=== PATIENT | female | born 1960 | race Two or more races ===

== ENCOUNTER 2020-03-25 10:10 | Outpatient (REF) | payer OTHER, SELFPAY | END 2020-03-25 10:11 | disposition home or self-care (01) | LOC: HO.LAB 10:10 | PROVIDERS: PCP Nurse Practitioner Family; Visit Provider Internal Medicine | DX: Z20.828 Contact with and (suspected) exposure to other viral communicable diseases (principal) | CPT/HCPCS: 87635 ==

== ENCOUNTER 2020-04-01 08:50 | Emergency (ER) | payer OTHER, SELFPAY ==
[2020-04-01 08:55] VITALS: BP 138/83; BP 150/00; PULSE 102; PULSE 117; RESP 18; TEMP 37.2; O2SAT 96; O2SAT 97; BMI 29.5
--- NOTE | 2020-04-01 08:57 | ED_ITS ---
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 patient with no cardiac history Onset (ago): hour(s) Timing of current episode: episodic Onset: awoke with symptoms Pain location: left chest Related Data Allergies Allergy/AdvReac Type Severity Reaction Status Date / Time No Known Allergies Allergy Mild N/A Verified 04/01/20 09:04 Review of Systems Constitutional: Constitutional: Reports no additional constitutional complaints Eyes: Eyes: Reports no additional eye complaints ENT: Denies dizziness Cardiovascular: Cardiovascular: Reports no additional cardiovascular complaints Respiratory: Respiratory: Reports as per HPI Gastrointestinal: Gastrointestinal: Reports no additional gastrointestinal complaints Genitourinary: Genitourinary: Reports no additional female genitourinary complaints Musculoskeletal: Musculoskeletal: Reports no additional musculoskeletal complaints Integumentary/Breasts: Skin/Breast: Denies rash Neurologic: Reports system reviewed and no additional complaints, except as documented, Denies dizziness and Denies Sensory deficit (Neuro) Psychiatric: Psychiatric: Denies anxiety [facility] Past Medical History Medical History (Updated 04/01/20 @ 11:08 by Mario Marie MD) Arthritis Diabetes 1.5, managed as type 2 HTN (hypertension) Social History Social History Advance Directives: No Advance Directives Information Provided: No Physical Exam Vital Signs: Vital Signs: Vital Signs Temp Pulse Resp BP Pulse Ox 04/01/20 10:14 86 13 138/82 97 04/01/20 08:55 98.9 F 102 H 18 138/83 96 Body Mass Index 29.5 Const: General: healthy appearing Nutritional Appearance: average body habitus Orientation/consciousness: oriented to person and patient oriented x3 Limitations: no limitations HENMT: Head: Yes normal to inspection Ears: external ears normal General nose exam: Normal external nose present Mouth: Normal oral and palatal mucosa present and oropharynx normal Throat: Yes posterior oropharynx normal Eyes: General: appearance normal, both eyes and all related structures Neck: Other: supple Neck: Yes normal visual inspection Chest: Chest palpation & inspection: normal inspection of the chest Resp: Auscultation: clear to auscultation bilaterally Cardio: Jugular venous distension: no JVD Rate: regular rate Rhythm: regular rhythm Heart sounds: S1 normal heart sound present and S2 normal heart sound present GI: Inspection: Yes normal to inspection Palpation (GI): Soft to palpation, nontender and No hepatosplenomegaly present Auscultation: normal bowel sounds : General: Yes no CVA tenderness Back/Spine/Pelvis: Back: no CVA tenderness Skin: General skin exam: no rashes or lesions noted Neuro: General: oriented to person and patient oriented x3 Cranial nerves: Yes CN's II-XII intact bilaterally Motor exam (neuro): 5/5 motor strength present throughout Sensory Exam: No Sensory deficit (Neuro) Extrem: General: Yes normal to inspection Psych: Appearance: grossly normal Course Course Course Narrative: no active pain resting comfortably MDM - Chest Pain MDM Narrative Medical decision making narrative: patient is not hypoxic, no infiltrate on xray, EKG and troponin is non ischemic Medical Records Data Attestation: I reviewed the patient's medical records. Lab Data Result diagrams: 04/01/20 09:13 04/01/20 09:13 Labs: Lab Results 04/01/20 04/01/20 04/01/20 Range/Units 09:13 09:13 09:13 WBC 8.0 (4.8-10.8) X10*3/uL RBC 4.74 (4.20-5.50) X10*6/uL Hgb 12.8 (12.0-16.0) g/dl Hct 39.8 (37-47) % MCV 84.0 (80-98) fL MCH 27.0 (27.0-33.0) pg MCHC 32.2 (31.0-35.0) g/dl RDW 13.8 (11.0-16.0) % Plt Count 172 (160-400) X10*3/uL MPV 11.1 (9.4-12.3) fL Immature Gran % (Auto) 1.0 H (0.0-0.4) % Neut % (Auto) 65.5 (45-73) % Lymph % (Auto) 28.5 (20-40) % [place] % (Auto) 4.6 (2-11) % Eos % (Auto) 0.1 (0-4) % Baso % (Auto) 0.3 (0-2) % Lymph # (Auto) 2.3 (1.2-4.9) X10*3/uL [place] # (Auto) 0.4 (0.1-1.2) X10*3/uL Eos # (Auto) 0.0 (0.0-0.4) X10*3/uL Baso # (Auto) 0.0 (0.0-0.2) X10*3/uL Abs Immat Gran (auto) 0.08 H (0.00-0.03) X10*3/uL Absolute Neuts (auto) 5.2 (2.0-8.3) X10*3/uL Absolute Nucleated RBC 0.000 (0.0-0.012) X10*3/uL Nucleated RBC % (auto) 0.0 (0.0-0.2) /100WBC Sodium 139 (135-145) mmol/L Potassium 3.5 (3.3-5.1) mmol/l Chloride 103 (96-108) mmol/L Carbon Dioxide 24 (22-29) mmol/L Anion Gap 16 (12-20) BUN 12 (9-16) mg/dL Creatinine 0.66 (0.5-1.4) mg/dL Estim Creat Clear Calc 87.2 Estimated GFR > 60 Random Glucose 198 H (60-115) mg/dL Calcium 8.5 (8.4-10.2) mg/dL Troponin I High Sens 5.3 (<3.5-17.0) ng/L ECG Data ECG #1: Attestation: I personally reviewed and interpreted this ECG as follows: Pacemaker model: sinus rate of 90, no st or twave changes no ischemia Discharge Plan Discharge Clinical Impression: Upper respiratory infection, 2019 novel coronavirus detected Patient Disposition: Home, Self-Care Instructions: COVID-19 (Coronavirus Disease 2019) (ED) Referrals: Dena Bellamy NP [Primary Care Provider] - 2 days
--- NOTE | 2020-04-01 09:01 | XR_ITS ---
EXAMINATION: XR CHEST CLINICAL INFORMATION: ] Positive it shows COMPARISON: None TECHNIQUE: Frontal view of the chest was obtained. FINDINGS: No significant abnormality is noted involving the heart, lungs, mediastinum, bony thorax or soft tissues. XR/XR chest 1V IMPRESSION: Unremarkable chest examination.
[2020-04-01 09:22] LABS: MANUAL DIFF FLAG NO
[2020-04-01 09:24] LABS: Basophils Percent Auto 0.3 % (0-2); Eosinophils Percent Auto 0.1 % (0-4); Hematocrit 39.8 % (37-47); Hemoglobin 12.8 g/dl (12.0-16.0); Imm Gran Abs Auto 0.08 X10*3/uL (0.00-0.03); Lymphocytes Absolute Auto 2.3 X10*3/uL (1.2-4.9); Lymphocytes Percent Auto 28.5 % (20-40); Mean Corpuscular HGB Conc 32.2 g/dl (31.0-35.0); Mean Platelet Volume 11.1 fL (9.4-12.3); Monocytes Absolute Auto 0.4 X10*3/uL (0.1-1.2); Monocytes Percent Auto 4.6 % (2-11); Neutrophils Absolute Auto 5.2 X10*3/uL (2.0-8.3); Neutrophils Percent Auto 65.5 % (45-73); Platelet Count 172 X10*3/uL (160-400); Red Blood Count 4.74 X10*6/uL (4.20-5.50); Red Cell Distribution Width 13.8 % (11.0-16.0)
[2020-04-01 09:51] LABS: Anion Gap 16 (12-20); Blood Urea Nitrogen 12 mg/dL (9-16); Calcium 8.5 mg/dL (8.4-10.2); Carbon Dioxide 24 mmol/L (22-29); Chloride 103 mmol/L (96-108); Creatinine Clr Calc Pharmacy 87.2; Estimated Glomerular Filt Rate > 60; Glucose Random 198 mg/dL (60-115); Potassium 3.5 mmol/l (3.3-5.1); Sodium 139 mmol/L (135-145)
[2020-04-01 09:57] LABS: Troponin-I High Sensitivity 5.3 ng/L (<3.5-17.0)
--- NOTE | 2020-04-01 09:57 | ECG_ITS ---
Test Reason : CHEST PAIN Blood Pressure : / mmHG Vent. Rate : 094 BPM Atrial Rate : 094 BPM P-R Int : 142 ms QRS Dur : 088 ms QT Int : 366 ms P-R-T Axes : 039 013 056 degrees QTc Int : 457 ms Normal sinus rhythm Nonspecific ST abnormality Abnormal ECG Heart rate has increased Referred By: Mario Marie Electronically Signed By:ELIE BERG MD
[2020-04-01 10:14] VITALS: BP 138/82; PULSE 86; RESP 13; O2SAT 97
[2020-04-01 11:18] VITALS: BP 134/82; PULSE 84; RESP 16; O2SAT 97
== END 2020-04-01 11:15 | disposition home or self-care (01) ==
PROVIDERS: Emergency Provider Emergency Medicine; PCP Nurse Practitioner Family
DX: U07.1 COVID-19 (principal); R07.9 Chest pain, unspecified; J06.9 Acute upper respiratory infection, unspecified; I10 Essential (primary) hypertension; Z79.899 Other long term (current) drug therapy
CPT/HCPCS: 36415; 71045; 80048; 84484; 85025; 93005; 99283; 99284

== ENCOUNTER 2020-05-20 13:24 | Outpatient (REF) | payer OTHER, SELFPAY | END 2020-05-20 13:25 | disposition home or self-care (01) | LOC: HO.LAB 13:24 | PROVIDERS: PCP Nurse Practitioner Family; Visit Provider Internal Medicine | DX: Z20.828 Contact with and (suspected) exposure to other viral communicable diseases (principal) | CPT/HCPCS: C9803; U0003 ==

== ENCOUNTER 2020-06-05 12:36 | Outpatient (REF) | payer OTHER, SELFPAY ==
--- NOTE | 2020-06-05 12:43 | MM_ITS ---
EXAMINATION: MM SCREENING DIGITAL BREAST TOMOSYNTHESIS, BILATERAL CLINICAL INFORMATION: Screening. Asymptomatic. The lifetime risk of breast cancer based on the Tyrer-Cuzick Model is 5.2%. COMPARISON: Mammography: May 11, 2019 and studies dating back to September 12, 2011 TECHNIQUE: Digital breast tomosynthesis is performed in both the craniocaudal and mediolateral oblique views along with computer-aided detection (CAD). Synthesized 2D images are generated from the tomosynthesis. FINDINGS: There are scattered areas of fibroglandular density (ACR BI-RADS breast composition Category b). There are no new significant masses, abnormal calcifications, or other abnormalities. There are again noted to be 2 circumscribed lesions within the lateral aspect of the right breast. MM/MM tomosynthesis screening BI IMPRESSION: There are no significant changes from prior study. ASSESSMENT: BI-RADS 2: Benign RECOMMENDATION: Routine annual mammography screening. This patient's information was entered into a reminder system with a target due date for their next mammogram.
== END 2020-06-05 12:37 | disposition home or self-care (01) ==
LOC: HO.MAMMO 12:36
PROVIDERS: Visit Provider Nurse Practitioner Family
DX: Z12.31 Encounter for screening mammogram for malignant neoplasm of breast (principal)
CPT/HCPCS: 77063; 77067

== ENCOUNTER 2021-02-18 09:08 | Outpatient (REF) | payer OTHER, SELFPAY | END 2021-02-18 09:09 | disposition home or self-care (01) | LOC: HO.HOSX 09:08 | PROVIDERS: Visit Provider Physician Assistant | DX: Z13.89 Encounter for screening for other disorder (principal) ==

== ENCOUNTER 2021-02-24 10:39 | Emergency (ER) | payer OTHER, SELFPAY ==
--- NOTE | ~2021-02-24 | XR_ITS ---
EXAMINATION: XR CHEST CLINICAL INFORMATION: Chest pain and cough COMPARISON: None TECHNIQUE: Frontal view of the chest was obtained. FINDINGS: No significant abnormality is noted involving the heart, lungs, mediastinum, bony thorax or soft tissues. XR/XR chest 1V IMPRESSION: Unremarkable chest examination.
--- NOTE | ~2021-02-24 | CT_ITS ---
EXAMINATION: CT ANGIOGRAM OF THE CHEST WITH AND WITHOUT CONTRAST (CT PULMONARY ANGIOGRAM FOR PE) CLINICAL INFORMATION: Reason for Exam chest pain elevated ddimer r/o PE COMPARISON: None TECHNIQUE: Prior to contrast administration, noncontrast localization images were obtained. Subsequently, multidetector volumetric imaging was performed from the thoracic inlet to below the diaphragms following the administration of 80 mL Omnipaque 350 intravenous contrast. No contrast reaction reported Sagittal, coronal, and MIP oblique sagittal reformatted images were obtained on the CT workstation, uploaded to PACS, and reviewed. This CT examination was performed using dose optimization techniques as appropriate, variously including the following: *Automated exposure control *Adjustment of mA and/or kV according to patient size (this includes techniques or standardized protocols for targeted exams where dose is matched to indication/reason for exam; i.e. extremities or head) *Use of iterative reconstruction technique Total exam dose-length product 205 mGy-cm FINDINGS: QUALITY OF STUDY/CONTRAST BOLUS: Satisfactory. PULMONARY ARTERIES: No central or segmental pulmonary emboli. THORACIC AORTA: No aneurysm or dissection. LUNG: The lungs are well-expanded and clear of acute process. There is a calcified 3 mL nodule left upper lobe axial image 15/6. No additional lung nodules seen. PLEURA: No pleural effusion or pneumothorax. MEDIASTINUM: Normal heart size. No pericardial effusion. No hilar or mediastinal lymphadenopathy. No evidence of septal bowing or right heart strain. CHEST WALL/AXILLA: No axillary or internal mammary lymphadenopathy. OSSEOUS STRUCTURES: No lytic or sclerotic process seen. There is mild ventral spondylosis dorsal spine. UPPER ABDOMEN: The liver is diffusely attenuated without focal lesion. Spleen, pancreas and adrenal glands are unremarkable. No reflux of contrast into the hepatic veins to suggest elevated right heart pressures. CT/CT angio chest PE protocol IMPRESSION: No evidence of PE. No evidence aortic dissection or aneurysm. Diffuse hepatic steatosis without focal lesion. VTE: Negative.
[2021-02-24 11:27] VITALS: BP 150/86; PULSE 72; RESP 18; TEMP 36; O2SAT 96; BMI 29.5
--- NOTE | 2021-02-24 13:23 | ED_ITS ---
HPI - General Adult General Chief complaint: General Medical Stated complaint: cough headache Time Seen by Provider: 02/24/21 13:18 Source: patient Mode of arrival: ambulatory Limitations: language barrier (English-speaking) History of Present Illness HPI narrative: 61-year-old female with no known past medical history presents to the emergency department with concerns of a dry cough X1 week, headache & left sided chest pain since this AM. She states the headache is bilateral, localized to the front of her head. She denies any changes in vision, dizziness. She states that her chest pain is localized to the left side, for radiation 5/10 , stabbing and constant in nature . She is not a smoker, she has gotten her COVID vaccines. She denies fevers, chills, shortness of breath, abdominal pain, changes in bowel habits, recent sick contacts, travel. Onset (ago): day(s) (2) Location: chest and left Radiation: non-radiation Severity: moderate Severity scale (1-10): 5 Quality: stabbing Pain Consistency: constant Relieving factors: none Exacerbating factors: none Associated symptoms: chest pain, cough and headaches (Frontal, band like) Treatments prior to arrival: none Related Data Previous Rx's Medication Instructions Recorded isosorbide mononitrate 30 mg 30 mg PO DAILY 90 Days #90 tab 06/11/20 tablet,extended release 24 hr acetaminophen 325 mg tablet 325 mg PO Q6H PRN #14 tab 02/24/21 (Tylenol) benzonatate 100 mg capsule 100 mg PO BID PRN #30 cap 02/24/21 (Tessalon Perles) Allergies Allergy/AdvReac Type Severity Reaction Status Date / Time No Known Allergies Allergy Mild N/A Verified 04/01/20 09:04 Review of Systems Review of Systems: Constitutional : No Fever, No Chills ENT/Mouth : positive oral swelling, No Hoarseness, No Swallowing Difficulty Eyes: No Eye Pain, No Swelling, No Redness Cardiovascular : + Chest Pain, No SOB Respiratory : + Cough, No Sputum, No Wheezing, No Smoke Exposure, No Dyspnea Gastrointestinal : No Nausea, No Vomiting, No Diarrhea, No abdominal Pain Genitourinary : No Dysuria, No Urinary Frequency Musculoskeletal : No joint pain, No Myalgias, No Joint Swelling Skin : No Skin Lesions, positive rash Neuro : No Weakness, No Numbness, + Headache All other systems reviewed and are negative [facility] Past Medical History Medical History (Updated 02/24/21 @ 15:47 by Dinora Harris DO) Arthritis Diabetes 1.5, managed as type 2 HTN (hypertension) Social History Social History Advance Directives: No Advance Directives Information Provided: No Physical Exam Vital Signs: Vital Signs: Last Vital Signs Temp 96.8 F 02/24/21 11: Pulse 72 02/24/21 11: Resp 18 02/24/21 11:27 BP 150/86 H 02/24/21 11:27 Pulse Ox 96 02/24/21 11:27 Body Mass Index 29.5 Appearance: Alert. Oriented X3. No acute distress. Eyes: Pupils equal, round and reactive to light. ENT: Pharynx normal. Neck: Normal inspection. Neck supple. CVS: Normal heart rate and rhythm. Pulses normal. Respiratory: No respiratory distress. Breath sounds normal. Abdomen: Soft and nontender. Skin: Skin warm and dry. Normal skin color. Normal skin turgor. Extremities: No lower extremity edema. No calf ttp Neuro: Oriented X 3. No motor deficit. No sensory deficit. Course Course Course Narrative: D-dimer is positive CTA will be ordered to r/o PE. Reevaluation(s) Reevaluation #1: CTA shows no sign of PE, normal EKG, labs show no signs of acute infection. She is saturating 96% on RA in no acute distress. Likely viral bronchitis patient safe for discharge home, she can take Tylenol for headaches, Tessalon Perles for the cough. Medical Decision Making [facility] Narrative Medical decision making narrative: This is a 61-year-old female with no known past medical history she reports a dry cough x1 week, and left sided chest pain and a bilateral bandlike headache. On physical examination she was noted to have a rapid rate normal rhythm. Likely sinus tachycardia however, patient appeared nervous. EKG showed sinus chun Based off the patient's symptoms, and physical exam findings will rule out cardiac etiology Plan- EKG, CXR, COVID, BMP,liver, CBC, Mag, Trop , d dimer Lab Data Result diagrams: 02/24/21 13:47 02/24/21 13:47 Labs: Lab Results 02/24/21 02/24/21 02/24/21 Range/Units 13:47 13:47 13:47 WBC 10.9 H (4.8-10.8) X10*3/uL RBC 4.86 (4.20-5.50) X10*6/uL Hgb 13.2 (12.0-16.0) g/dl Hct 40.6 (37-47) % MCV 83.5 (80-98) fL MCH 27.2 (27.0-33.0) pg MCHC 32.5 (31.0-35.0) g/dl RDW 14.0 (11.0-16.0) % Plt Count 210 (160-400) X10*3/uL MPV 11.1 (9.4-12.3) fL Immature Gran % (Auto) 1.0 H (0.0-0.4) % Neut % (Auto) 72.9 (45-73) % Lymph % (Auto) 20.7 (20-40) % [place] % (Auto) 4.6 (2-11) % Eos % (Auto) 0.5 (0-4) % Baso % (Auto) 0.3 (0-2) % Lymph # (Auto) 2.3 (1.2-4.9) X10*3/uL [place] # (Auto) 0.5 (0.1-1.2) X10*3/uL Eos # (Auto) 0.1 (0.0-0.4) X10*3/uL Baso # (Auto) 0.0 (0.0-0.2) X10*3/uL Abs Immat Gran (auto) 0.11 H (0.00-0.03) X10*3/uL Absolute Neuts (auto) 8.0 (2.0-8.3) X10*3/uL Absolute Nucleated RBC 0.000 (0.0-0.012) X10*3/uL Nucleated RBC % (auto) 0.0 (0.0-0.2) /100WBC D-Dimer NG/ML Sodium 138 (135-145) mmol/L Potassium 4.0 (3.3-5.1) mmol/L Chloride 104 (96-108) mmol/L Carbon Dioxide 23 (22-29) mmol/L Anion Gap 15 (12-20) BUN 13 (9-16) mg/dL Creatinine 0.68 (0.5-1.4) mg/dL Estim Creat Clear Calc 83.6 Estimated GFR > 60 Random Glucose 141 H (60-115) mg/dL Calcium 9.2 D (8.4-10.2) mg/dL Magnesium 2.1 (1.6-2.6) mg/dL Total Bilirubin 0.6 (0.0-1.0) mg/dL Direct Bilirubin 0.2 (0.0-0.5) mg/dL AST 18 (5-31) U/L ALT 20 (0-31) U/L Alkaline Phosphatase 129 H (39-117) U/L Troponin I High Sens (<3.5-17.0) ng/L Total Protein 7.3 (6.5-8.0) g/dL Albumin 4.4 (3.5-5.0) g/dL COVID-19 (GRACIE) Negative (Negative) COVID-19 Clin Com See Note 02/24/21 02/24/21 Range/Units 13:47 13:47 WBC (4.8-10.8) X10*3/uL RBC (4.20-5.50) X10*6/uL Hgb (12.0-16.0) g/dl Hct (37-47) % MCV (80-98) fL MCH (27.0-33.0) pg MCHC (31.0-35.0) g/dl RDW (11.0-16.0) % Plt Count (160-400) X10*3/uL MPV (9.4-12.3) fL Immature Gran % (Auto) (0.0-0.4) % Neut % (Auto) (45-73) % Lymph % (Auto) (20-40) % [place] % (Auto) (2-11) % Eos % (Auto) (0-4) % Baso % (Auto) (0-2) % Lymph # (Auto) (1.2-4.9) X10*3/uL [place] # (Auto) (0.1-1.2) X10*3/uL Eos # (Auto) (0.0-0.4) X10*3/uL Baso # (Auto) (0.0-0.2) X10*3/uL Abs Immat Gran (auto) (0.00-0.03) X10*3/uL Absolute Neuts (auto) (2.0-8.3) X10*3/uL Absolute Nucleated RBC (0.0-0.012) X10*3/uL Nucleated RBC % (auto) (0.0-0.2) /100WBC D-Dimer 367 NG/ML Sodium (135-145) mmol/L Potassium (3.3-5.1) mmol/L Chloride (96-108) mmol/L Carbon Dioxide (22-29) mmol/L Anion Gap (12-20) BUN (9-16) mg/dL Creatinine (0.5-1.4) mg/dL Estim Creat Clear Calc Estimated GFR Random Glucose (60-115) mg/dL Calcium (8.4-10.2) mg/dL Magnesium (1.6-2.6) mg/dL Total Bilirubin (0.0-1.0) mg/dL Direct Bilirubin (0.0-0.5) mg/dL AST (5-31) U/L ALT (0-31) U/L Alkaline Phosphatase (39-117) U/L Troponin I High Sens 5.5 (<3.5-17.0) ng/L Total Protein (6.5-8.0) g/dL Albumin (3.5-5.0) g/dL COVID-19 (GRACIE) (Negative) COVID-19 Clin Com ECG Data Attestation: I personally reviewed and interpreted this ECG as follows: Prior ECG tracings: not available for review Interpretation: Rate: 57 Rhythm: Sinus bradycardia [place]: Normal access Normal P waves. Normal MELISSA. Normal QRS complex. ST T wave : No ST elevations, or T-wave inversions qTC: Normal prior studies: No previous studies to compare The study has been interpreted contemporaneously by me. . Discharge Plan Discharge Clinical Impression: Cough, Headache Patient Disposition: Home, Self-Care Instructions: Acute Headache (ED), Acute Cough (ED) Additional Instructions: Follow-up with your primary care provider Drink plenty of fluids Tylenol was prescribed for your headache, take it as needed Return to the emergency department with new or worsening symptoms Prescriptions: New benzonatate [Tessalon Perles] 100 mg capsule 100 mg PO BID PRN (Reason: cough) Qty: 30 RF: 0 acetaminophen [Tylenol] 325 mg tablet 325 mg PO Q6H PRN (Reason: hedache ) Qty: 14 RF: 0 No Action isosorbide mononitrate 30 mg tablet extended release 24 hr 30 mg PO DAILY 90 Days Qty: 90 RF: 1 Referrals: Crystal Atkinson [Primary Care Provider] - 2 days
--- NOTE | 2021-02-24 13:25 | ECG_ITS ---
Test Reason : CHEST PAIN Blood Pressure : / mmHG Vent. Rate : 057 BPM Atrial Rate : 057 BPM P-R Int : 150 ms QRS Dur : 078 ms QT Int : 446 ms P-R-T Axes : 040 016 052 degrees QTc Int : 434 ms Sinus bradycardia Otherwise normal ECG When compared with ECG of 01-APR-2020 09:57, Vent. rate has decreased BY 37 BPM Referred By: Dinora Harris Electronically Signed By:GRANT ALBERT
[2021-02-24 13:52] LABS: MANUAL DIFF FLAG NO
[2021-02-24 13:55] LABS: Basophils Percent Auto 0.3 % (0-2); Eosinophils Absolute Auto 0.1 X10*3/uL (0.0-0.4); Eosinophils Percent Auto 0.5 % (0-4); Hematocrit 40.6 % (37-47); Hemoglobin 13.2 g/dl (12.0-16.0); Imm Gran Abs Auto 0.11 X10*3/uL (0.00-0.03); Lymphocytes Absolute Auto 2.3 X10*3/uL (1.2-4.9); Lymphocytes Percent Auto 20.7 % (20-40); Mean Corpuscular HGB Conc 32.5 g/dl (31.0-35.0); Mean Corpuscular Hemoglobin 27.2 pg (27.0-33.0); Mean Corpuscular Volume 83.5 fL (80-98); Mean Platelet Volume 11.1 fL (9.4-12.3); Monocytes Absolute Auto 0.5 X10*3/uL (0.1-1.2); Monocytes Percent Auto 4.6 % (2-11); Neutrophils Percent Auto 72.9 % (45-73); Platelet Count 210 X10*3/uL (160-400); Red Blood Count 4.86 X10*6/uL (4.20-5.50); White Blood Count 10.9 X10*3/uL (4.8-10.8)
[2021-02-24 14:11] LABS: COVID-19 Test Negative (Negative)
[2021-02-24 14:14] LABS: D Dimer 367 NG/ML
[2021-02-24 14:15] LABS: Alanine Aminotransferase 20 U/L (0-31); Albumin Level 4.4 g/dL (3.5-5.0); Alkaline Phosphatase 129 U/L (39-117); Anion Gap 15 (12-20); Aspartate Amino Transferase 18 U/L (5-31); Bilirubin Direct 0.2 mg/dL (0.0-0.5); Bilirubin Total 0.6 mg/dL (0.0-1.0); Blood Urea Nitrogen 13 mg/dL (9-16); Calcium 9.2 mg/dL (8.4-10.2); Carbon Dioxide 23 mmol/L (22-29); Chloride 104 mmol/L (96-108); Creatinine Clr Calc Pharmacy 83.6; Estimated Glomerular Filt Rate > 60; Glucose Random 141 mg/dL (60-115); Magnesium 2.1 mg/dL (1.6-2.6); Sodium 138 mmol/L (135-145); Total Protein 7.3 g/dL (6.5-8.0)
[2021-02-24 14:20] LABS: Troponin-I High Sensitivity 5.5 ng/L (<3.5-17.0)
[2021-02-24] MEDS: iohexoL 350 MG/ML 100 ML INFUS..BTL IV (15:32)
== END 2021-02-24 17:38 | disposition home or self-care (01) ==
PROVIDERS: Emergency Provider Emergency Medicine; PCP Nurse Practitioner
DX: R05 Cough (principal); R51.9 Headache, unspecified; R07.9 Chest pain, unspecified; Z20.822 Contact with and (suspected) exposure to COVID-19; Z79.899 Other long term (current) drug therapy
CPT/HCPCS: 36415; 71045; 71275; 80048; 80076; 83735; 84484; 85025; 85379; 87635; 93005; 99284; Q9967

== ENCOUNTER 2021-02-28 07:09 | Outpatient (REF) | payer OTHER, SELFPAY ==
--- NOTE | ~2021-02-28 | XR_ITS ---
EXAMINATION: XR BOTH KNEES AP STANDING XR LEFT KNEE, 2 VIEWS CLINICAL INFORMATION: Pain. COMPARISON: Knee radiographs dated 07/11/2018. TECHNIQUE: Standing AP view of both knees and lateral and sunrise views of the left knee. FINDINGS: Right Knee: Mild medial compartment joint space narrowing. Tiny medial and lateral compartment marginal osteophytes. No osseous erosion. No fracture or dislocation. Left Knee: Deot-ad-uhjlbkfy medial compartment joint space narrowing. Tricompartmental marginal osteophytes. No acute fracture or dislocation. Small joint effusion. Redemonstration of posterior calcified loose bodies, increased in size and number when compared to the prior examination. The largest now measures up to 1.4 cm. XR/XR knee LT 2V IMPRESSION: Jedx-kc-cxnwlrsp medial and patellofemoral as well as mild lateral compartment osteoarthritis. Small joint effusion. Multiple posterior calcified loose bodies. Findings have progressed when compared to the prior examination.
--- NOTE | ~2021-02-28 | XR_ITS ---
EXAMINATION: XR BOTH KNEES AP STANDING XR LEFT KNEE, 2 VIEWS CLINICAL INFORMATION: Pain. COMPARISON: Knee radiographs dated 07/11/2018. TECHNIQUE: Standing AP view of both knees and lateral and sunrise views of the left knee. FINDINGS: Right Knee: Mild medial compartment joint space narrowing. Tiny medial and lateral compartment marginal osteophytes. No osseous erosion. No fracture or dislocation. Left Knee: Fywx-hf-rsjfleqg medial compartment joint space narrowing. Tricompartmental marginal osteophytes. No acute fracture or dislocation. Small joint effusion. Redemonstration of posterior calcified loose bodies, increased in size and number when compared to the prior examination. The largest now measures up to 1.4 cm. XR/XR knee standing BI IMPRESSION: Kdiz-zs-nhxnigyl medial and patellofemoral as well as mild lateral compartment osteoarthritis. Small joint effusion. Multiple posterior calcified loose bodies. Findings have progressed when compared to the prior examination.
== END 2021-02-28 07:10 | disposition home or self-care (01) ==
LOC: HO.HOSX 07:09
PROVIDERS: Visit Provider Physician Assistant
DX: M17.12 Unilateral primary osteoarthritis, left knee (principal)
CPT/HCPCS: 20610; 73560; 73565; 99212; J1040

== ENCOUNTER 2021-04-05 10:39 | Emergency (ER) | payer OTHER, SELFPAY ==
--- NOTE | ~2021-04-05 | XR_ITS ---
EXAMINATION: XR CHEST CLINICAL INFORMATION: Cough. COMPARISON: 02/24/2021 and 12/07/2018 chest radiographs. TECHNIQUE: 2 views of the chest were obtained. FINDINGS: The lungs are clear. A small granuloma laterally in the left upper lobe is unchanged. No pleural effusions. The heart and mediastinal structures are unremarkable. XR/XR chest 2V IMPRESSION: Stable chest. No acute cardiopulmonary process.
[2021-04-05 11:24] VITALS: BP 129/79; PULSE 84; RESP 19; TEMP 36.1; O2SAT 99; BMI 28.7
[2021-04-05] MEDS: Ondansetron ODT 4 MG TAB.RAPDIS TRANSLINGU (12:07)
--- NOTE | 2021-04-05 12:26 | ED_ITS ---
Review of Systems Review of Systems: Constitutional : No Weight loss, No Fever, No Chills, No Night Sweats, No Fatigue, No Malaise ENT/Mouth : Positive resolved sore throat, No Hearing loss, No Ear Pain, No Nasal Congestion, No Sinus Pain, No Hoarseness, No Rhinorrhea, No Swallowing Difficulty Eyes: No Eye Pain, No Swelling, No Redness, No Foreign Body, No Discharge, No Vision Changes Cardiovascular : No Chest Pain, No SOB, No Dyspnea on Exertion, No Orthopnea, No Edema, No Palpitations Respiratory : Positive cough that has resolved due to chemical exposure with RAID spray, No Sputum, No Wheezing, No Smoke Exposure, No Dyspnea Gastrointestinal : No Nausea, No Vomiting, No Diarrhea, No Constipation, No abdominal Pain, No Hematochezia, No Melena Genitourinary : no irregular bleeding, No Dysuria, No Urinary Frequency, No Hematuria, No Urinary Incontinence, No Urgency, No Flank Pain, No Urinary Flow Changes, No Hesitancy Musculoskeletal : No joint pain, No Myalgias, No Joint Swelling Skin : No Skin Lesions, No rash Neuro : No Weakness, No Numbness, No Paresthesias, No Loss of Consciousness, No Dizziness, No Headache Psych : No Anxiety/Panic, No Depression, No SI/HI/AH/VH, No Social Issues, Heme/Lymph: No Bruising, No Bleeding,No Lymphadenopathy Endocrine : No Polyuria, No Polydipsia, No Temperature Intolerance Yes all other systems are reviewed and are negative [facility] Past Medical History Attestation statement: The following information was validated with the patient. Medical History Arthritis Diabetes 1.5, managed as type 2 HTN (hypertension) Social History Social History Advance Directives: No Patient : No Current occupational status: disabled Current occupation: rt handed Physical Exam Vital Signs: Vital Signs: Last Vital Signs Temp 97 F 04/05/21 11:24 Pulse 84 04/05/21 11:24 Resp 19 04/05/21 11:24 BP 129/79 04/05/21 11:24 Pulse Ox 99 04/05/21 11:24 Body Mass Index 28.7 vital signs have been reviewed as normal and appeared to be correct. Blood pressure normal. Heart rate normal. Respiration rate normal. Temperature normal. Oxygen saturation normal. Appearance: Alert. Oriented X3. No acute distress. Head: Normal external exam. Normocephalic. Atraumatic. Eyes: PERRLA. EOMI. Conjunctiva and sclera normal. Eyelids normal. ENT: Pharynx normal. Uvula midline. Moist mucous membranes. No trismus noted. No drooling noted. No muffled voice noted. Tolerating secretions well. No stridor is noted. Neck: Normal inspection. Neck supple. FROM. No adenopathy. Thyroid Normal. No meningeal signs. No neck mass noted. CVS: Normal heart rate and rhythm. Heart sound normal. Pulses normal throughout. No murmurs/rales/gallops. Respiratory: No respiratory distress. Painless inspiration. Breath sounds normal. No wheezes/rales/rhonchi noted. Chest nontender. No accessory muscle usage noted or decreased air movement noted. Back: Full range of motion noted. No rashes/lesion/induration/fluctuance or signs of infection noted. Skin: Skin warm and dry. Normal skin color. Normal skin turgor. No rashes/lesions/lacerations noted. Extremities: Extremities exhibit normal range of motion. Extremities nontender. Neuro: Oriented X 3. No motor deficit. No sensory deficit. Reflexes normal. Normal steady gait. No focal neuro deficits noted. Vascular: + radial pulses/+ 2 distal pedal pulses/+2 dorsalis pedis b/l. Normal cap refill. No cyanosis noted to upper extremity nails and lower extremity toes nails. Course Course Course Narrative: 61-year-old female presenting to the ED after she had a brief exposure with RAID that she accidentally inhaled while she was trying to clean at home. She reports that she developed a sore throat and a cough that has already resolved. She reports that the only symptom she has now is the taste of the RAID in her throat. Otherwise she denies any other symptoms complaints or concerns or injuries at this time. Patient is alert and oriented x3. No acute distress. Tolerating secretions well. No erythema to posterior pharynx or foreign bodies. No trismus/drooling. No stridor noted. No muffled voice. Lungs showed auscultation. Vital signs are stable within normal limits her oxygen saturation 99% on room air. Plan: Therefore will give her some suleiman jim in pudding and obtain a chest x- ray if chest x-ray negative will DC home with instructions return if any new or worsening symptoms to follow up with primary care provider. Patient understands agrees with this plan. MDM - Burn/Smoke Inhalation Medical Records Attestation: I reviewed the patient's medical records. Lab Data Attestation: I reviewed the patient's lab results. Imaging Data Chest x-ray: Attestation: I personally reviewed and interpreted this imaging study as follows: Radiologist's impression: FINDINGS: The lungs are clear. A small granuloma laterally in the left upper lobe is unchanged. No pleural effusions. The heart and mediastinal structures are unremarkable. XR/XR chest 2V IMPRESSION: Stable chest. No acute cardiopulmonary process. Discharge Plan Discharge Clinical Impression: Exposure to chemical inhalation Patient Disposition: Home, Self-Care Prescriptions: No Action isosorbide mononitrate 30 mg tablet extended release 24 hr 30 mg PO DAILY 90 Days Qty: 90 RF: 1 benzonatate [Tessalon Perles] 100 mg capsule 100 mg PO BID PRN (Reason: cough) Qty: 30 RF: 0 acetaminophen [Tylenol] 325 mg tablet 325 mg PO Q6H PRN (Reason: hedache ) Qty: 14 RF: 0 Referrals: Crystal Atkinson [Primary Care Provider] - 2 days Print Language: Malaysian HPI - Burn/Smoke Inhalation General Chief complaint: Upper Respiratory Symptoms Stated complaint: reaction to RAID insect spray Time Seen by Provider: 04/05/21 11:27 Source: patient Mode of arrival: ambulatory Limitations: no limitations History of Present Illness HPI Narrative: 61-year-old female presenting to the ED after she had a brief exposure with RAID that she accidentally inhaled while she was trying to clean at home. She reports that she developed a sore throat and a cough that has already resolved. She reports that the only symptom she has now is the taste of the RAID in her throat. Otherwise she denies any other symptoms complaints or concerns or injuries at this time. MD Complaint: chemical exposure Onset (ago): minute(s) (Prior to arrival) Type of Exposure: chemical (RAID to kill roaches) Smoke Inhalation: brief Place: home Location: mouth and chest Severity: mild Associated symptoms: cough and other (Sore throat) Related Data Previous Rx's Medication Instructions Recorded isosorbide mononitrate 30 mg 30 mg PO DAILY 90 Days #90 tab 06/11/20 tablet,extended release 24 hr acetaminophen 325 mg tablet 325 mg PO Q6H PRN #14 tab 02/24/21 (Tylenol) benzonatate 100 mg capsule 100 mg PO BID PRN #30 cap 02/24/21 (Tessalon Perles) Allergies Allergy/AdvReac Type Severity Reaction Status Date / Time No Known Allergies Allergy Mild N/A Verified 02/28/21 11:05
== END 2021-04-05 13:22 | disposition home or self-care (01) ==
PROVIDERS: Emergency Provider Emergency Medicine Emergency Medical Services; PCP Nurse Practitioner
DX: J02.9 Acute pharyngitis, unspecified (principal); R05.9 Cough, unspecified; Z57.5 Occupational exposure to toxic agents in other industries
CPT/HCPCS: 71046; 99283

== ENCOUNTER 2021-07-17 09:52 | Outpatient (REF) | payer OTHER, SELFPAY ==
--- NOTE | ~2021-07-17 | MM_ITS ---
EXAMINATION: MM SCREENING DIGITAL BREAST TOMOSYNTHESIS, BILATERAL CLINICAL INFORMATION: Screening. Asymptomatic. The lifetime risk of breast cancer based on the Tyrer-Cuzick Model is 3%. COMPARISON: Mammography: 06/05/2020, 05/11/2019, 05/04/2018 TECHNIQUE: Digital breast tomosynthesis is performed in both the craniocaudal and mediolateral oblique views along with computer-aided detection (CAD). Synthesized 2D images are generated from the tomosynthesis. FINDINGS: There are scattered areas of fibroglandular density (ACR BI-RADS breast composition Category b). There are no significant masses, abnormal calcifications, or other abnormalities. Parenchymal pattern is similar to prior studies. There is no developing density or architectural abnormality. The axilla and skin contours are unremarkable. No significant changes. MM/MM tomosynthesis screening BI IMPRESSION: No mammographic evidence of malignancy. ASSESSMENT: BI-RADS 1: Negative RECOMMENDATION: Routine annual mammography screening. This patient's information was entered into a reminder system with a target due date for their next mammogram.
== END 2021-07-17 09:53 | disposition home or self-care (01) ==
LOC: HO.MAMMO 09:52
PROVIDERS: PCP Nurse Practitioner; Visit Provider Nurse Practitioner
DX: Z12.31 Encounter for screening mammogram for malignant neoplasm of breast (principal)
CPT/HCPCS: 77063; 77067

== ENCOUNTER 2021-10-08 14:09 | Outpatient (REF) | payer OTHER, SELFPAY ==
--- NOTE | ~2021-10-08 | XR_ITS ---
EXAMINATION: XR KNEE, LEFT CLINICAL INFORMATION: Pain. COMPARISON: None TECHNIQUE: Four views of the left knee. FINDINGS: There is mild loss of medial and patellofemoral compartment joint space with periarticular spurring. There is mild anterior superior patellar enthesophytes. No loose body seen. The soft tissues are normal. XR/XR knee LT 4V IMPRESSION: Mild degenerative changes medial and patellofemoral compartment left knee with mild suprapatellar joint effusion.
== END 2021-10-08 14:10 | disposition home or self-care (01) ==
LOC: HO.XRAY 14:09
PROVIDERS: PCP Nurse Practitioner; Visit Provider Nurse Practitioner
DX: M25.562 Pain in left knee (principal)
CPT/HCPCS: 73564

== ENCOUNTER 2022-01-30 08:58 | Day surgery (SDC) | payer OTHER, SELFPAY ==
--- NOTE | 2022-01-29 13:43 | HO.ANESPROP2 ---
HPI - Anesthesia Eval Consult details Narrative: 62yo F for Colonoscopy PMFSH Active Problems Active Problems: All Active Problems (Updated 01/27/22 @ 14:10 by Eden Knox RN) Osteoarthritis of left knee (Acute) Past Medical History Medical History Arthritis Diabetes 1.5, managed as type 2 GERD (gastroesophageal reflux disease) HTN (hypertension) Hypercholesterolemia Surgical History Surgical History History of esophagogastroduodenoscopy (EGD) Hx of colonoscopy Hx of tubal ligation Social History Social History Patient Tobacco Use Status: Never used Tobacco Use of substances other than those prescribed or required for medical reasons: No Are you DNR?: No Advance Directives: No Advance Directives Information Provided: Yes Current occupational status: disabled Current occupation: rt handed Meds Allergies Allergy/AdvReac Type Severity Reaction Status Date / Time No Known Allergies Allergy Mild N/A Verified 01/27/22 14:10 Home Medications Medication Instructions Recorded Confirmed Last Taken Type ergocalciferol (vitamin D2) 1,250 1 cap PO QWEEK 01/27/22 01/27/22 Unknown History mcg (50,000 unit) capsule lidocaine 5 % topical ointment 1 appl topical TID 01/27/22 01/27/22 Unknown History metoprolol tartrate 50 mg tablet 50 tab PO BID 01/27/22 01/30/22 01/30/22 History pantoprazole 40 mg tablet,delayed 1 tab PO DAILY 01/27/22 01/27/22 Unknown History release Exam Exam Date and Time: January 29, 2022 1343 Assessment and Plan Assessment Anesthesia Assessment: Chart Reviewed
[2022-01-30 10:26] VITALS: BP 149/77; PULSE 60; RESP 16; TEMP 36.4; O2SAT 96
[2022-01-30] MEDS: Lactated Ringers 1,000 ML 100 ML IVCONT (10:34)
--- NOTE | 2022-01-30 10:37 | HO.ANESPROP2 ---
[facility] Active Problems Active Problems: All Active Problems (Updated 01/27/22 @ 14:10 by Eden Knox RN) Osteoarthritis of left knee (Acute) Past Medical History Medical History Arthritis Diabetes 1.5, managed as type 2 GERD (gastroesophageal reflux disease) HTN (hypertension) Hypercholesterolemia Family History Family history of problems with anesthesia: No Surgical History Surgical History History of esophagogastroduodenoscopy (EGD) Hx of colonoscopy Hx of tubal ligation History of Problems with Anesthesia: No Social History Social History Patient Tobacco Use Status: Never used Tobacco Use of substances other than those prescribed or required for medical reasons: No Are you DNR?: No Advance Directives: No Advance Directives Information Provided: Yes Current occupational status: disabled Current occupation: rt handed Meds Allergies Allergy/AdvReac Type Severity Reaction Status Date / Time No Known Allergies Allergy Mild N/A Verified 01/27/22 14:10 Active Medications: Current Medications Lactated Ringer's (Lr) 1,000 mls @ 100 mls/hr IVCONT .Q10H DANNI Last Admin: 01/30/22 10:34 Dose: 100 mls/hr Sodium Biphosphate/Sodium Phosphate (Sodium Phosphate,[place]-Dibasic 133 Ml Enema) 133 ml VT ONCE PRN PRN Reason: Poor Colonoscopy Prep Results Home Medications Medication Instructions Recorded Confirmed Last Taken Type ergocalciferol (vitamin D2) 1,250 1 cap PO QWEEK 01/27/22 01/27/22 Unknown History mcg (50,000 unit) capsule lidocaine 5 % topical ointment 1 appl topical TID 01/27/22 01/27/22 Unknown History metoprolol tartrate 50 mg tablet 50 tab PO BID 01/27/22 01/30/22 01/30/22 History pantoprazole 40 mg tablet,delayed 1 tab PO DAILY 01/27/22 01/27/22 Unknown History release Exam Exam Date and Time: January 30, 2022 1037 Height,Weight and Vital Signs: Height 5 ft 3 in Last Vital Signs Temp 97.5 F 01/30/22 10:26 Pulse 60 01/30/22 10:26 Resp 16 01/30/22 10:26 BP 149/77 H 01/30/22 10:26 Pulse Ox 96 01/30/22 10:26 O2 Del Method 01/30/22 10:26 Airway Mallampati Class: III TM Dist: >3cm Neck ROM: Full Assessment and Plan Assessment Anesthesia Assessment: Anesthesia Plan Discussed and Chart Reviewed Final Anesthetic Review Family History of Problems with Anesthesia: No History of Problems with Anesthesia: No NPO: Yes ASA Class: II Final Preanesthetic Review: No Changes in Pt Med Stat, Meds/Allgs Chart Reviewed, Consent Obtained/Reviewed and Anes Risks/Benef Reviewed Patient Risk: Low Procedure Risk: Low Anesthetic Plan Anesthetic Plan: MAC: Disposition: Standard PACU
[2022-01-30 11:27] VITALS: BMI 29.5
[2022-01-30 12:10] VITALS: BP 91/60; PULSE 61; RESP 16; TEMP 36.4; O2SAT 96
--- NOTE | 2022-01-30 12:11 | P.BOP_ITS ---
Brief Operative Note Date of Service: 01/30/22 Pre-op diagnosis: Screening Post-op diagnosis: other (Colon polyp) Procedure: Colonoscopy to the cecum and TI with hot snare polypectomy Surgeon: Richardson Mccoy Anesthesia: MAC Was an Clinical Pharmacy Specialist used for this Procedure?: No Estimated blood loss (mL): 2.0 Pathology: other (A. Transverse colon polyp) Condition: stable Disposition: PACU
[2022-01-30 12:25] VITALS: BP 95/56; PULSE 59; RESP 16; O2SAT 95
[2022-01-30 12:40] VITALS: BP 111/62; PULSE 56; RESP 16; TEMP 36.1; O2SAT 95
--- NOTE | 2022-01-31 | OP_ITS ---
SURGEON: Richardson Mccoy MD INDICATIONS: The patient presents for followup of colorectal cancer screening and personal history of tubular adenoma of the colon. Full consent has been obtained from her for this, including risks of bleeding and perforation. PREOPERATIVE DIAGNOSIS: POSTOPERATIVE DIAGNOSIS: PROCEDURE PERFORMED: ESTIMATED BLOOD LOSS: COMPLICATIONS: ANESTHESIA: ASSISTANTS: SPECIMENS: PROCEDURE: Colonoscopy to the cecum and terminal ileum with hot snare polypectomy. PREOPERATIVE DIAGNOSES: Colorectal cancer screening and personal history of tubular adenoma of the colon. POSTOPERATIVE DIAGNOSES: Colorectal cancer screening and personal history of tubular adenoma of the colon, colon polyp, diverticulosis, and internal hemorrhoids. MEDICATION USE: Monitored anesthesia care. DESCRIPTION OF PROCEDURE: The patient was placed in the left lateral decubitus position. The digital rectal exam revealed no abnormalities. The Olympus video pediatric colonoscope was entered into the rectum and advanced easily to the cecum. Once in the cecum, I did identify normal-appearing cecal pouch with appendiceal orifice and a normal-appearing ileocecal valve. The terminal ileum was cannulated and appeared normal. The scope was withdrawn back in the colon. The entire cecum and ileocecal valve appeared normal. The scope was slowly withdrawn assessing all mucosal surfaces carefully. Preparation was excellent. In the transverse colon, there was an approximately 8-10 mm polyp, which was removed by hot snare polypectomy and recovered by suction. The polypectomy site appeared clean, without any sign of residual polyp nor bleeding. I did not visualize any other polyps, colitis, or angiodysplasia. There is a mild amount of sigmoid diverticulosis. In the rectum, scope was retroflexed visualizing internal hemorrhoids, but no other pathology. The rectal mucosa appeared normal. The scope was straightened and withdrawn from the patient. She tolerated the procedure well and was returned to recovery area in stable condition. IMPRESSION: 1. Colon polyp. 2. Diverticulosis. 3. Internal hemorrhoids. PLAN: The results of the pathology will be checked. I would recommend a repeat colonoscopy in 5 years. She was advised not to use any aspirin or NSAIDs for 1 week. MD LEXIE Solis/VIDYA / [id number]
== END 2022-01-30 13:30 | disposition home or self-care (01) ==
PROVIDERS: Visit Provider Internal Medicine
PROC: 0DJD8ZZ Inspection of Lower Intestinal Tract, Via Natural or Artificial Opening Endoscopic (ICD-10-PCS; CPT 45378; principal; 2022-01-30 10:30)
DX: Z12.11 Encounter for screening for malignant neoplasm of colon (principal); Z86.010 Personal history of colon polyps; D12.3 Benign neoplasm of transverse colon; K57.30 Diverticulosis of large intestine without perforation or abscess without bleeding; K64.8 Other hemorrhoids; K21.9 Gastro-esophageal reflux disease without esophagitis; I10 Essential (primary) hypertension; E13.9 Other specified diabetes mellitus without complications; E78.00 Pure hypercholesterolemia, unspecified; Z79.899 Other long term (current) drug therapy; Z79.82 Long term (current) use of aspirin
CPT/HCPCS: 45385; 88305

== ENCOUNTER 2022-07-22 09:56 | Outpatient (REF) | payer OTHER, SELFPAY ==
--- NOTE | ~2022-07-22 | XR_ITS ---
EXAMINATION: X-RAY RIGHT KNEE X-RAY LEFT KNEE X-RAY STANDING BILATERAL KNEES CLINICAL INFORMATION: Pain. COMPARISON: Radiograph of the left knee 10/08/2021. Radiograph of the bilateral standing knees 02/28/2021. TECHNIQUE: 2 views of each knee. 1 standing AP view of both knees. FINDINGS: No acute fracture or subluxation. Moderate joint space narrowing with subcortical sclerosis and vacuum phenomena in the medial compartment of the left knee, slightly progressed since 2020. Moderate joint space narrowing of the patellofemoral compartment of the left knee. Mild joint space narrowing in the remainder of the compartments of both knees. Moderate tricompartmental small marginal osteophytes. Trace bilateral joint fluid. XR/XR knee standing BI IMPRESSION: 1. No acute fracture or malalignment. 2. Moderate degenerative osteoarthritis of the medial and patellofemoral compartments of the left knee, slightly progressed since 2020. 3. Mild degenerative changes in the remainder of the compartments of both knees.
--- NOTE | ~2022-07-22 | XR_ITS ---
EXAMINATION: X-RAY RIGHT KNEE X-RAY LEFT KNEE X-RAY STANDING BILATERAL KNEES CLINICAL INFORMATION: Pain. COMPARISON: Radiograph of the left knee 10/08/2021. Radiograph of the bilateral standing knees 02/28/2021. TECHNIQUE: 2 views of each knee. 1 standing AP view of both knees. FINDINGS: No acute fracture or subluxation. Moderate joint space narrowing with subcortical sclerosis and vacuum phenomena in the medial compartment of the left knee, slightly progressed since 2020. Moderate joint space narrowing of the patellofemoral compartment of the left knee. Mild joint space narrowing in the remainder of the compartments of both knees. Moderate tricompartmental small marginal osteophytes. Trace bilateral joint fluid. XR/XR knee RT 2V IMPRESSION: 1. No acute fracture or malalignment. 2. Moderate degenerative osteoarthritis of the medial and patellofemoral compartments of the left knee, slightly progressed since 2020. 3. Mild degenerative changes in the remainder of the compartments of both knees.
--- NOTE | ~2022-07-22 | XR_ITS ---
EXAMINATION: X-RAY RIGHT KNEE X-RAY LEFT KNEE X-RAY STANDING BILATERAL KNEES CLINICAL INFORMATION: Pain. COMPARISON: Radiograph of the left knee 10/08/2021. Radiograph of the bilateral standing knees 02/28/2021. TECHNIQUE: 2 views of each knee. 1 standing AP view of both knees. FINDINGS: No acute fracture or subluxation. Moderate joint space narrowing with subcortical sclerosis and vacuum phenomena in the medial compartment of the left knee, slightly progressed since 2020. Moderate joint space narrowing of the patellofemoral compartment of the left knee. Mild joint space narrowing in the remainder of the compartments of both knees. Moderate tricompartmental small marginal osteophytes. Trace bilateral joint fluid. XR/XR knee LT 2V IMPRESSION: 1. No acute fracture or malalignment. 2. Moderate degenerative osteoarthritis of the medial and patellofemoral compartments of the left knee, slightly progressed since 2020. 3. Mild degenerative changes in the remainder of the compartments of both knees.
== END 2022-07-22 09:57 | disposition home or self-care (01) ==
LOC: HO.HOSX 09:56
PROVIDERS: Visit Provider Physician Assistant
DX: M17.0 Bilateral primary osteoarthritis of knee (principal)
CPT/HCPCS: 20610; 73560; 73565; 99212; J1020

== ENCOUNTER 2022-08-26 12:17 | Outpatient (REF) | payer OTHER, SELFPAY ==
--- NOTE | ~2022-08-26 | MM_ITS ---
EXAMINATION: MM SCREENING DIGITAL BREAST TOMOSYNTHESIS, BILATERAL CLINICAL INFORMATION: Screening. Asymptomatic. The lifetime risk of breast cancer based on the Tyrer-Cuzick Model is 4%. COMPARISON: Mammography: 07/17/2021, 06/05/2020, 05/11/2019 TECHNIQUE: Digital breast tomosynthesis is performed in both the craniocaudal and mediolateral oblique views along with computer-aided detection (CAD). Synthesized 2D images are generated from the tomosynthesis. FINDINGS: There are scattered areas of fibroglandular density (ACR BI-RADS breast composition Category b). There are no significant masses, abnormal calcifications, or other abnormalities. No architectural abnormality or developing density or significant change from prior studies. The axilla and skin contours are unremarkable. MM/MM tomosynthesis screening BI IMPRESSION: No mammographic evidence of malignancy. ASSESSMENT: BI-RADS 1: Negative RECOMMENDATION: Routine annual mammography screening. This patient's information was entered into a reminder system with a target due date for their next mammogram.
== END 2022-08-26 12:18 | disposition home or self-care (01) ==
LOC: HO.MAMMO 12:17
PROVIDERS: Visit Provider Nurse Practitioner
DX: Z12.31 Encounter for screening mammogram for malignant neoplasm of breast (principal)
CPT/HCPCS: 77063; 77067

== ENCOUNTER 2022-09-16 14:09 | Outpatient (REF) | payer OTHER, SELFPAY ==
--- NOTE | ~2022-09-16 | MR_ITS ---
EXAMINATION: MR KNEE WITHOUT CONTRAST, RIGHT CLINICAL INFORMATION: Right knee pain and swelling. Osteoarthritis. COMPARISON: Multiple priors, most recent right knee radiographs dated 07/22/2022. TECHNIQUE: MRI of the knee without contrast was performed using routine sequences on a high-field scanner. FINDINGS: MENISCI: Medial Meniscus: Complete radial tear of the posterior horn/root junction measuring up to 0.4 cm in ML dimension and located approximately 0.9 cm from the posterior root insertion. Medial extrusion of the meniscal body. Lateral Meniscus: Intact LIGAMENTS: Cruciate: Intact Collateral: Mild edema adjacent to the medial collateral ligament which may be related to the adjacent meniscal tear or indicate a grade 1 sprain. Intact fibular collateral ligament. EXTENSOR MECHANISM: Superior and inferior patellar enthesophytes. Intact quadriceps and patellar tendons. ARTICULAR CARTILAGE/BONE: Patellofemoral Compartment: Articular cartilage signal heterogeneity and thinning at the superior aspect of the lateral patellar facet. Full-thickness articular cartilage fissuring with adjacent signal heterogeneity and surface irregularity at the central trochlea. Marginal osteophytes. Medial Compartment: Mild weight-bearing articular cartilage thinning with signal heterogeneity and small marginal osteophytes. Lateral Compartment: Mild articular cartilage signal heterogeneity with small marginal osteophytes. JOINT FLUID AND BURSAE: Trace joint effusion. Cluster of multiple posterior loose bodies adjacent to the medial meniscus posterior root with the largest measuring up to 0.5 cm. MR/MR knee RT wo con IMPRESSION: 1. Complete radial tear of the medial meniscus posterior horn/root junction measuring 0.4 cm in ML dimension and located approximately 0.9 cm from the posterior root insertion. Medial extrusion of the meniscal body. 2. Edema adjacent to the medial collateral ligament which may be related to the adjacent meniscal tear or indicate a grade 1 sprain. 3. Mild tricompartmental osteoarthritis. Trace joint effusion. Cluster of posterior loose bodies adjacent to the medial meniscus posterior root measuring up to 0.5 cm.
== END 2022-09-16 14:10 | disposition home or self-care (01) ==
LOC: HO.MRI 14:09
PROVIDERS: Visit Provider Registered Nurse
DX: M25.561 Pain in right knee (principal)
CPT/HCPCS: 73721

== ENCOUNTER → 2022-10-12 12:39 | Outpatient (BNVA) | payer OTHER, SELFPAY | PROVIDERS: Visit Provider Physician Assistant | DX: M17.0 Bilateral primary osteoarthritis of knee (principal); S83.241A Other tear of medial meniscus, current injury, right knee, initial encounter; X58.XXXA Exposure to other specified factors, initial encounter; Y93.9 Activity, unspecified; Y92.9 Unspecified place or not applicable; Y99.8 Other external cause status | CPT/HCPCS: 99212 ==

== ENCOUNTER → 2022-11-19 14:41 | Outpatient (BNVA) | payer OTHER, SELFPAY | PROVIDERS: PCP Internal Medicine Geriatric Medicine; Visit Provider Physician Assistant | DX: Z01.818 Encounter for other preprocedural examination (principal); M17.11 Unilateral primary osteoarthritis, right knee; S83.241A Other tear of medial meniscus, current injury, right knee, initial encounter | CPT/HCPCS: 99212 ==

== ENCOUNTER 2022-11-25 07:22 | Day surgery (SDC) | payer OTHER, SELFPAY ==
[2022-11-25 07:31] VITALS: BP 144/71; PULSE 68; RESP 20; TEMP 36.6; O2SAT 98; BMI 29.6
[2022-11-25 07:40] LABS: Glucose, Whole Blood 174 mg/dL (60-115)
[2022-11-25] MEDS: Lactated Ringers 1,000 ML 50 ML IVCONT (07:57)
--- NOTE | 2022-11-25 09:18 | HO.ANESPROP2 ---
HPI - Anesthesia Eval Consult details Narrative: Knee arthroscopy PMFSH Active Problems Active Problems: All Active Problems (Updated 10/12/22 @ 13:50 by Sindi Smith) Tear of medial meniscus of right knee (Acute) Osteoarthritis of right knee (Acute) Osteoarthritis of left knee (Acute) Past Medical History Medical History Arthritis Diabetes 1.5, managed as type 2 GERD (gastroesophageal reflux disease) HTN (hypertension) Hypercholesterolemia Family History Family history of problems with anesthesia: No Surgical History Surgical History History of esophagogastroduodenoscopy (EGD) Hx of colonoscopy Hx of tubal ligation History of Problems with Anesthesia: No Social History Social History Patient Tobacco Use Status: Never used Tobacco Are you DNR?: No Advance Directives: No Advance Directives Information Provided: Yes Current occupational status: disabled Current occupation: rt handed Meds Allergies Allergy/AdvReac Type Severity Reaction Status Date / Time No Known Allergies Allergy Mild N/A Verified 11/19/22 15:19 Active Medications: Current Medications Lactated Ringer's (Lr) 1,000 mls @ 50 mls/hr IVCONT .Q20H DANNI Last Admin: 11/25/22 07:57 Dose: 50 mls/hr Home Medications Medication Instructions Recorded Confirmed Last Taken Type ergocalciferol (vitamin D2) 1,250 1 cap PO QWEEK 01/27/22 11/24/22 Unknown History mcg (50,000 unit) capsule lidocaine 5 % topical ointment 1 appl topical TID 01/27/22 11/24/22 Unknown History metoprolol tartrate 50 mg tablet 50 tab PO BID 01/27/22 11/24/22 11/25/22 History pantoprazole 40 mg tablet,delayed 1 tab PO DAILY 01/27/22 11/24/22 Unknown History release amlodipine 10 mg tablet 10 mg PO DAILY 11/25/22 11/25/22 11/25/22 History lisinopril 40 mg tablet 40 mg PO DAILY 11/25/22 11/25/22 11/25/22 History metformin 500 mg tablet,extended 1,000 mg PO BID 11/25/22 11/25/22 Unknown History release 24 hr Exam Exam Date and Time: November 25, 2022 0918 Height,Weight and Vital Signs: Height 5 ft 3 in Weight 75.75 kg Last Vital Signs Temp 98 F 11/25/22 07:31 Pulse 68 11/25/22 07:31 Resp 20 11/25/22 07:31 BP 144/71 H 11/25/22 07:31 Pulse Ox 98 11/25/22 07:31 O2 Del Method Room Air 11/25/22 07:31 Pertinent Lab Results Pertinent Lab Results: Laboratory Tests 11/25/22 07:37 POC Glucose 174 H Airway Mallampati Class: II TM Dist: >3cm Neck ROM: Limited Heart: rrr Lungs: cta Assessment and Plan Assessment Anesthesia Assessment: Anesthesia Plan Discussed Final Anesthetic Review Family History of Problems with Anesthesia: No History of Problems with Anesthesia: No ASA Class: III Final Preanesthetic Review: No Changes in Pt Med Stat, Meds/Allgs Chart Reviewed, Consent Obtained/Reviewed and Anes Risks/Benef Reviewed Patient Risk: Intermediate Procedure Risk: Intermediate Anesthetic Plan Anesthetic Plan: GA and Agree w/ Assess. and Plan Disposition: Standard PACU
--- NOTE | 2022-11-25 11:17 | PC.NURSE ---
called family members to update on delay per pt request
--- NOTE | 2022-11-25 13:02 | P.BOP_ITS ---
Brief Operative Note Date of Service: 11/25/22 Pre-op diagnosis: Right knee MMT Post-op diagnosis: other (1) right knee MMT 2) right knee OA) Procedure: Partial medial meniscectomy and chondrolplasty Surgeon: Henrry Gusman MD Anesthesia: GETA and local Was an Wire Stripper used for this Procedure?: No Estimated blood loss (mL): 0 Tourniquet time (min): 18 Pathology: none sent Condition: stable Disposition: PACU
--- NOTE | 2022-11-25 13:02 | MHC.SHP ---
Pre-Procedural Eval Section A Date of Service: 11/25/22 The patient is an INPATIENT: No Changes since office visit: No Cold of Flu in the past 2 weeks, No New Medical Problems, No Changes in Medication and No Patient answered all questions The History & Physical has been completed within 30 days and I have reviewed it.: Yes Section B Chief Complaint: Other tear of medial meniscus, current injury, Allergies: Allergies Allergy/AdvReac Type Severity Reaction Status Date / Time No Known Allergies Allergy Mild N/A Verified 11/19/22 15:19 Plan I have reviewed the history and physical and performed a pertinent physical examination on my patient. No changes have occurred unless specified. Time Spent With Patient Time: Total time managing care of this patient today ____ minutes.
[2022-11-25 13:03] VITALS: BP 116/62; PULSE 51; RESP 20; TEMP 36.1; O2SAT 98
[2022-11-25 13:08] VITALS: BP 107/60; PULSE 49; RESP 16; O2SAT 99
[2022-11-25 13:13] VITALS: BP 101/58; PULSE 48; RESP 16; O2SAT 99
[2022-11-25 13:16] VITALS: BP 100/58; PULSE 55; RESP 18; O2SAT 94
[2022-11-25 13:20] VITALS: BP 100/60; PULSE 55; RESP 18; TEMP 36.1; O2SAT 94
--- NOTE | 2022-11-26 19:10 | P.OP_ITS ---
Operative Note Operative Note Date of Service: 11/25/22 Narrative: Date of Service: 11/25/22 Pre-op diagnosis: Right knee MMT Post-op diagnosis: other (1) right knee MMT 2) right knee OA) Procedure: Partial medial meniscectomy and chondrolplasty Surgeon: Henrry Gusman MD Anesthesia: GETA and local Was an Ordnance Truck Installation Supervisor used for this Procedure?: No Estimated blood loss (mL): 0 Tourniquet time (min): 18 Pathology: none sent Condition: stable Disposition: PACU Procedure in detail: Patient was brought to the operating room placed supine on the arthroscopic table and prepped and draped in standard sterile fashion. A time-out was called to identify proper site proper procedure proper surgeon and IV antibiotics per weight were administered. I began by exsanguinating the limb and insufflating tourniquet to 300 mm Hg. Then made a standard anterolateral stab incision. The knee was insufflated with water and 30 degree arthroscope was placed. There was grade 1 fibrillations of the patella but overall suprapatellar pouch and the gutters were clean. There was grad3/4 changes of the medial and central aspect of the trochlea and the weight bearing portion of the MFC. I descended into the medial compartment where I made my medial portal under direct visualization. There was a tear of the posterior horn of the medial meniscus. The root was intact and there was grade 3/4 changes with of the MFC. I used a combination of biter shaver and cautery to remove unstable portions of the meniscus. Approximately 30% meniscal volume was removed. Once I was satisfied with this the ACL was examined and found to be intact and the lateral compartment was without the need for intervention. I then removed all instrumentation and closed the portals with skin glue. 25 mL of 2% Marcaine with epinephrine was injected into the joint and the surrounding soft tissues. Patient was then plac ed in sterile dressing extubated brought recovery room stable condition. There were no known complications.
== END 2022-11-25 14:08 | disposition home or self-care (01) ==
PROVIDERS: PCP Internal Medicine Geriatric Medicine; Visit Provider Orthopaedic Surgery
PROC: (CPT 29870; principal; 2022-11-25 09:40)
DX: S83.241A Other tear of medial meniscus, current injury, right knee, initial encounter (principal); M17.11 Unilateral primary osteoarthritis, right knee; X58.XXXA Exposure to other specified factors, initial encounter; Y93.9 Activity, unspecified; Y92.9 Unspecified place or not applicable; Y99.8 Other external cause status; I10 Essential (primary) hypertension; E78.00 Pure hypercholesterolemia, unspecified; K21.9 Gastro-esophageal reflux disease without esophagitis; E13.9 Other specified diabetes mellitus without complications; Z79.84 Long term (current) use of oral hypoglycemic drugs; Z79.899 Other long term (current) drug therapy
CPT/HCPCS: 29881; 82947; J0131; J0171; J0690; J1100; J1170; J2405; J2795; J3010

== ENCOUNTER → 2022-11-30 13:42 | Outpatient (BNVA) | payer OTHER, SELFPAY | PROVIDERS: Visit Provider Physician Assistant ==

== ENCOUNTER 2023-01-20 08:27 | Outpatient (REF) | payer OTHER, SELFPAY ==
[2023-01-20 12:27] LABS: Alanine Aminotransferase 13 U/L (0-31); Albumin Level 4.4 g/dL (3.5-5.0); Alkaline Phosphatase 130 U/L (39-117); Anion Gap 14 (12-20); Aspartate Amino Transferase 16 U/L (5-31); Bilirubin Total 0.4 mg/dL (0.0-1.0); Blood Urea Nitrogen 13 mg/dL (9-16); Calcium 9.7 mg/dL (8.4-10.2); Carbon Dioxide 24 mmol/L (22-29); Chloride 105 mmol/L (96-108); Cholesterol 257 mg/dL (<200); Estimated Glomerular Filt Rate > 60; Glucose Random 138 mg/dL (60-115); HDL Cholesterol 55 mg/dL (>40); LDL Cholesterol Calculated 178 mg/dL (<100); Potassium 3.4 mmol/L (3.3-5.1); Sodium 140 mmol/L (135-145); Total Protein 7.5 g/dL (6.5-8.0); Triglycerides 121 mg/dL (<150)
[2023-01-20 12:33] LABS: Creatinine Urine 52.87 mg/dL; Microalbum/Creatinine Ratio Ur 15.1 ug/mg cr (<30)
== END 2023-01-20 08:28 | disposition home or self-care (01) ==
LOC: HO.HHCL 08:27
PROVIDERS: Visit Provider Internal Medicine Geriatric Medicine
DX: Z00.00 Encounter for general adult medical examination without abnormal findings (principal); E11.21 Type 2 diabetes mellitus with diabetic nephropathy; Z79.899 Other long term (current) drug therapy
CPT/HCPCS: 36415; 80053; 80061; 82043

== ENCOUNTER 2023-08-30 11:59 | Outpatient (REF) | payer OTHER, SELFPAY | END 2023-08-30 12:00 | disposition home or self-care (01) | LOC: HO.MAMMO 11:59 | PROVIDERS: PCP Internal Medicine Geriatric Medicine; Visit Provider Internal Medicine Geriatric Medicine | DX: Z12.31 Encounter for screening mammogram for malignant neoplasm of breast (principal) | CPT/HCPCS: 77063; 77067 ==

== ENCOUNTER → 2023-08-30 12:45 | Outpatient (BNV) | payer OTHER, SELFPAY | PROVIDERS: PCP Internal Medicine Geriatric Medicine; Visit Provider Radiology Diagnostic Radiology | DX: Z12.31 Encounter for screening mammogram for malignant neoplasm of breast (principal) | CPT/HCPCS: 77063; 77067 ==

== ENCOUNTER 2023-09-22 08:21 | Outpatient (REF) | payer OTHER, SELFPAY ==
[2023-09-22 11:36] LABS: MANUAL DIFF FLAG NO
[2023-09-22 11:46] LABS: Basophils Absolute Auto 0.1 X10*3/uL (0.0-0.2); Basophils Percent Auto 0.6 % (0-2); Eosinophils Absolute Auto 0.1 X10*3/uL (0.0-0.4); Eosinophils Percent Auto 0.8 % (0-4); Hematocrit 41.8 % (37.0-47.0); Hemoglobin 13.6 g/dl (12.0-16.0); Imm Gran Abs Auto 0.06 X10*3/uL (0.00-0.03); Imm Gran Pct Auto 0.6 % (0.0-0.4); Lymphocytes Absolute Auto 4.3 X10*3/uL (1.2-4.9); Lymphocytes Percent Auto 39.7 % (20-40); Mean Corpuscular HGB Conc 32.5 g/dl (31.0-35.0); Mean Corpuscular Hemoglobin 27.5 pg (27.0-33.0); Mean Corpuscular Volume 84.6 fL (80.0-98.0); Mean Platelet Volume 11.3 fL (9.4-12.3); Monocytes Absolute Auto 0.6 X10*3/uL (0.1-1.2); Monocytes Percent Auto 5.4 % (2-11); Neutrophils Absolute Auto 5.7 x10*3/uL (2.0-8.3); Neutrophils Percent Auto 52.9 % (45-73); Platelet Count 199 X10*3/uL (160-400); Red Blood Count 4.94 X10*6/uL (4.20-5.50); Red Cell Distribution Width 13.8 % (11.0-16.0); White Blood Count 10.7 X10*3/uL (4.8-10.8)
[2023-09-22 12:10] LABS: Estimated Average Glucose 146 mg/dL; Hemoglobin A1c % 6.7 % (<6.0)
[2023-09-22 12:13] LABS: Alanine Aminotransferase 16 U/L (0-31); Albumin Level 4.4 g/dL (3.5-5.0); Alkaline Phosphatase 111 U/L (39-117); Anion Gap 10 (12-20); Aspartate Amino Transferase 20 U/L (5-31); Bilirubin Total 0.5 mg/dL (0.0-1.0); Blood Urea Nitrogen 16 mg/dL (9-16); Calcium 9.3 mg/dL (8.4-10.2); Carbon Dioxide 28 mmol/L (22-29); Chloride 104 mmol/L (96-108); Cholesterol 157 mg/dL (<200); Estimated Glomerular Filt Rate > 60; Glucose Random 147 mg/dL (60-115); HDL Cholesterol 52 mg/dL (>40); LDL Cholesterol Calculated 87 mg/dL (<100); Potassium 3.4 mmol/L (3.3-5.1); Sodium 139 mmol/L (135-145); Total Protein 7.6 g/dL (6.5-8.0); Triglycerides 92 mg/dL (<150)
[2023-09-22 12:16] LABS: Creatinine Urine 90.88 mg/dL; Microalbum/Creatinine Ratio Ur 8.8 ug/mg cr (<30)
== END 2023-09-22 08:22 | disposition home or self-care (01) ==
LOC: HO.HHCL 08:21
PROVIDERS: Visit Provider Internal Medicine Geriatric Medicine
DX: E11.69 Type 2 diabetes mellitus with other specified complication (principal); M17.0 Bilateral primary osteoarthritis of knee
CPT/HCPCS: 36415; 80053; 80061; 82043; 82570; 83036; 85025

== ENCOUNTER 2024-01-25 23:00 | Emergency (ER) | payer OTHER, SELFPAY ==
--- NOTE | 2024-01-25 | ECG_ITS ---
Test Reason : CHEST PAIN Blood Pressure : / mmHG Vent. Rate : 078 BPM Atrial Rate : 078 BPM P-R Int : 134 ms QRS Dur : 084 ms QT Int : 380 ms P-R-T Axes : 032 012 065 degrees QTc Int : 433 ms Normal sinus rhythm Normal ECG When compared with ECG of 24-FEB-2021 13:29, Heart rate has increased Referred By: Generic ED Physician Electronically Signed By:GRANT ALBERT
--- NOTE | ~2024-01-25 | XR_ITS ---
EXAMINATION: XR CHEST CLINICAL INFORMATION: Resting COMPARISON: None available. TECHNIQUE: Frontal view of the chest was obtained. FINDINGS: No significant abnormality is noted involving the heart, lungs, mediastinum, bony thorax or soft tissues. XR/XR chest 1V IMPRESSION: Unremarkable examination. Electronically signed by: Fxo Anthony DO 01/26/2024 12:13 AM EDT
[2024-01-25 23:07] VITALS: BP 160/92; PULSE 82; O2SAT 98
--- NOTE | 2024-01-25 23:19 | ED.CHESTPAIN ---
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 She denies trauma to the area. She reports compliance with all of her BP medications. She has no associated dyspnea, nausea, dizziness. She reports no overuse to the arm but she has had similar pain in arm in the past. MD complaint: chest pain (L shoulder pain) Onset (ago): hour(s) (9pm) Timing of current episode: constant Prior episodes: Yes Onset: during rest Pain location: left chest and other (L shoulder) Pain radiation: none Severity: moderate Quality: aching Relieving factors: rest Exacerbating factors: other (touching L chest, moving L shoulder) Treatment prior to arrival: none Related Data Home Medications ?Medication ?Instructions ?Recorded ?Confirmed ergocalciferol (vitamin D2) 1,250 1 cap PO QWEEK 01/27/22 11/24/22 mcg (50,000 unit) capsule lidocaine 5 % topical ointment 1 appl topical TID 01/27/22 11/24/22 metoprolol tartrate 50 mg tablet 50 tab PO BID 01/27/22 11/24/22 pantoprazole 40 mg tablet,delayed 1 tab PO DAILY 01/27/22 11/24/22 release amlodipine 10 mg tablet 10 mg PO DAILY 11/25/22 11/25/22 lisinopril 40 mg tablet 40 mg PO DAILY 11/25/22 11/25/22 metformin 500 mg tablet,extended 1,000 mg PO BID 11/25/22 11/25/22 release 24 hr Previous Rx's ?Medication ?Instructions ?Recorded isosorbide mononitrate 30 mg 30 mg PO DAILY 90 days #90 tabs 06/11/20 tablet,extended release 24 hr acetaminophen 325 mg tablet 325 mg PO Q6H PRN hedache #14 tabs 02/24/21 (Tylenol) oxycodone-acetaminophen 5 mg-325 1 tab PO Q8H PRN pain (scale score 11/25/ mg tablet (Percocet) 4-6) 7 days #21 tabs Allergies Allergy/AdvReac Type Severity Reaction Status Date / Time No Known Allergies Allergy Mild N/A Verified 01/25/24 23:28 Review of Systems Review of Systems: Constitutional : No Fever, No Chills ENT/Mouth : No Ear Pain, No Hoarseness, No sore throat Eyes: No Eye Pain, No Swelling, No Redness, No Foreign Body Cardiovascular : pos Chest Pain, No SOB Respiratory : No Cough, No Dyspnea Gastrointestinal : No Nausea, No Vomiting, No Diarrhea, No abdominal Pain Genitourinary : No Dysuria, No Hematuria Musculoskeletal : positive joint pain, No Myalgias, No Joint Swelling Skin : No Skin lacerations, No rash Neuro : No Weakness, No Numbness, No Loss of Consciousness, No Dizziness, No Headache All other systems reviewed and are negative [facility] Past Medical History Attestation statement: The following information was validated with the patient. Source: old records reviewed Medical History Hypercholesterolemia GERD (gastroesophageal reflux disease) Arthritis Diabetes 1.5, managed as type 2 HTN (hypertension) Surgical History History of esophagogastroduodenoscopy (EGD) Hx of tubal ligation Hx of colonoscopy Social History Social History Patient Tobacco Use Status: Never used Tobacco Smoked in Last 30 Days: No Use of substances other than those prescribed or required for medical reasons: No Advance Directives: Yes Advance Directives Information Provided: No Advance Directives on File: No Do you have a plan to hurt others: No Plan Current occupational status: disabled Current occupation: rt handed Physical Exam Vital Signs: Vital Signs: Last Vital Signs Temp 97.8 F 01/26/24 04:00 Pulse 57 01/26/24 04:00 Resp 12 01/26/24 04:00 BP 108/66 01/26/24 04:00 Pulse Ox 96 01/25/24 23:20 O2 Del Method Room Air 01/25/24 23:20 BMI result Body Mass Index 29.0 Appearance: Alert. Oriented X3. No acute distress. Eyes: Pupils equal, round and reactive to light. ENT: Pharynx normal. Neck: Normal inspection. Neck supple. CVS: Normal heart rate and rhythm. Pulses normal. Chest: ttp L upper chest Respiratory: No respiratory distress. Breath sounds normal. Abdomen: Soft and nontender. Skin: Skin warm and dry. Normal skin color. Normal skin turgor. Extremities: No lower extremity edema. ttp in L shoulder with ROM testing - L wrist NV intact Neuro: Oriented X 3. No motor deficit. No sensory deficit. Course Course Course Narrative: no sig rise in 3rd troponin Medications Administered Discontinued Medications Generic Name Dose Route Start Last Admin Trade Name Freq PRN Reason Stop Dose Admin Ondansetron HCl 4 mg 01/25/24 23:14 01/25/24 23:33 Ondansetron Odt 4 Mg Tab.Rapdis TRANSLINGU 01/25/24 23:15 4 mg ONCE ONE Administration Oxycodone HCl 10 mg 01/25/24 23:13 01/25/24 23:33 Oxycodone Hcl Immed Release 5 Mg Tablet PO 01/25/24 23:14 10 mg ONCE ONE Administration Medical Decision Making Medical Decision Making [facility] Narrative: 64 yo female with PMH of arthritis, HTN on multiple medications, DM, GERD, HLD, no known prior CAD here with atypical chest pain starting after she saw her BP but it is very reproduceable - distal pulses intact, no risk factors for VTE and no signs of DVT at this time will need trop x 2, EKG, pain control, CXR. Symptoms atypical for ACS as well - trop x 2 ordered. Differential Diagnosis Differential Diagnoses: The differential diagnosis associated with the presentation includes atypical chest pain, shoulder pain, arthralgia Admission/Observation Consideration of admission/observation: Escalation of care including admission/observation considered repeat trop flat feels much better stable for DC no sig rise in 3rd trop stable for DC Lab Data [facility] Lab Attestation statement: I reviewed the patient's lab results. 01/25/24 23:48 01/25/24 23:48 Labs: Lab Results 01/25/24 01/26/24 01/26/24 Range/Units 23:48 02:04 04:10 WBC 10.0 (4.8-10.8) X10*3/uL RBC 4.72 (4.20-5.50) X10*6/uL Hgb 13.1 (12.0-16.0) g/dl Hct 39.8 (37.0-47.0) % MCV 84.3 (80.0-98.0) fL MCH 27.8 (27.0-33.0) pg MCHC 32.9 (31.0-35.0) g/dl RDW 13.9 (11.0-16.0) % Plt Count 181 (160-400) X10*3/uL MPV 11.1 (9.4-12.3) fL Immature Gran % (Auto) 0.8 H (0.0-0.4) % Neut % (Auto) 60.1 (45-73) % Lymph % (Auto) 33.1 (20-40) % [place] % (Auto) 5.3 (2-11) % Eos % (Auto) 0.4 (0-4) % Baso % (Auto) 0.3 (0-2) % Lymph # (Auto) 3.3 (1.2-4.9) X10*3/uL [place] # (Auto) 0.5 (0.1-1.2) X10*3/uL Eos # (Auto) 0.0 (0.0-0.4) X10*3/uL Baso # (Auto) 0.0 (0.0-0.2) X10*3/uL Abs Immat Gran (auto) 0.08 H (0.00-0.03) X10*3/uL Absolute Neuts (auto) 6.0 (2.0-8.3) x10*3/uL Absolute Nucleated RBC 0.000 (0.0-0.012) X10*3/uL Nucleated RBC % (auto) 0.0 (0.0-0.2) /100WBC PT 11.9 (11.1-13.3) SEC INR 1.0 (0.9-1.1) Sodium 140 (135-145) mmol/L Potassium 3.6 (3.3-5.1) mmol/L Chloride 106 (96-108) mmol/L Carbon Dioxide 26 (22-29) mmol/L Anion Gap 12 (12-20) BUN 18 H (9-16) mg/dL Creatinine 0.85 (0.5-1.4) mg/dL Estim Creat Clear Calc 63.7 Estimated GFR > 60 Random Glucose 217 H (60-115) mg/dL Calcium 9.5 (8.4-10.2) mg/dL Magnesium 2.1 (1.6-2.6) mg/dL Total Bilirubin 0.4 (0.0-1.0) mg/dL Direct Bilirubin 0.1 (0.0-0.5) mg/dL AST 18 (5-31) U/L ALT 16 (0-31) U/L Alkaline Phosphatase 125 H (39-117) U/L Troponin I High Sens 3.5 7.0 D 8.6 (<3.5-17.0) ng/L B-Natriuretic Peptide 26 (<100) pg/mL Total Protein 7.6 (6.5-8.0) g/dL Albumin 4.6 (3.5-5.0) g/dL Lipase 21 (8-78) U/L Independent Interpretation I performed an independent interpretation of an: EKG and Plain X-Ray Interpretation: Rate: 78 Rhythm: NSR [place]: normal Normal P waves. Normal MELISSA. Normal QRS complex. ST T wave : inverted t wave V1, no ANNETTE qTC: 433 prior studies: no acute ischemia The study has been interpreted contemporaneously by me. . Radiology Impression Discussion of test interpretation with radiology: I have reviewed the radiologist's reading. Independent Historian Clinical information obtained from an independent historian. History obtained from or confirmed by: EMS and Other (family) External Record Review External record reviewed: Outpatient record Discharge Plan Discharge Clinical Impression: Atypical chest pain Patient Disposition: Home, Self-Care Instructions: Chest Pain (ED) Additional Instructions: take all medications as prescribed return for any worsening symptoms or concerns continue to monitor your blood pressure chest xray, ekg, repeat heart tests within normal limits follow up with primary care for outpatient stress test call to schedule appointment Prescriptions: No Action isosorbide mononitrate 30 mg tablet extended release 24 hr 30 mg PO DAILY 90 Days Qty: 90 1RF pantoprazole 40 mg tablet,delayed release (DR/EC) 1 tab PO DAILY metoprolol tartrate 50 mg tablet 50 tab PO BID ergocalciferol (vitamin D2) 1,250 mcg (50,000 unit) capsule 1 cap PO QWEEK lidocaine 5 % ointment 1 appl topical TID acetaminophen [Tylenol] 325 mg tablet 325 mg PO Q6H PRN (Reason: hedache ) Qty: 14 0RF metformin 500 mg tablet extended release 24 hr 1,000 mg PO BID amlodipine 10 mg tablet 10 mg PO DAILY lisinopril 40 mg tablet 40 mg PO DAILY oxycodone-acetaminophen [Percocet] 5-325 mg tablet 1 tab PO Q8H PRN (Reason: pain (scale score 4-6)) 7 Days Qty: 21 0RF Rx Instructions: Partial Fill upon patient request. Print Language: [place]
[2024-01-25 23:20] VITALS: BP 155/63; PULSE 76; RESP 20; TEMP 36.9; O2SAT 96
[2024-01-25 23:27] VITALS: BMI 29.0
[2024-01-25] MEDS: Ondansetron ODT 4 MG TAB.RAPDIS TRANSLINGU (23:33)
[2024-01-25] MEDS: oxyCODONE HCl Immed Release 5 MG TABLET 10 MG PO (23:33)
[2024-01-25 23:52] LABS: MANUAL DIFF FLAG NO
[2024-01-25 23:53] LABS: Basophils Percent Auto 0.3 % (0-2); Eosinophils Percent Auto 0.4 % (0-4); Hematocrit 39.8 % (37.0-47.0); Hemoglobin 13.1 g/dl (12.0-16.0); Imm Gran Abs Auto 0.08 X10*3/uL (0.00-0.03); Imm Gran Pct Auto 0.8 % (0.0-0.4); Lymphocytes Absolute Auto 3.3 X10*3/uL (1.2-4.9); Lymphocytes Percent Auto 33.1 % (20-40); Mean Corpuscular HGB Conc 32.9 g/dl (31.0-35.0); Mean Corpuscular Hemoglobin 27.8 pg (27.0-33.0); Mean Corpuscular Volume 84.3 fL (80.0-98.0); Mean Platelet Volume 11.1 fL (9.4-12.3); Monocytes Absolute Auto 0.5 X10*3/uL (0.1-1.2); Monocytes Percent Auto 5.3 % (2-11); Neutrophils Percent Auto 60.1 % (45-73); Platelet Count 181 X10*3/uL (160-400); Red Blood Count 4.72 X10*6/uL (4.20-5.50); Red Cell Distribution Width 13.9 % (11.0-16.0)
[2024-01-25 23:59] LABS: Prothrombin Time 11.9 SEC (11.1-13.3)
--- OUTSIDE RECORDS SUMMARY | 2024-01-26 00:02 | XMS_ITS | Patient Health Record ---
Author Organization [facility] Address [address] [place] [id number] Care Team Providers Care Community Recreation Coordinator Name Role Phone Carmelita Merlos Jessica Primary Care Provider Richardson Franz Unavailable [phone] ALLERGIES No Known Allergies REASON FOR REFERRAL No Information MEDICATIONS Medication SIG (Take, Route, Frequency, Duration) Notes Start Date End Date Status Isosorbide Mononitrate ER 30 MG 1 tablet Orally Once a day Active Nitroglycerin 0.4 MG under the tongue Sublingual prn Active Lisinopril 40 MG 1 tablet Orally Once a day Active Calcium 600 + D 600-200 MG-UNIT 1 Orally bid Active Aspir-81 81 MG 1 tablet Orally Once a day Not-Taking Dulcolax (colon prep) 5 MG take at 3:00 p.m and 7:00p.m. Orally two tablets twice a day for one day for 1 day 12/17/2021 Active Crestor 20 MG 1 tablet Orally Once a day Active MiraLax (colon prep) 17 GM/SCOOP 1 238Gm bottle mixed with Gatorade or Crystal Light Orally begin at 5:00 p.m. the day before the procedure for 1 day 12/17/2021 Active Metoprolol Tartrate 50 MG 1 tablet with food Orally Twice a day Active Vitamin D (Ergocalciferol) 84173 UNIT 1 capsule Orally Once a week Active Lidocaine 5 % 1 application to affected area as needed Externally Three times a day Active Tylenol 325 MG 2 tablets as needed Orally every 6 hrs Active Pantoprazole Sodium 40 MG 1 tablet Orall y Once a day Active IMMUNIZATIONS Vaccine Route Administration Date Status Comme nts Influenza Unknown 04/15/2021 Administered SOCIAL HISTORY Sex Assigned At : Social History Observation Description Sex Assigned At Unknown PROBLEMS Problem Type ICD Code Onset Dates Problem Status W/U Status Risk SNOMED Code Notes Problem Encounter for screening for malignant neoplasm of colon (Z12.11) Active confirmed 335295253 Problem Encounter for screening for malignant neoplasm of rectum (Z12.12) Active confirmed Screening for malignant neoplasm of rectum (217823562) Problem Long-term use of aspirin therapy (Z79.82) Active confirmed 082250849 Problem Preprocedural examination (Z01.818) Active confirmed 15377829 Problem Gastro-esophageal reflux disease without esophagitis (K21.9) Active confirmed 994500664 Problem History of adenomatous polyp of colon (Z86.010) Active confirmed 711059948 Problem Colon, diverticulosis (K57.30) Active confirmed Diverticular disease of colon (177856954) PLAN OF TREATMENT Pending Test Test Name Order Date Pathology 01/30/2022 Future Test Test Name Order Date COLONOSCOPY 03/04/2016 COLONOSCOPY 12/17/2021 Insurance Providers Payer Name Payer Address Payer Phone Subscriber Number Group Number Insured Name Patient Relationship to Insured Coverage Start Date Coverage End Date [facility] [address] [place] [phone] [id number] LINDA ALBARADO Self - patient is the insured MEDICAL (GENERAL) HISTORY Medical History History ICD Code Tubular adenomas removed in 1996 and 2005; she had a negative colonoscopy on 11-24-2010 Denies [place],CVA,DM,Lung disease,renal dise ase GERD--EGD in 2000 was negati ve for any significant esophagitis and Meraz's esophagus Hypertension Hypercholesterolemia Negative colonoscopy in 07/2016 Surgical History Surgery Date(Month/Year) BTL
[2024-01-26 00:09] LABS: Alanine Aminotransferase 16 U/L (0-31); Albumin Level 4.6 g/dL (3.5-5.0); Alkaline Phosphatase 125 U/L (39-117); Anion Gap 12 (12-20); Aspartate Amino Transferase 18 U/L (5-31); Bilirubin Direct 0.1 mg/dL (0.0-0.5); Bilirubin Total 0.4 mg/dL (0.0-1.0); Blood Urea Nitrogen 18 mg/dL (9-16); Calcium 9.5 mg/dL (8.4-10.2); Carbon Dioxide 26 mmol/L (22-29); Chloride 106 mmol/L (96-108); Creatinine Clr Calc Pharmacy 63.7; Estimated Glomerular Filt Rate > 60; Glucose Random 217 mg/dL (60-115); Lipase 21 U/L (8-78); Magnesium 2.1 mg/dL (1.6-2.6); Potassium 3.6 mmol/L (3.3-5.1); Sodium 140 mmol/L (135-145); Total Protein 7.6 g/dL (6.5-8.0)
[2024-01-26 00:13] LABS: B Type Natriuretic Peptide 26 pg/mL (<100); Troponin-I High Sensitivity 3.5 ng/L (<3.5-17.0)
[2024-01-26 04:00] VITALS: BP 108/66; PULSE 57; RESP 12; TEMP 36.6
[2024-01-26 04:34] LABS: Troponin-I High Sensitivity 8.6 ng/L (<3.5-17.0)
[2024-01-26 04:43] VITALS: BP 108/66; PULSE 57; RESP 12; TEMP 36.6
== END 2024-01-26 04:44 | disposition home or self-care (01) ==
PROVIDERS: Emergency Provider Emergency Medicine; PCP Internal Medicine Geriatric Medicine
DX: R07.89 Other chest pain (principal); I10 Essential (primary) hypertension; E11.9 Type 2 diabetes mellitus without complications; M25.512 Pain in left shoulder; Z79.899 Other long term (current) drug therapy
CPT/HCPCS: 36415; 71045; 80048; 80076; 83690; 83735; 83880; 84484; 85025; 85610; 93005; 99283; 99285

== ENCOUNTER 2024-02-14 11:43 | Outpatient (REF) | payer OTHER, SELFPAY ==
--- NOTE | ~2024-02-14 | XR_ITS ---
EXAMINATION: XR LEFT KNEE XR RIGHT KNEE CLINICAL INFORMATION: Bilateral knee pain. COMPARISON: July 22, 2022 TECHNIQUE: 5 views of each knee were obtained. FINDINGS: Right knee: Mild patellofemoral cartilage space loss. Tricompartmental osteophytes. Small suprapatellar joint effusion. Quadriceps tendon and patellar tendon enthesophytes. Left knee: Mild medial tibiofemoral cartilage space loss. Mild patellofemoral cartilage space loss. Tricompartmental osteophytes. There is soft tissue prominence within the posterior joint space with possible intra-articular loose bodies. Small suprapatellar joint effusion. Quadriceps tendon and patellar tendon enthesophytes. XR/XR knee LT 4V IMPRESSION: Mild osteoarthritis of bilateral knees, left greater than right. Soft tissue prominence within the posterior joint space of the left knee with possible intra-articular loose bodies. Electronically signed by: Oscar White MD 02/14/2024 12:46 PM EDT
--- NOTE | ~2024-02-14 | XR_ITS ---
EXAMINATION: XR LEFT KNEE XR RIGHT KNEE CLINICAL INFORMATION: Bilateral knee pain. COMPARISON: July 22, 2022 TECHNIQUE: 5 views of each knee were obtained. FINDINGS: Right knee: Mild patellofemoral cartilage space loss. Tricompartmental osteophytes. Small suprapatellar joint effusion. Quadriceps tendon and patellar tendon enthesophytes. Left knee: Mild medial tibiofemoral cartilage space loss. Mild patellofemoral cartilage space loss. Tricompartmental osteophytes. There is soft tissue prominence within the posterior joint space with possible intra-articular loose bodies. Small suprapatellar joint effusion. Quadriceps tendon and patellar tendon enthesophytes. XR/XR knee RT 4V IMPRESSION: Mild osteoarthritis of bilateral knees, left greater than right. Soft tissue prominence within the posterior joint space of the left knee with possible intra-articular loose bodies. Electronically signed by: Oscar White MD 02/14/2024 12:46 PM EDT
== END 2024-02-14 11:44 | disposition home or self-care (01) ==
LOC: HO.HHCX 11:43
PROVIDERS: Visit Provider Internal Medicine Geriatric Medicine
DX: M25.561 Pain in right knee (principal); M25.562 Pain in left knee; M17.0 Bilateral primary osteoarthritis of knee; G89.29 Other chronic pain
CPT/HCPCS: 73564

== ENCOUNTER 2024-03-23 18:03 | Outpatient (REF) | payer OTHER, SELFPAY ==
[2024-03-28 15:13] LABS: HPV mRNA E6/E7 Detected (Not Detected)
== END 2024-03-23 18:04 | disposition home or self-care (01) ==
LOC: HO.HHCLNP 18:03
PROVIDERS: Visit Provider Advanced Practice Midwife
DX: Z12.4 Encounter for screening for malignant neoplasm of cervix (principal); R87.810 Cervical high risk human papillomavirus (HPV) DNA test positive
CPT/HCPCS: 87624; 88175

== ENCOUNTER 2024-04-20 08:02 | Outpatient (REF) | payer OTHER, SELFPAY ==
--- NOTE | ~2024-04-20 | MM_ITS ---
EXAMINATION: BONE DENSITOMETRY CLINICAL INDICATION: Postmenopausal. Screening for osteoporosis. COMPARISON: Baseline BD dated 06/28/2009. TECHNIQUE: Using a [employer] DXA System (software version: 13.1) manufactured by [employer], dual-energy x-ray absorptiometry was performed of the lumbar spine and left hip. The images are of good technical quality. Summary results are attached. FINDINGS: LEFT FEMUR, NECK: Current: BMD 0.752 g/cm2, Z-score -0.8, T-score -2.1, osteopenia. Baseline: BMD 0.941 g/cm2. LEFT FEMUR, TOTAL: Current: BMD 0.852 g/cm2, Z-score -0.3, T-score -1.2, osteopenia, 11.0% decrease from baseline (<5% change is not significant). Baseline: BMD 0.957 g/cm2. AP SPINE L1-L4: Current: BMD 1.168 g/cm2, Z-score 1.1, T-score -0.1, normal, 6.9% decrease from baseline (<5% change is not significant). Baseline: BMD 1.255 g/cm2. IDENTIFIED RISK FACTORS: Menopause. HISTORY OF FRACTURE: None listed. MEDICATIONS: Vitamin D. MM/XR DEXA axial skeleton IMPRESSION: 1. DIAGNOSIS: Osteopenia based on the lowest T-score value of -2.1 in the femoral neck applying World Health Organization criteria. 2. 10-YEAR FRACTURE RISK PREDICTION, FRAX: Major osteoporotic fracture (clinical spine, forearm, hip or shoulder) 6.0%. Hip fracture 0.9%. 3. Treatment Recommendations: NOF guidelines recommend consideration for treatment in postmenopausal women and men age 50 and older presenting with the following: -A hip or vertebral (clinical or morphometric) fracture. -T-score less than or equal to -2.5 at the femoral neck or spine after appropriate evaluation to exclude secondary causes. -Low bone mass at the hip or spine and a 10-year fracture probability by FRAX of greater than or equal to 3% for hip fracture or greater than or equal to 20% for major osteoporotic fracture based on the [place] adapted WHO algorithm. 4. Other Recommendations: All treatment decisions require clinical judgment and consideration of individual patient factors, including patient preferences, comorbidities, previous drug use, risk factors not captured in the FRAX model (e.g. frailty, falls, vitamin D deficiency, increased bone turnover, interval significant decline in bone density) and possible under or overestimation of fracture risk by FRAX. Additional medical evaluation for secondary cause of low bone mineral density may be appropriate. FUTURE SCAN RECOMMENDATION: People with diagnosed cases of osteoporosis or at high risk for fracture should have regular bone mineral density tests. For patients eligible for Medicare, routine testing is allowed once every 2 years. The testing frequency can be increased to one year for patients who have rapidly progressing disease, those who are receiving or discontinuing medical therapy to restore bone mass, or have additional risk factors. Electronically signed by: Bhavin Wagner MD 04/20/2024 09:29 AM ASHER RUIZ
== END 2024-04-20 08:03 | disposition home or self-care (01) ==
LOC: HO.MAMMO 08:02
PROVIDERS: Visit Provider Internal Medicine Geriatric Medicine
DX: N95.1 Menopausal and female climacteric states (principal)
CPT/HCPCS: 77080

== ENCOUNTER 2024-05-09 12:32 | Outpatient (AMB) | payer OTHER, SELFPAY ==
--- NOTE | 2024-05-09 12:47 | MHC.OFFVIS ---
Intake Visit Reasons: OV-chronic pain both knees Intake Note: Susanna is a 64 year old female who presents today for a evaluation of her bilateral knee OA. Hx of right knee 11/25/22 NE. She mentions her right knee is doing okay but her left knee is getting worse. She mentions that she would like to try getting an injection in her left knee since she is going to [place]. Stick Puller Services: Stick Puller Present (Karen ([id number])) Allergies No Known Allergies Allergy (Mild, Verified 05/09/24 12:55) N/A HPI HPI OV-chronic pain both knees: Details: 64-year-old right-hand dominant female, who is Hebrew speaking, presents in the office today for a follow-up of bilateral knee pain/osteoarthritis. The patient is status post right knee arthroplasty, which was performed on 11/05/[address] Gusman. She was last seen by Salinas LOPEZ on 11/30/22, when she was recommended to start with her first physical therapy session that was on 12/02/22. She was informed that locking and catching of the right knee should be resolved; however, she may develop a mild intermittent disc from arthritis that may be managed with anti-inflammatories, physical therapy, and occasional steroid injections. While in the office today, the patient reports she is doing well with her right knee post-operatively; however, her left knee has been getting worse. She states she is going to [place] and expresses interest in getting a cortisone injection in her left knee today. [facility] Medical History Hypercholesterolemia GERD (gastroesophageal reflux disease) Arthritis Diabetes 1.5, managed as type 2 HTN (hypertension) Surgical History History of esophagogastroduodenoscopy (EGD) Hx of tubal ligation Hx of colonoscopy Social History Patient Tobacco Use Status: Never used Tobacco Current occupational status: disabled Current occupation: rt handed Review of Systems Const All systems reviewed & are unremarkable except as noted in HPI and below Physical Exam Const General: cooperative, healthy appearing and no acute distress Resp Effort & Inspection: normal respiratory effort and able to speak in complete sentences Cardio Rate: regular rate Peripheral pulses: Peripheral pulses 2+ throughout GI Palpation (GI): Soft to palpation Skin Lesions: no lesions Rashes: no rashes Extrem Other: left knee normal to inspection no ecchymosis, erythema, or joint effusion. Full ROM with crepitus. NVI. Office Procedures AMB Joint Injection/Aspiration Joint Injection/Aspiration Primary Site: left knee Prep: site was prepped using aseptic technique, ethochloride spray was applied and injection warnings given Injected: 80 mg of, DepoMedrol, with 8 mL of (2% plain lido ) and in the joint Approach Used: anterolateral Procedure: The patient tolerated the procedure well, but had some pain with the injection and there was some relief with the local anesthesia Coding 95620 - Large joint Procedure code (CPT) selection complete Assessment & Plan Assessment & Plan (1) S/P arthroscopy of right knee: Code(s): Z98.890 - Other specified postprocedural states Category: Surgical (2) Osteoarthritis of left knee: Code(s): M17.12 - Unilateral primary osteoarthritis, left knee Category: Medical (3) Osteoarthritis of right knee: Code(s): M17.11 - Unilateral primary osteoarthritis, right knee Category: Medical Plan 64-year-old right-hand dominant female, who is Hebrew speaking, presents in the office today for a follow-up of bilateral knee pain/osteoarthritis. The patient is status post right knee arthroplasty, which was performed on 11/05/[address] Gusman. She was last seen by Salinas LOPEZ on 11/30/22, when she was recommended to start with her first physical therapy session that was on 12/02/22. She was informed that locking and catching of the right knee should be resolved; however, she may develop a mild intermittent disc from arthritis that may be managed with anti-inflammatories, physical therapy, and occasional steroid injections. While in the office today, the patient reports she is doing well with her right knee post-operatively; however, her left knee has been getting worse. She states she is going to [place] and expresses interest in getting a cortisone injection in her left knee today. She patient was offered a cortisone injection in the right shoulder with 80 mg of Depo-Medrol. The patient was explained the risks, benefits, and alternatives to receiving this injection. After receiving consent for the injection, the patient had the procedure done while in the office today. The patient tolerated the procedure well with no complications. Patient Instructions: Scribed by Gricel Smith medical assistant float, for Radha Taveras PA-C on 05/09/24 at 1:22 pm EST. Coding Level of Care Code Est Pt Level 3 (79155) Diagnoses S/P arthroscopy of right knee Z98.890 Osteoarthritis of left knee M17.12 Osteoarthritis of right knee M17.11 CPT Codes Coding - 31169 Large joint: 29965 - Large joint ([id number])
== END 2024-05-09 13:12 | disposition home or self-care (01) ==
PROVIDERS: PCP Internal Medicine Geriatric Medicine; Visit Provider Physician Assistant
DX: M17.0 Bilateral primary osteoarthritis of knee (principal)
CPT/HCPCS: 20610; 99213

== ENCOUNTER → 2024-05-09 12:32 | Outpatient (BNVA) | payer OTHER, SELFPAY | PROVIDERS: PCP Internal Medicine Geriatric Medicine; Visit Provider Physician Assistant | DX: M17.0 Bilateral primary osteoarthritis of knee (principal); Z98.890 Other specified postprocedural states | CPT/HCPCS: 20610; 99212; J1010; J2003 ==

== ENCOUNTER 2024-07-20 09:38 | Outpatient (REF) | payer OTHER, SELFPAY ==
--- OUTSIDE RECORDS SUMMARY | 2024-07-20 10:27 | XMS_ITS | Encounter Summary ---
Author Organization [facility] Address [address] [place] [address] [address] [place] [address] Care Team Providers Care Precision Honing Machine Operator Name Role Phone Name, Daniel PINA Primary Care Provider [phone] Encounter Details Date Type Department Care Team (Late Contact Info) Description 11/11/2022 Abstract [facility] [address] [place], [place] [id number] Name, MD Daniel [address] [place] [address] Social History Tobacco Use Types Packs/Day Years Used Date Smoking Tobacco: Never Smokeless Tobacco: Never Alcohol Use Standard Drinks/Week Comments Never 0 (1 standard drink = 0.6 oz pur e alcohol) Depression Answer Date Recorded Patient Health Questionnaire-9 Score 0 11/04/2022 Depression Answer Date Recorded Patient Health Questionnaire-2 Score 0 11/04/2022 Comments Unknown Sex and Gender Information Value Date Recorded Sex Assigned at Female 03/30/2022 10:14 AM EDT Legal Sex Female 10:14 AM EDT Gender Identity Female 03/30/2022 10:14 AM EDT Sexual Orientation Straight 03/30/2022 10 :14 AM EDT COVID-19 Exposure Response Date Recorded In the last 10 days, have yo u been in contact with someone who was confirmed or suspected to have Coronavirus/COVID-19? No / Unsure 11/04/2022 8:36 AM EDT documented as of this encounter Plan of Treatment Upcoming Encounters Date Type Department Care Team (Late Contact Info) Description 07/26/2024 10:00 AM EST Office Visit [facility] [address] [place] [address] Jorge Luis, Deena documented as of this encounter Procedures Procedure Name Priority Date/Time Associated Diagnosis Comments COLONOSCOPY Routine 01/30/2022 12:52 PM EDT documented in this encounter Results * Colonoscopy (01/30/2022 12:52 PM EDT) Colonoscopy Normal Normal Narrative Karolina Buchanan - 01/30/2022 12:52 PM EDT Recommended 5 year follow up (Darius) us Historical Provider HEALTH MAINTENANCE Final Result documented in this encounter Visit Diagnoses Not on filedocumented in this encounter Additional Health Concerns Assessment Noted Time PHQ-9 Depression Total Score: 0 11/05/19 8:49 AM EDT documented as of this encounter Care Teams Precision Honing Machine Operator Relationship Specialty Start Date End Date Name, MD Daniel [address] [place] [address] PCP - General Internal Medicine 08/18/22 documented as of this encounter
--- OUTSIDE RECORDS SUMMARY | 2024-07-20 10:27 | XMS_ITS | Encounter Summary ---
Author Organization [facility] Address [address] [place] [address] [address] [place] [address] Care Team Providers Care Sergeant Of Officers Name Role Phone Samaria Butler Primary Care Provider [phone] Mookie Powers Primary Care Provider Unavail able NameDaniel MD Primary Care Provider Encounter Details Date Type Department Care Team (Late st Contact Info) Description 05/04/2022 Abstract [facility] [address] [place] [address] Provider, MD Parth Social History Tobacco Use Types Packs/Day Years Used Date Smoking Tobacco: Never Assessed Comments Unknown Sex and Gender Information Value Date Recorded Sex Assigned at Female 03/30/2022 10:14 AM EDT Legal Sex Female 10:14 AM EDT Gender Identity Female 03/30/2022 10:14 AM EDT Sexual Orientation Straight 03/30/2022 10 :14 AM EDT documented as of this encounter Plan of Treatment Upcoming Encounters Date Type Department Care Team (Late st Contact Info) Description 07/26/2024 10:00 AM EST Office Visit [facility] [address] [place] [address] Deena Kang documented as of this encounter Visit Diagnoses Not on filedocumented in this encounter Care Teams Sergeant Of Officers Relationship Specialty Start Date End Date Samaria Butler FNP [address] [place] [address] PCP - General Family Medicine 01/22/22 08/05/22 Mookie Powers AGNP [address] [place] [address] PCP - General Family Medicine 08/06/22 08/17/22 Name, MD Daniel [address] [place] [address] PCP - General Internal Medicine 08/18/22 documented as of this encounter
--- OUTSIDE RECORDS SUMMARY | 2024-07-20 10:27 | XMS_ITS | Clinical Summary ---
Author Organization [facility], Address [address] [place] [address] [place] [address] Phone Care Team Providers Care Shotgun Shell Reprinting Unit Operator Name Role Phone Dena Bellamy NP Primary Care Provider [phone] Allergies No known active allergies Medications acetaminophen (PHARBETOL) 325 MG tablet Comments: Filled Date: Mar 15 2017 12:00AM Duration: 15 7 Active amLODIPine (NORVASC) 10 MG tablet 0 Active ergocalciferol (VITAMIN D2) 1.25 MG (33295 UT) capsule 9 Active isosorbide mononitrate (IMDUR) 30 MG 24 hr tablet 0 Active lisinopril (PRINIVIL,ZESTR IL) 40 MG tablet Take 1 tablet by mouth 1 (one) time each day 7 Active metFORMIN (GLUCOPHAGE) 500 MG tablet TAKE 1 TABLET BY MOUTH WITH BREAKFAST AND 2 TABLETS WITH DINNER EVERY DAY 0 Active nitroglycerin (NITROSTAT) 0.4 MG SL tablet Comments: Filled Date: Mar 16 2017 12:00AM Duration: 8 7 Active pantoprazole (PROTONIX) 40 MG EC tablet 0 Active rosuvastatin (CRESTOR) 40 MG tablet 0 Active ferrous sulfate 325 (65 Fe) MG EC tablet take 1 tablet by mouth every other day WITH ORANGE JUICE 0 Active metoprolol tartrate (LOPRESSOR) 50 MG tablet Take 50 mg by mouth 2 (two) times a day Active Calcium Carbonate-Vitam in D3 (Calcium 600+D High Potency) 600-400 MG-UNIT tablet Take by mouth Active cyclobenzaprine (FLEXERIL) 5 MG tablet Take 5 mg by mouth 3 (three) times a day if needed for muscle spasms Active chlorthalidone (HYGROTON) 25 MG tablet Comments: Filled Date: May 23 2018 2:18PM Patient Notes: Take 1 tablet by mouth once a day 1 TABLET BY MOUTH DAILY Duration: 90 8 07/12/19 Discontinu ed(Med List [facility] e) Active Problems Problem Noted Date Diagnosed Date Stage 3a chronic kidney disease 06/20/2019 Essential hypertension 06/20/2019 Renal disorder due to type 2 diabetes mellitus 0 06/20/2019 Resolved Problems Problem Noted Date Diagnosed Date Resolved Date Anemia 06/20/2019 01/08/2021 Hyperlipidemia 06/20/2019 01/08/2021 Renal stone 06/20/2019 01/08/2021 Type 2 diabetes mellitus 06/20/201903/2021 Vitamin D deficiency 06/20/2019 021 Carcinoma in situ of skin of lip 06/06/2018 01/08/2021 Basal cell carcinoma of skin of nose 06/09/2017 01/08/2021 Immunizations Name Administration Dates Next Due Zoster 12/05/2018,08/22/2018 Family History Medical History Relation Comments Hypertension Father Hypertension Mother Relation Status Comments Father Mother Social History Tobacco Use Types Packs/Day Years Used Date Smoking Tobacco: Never Alcohol Use Standard Drinks/Week Comments No 0 (1 standard drink = 0.6 oz pur e alcohol) Comments Unknown Sex and Gender Information Value Date Recorded Sex Assigned at Not on file Legal Sex Female 4:37 PM EST Gender Identity Not on file Sexual Orientation Not on file Last Filed Vital Signs Vital Sign Reading Time Taken Comments Blood Pressure 120/68 06/22/2019 4:08 PM EST Pulse 74 06/22/2019 4:08 PM EST Temperature - - Respiratory Rate 16 06/22/2019 4:08 PM EST Oxygen Saturation - - Inhaled Oxygen Concentration - - Weight 72.6 kg (160 lb) 06/22/2019 4:08 PM EST Height 160 cm (5' 3 ) 06/22/2019 4:08 PM EST Body Mass Index 28.34 06/22/2019 4:08 PM EST Plan of Treatment Health Maintenance Due Date Last Done Comments Breast Cancer Screening 1960 Pneumococcal Vaccine: 65+ Years (1 of 2 - PCV) 1965 Pneumococcal Vaccine: Pediatrics (0 to 5 Years) and At-Risk Patients (6 to 64 Years) (1 of 2 - PCV) 1965 Colorectal Cancer Screening: Annual FOBT 01/22/2008 Colorectal Cancer Screening: Colonoscopy 01/22/2008 Colorectal Cancer Screening: Sigmoidoscopy 01/22/2008 Diabetes: Hemoglobin A1C 06/20/2019 019, 06/12/2017 Diabetes: Ophthalmology Exam 06/20/2019 Diabetes: Pedal Pulse Checked 06/20/2019 Diabetes: Sensory Foot Exam 06/20/2019 Diabetes: Visual Foot Exam 06/20/2019 Influenza Vaccine (#1) 2024 01/29/2015 Hepatitis B Vaccine Aged Out No longe r eligible based on patient's age to complete this topic Procedures Procedure Name Priority Date/Time Associated Diagnosis Comments HEMOGLOBIN A1C Routine 06/03/2018 2:30 PM EST from Last 3 Months or Most Recently Relevant to Health Maintenance Results * (ABNORMAL) Hemoglobin A1c (06/03/2018 2:30 PM EST) Hemoglobin A1C 7.3(H) (4-6) % [place] [id number] Comment: HEMOGLOBIN A1C(%) ?? GLUCOSE CONTROL INDEX ?<6% ? EXCELLENT ?6-7% ?VERY GOOD ?7-8% ?GOOD ?8-10% ? FAIR ?>10% ?POOR Hemoglobin (Hb) A1c testing is performed by [place] Massiel-quant immunoassay. Any cause of shortened erythrocyte survival will reduce exposure of erythrocytes to glucose with a consequent decrease in Hb A1c (%). Testing performed or reported by ~[facility], ~a Service of [facility], ~[address], [place] [address]~ Jerzy Julien MD, Pulper Tender 06/03/2018 2:30 PM EST us Maximiliano Christopher MD LAB BLOOD ORDERABLES Final Resul t [id number] from Last 3 Months or Most Recently Relevant to Health Maintenance Insurance [facility] Care Teams Shotgun Shell Reprinting Unit Operator Relationship Specialty Start Date End Date Dena Bellamy NP PCP - General 04/04/19
--- OUTSIDE RECORDS SUMMARY | 2024-07-20 10:27 | XMS_ITS | Encounter Summary ---
Author Organization [employer] [facility] Address [address] [place] [address] Care Team Providers Care Wool Fleece Sorter Name Role Phone Daniel Avalos MD Primary Care Provider [phone] Reason for Referral * Consultation (Routine) - Authorized Specialty Diagnoses / Procedures Referred By Hiram arroyo Referred To Contact Podiatry Diagnoses Type 2 diabetes mellitus with other specified complication, without long-term current use of insulin ([facility]) Daniel Avalos MD [address] [place] [address] Phone: tel: fax: Dylan Woo DPM [address] [place] [address] Phone: tel: fax: Referral ID Status Reason Start Date Expiration Date Visits Requested Visits Authorized [id number] Authorized Specialty Services Required 07/04/2024 07/04/2025 1 1 * Consultation (Routine) - Closed Specialty Diagnoses / Procedures Referred By Hiram arroyo Referred To Contact Orthopaedic Surgery Diagnoses Primary osteoarthritis of both knees Daniel Avalos MD [address] [place] [address] Phone: tel: fax: [facility] [address] [place] [address] Phone: tel: Referral ID Status Reason Start Date Expiration Date V isits Requested Visits Authorized [id number] Closed Specialty Services Required 07/04/2024 07/04/2025 1 1 Reason for Visit * Reason Comments OV Encounter Details Date Type Department Care Team (Latest Contact Info) Description 07/04/2024 1:45 PM EST Office Visit [facility] [address] [facility] [place] [address] Name, MD Daniel [address] [place] [address] Type 2 diabetes mellitus with other specified complication, without long-term current use of insulin ([facility]) (Primary Dx); Chronic pain of both knees; Primary osteoarthritis of both knees; Stress incontinence of urine; Hypertrophic toenail Social History Tobacco Use Types Packs/Day Years Used Date Smoking Tobacco: Never Passive Smoke Exposure: Never Smokeless Tobacco: Never Tobacco Cessation:Counseling Given: Not Answered Alcohol Use Standard Drinks/Week Comments Never 0 (1 standard drink = 0.6 oz pur e alcohol) Depression Answer Date Recorded Patient Health Questionnaire-9 Score 0 07/04/2024 Patient Health Questionnaire-9 Score 0 07/04/2024 Last PHQ-9: Questionnaire Data Not on file 0 07/04/2024 Housing Stability Answer Date Recorded What is your housing situation today? I have joyjustin landaverde 07/04/[address] you li ve. Do you have problems with any of the following? None of the above 07/04/2024 Food Insecurity Answer Date Recorded Within the past 12 months, y ou worried that your food would run out before you got money to buy more: Never True 07/04/2024 Within the past 12 months,th e food you bought just didn't last and you didn't have enough money to get more: Never True 08/2024 Transportation Answer Date Recorded In the past 12 months, has l ack of transportation kept you from medical appts, meetings, work or from getting things needed for daily living? No 07/04/2024 Utilities Answer Date Recorded In the past 12 months, has t he electric, gas, oil or water company threatened to shut off services in your home? No 07/04/2024 Depression Answer Date Recorded Patient Health Questionnaire-2 Score 0 07/04/2024 Internet Access Answer Date Recorded Internet Access Q1 Yes 07/04/2024 Internet Access Q2 Not on file 07/04/2024 Comments No Sex and Gender Information Value Date Recorded Sex Assigned at Female 03/30/2022 10:14 AM EDT Legal Sex Female 10:14 AM EDT Gender Identity Female 03/30/2022 10:14 AM EDT Sexual Orientation Straight 03/30/2022 10 :14 AM EDT documented as of this encounter Last Filed Vital Signs Vital Sign Reading Time Taken Comments Blood Pressure 110/68 07/04/2024 1:48 PM EST Pulse 72 07/04/2024 1:48 PM EST Temperature 36.9 ??C (98.5 ??F) 07/04/2024 1:48 PM ES T Respiratory Rate 16 07/04/2024 1:48 PM EST Oxygen Saturation - - Inhaled Oxygen Concentration - - Weight 72.2 kg (159 lb 4 oz) 07/04/2024 1:48 PM EST Height 160 cm (5' 3 ) 07/04/2024 1:48 PM EST Body Mass Index 28.21 07/04/2024 1:48 PM EST documented in this encounter Progress Notes * Daniel Avalos MD - 07/04/2024 1:45 PM EST Subjective Patient ID: Susanna Broussard is a 64 y.o. female who presents for OV. Patient comes for a follow-up visit. She returned from [place] last month. She is using her medications regularly. Blood pressure is good today and blood sugars well-controlled based on her hemoglobin A1c. Unfortunately she is complaining again of severe knee pain. She has a personal history ofknee DJD. She follows with orthopedics at [facility]. She asked me for referral back to orthopedics. The patient explains to me that she has difficulties walking and getting to the bathroom. She has asked me for a prescription for a commode, hand-held shower, and incontinence urinary pads since she also has stress incontinence and difficulties getting to the bathroom on time. Review of Systems Constitutional: Negative for chills and fever. HENT: Negative for sore throat. Respiratory: Negative for cough, shortness of breath and wheezing. Cardiovascular: Negative for chest pain, palpitations and leg swelling. Gastrointestinal: Negative for abdominal pain. Musculoskeletal: See HPI Visit Vitals BP 110/68 (BP Location: Left arm, Patient Position: Sitting, BP Cuff Size: Adult) Pulse 72 Temp 98.5 ??F (36.9 ??C) (Oral) Resp 16 Ht 5' 3 (1.6 m) Wt 159 lb 4 oz (72.2 kg) BMI 28.21 kg/m?? OB Status Postmenopausal Smoking Status Never BSA 1.79 m?? Objective Physical Exam Constitutional: Appearance: Normal appearance. Cardiovascular: Rate and Rhythm: Normal rate and regular rhythm. Pulses: Dorsalis pedis pulses are 2+ on the right side and 2+ on the left side. Posterior tibial pulses are 2+ on the right side and 2+ on the left side. Heart sounds: No murmur heard. No gallop. Pulmonary: Effort: Pulmonary effort is normal. No respiratory distress. Breath sounds: Normal breath sounds. No wheezing. Musculoskeletal: Right lower leg: No edema. Left lower leg: No edema. Right foot: Normal range of motion. Left foot: Normal range of motion. Feet: Right foot: Protective Sensation: 5 sites tested. 5 sites sensed. Skin integrity: Skin integrity normal. Left foot: Protective Sensation: 5 sites tested. 5 sites sensed. Skin integrity: Skin integrity normal. Comments: The patient has a large hypertrophic and tender toenail on the right great toe. She has been for referral to podiatry. The rest of the toenails are normal. Neurological: Mental Status: She is alert. Lab Results Component Value Date HGBA1C 6.8 (A) 07/04/2024 HGBA1C 6.8 (A) 02/14/2024 HGBA1C 6.7 (H) 09/22/2023 HGBA1C 6.7 (A) 04/28/2023 HGBA1C 6.8 (A) 11/04/2022 HGBA1C 6.7 (H) 04/29/2022 HGBA1C 6.4 (H) 06/18/2021 HGBA1C 6.6 (H) 01/15/2021 HGBA1C 6.7 (H) 01/26/2020 HGBA1C 6.7 (H) 01/26/2020 Current Outpatient Medications on File Prior to Visit Medication Sig Dispense Refill acetaminophen (Tylenol Extra Strength) 500 MG tablet Take 1 tablet (500 mg) by mouth every 8 (eight) hours if needed for moderate pain or mild pain. 100 tablet 1 amLODIPine (Norvasc) 10 MG tablet TAKE 1 TABLET BY MOUTH EVERY DAY 90 tablet 0 betamethasone valerate (Valisone) 0.1 % ointment Use twice a week as needed 45 g 2 Blood Glucose Monitoring Suppl (FreeStyle Lite) w/Device kit 1 each See administration instructions. Use once a day 1 kit 0 Blood Glucose Monitoring Suppl (ONE TOUCH ULTRA 2) w/Device kit TEST BLOOD SUGAR ONCE A DAY 1 kit 0 cyclobenzaprine (Flexeril) 5 MG tablet TAKE 1 TABLET BY MOUTH EVERY NIGHT AT BEDTIME 30 tablet 0 Diclofenac Sodium 1 % gel APPLY TOPICALLY DAILY TO AFFECTED JOINT 100 g 3 ergocalciferol (Vitamin D2) 1.25 MG (13472 UT) capsule TAKE 1 CAPSULE BY MOUTH 1 TIME A WEEK DIRECTED 4 capsule 0 gabapentin (Neurontin) 300 MG capsule TAKE 1 TO 2 CAPSULES BY MOUTH THREE TIMES DAILY 180 capsule 2 isosorbide mononitrate ER (Imdur) 30 MG 24 hr tablet TAKE 1 TABLET BY MOUTH EVERY MORNING 90 tablet2 Lancets (OneTouch Delica Plus [id number]) [facility] TEST BLOOD SUGAR ONCE A DAY 100 each 11 lisinopril 40 MG tablet TAKE 1 TABLET BY MOUTH EVERY DAY 90 tablet 1 metFORMIN XR (Glucophage-XR) 500 MG 24 hr tablet TAKE 2 TABLETS BY MOUTH TWICE DAILY WITH BREAKFASTAND EVENING MEAL 360 tablet 1 metoprolol tartrate (Lopressor) 50 MG tablet TAKE 1 AND 1/2 TABLETS BY MOUTH TWICE DAILY 270 tablet3 nitroglycerin (Nitrostat) 0.4 MG SL tablet under the tongue pantoprazole (ProtoNix) 40 MG EC tablet TAKE 1 TABLET BY MOUTH EVERY MORNING 1 HOUR BEFORE MEALS 90tablet 3 rosuvastatin (Crestor) 20 MG tablet TAKE 1 TABLET(20 MG) BY MOUTH IN THE MORNING 30 tablet 11 No current facility-administered medications on file prior to visit. Assessment/Plan Diagnoses and all orders for this visit: Type 2 diabetes mellitus with other specified complication, without long-term current use of insulin ([facility]) Comments: Continue current meds and check fasting blood work listed below. She is recommended to avoid sweets. Try to walk a little daily. Orders: - POCT Glucose - POCT HGB A1C - Comprehensive Metabolic Panel; Future - Lipid Panel, Standard; Future - Albumin, Random Urine W/Creatinine; Future - Referral to Podiatry; Future Chronic pain of both knees Comments: I will refer her back to [facility] Orth[place] as she requested. Primary osteoarthritis of both knees Comments: I will refer her back to [facility] Orth[facility] as she requested. Orders: - Referral to Orthopaedic Surgery; Future Stress incontinence of urine Comments: I will order the urinary incontinence past she requested. Hypertrophic toenail Comments: Referral to podiatry documented in this encounter Plan of Treatment Upcoming Encounters Date Type Department Care Team (Late st Contact Info) Description 07/26/2024 10:00 AM EST Office Visit [facility] [address] [place] [address] Deena Kang Scheduled Orders Name Type Priority Associated Diagnoses Orde r Schedule Comprehensive Metabolic Panel Lab Routine Type 2 diabetes mellitus with other specified complication, without long-term current use of insulin (CMS/HCC) Expected: 07/04/2024 (Approximate), Expires: 07/04/2025 Lipid Panel, Standard Lab Routine Type 2 diabetes mellitus with other specified complication, without long-term current use of insulin (CMS/HCC) Expected: 07/04/2024 (Approximate), Expires: 07/04/2025 Albumin, Random Urine W/Creatinine Lab Routine Type 2 diabetes mellitus with other specified complication, without long-term current use of insulin (CMS/HCC) Expected: 07/04/2024 (Approximate), Expires: 07/04/2025 Scheduled Referrals Name Type Priority Associated Diagnoses Orde r Schedule Referral to Orthopaedic Surgery Outpatient Referral Routine Primary osteoarthritis of both knees Expected: 07/04/2024 (Approximate), Expires: 07/04/2025 Referral to Podiatry Outpatient Referral Routine Type 2 diabetes mellitus with other specified complication, without long-term current use of insulin (CMS/HCC) Expected: 07/04/2024 (Approximate), Expires: 07/04/2025 documented as of this encounter Procedures Procedure Name Priority Date/Time Associated Diagnosis Comments POCT GLYCATED HEMOGLOBIN, TOTAL Routine 07/04/2024 1:54 PM EST Type 2 diabetes mellitus with other specified complication, without long-term current use of insulin (CMS/HCC) POCT GLUCOSE Routine 07/04/2024 1:54 PM EST Type 2 diabetes mellitus with other specified complication, without long-term current use of insulin ([facility]) documented in this encounter Results * (ABNORMAL) POCT HGB A1C (07/04/2024 1:54 PM EST) Hemoglobin A1C 6.8(A) 4.0 - 6.0 % QC Media Lot # [id number] Lot# Expiration Date Blood 07/04/2024 1:54 PM EST Daniel Avalos MD POINT OF CARE TEST ENTER/EDIT OR DERABLES Final Result * (ABNORMAL) POCT Glucose (07/04/2024 1:54 PM EST) Glucose Blood, POC 218(A) 60 - 200 mg/dL QC Media Lot # [id number] Lot# Expiration Date ,541 Blood Capillary blood specimen / Unknown 07/04/2024 1:54 PM EST Daniel Avalos MD POINT OF CARE TEST ENTER/EDIT OR DERABLES Final Result documented in this encounter Visit Diagnoses Diagnosis Type 2 diabetes mellitus with other specified complication, without long-term current use of insulin ([facility])- Primary Chronic pain of both knees Primary osteoarthritis of both knees Stress incontinence of urine Hypertrophic toenail documented in this encounter Additional Health Concerns Assessment Noted Time PHQ-9 Depression Total Score: 0 07/04/19 25 1:51 PM EST documented as of this encounter Care Teams Wool Fleece Sorter Relationship Specialty Start Date End Date Name, MD Daniel [address] [place] [address] PCP - General Internal Medicine 08/18/22 documented as of this encounter
--- OUTSIDE RECORDS SUMMARY | 2024-07-20 10:27 | XMS_ITS | Clinical Summary ---
Author Organization [facility] Address [address] [place] [address] Phone Care Team Providers Care Pharm Tech Name Role Phone Name, Daniel PINA Primary Care Provider [phone] Medical History Medical History Date Comments High blood pressure DX:High bloo d pressure Diabetes mellitus type 2, no ninsulin dependent (CMS/HCC) DX:Diabetes mellitus type 2, noninsulin dependent (HCC) High cholesterol DX:High cholest astrid Social History Tobacco Use Types Packs/Day Years Used Date Smoking Tobacco: Never Smokeless Tobacco: Never Alcohol Use Standard Drinks/Week Comments No 0 (1 standard drink = 0.6 oz pur e alcohol) Comments Unknown Sex and Gender Information Value Date Recorded Sex Assigned at Not on file Legal Sex Female 11:13 AM EST Gender Identity Not on file Sexual Orientation Not on file Obstetrics History Plan of Treatment Upcoming Encounters Date Type Department Care Team ([facility] Contact Info) Description 09/06/2024 3:15 PM EDT Consult Orthopedic Surgery [place] [id number] [phone] Dylan Woo, DPM [address] [address] Health Maintenance Due Date Last Done Comments Breast Cancer Screening 1960 Diabetes: Annual GFR (Glomer ular Filtration Rate) 1959 COVID-19 Vaccine (#1) 01/22/1964 Diabetes: Annual Foot Exam 1969 Diabetes: Annual Retina Eye Exam 1969 DTaP,Tdap,and Td Vaccines (1 - Tdap) 1978 Pneumococcal Vaccine: 50+ Ye ars (1 of 2 - PCV) 1978 Pneumococcal Vaccine: Pediat rics (0 to 5 Years) and At-Risk Patients (6 to 64 Years) (1 of 2 - PCV) 1978 Zoster Vaccines (1 of 2) 1978 Cervical Cancer Screening: P ap Smear 01/22/1980 Cholesterol Screening (Lipid Panel) 04/28/2022 Colorectal Cancer Screening: Colonoscopy 04/28/2022 Depression Screening 04/28/2022 Hepatitis C Screening 04/28/2022 Medicare Annual Wellness Visit 04/28/2022 Osteoporosis Screening (Bone Density Screening) 04/28/2022 Social Influencers of Health Screening 04/28/2022 Falls Risk Assessment 01/22/2024 Influenza Vaccine (#1) 2024 Diabetes: Annual Urine Albumin-Creatinine Ratio (uACR) 07/19/2024 Diabetes: Blood Sugar Contro l Test (HGBA1C) 07/19/2024 RSV Immunization Patients 60 + Years Old (1 - 1-dose 75+ series) 2034 HIB Vaccines Aged Out No longer eligi ble based on patient's age to complete this topic HPV Vaccines Aged Out No longer eligi ble based on patient's age to complete this topic Hepatitis A Vaccines Aged Out No long er eligible based on patient's age to complete this topic Hepatitis B Vaccines Aged Out No long er eligible based on patient's age to complete this topic IPV Vaccines Aged Out No longer eligi ble based on patient's age to complete this topic MMR Vaccines Aged Out No longer eligi ble based on patient's age to complete this topic Meningococcal ACWY Vaccine Aged Out N o longer eligible based on patient's age to complete this topic Meningococcal B Vacine Aged Out No lo nger eligible based on patient's age to complete this topic RSV Immunization Patients Un casimiro 20 months Aged Out No longer eligible b ased on patient's age to complete this topic Varicella Vaccines Aged Out No longer eligible based on patient's age to complete this topic Insurance [employer] MEDICARE Member Subscriber Plan / Payer (Ef fective 2024-Present) Name:Susanna Broussard Relation to Subscriber:Self Name:Susanna Broussard Payer ID:[id number] Group ID:[id number] Type:Not on file Address: [address] [place] [address] MEDICAID - [place] Care Teams Pharm Tech Relationship Specialty Start Date End Date Name, MD Daniel [address] [place] [address] PCP - General Internal Medicine 07/19/24
--- OUTSIDE RECORDS SUMMARY | 2024-07-20 10:27 | XMS_ITS | Encounter Summary ---
Author Organization [employer] Address [address] 7[address] [place] [address] Care Team Providers Care Electric Motor And Generator Assembler Name Role Phone Name, Daniel PINA Primary Care Provider [phone] Reason for Visit * Reason Onset Date Comments triage 08/18/2022 Encounter Details Date Type Department Care Team (Late st Contact Info) Description 08/18/2022 Telephone [facility] [address] [place], [place] [phone] Mooike Powers AGNP triage Social History Tobacco Use Types Packs/Day Years [...] suspected to have Coronavirus/COVID-19? No / Unsure 08/18/2022 2:25 PM EDT documented as of this encounter Miscellaneous Notes * Telephone Encounter - Aleah Gaytan RN - 08/18/2022 1:29 PM EDT Triage call with [employer]fund Dumper Bailer Operator [place] [id number] Pt reports at 1030pm was laying down and turned right foot, heard a snapping noise in right knee and has had pain ever since. Pt has had chronic knee pain with injections received but, Pt reports injections never helped the pain. Pt reports pain when walking and climbing stairs and walks with a limp. Pt doesn't take anything for pain. Advised to take motrin or tylenol as needed. Offered apt with PCP in 2 weeks, Pt requests to be seen today due to pain. Advised Pt to come to the [facility] today and Ptagreed with disposition and home care reviewed. Protocol Used: Knee Pain (Adult) Protocol-Based Disposition: See in Office or Video Visit Today Positive Triage Question: * Severe pain (e.g., excruciating, unable to walk) * All higher-acuity triage questions were negative Care Advice Discussed: * Reassurance and Education - Knee Pain * Pain Medicines * Pain Medicines - Extra Notes and Warnings * Reasons To Call Back - Moderate pain (e.g., limping) lasts more than 3 days - Mild pain lasts more than 7 days - Signs of infection occur (e.g., spreading redness, warmth, fever) - You become worse * Use a Cold Pack for Pain * Use Heat on Area After 48 Hours * Telephone Encounter - Prabha Montgomery - 08/18/2022 12:47 PM EDT Symptom: Knee Pain - Not From Injury Outcome: Schedule an appointment to be seen within 24 hours Reason: No high acuity concerns reported by caller The caller accepted this outcome documented in this encounter Plan of Treatment Upcoming Encounters Date Type Department Care Team (Late st Contact Info) Description 07/26/2024 10:00 AM EST Office Visit [facility] AD[facility] [address] [place] [address] Deena Kang documented as of this encounter Visit Diagnoses Not on filedocumented in this encounter Care Teams Electric Motor And Generator Assembler Relationship Specialty Start Date End Date Name, MD Daniel [address] [place] [address] PCP - General Internal Medicine 08/18/22 documented as of this encounter
--- OUTSIDE RECORDS SUMMARY | 2024-07-20 10:27 | XMS_ITS | Encounter Summary ---
Author Organization [employer] [facility] Address [address] [place] [address] 7t [place] [address] Care Team Providers Care Ground Surveillance Systems Operator Name Role Phone Samaria Butler Primary Care Provider [phone] Mookie Powers Primary Care Provider Unavail able NameDaniel MD Primary Care Provider [phone] Reason for Visit * Reason Comments Med Refill Encounter Details Date Type Department Care Team (Late st Contact Info) Description 05/22/2022 Refill [facility] [address] [place], [place] [phone] Daniel Avalos MD [address] [place] [address] Social History Tobacco Use Types Packs/Day Years [...] Description 07/26/2024 10:00 AM EST Office Visit [facility] [address] [place], [place] [phone] Deena Kang documented as of this encounter Visit Diagnoses Not on filedocumented in this encounter Care Teams Ground Surveillance Systems Operator Relationship Specialty Start Date End Date Samaria Butler FNP [address] [place] [address] PCP - General Family Medicine 01/22/22 08/05/22 Mookie Poewrs AGNP [address] [place] [address] PCP - General Family Medicine 08/06/22 08/17/22 Robbie, MD Daniel [address] [place] [address] PCP - General Internal Medicine 08/18/22 documented as of this encounter
--- OUTSIDE RECORDS SUMMARY | 2024-07-20 10:27 | XMS_ITS | Patient Health Record ---
Author Organization [facility] Address [address] [place] [address] Care Team Providers Care Poured Concrete Wall Technician Name Role Phone Carmelita Merlos Jessica Primary Care Provider Richardson Franz Unavailable [phone] ALLERGIES No Known Allergies REASON FOR REFERRAL [...] Twice a day Active Vitamin D (Ergocalciferol) 57637 UNIT 1 capsule Orally Once a week [...] malignant neoplasm of colon (Z12.11) Active confirmed 887028026 Problem Encounter for screening for malignant neoplasm of rectum (Z12.12) Active confirmed Screening for malignant neoplasm of rectum (316791549) Problem Long-term use of aspirin therapy (Z79.82) Active confirmed 328824693 Problem Preprocedural examination (Z01.818) Active confirmed 16471671 Problem Gastro-esophageal reflux disease without esophagitis (K21.9) Active confirmed 090488686 Problem History of adenomatous polyp of colon (Z86.010) Active confirmed 734986914 Problem Colon, diverticulosis (K57.30) Active confirmed Diverticular disease of colon (545554348) PLAN OF TREATMENT Pending Test Test Name Order Date Pathology 01/30/2022 Future Test Test Name Order Date COLONOSCOPY 03/04/2016 COLONOSCOPY 12/17/2021 Insurance Providers Payer Name Payer Address Payer Phone Subscriber Number Group Number Insured Name Patient Relationship to Insured Coverage Start Date Coverage End Date [facility] [address] [place] [address] [id number] LINDA ALBARADO Self - patient is the insured MEDICAL (GENERAL) HISTORY Medical History History ICD Code Tubular adenomas removed in 1996 and 2005; she had a negative colonoscopy on 11-24-2010 Denies DE,CVA,DM,Lung disease,renal dise ase GERD--EGD in 2000 was negati ve for any significant esophagitis and Meraz's esophagus Hypertension Hypercholesterolemia Negative colonoscopy in 07/2016 Surgical History Surgery Date(Month/Year) BTL
--- OUTSIDE RECORDS SUMMARY | 2024-07-20 10:27 | XMS_ITS | Encounter Summary ---
Author Organization [employer] [facility] Address [address] [place] [address] 7t [place] [address] Care Team Providers Care Air Cargo Agent Name Role Phone Name, Daniel PINA Primary Care Provider [phone] Reason for Visit * Reason Onset Date Comments Pre-op Exam 10/14/2022 Encounter Details Date Type Department Care Team (Late st Contact Info) Description 10/14/2022 Telephone [facility] MEDICINE [address] [place] [address] Name, MD Daniel [address] [place], [place] [phone] Pre-op Exam Social History Tobacco Use Types Packs/Day Years Used Date Smoking Tobacco: Never Assessed Comments Unknown Sex and Gender Information Value Date Recorded Sex Assigned at Female 03/30/2022 10:14 AM EDT Legal Sex Female 10:14 AM EDT Gender Identity Female 03/30/2022 10:14 AM EDT Sexual Orientation Straight 03/30/2022 10 :14 AM EDT documented as of this encounter Miscellaneous Notes * Telephone Encounter - Cristin Whalen RN - 10/15/2022 2:10 PM EDT Returned call to Trina at [facility] Ortho. Pt is getting a R knee arthroscopy date tbd with Dr Gusman. Pt will needs labs and EKG and will be under general anesthesia. Notes determining what is needed prior to surgery will be faxed to [facility]. Pt scheduled with PCP on 11/04/22. Ortho will notify pt. * Telephone Encounter - Zehra Be - 10/14/2022 9:38 AM EDT Jonathan Mena at [facility] Orthopedics Pre Op Location: [address] [address] Procedure: right knee arthroscopy Date of Procedure: not yet but usually in a month after they get the pre-op date Lab: required yes (faxing them over) EKG: required yes (faxing it over) Type of Anesthesia : General documented in this encounter Plan of Treatment Upcoming Encounters Date Type Department Care Team (Late st Contact Info) Description 07/26/2024 10:00 AM EST Office Visit [facility] ADULT DENTAL [address] [place] [address] Deena Kang documented as of this encounter Visit Diagnoses Not on filedocumented in this encounter Care Teams Air Cargo Agent Relationship Specialty Start Date End Date Name, MD Daniel [address] [place] [address] PCP - General Internal Medicine 08/18/22 documented as of this encounter
--- OUTSIDE RECORDS SUMMARY | 2024-07-20 10:27 | XMS_ITS | Encounter Summary ---
Author Organization [employer] Address [address] [facility] 7t [place] [address] Care Team Providers Care Aircraft Maintenance Engineer Name Role Phone Name, Daniel PINA Primary Care Provider [phone] Reason for Visit * Reason Comments Med Refill Encounter Details Date Type Department Care Team ([facility] st Contact Info) Description 05/11/2024 Refill [facility] MEDICINE [address] [place] [address] Name, MD Daniel [address] [place], [place] [phone] Social History Tobacco Use Types Packs/Day Years Used Date Smoking Tobacco: Never Smokeless Tobacco: Never Alcohol Use Standard Drinks/Week Comments Never 0 (1 standard drink = 0.6 oz pur e alcohol) Depression Answer Date Recorded Patient Health Questionnaire-9 Score 0 11/04/2022 Housing Stability Answer Date Recorded What is your housing situation today? I have joy landaverde 03/18/[address] you li ve. Do you have problems with any of the following? None of the above 03/18/2023 Food Insecurity Answer Date Recorded Within the past 12 months, y ou worried that your food would run out before you got money to buy more: Never True 03/18/2023 Within the past 12 months,th e food you bought just didn't last and you didn't have enough money to get more: Never True Transportation Answer Date Recorded In the past 12 months, has l ack of transportation kept you from medical appts, meetings, work or from getting things needed for daily living? No 03/18/2023 Utilities Answer Date Recorded In the past 12 months, has t he electric, gas, oil or water company threatened to shut off services in your home? No 03/18/2023 Depression Answer Date Recorded Patient Health Questionnaire-2 Score 0 11/04/2022 Comments No Sex and Gender Information Value [...] 10:00 AM EST Office Visit [facility] ADULT DENTAL [address] [place] [address] Deena Kang documented as of this encounter Visit Diagnoses Not on filedocumented in this encounter Additional Health Concerns Assessment Noted Time PHQ-9 Depression Total Score: 0 11/05/19 23 8:49 AM EDT documented as of this encounter Care Teams Aircraft Maintenance Engineer Relationship Specialty Start Date End Date Name, MD Daniel [address] [place] [address] PCP - General Internal Medicine 08/18/22 documented as of this encounter
--- OUTSIDE RECORDS SUMMARY | 2024-07-20 10:27 | XMS_ITS | Encounter Summary ---
Author Organization [employer] Address [address] 7t [place] [address] Care Team Providers Care Heel Trimmer Name Role Phone Name, Daniel PINA Primary Care Provider [phone] Encounter Details Date Type Department Care Team (Latest Contact Info) Description 07/04/2024 Travel Social History Tobacco Use Types Packs/Day Years Used Date Smoking Tobacco: Never Passive Smoke Exposure: Never Smokeless Tobacco: Never Alcohol Use Standard Drinks/Week Comments Never 0 (1 standard drink = 0.6 oz pur e alcohol) Depression Answer Date Recorded Patient Health Questionnaire-9 Score 0 07/04/2024 Patient Health Questionnaire-9 Score 0 07/04/2024 Last PHQ-9: Questionnaire Data Not on file 0 07/04/2024 Housing Stability Answer Date Recorded What is your housing situation today? I have joy landaverde 07/04/[address] you [...] [facility] [address] [place] [address] Deena Kang documented as of this encounter Visit Diagnoses Not on filedocumented in this encounter Additional Health Concerns Assessment Noted Time PHQ-9 Depression Total Score: 0 07/04/19 25 1:51 PM EST documented as of this encounter Care Teams Heel Trimmer Relationship Specialty Start Date End Date Name, MD Daniel [address] [place] [address] PCP - General Internal Medicine 08/18/22 documented as of this encounter
--- OUTSIDE RECORDS SUMMARY | 2024-07-20 10:27 | XMS_ITS | Encounter Summary ---
Author Organization [employer] Address [address] [facility] 7t [place] [address] Care Team Providers Care Commercial Real Estate Attorney Name Role Phone Name, Daniel PINA Primary Care Provider [phone] Reason for Visit * Reason Comments Med Refill Encounter Details Date Type Department Care Team ([facility] st Contact Info) Description 05/22/2024 Refill [facility] MEDICINE [address] [place] [address] Name, MD Daniel [address] [place], [place] [phone] Gastroesophageal reflux disease without esophagitis Social History Tobacco Use Types Packs/Day Years [...] the past 12 months, has t he Funding [employer], gas, oil or water company threatened to [...] Description 07/26/2024 10:00 AM EST Office Visit [facility] ADULT DENTAL [address] [place] [address] Deena Kang documented as of this encounter Visit Diagnoses Diagnosis Gastroesophageal reflux disease without esophagitis Esophageal reflux documented in this encounter Additional Health Concerns Assessment Noted Time PHQ-9 Depression Total Score: 0 11/05/19 8:49 AM EDT documented as of this encounter Care Teams Commercial Real Estate Attorney Relationship Specialty Start Date End Date Name, MD Daniel [address] [place] [address] PCP - General Internal Medicine 08/18/22 documented as of this encounter
--- OUTSIDE RECORDS SUMMARY | 2024-07-20 10:27 | XMS_ITS | Encounter Summary ---
Author Organization [employer] Address [address] [facility] 7t [place] [address] Care Team Providers Care Defense Analyst Name Role Phone Name, Daniel PINA Primary Care Provider Reason for Visit * Reason Comments Med Refill Encounter Details Date Type Department Care Team ([facility] st Contact Info) Description 06/22/2024 Refill [facility] MEDICINE [address] [place] [address] Name, MD Daniel [address] [place], [place] [phone] Social History Tobacco Use Types Packs/Day Years [...] 07/26/2024 10:00 AM EST Office Visit [facility] ADULT D[facility]AL [address] [place] [address] Deena Kang documented as of this encounter Visit Diagnoses Not on filedocumented in this encounter Additional Health Concerns Assessment Noted Time PHQ-9 Depression Total Score: 0 11/05/19 23 8:49 AM EDT documented as of this encounter Care Teams Defense Analyst Relationship Specialty Start Date End Date Name, MD Daniel [address] [place] [address] PCP - General Internal Medicine 08/18/22 documented as of this encounter
--- OUTSIDE RECORDS SUMMARY | 2024-07-20 10:27 | XMS_ITS | Encounter Summary ---
Author Organization [employer] Address [address] [facility] 7t [place] [address] Care Team Providers Care Construction Crew Member Name Role Phone Name, Daniel PINA Primary Care Provider [phone] Encounter Details Date Type Department Care Team ([facility] st Contact Info) Description 07/06/2024 Telephone [facility] MEDICINE [address] [place], [place] [phone] Name, MD Daniel [address] [place], [place] [phone] Social History Tobacco Use Types Packs/Day Years [...] encounter Miscellaneous Notes * Telephone Encounter - Mini Fernandez - 07/06/2024 1:00 PM EST DME RX for inserts/liners and commode and hand held shower generated and placed on providers desk for signature. * Telephone Encounter - Mini Fernandez - 07/06/2024 12:51 PM EST ----- Message from Daniel Avalos MD sent at 07/04/2024 5:20 PM EST ----- This patient has [employer] insurance. She has DJD of the knees and urinary incontinence. She requested: [employer] Hand held shower Urine incotinence pads to put in her underwear documented in this encounter Plan of Treatment Upcoming Encounters Date Type Department Care Team (Late st Contact Info) Description 07/26/2024 10:00 AM EST Office Visit [facility] ADULT DENTAL [address] [place], [place] [phone] Deena Kang documented as of this encounter Visit Diagnoses Not on filedocumented in this encounter Additional Health Concerns Assessment Noted Time PHQ-9 Depression Total Score: 0 07/04/19 25 1:51 PM EST documented as of this encounter Care Teams Construction Crew Member Relationship Specialty Start Date End Date Robbie, MD Daniel [address] [place] [address] PCP - General Internal Medicine 08/18/22 documented as of this encounter
--- OUTSIDE RECORDS SUMMARY | 2024-07-20 10:27 | XMS_ITS | Encounter Summary ---
Author Organization [employer] Address [address] [facility] 7t [place] [address] Care Team Providers Care Artificial Leather Calender Operator Name Role Phone Name, Daniel PINA Primary Care Provider [phone] Reason for Visit * Reason Comments Med Refill Encounter Details Date Type Department Care Team ([facility] st Contact Info) Description 07/12/2024 Refill [facility] MEDICINE [address] [place] [address] Name, MD Daniel [address] [place], [place] [phone] Social History Tobacco Use Types Packs/Day Years [...] [facility] [address] [place] [address] Deena Kang documented as of this encounter Visit Diagnoses Not on filedocumented in this encounter Additional Health Concerns Assessment Noted Time PHQ-9 Depression Total Score: 0 07/04/19 25 1:51 PM EST documented as of this encounter Care Teams Artificial Leather Calender Operator Relationship Specialty Start Date End Date Name, MD Daniel [address] [place] [address] PCP - General Internal Medicine 08/18/22 documented as of this encounter
--- OUTSIDE RECORDS SUMMARY | 2024-07-20 10:28 | XMS_ITS | Encounter Summary ---
Author Organization [employer] Address [address] [facility] 7t [place] [address] Care Team Providers Care Chief Deputy Name Role Phone Name, Daniel PINA Primary Care Provider [phone] Reason for Visit * Reason Comments Med Refill Encounter Details Date Type Department Care Team ([facility] st Contact Info) Description 03/18/2023 Refill [facility] MEDICINE [address] [place] [address] Samaria Bulter FNP [address] [place], [place] [phone] Social History Tobacco Use Types Packs/Day Years [...] Description 07/26/2024 10:00 AM EST Office Visit [facility] ADULT DENTAL [address] [place] [address] Deena Kang documented as of this encounter Visit Diagnoses Not on filedocumented in this encounter Additional Health Concerns Assessment Noted Time PHQ-9 Depression Total Score: 0 11/05/19 23 8:49 AM EDT documented as of this encounter Care Teams Chief Deputy Relationship Specialty Start Date End Date Name, MD Daniel [address] [place] [address] PCP - General Internal Medicine 08/18/22 documented as of this encounter
--- OUTSIDE RECORDS SUMMARY | 2024-07-20 10:28 | XMS_ITS | Encounter Summary ---
Author Organization [facility], Address [address] [place] [address] Phone Care Team Providers Care Pouncing Lathe Operator Name Role Phone Dena Bellamy NP Primary Care Provider [phone] Encounter Details Date Type Department Care Team (Late st Contact Info) Description 12/09/2021 Documentation Only [facility], [address] [place] [address] Maximiliano Christopher MD [address] [place] [id number] Social History Tobacco Use Types Packs/Day Years Used Date Smoking Tobacco: Never Alcohol Use Standard Drinks/Week Comments No 0 (1 standard drink = 0.6 oz pur e alcohol) Comments Unknown Sex and Gender Information Value Date Recorded Sex Assigned at Not on file Legal Sex Female 4:37 PM EST Gender Identity Not on file Sexual Orientation Not on file documented as of this encounter Plan of Treatment Not on file documented as of this encounter Visit Diagnoses Not on filedocumented in this encounter Care Teams Pouncing Lathe Operator Relationship Specialty Start Date End Date Dena Bellamy NP PCP - General 04/04/19 documented as of this encounter
--- OUTSIDE RECORDS SUMMARY | 2024-07-20 10:28 | XMS_ITS | Encounter Summary ---
Author Organization [employer] [facility] Address [address] [place] [address] 7t [place] [address] Care Team Providers Care Supervisor Covering And Lining Name Role Phone Name, Daniel PINA Primary Care Provider [phone] Reason for Visit * Reason Comments Med Refill Encounter Details Date Type Department Care Team (Late st Contact Info) Description 11/27/2022 Refill [facility] MEDICINE [address] [place], [place] [phone] Name, MD Daniel [address] [place], [place] [phone] Social History Tobacco Use Types Packs/Day Years [...] Description 07/26/2024 10:00 AM EST Office Visit [facility] ADULT DENTAL [address] [place], [place] [phone] Deena Kang documented as of this encounter Visit Diagnoses Not on filedocumented in this encounter Additional Health Concerns Assessment Noted Time PHQ-9 Depression Total Score: 0 11/05/19 8:49 AM EDT documented as of this encounter Care Teams Supervisor Covering And Lining Relationship Specialty Start Date End Date Name, MD Daniel [address] [place] [address] PCP - General Internal Medicine 08/18/22 documented as of this encounter
--- OUTSIDE RECORDS SUMMARY | 2024-07-20 10:28 | XMS_ITS | Clinical Summary ---
Author Organization [employer] Address [address] [place] [address] [address] [place] [address] Care Team Providers Care Wind Operations Manager Name Role Phone Name, Daniel PINA Primary Care Provider Allergies No known active allergies Medications nitroglycerin (Nitrostat) 0.4 MG SL tablet under the tongue 017 Active betamethasone valerate (Valisone) 0.1 % ointment Use twice a week as needed 45 g 2 023 Active Diclofenac Sodium 1 % gel APPLY TOPICALLY DAILY TO AFFECTED JOINT 100 g 3 023 Active Blood Glucose Monitoring Suppl (FreeStyle Lite) w/Device kitIndications:Ty pe 2 diabetes mellitus with other specified complication, without long-term current use of insulin ([facility]) 1 each See administration instructions. Use once a day 1 kit 023 Active Lancets (OneTouch Delica Plus [id number]) [facility] [place] TEST BLOOD SUGAR ONCE A DAY 100 each 11 023 Active Blood Glucose Monitoring Suppl (ONE TOUCH ULTRA 2) w/Device kit TEST BLOOD SUGAR ONCE A DAY 1 kit 023 Active cyclobenzaprine (Flexeril) 5 MG tabletIndications :Left knee pain, unspecified chronicity TAKE 1 TABLET BY MOUTH EVERY NIGHT AT BEDTIME 30 tablet 024 Active gabapentin (Neurontin) 300 MG capsuleIndication s:Type 2 diabetes mellitus with other specified complication, unspecified whether watermelon inspector insulin use ([facility]) TAKE 1 TO 2 CAPSULES BY MOUTH THREE TIMES DAILY 180 capsule 2 024 Active metFORMIN XR (Glucophage-XR) 500 MG 24 hr tablet TAKE 2 TABLETS BY MOUTH TWICE DAILY WITH BREAKFAST AND EVENING MEAL 360 tablet 1 024 Active pantoprazole (ProtoNix) 40 MG EC tabletIndications :Gastroesophageal reflux disease without esophagitis TAKE 1 TABLET BY MOUTH EVERY MORNING 1 HOUR BEFORE MEALS 90 tablet 3 024 Active metoprolol tartrate (Lopressor) 50 MG tablet TAKE 1 AND 1/2 TABLETS BY MOUTH TWICE DAILY 270 tablet 3 024 Active acetaminophen (Tylenol Extra Strength) 500 MG tabletIndications :Primary osteoarthritis of both knees Take 1 tablet (500 mg) by mouth every 8 (eight) hours if needed for moderate pain or mild pain. 100 tablet 1 024 2024 Active ergocalciferol (Vitamin D2) 1.25 MG (32525 UT) capsule TAKE 1 CAPSULE BY MOUTH 1 TIME A WEEK DIRECTED 4 capsule Active rosuvastatin (Crestor) 20 MG tablet TAKE 1 TABLET(20 MG) BY MOUTH IN THE MORNING 30 tablet 11 Active isosorbide mononitrate ER (Imdur) 30 MG 24 hr tablet TAKE 1 TABLET BY MOUTH EVERY MORNING 90 tablet 2 024 Active lisinopril 40 MG tablet TAKE 1 TABLET BY MOUTH EVERY DAY 90 tablet 1 025 Active amLODIPine (Norvasc) 10 MG tablet TAKE 1 TABLET BY MOUTH EVERY DAY 90 tablet 1 025 Active lisinopril 40 MG tablet TAKE 1 TABLET BY MOUTH EVERY DAY 90 tablet 1 024 2024 Discontinued amLODIPine (Norvasc) 10 MG tablet TAKE 1 TABLET BY MOUTH EVERY DAY 90 tablet 024 2024 Discontinued Active Problems Problem Noted Date Diagnosed Date Encounter for screening for malignant neoplasm o f colon 08/25/2023 Encounter for screening for malignant neoplasm o f rectum 08/25/2023 History of adenomatous polyp of colon 08/25/2023 Long-term use of aspirin therapy 08/25/2023 Preprocedural examination 08/25/2023 Diverticular disease of colon 01/07/2023 History of neoplasm of uncertain behavior 2021 Pain in left knee 09/18/2021 Lichen sclerosus et atrophicus of the vulva 01/31 Type 2 diabetes mellitus 01/26/2021 Diabetic nephropathy associa daron with type 2 diabetes mellitus 06/20/2019 Squamous cell carcinoma of skin of upper lip Changing skin lesion 05/09/2018 Basal cell carcinoma of skin of nose 06/09/2017 Essential hypertension 04/11/2015 Gastro-esophageal reflux disease without esophag itis 04/11/2015 Hypercholesterolemia 04/11/2015 Obesity 04/11/2015 Vitamin D deficiency 04/11/2015 Resolved Problems Problem Noted Date Diagnosed Date Resolved Date Stage 3a chronic kidney disease 06/20/2019 01/08/2023 Encounters Date Type Department Care Team Description 07/12/2024 Refill [facility] MEDICINE [address] [place] [address] NameDaniel MD 07/06/2024 Telephone [facility] MEDICINE [address] [place] [phone] NameDaniel MD 07/04/2024 1:45 PM EST Office Visit [facility] MEDICINE [address] [place] [phone] NameDaniel MD Type 2 diabetes mellitus with other specified complication, without long-term current use of insulin ([facility]) (Primary Dx); Chronic pain of both knees; Primary osteoarthritis of both knees; Stress incontinence of urine; Hypertrophic toenail 07/04/2024 Travel 06/22/2024 Refill [facility] MEDICINE [address] [place] [address] Daniel Avalos MD 05/22/2024 Refill [facility] MEDICINE [address] [place] [address] NameDaniel MD Gastroesophageal reflux disease without esophagitis 05/11/2024 10:00 AM EST Office Visit [facility] OPTOMETRY [address] [place] [address] David, Jannet, OD Diabetes type 2, no ocular involvement ([facility]) (Primary Dx); Early cataracts, bilateral; Presbyopia 05/11/2024 Patient Outreach [facility] MEDICINE [address] [place] [address] Daniel Avalos MD Pre-visit Planning (Pre-visit planning - LVM ) 05/11/2024 Travel 05/11/2024 Refill [facility] MEDICINE [address] [place] [phone] Daniel Avalos MD 05/10/2024 Refill [facility] MEDICINE [address], [place] [phone] Name, MD Daniel 05/02/2024 Telephone [facility] MEDICINE [address], [place] [phone] Name, MD Daniel Medication Question 04/19/2024 Refill [facility] MEDICINE [address], [place] [phone] Celina Camp MD from Last 3 Months Immunizations Name Administration Dates Next Due Hep B, adult 11/02/2017,06/18/2017,05/07/2017 Influenza injectable quadriv alent IIV4 with preservative 03/21/2018,04/11/2015 Influenza injectable quadriv alent preservative free 04/17/2022,02/27/2021,03/02/2019,03/17,03/19/2016 Influenza, High Dose Seasona l, Preservative Free 02/14/2024 Influenza, IIV3, injectable 04/15/2021,1 ,04/30/2008,05/11,05/11/2003,03/08/2002 Influenza, Split (incl. leela fied surface antigen) 03/30/2013,02/22/2012 Moderna Covid-19 Vaccine 12+ 10/17/2020,09/20/19 21 Pfizer Covid-19 Vaccine 12+ 05/07/2021 Pneumococcal Conjugate PCV 20 08/25/2023 Pneumococcal Polysaccharide PPSV23 05/11/2008 TD (adult), 2 Lf tetanus tox oid, preservative free, adsorbed 06/25/2020 Tdap 10/30/2009 Zoster, Recombinant 12/05/2018,08/22/2018 Zoster, live 12/05/2018,08/22/2018 Social History Tobacco Use Types Packs/Day Years [...] Orientation Straight 03/30/2022 10 :14 AM EDT Last Filed Vital Signs Vital Sign Reading Time Taken Comments Blood Pressure 110/68 07/04/2024 1:48 PM EST Pulse 72 07/04/2024 1:48 PM EST Temperature 36.9 ??C (98.5 ??F) 07/04/2024 1:48 PM ES T Respiratory Rate 16 07/04/2024 1:48 PM EST Oxygen Saturation 98% 02/14/2024 10:30 AM EDT Inhaled Oxygen Concentration - - Weight 72.2 kg (159 lb 4 oz) 07/04/2024 1:48 PM EST Height 160 cm (5' 3 ) 07/04/2024 1:48 PM EST Body Mass Index 28.21 07/04/2024 1:48 PM EST Plan of Treatment Upcoming Encounters Date Type Department Care Team (Late st Contact Info) Description 07/26/2024 10:00 AM EST Office Visit [facility] CHC ADULT DENTAL [address] [place] [address] Deena Kang Health Maintenance Due Date Last Done Comments CT Colonography 1959 FIT DNA/Cologuard 1960 FIT 1960 FOBT 1960 Sigmoidoscopy 1960 Derm Melanoma Skin Check 1959 RSV Patients and Patients Aged 60 years or older (1 - Risk 60-74 years 1-dose series) 2019 COVID-19 Vaccine ( season) 2024 05/07/2021, 10/17/2020, 09/19/2020 Mammogram 08/29/2024 08/30/2023, 07/30, 08/26/2022, Additional history exists Lipid Panel 09/21/2024 09/22/2023, 12/30, 04/29/2022, Additional history exists Diabetes: Hemoglobin A1C 01/01/2025 025, 02/14/2024, 09/22/2023, Additional history exists Cervical Cancer Screening 03/23/2025 HPV/Cotest 03/23/2025 03/23/2024, 07/03/2020 Pap Smear 03/23/2025 03/23/2024, 07/03/2020 Alcohol/Substance Use Screening 07/04/2025 07/04/2024 Depression Screening 07/04/2025 07/04/2024, 07/04/19 25 Diabetes: Foot Exam 07/04/2025 07/04/2024, 07/04/2024, 07/04/2024, Additional history exists SDOH Screening 07/04/2025 07/04/2024 Tobacco Screening 07/04/2025 07/04/2024 Eye Exam 05/11/2026 05/11/2024, 04/30, 05/11/2024, Additional history exists Colonoscopy 01/30/2027 01/30/2022, 01/30/2022 Colorectal Cancer Screening 01/30/2027 DTaP/Tdap/Td Vaccines (3 - Td or Tdap) 06/25/2030 06/25/2020, 10/30/2009 Hepatitis B Vaccines Completed 11/02/2017, 06/18/2017, 05/07/2017 Zoster Vaccines Completed 12/05/2018, 12/2018, 08/22/2018, Additional history exists Hepatitis C Screening Completed 06/18/2021 Pneumococcal Vaccine: 50+ Years Completed 08/25/2023, 05/11/2008 Influenza Vaccine Completed 02/14/2024, , 04/15/2021, Additional history exists HIB Vaccines Aged Out No longer eligi [...] patient's age to complete this topic Meningococcal Vaccine Aged Out No isamar carlos eligible based on patient's age to complete this topic RSV under 20 months Aged Out No longe r eligible based on patient's age to complete this topic Rotavirus Vaccines Aged Out No longer eligible based [...] without long-term current use of insulin (CMS/HCC) BD DEXA AXIAL Routine 04/20/2024 8:15 AM EST Post menopausal syndrome THINPREP IMAGING PAP AND HPV MRNA E6/E7 Routine 03/23/2024 10:27 AM EDT LIPID PANEL, STANDARD Routine 09/22/2023 8:23 AM EDT Type 2 diabetes mellitus with other specified complication, without long-term current use of insulin (CMS/HCC) Primary osteoarthritis of both knees BI MAMMOGRAM SCREENING TOMOSYNTHESIS BILATERAL Routine 08/30/2023 12:12 PM EDT HM COLONOSCOPY Routine 01/30/2022 12:52 PM EDT ZZZ HISTORICAL HEPATITIS C AB W/REFL TO HCV RNA, QN, PCR Routine 06/18/2021 9:03 AM EST from Last 3 Months or Most Recently Relevant to Health Maintenance Results * (ABNORMAL) POCT HGB A1C (07/04/2024 [...] Media Lot # [id number] Lot# Expiration Date ,025 Blood Capillary blood specimen / Unknown 07/04/2024 1:54 PM EST Daniel Avalos MD POINT OF CARE TEST ENTER/EDIT OR DERABLES Final Result * BD DEXA Axial (04/20/2024 8:15 AM EST) Anatomical Region Laterality Modality Body Radiographic Anuja ging 04/20/2024 8:15 AM EST Narrative 04/20/2024 9:32 AM EST ? [facility] ? [address] ?[place] [address] ? Mammography Report ? Signed ? Patient: Broussard,Susanna ?MR#: [id number] ?? 65 ? : 1960 ?Acct:[id number] ? Age/Sex: 64 / F ?ADM Date: 11/21/24 ? Loc: HO.MAMMO ? Attending Dr: Daniel Avalos MD ? Ordering Physician: Robbie,Daniel PINA ?Results: ? Date of Service: 04/20/24 ?Follow Up: ? Procedure(s): XR DEXA axial skeleton ?? Accession Number(s): [id number] ? cc: Name,Daniel PINA ? EXAMINATION: ?? BONE DENSITOMETRY ? CLINICAL INDICATION: ?? Postmenopausal. Screening for osteoporosis. ? COMPARISON: ?? Baseline BD dated 06/28/2009. ? TECHNIQUE: Using a [employer] DXA System (software version: ?? 13.1) manufactured by [employer], dual-energy x-ray absorptiometry ?? was performed of the lumbar spine and left hip. The images are of good ?? technical quality. Summary results are attached. ? FINDINGS: ?? LEFT FEMUR, NECK: ?? Current: BMD 0.752 g/cm2, Z-score -0.8, T-score -2.1, osteopenia. ?? Baseline: BMD 0.941 g/cm2. ? LEFT FEMUR, TOTAL: ?? Current: BMD 0.852 g/cm2, Z-score -0.3, T-score -1.2, osteopenia, 11.0% ?? decrease from baseline (<5% change is not significant). ?? Baseline: BMD 0.957 g/cm2. ? AP SPINE L1-L4: ?? Current: BMD 1.168 g/cm2, Z-score 1.1, T-score -0.1, normal, 6.9% ?? decrease from baseline (<5% change is not significant). ?? Baseline: BMD 1.255 g/cm2. ? IDENTIFIED RISK FACTORS: ?? Menopause. ? HISTORY OF FRACTURE: ?? None listed. ? MEDICATIONS: ?? Vitamin D. ? MM/XR DEXA axial skeleton ?? IMPRESSION: ?? 1. DIAGNOSIS: Osteopenia based on the lowest T-score value of -2.1 in ?? the femoral neck applying World Health Organization criteria. ? 2. 10-YEAR FRACTURE RISK PREDICTION, FRAX: Major osteoporotic fracture ?? (clinical spine, forearm, hip or shoulder) 6.0%. Hip fracture 0.9%. ?? 3. Treatment Recommendations: NOF guidelines recommend consideration ?? for treatment in postmenopausal women and men age 50 and older ?? presenting with the following: ?? -A hip or vertebral (clinical or morphometric) fracture. ?? -T-score less than or equal to -2.5 at the femoral neck or spine after ?? appropriate evaluation to exclude secondary causes. ?? -Low bone mass at the hip or spine and a 10-year fracture probability ?? by FRAX of greater than or equal to 3% for hip fracture or greater than ?? or equal to 20% for major osteoporotic fracture based on the [place] adapted ?? WHO algorithm. ?? 4. Other Recommendations: All treatment decisions require clinical ?? judgment and consideration of individual patient factors, including ?? patient preferences, comorbidities, previous drug use, risk factors not ?? captured in the FRAX model (e.g. frailty, falls, vitamin D deficiency, ?? increased bone turnover, interval significant decline in bone density) ?? and possible under or overestimation of fracture risk by FRAX. ?? Additional medical evaluation for secondary cause of low bone mineral ?? density may be appropriate. ? FUTURE SCAN RECOMMENDATION: ?? People with diagnosed cases of osteoporosis or at high risk for ?? fracture should have regular bone mineral density tests. For patients ?? eligible for Medicare, routine testing is allowed once every 2 years. ?? The testing frequency can be increased to one year for patients who ?? have rapidly progressing disease, those who are receiving or ?? discontinuing medical therapy to restore bone mass, or have additional ?? risk factors. ? Electronically signed by: ??Bhavin Wagner MD ??04/20/2024 09:29 AM EST ? Dictated By: ?Bhavin Wagner MD ? Signed By: ?<Electronically signed by Bhavin Wagner MD in OV> ?04/20/24 0929 ? DD/ 0815 ? TD/TT: 04/20/24 0844 ? Adjunct English Instructor: HS ? Procedure Note Donotuseinterpreter, Image - 04/20/2024 [facility] [address] [place] [address] Mammography Report Signed Patient: Virginie Broussard#: [id number] 65 : 9Acct:[id number] Age/Sex: 64 / FADM Date: 04/20/24 Loc: HO.MAMMO Attending Dr: Daniel Avalos MD Ordering Physician: Daniel Avalosesults: Date of Service: 04/20/24Follow Up: Procedure(s): XR DEXA axial skeleton Accession Number(s): [id number] cc: Daniel Avalos MD EXAMINATION: BONE DENSITOMETRY CLINICAL INDICATION: Postmenopausal. Screening for osteoporosis. COMPARISON: Baseline BD dated 06/28/2009. TECHNIQUE: Using a [employer] DXA System (software version: 13.1) manufactured by [employer], dual-energy x-ray absorptiometry was performed of the lumbar spine and left hip. The images are of good technical quality. Summary results are attached. FINDINGS: LEFT FEMUR, NECK: Current: BMD 0.752 g/cm2, Z-score -0.8, T-score -2.1, osteopenia. Baseline: BMD 0.941 g/cm2. LEFT FEMUR, TOTAL: Current: BMD 0.852 g/cm2, Z-score -0.3, T-score -1.2, osteopenia, 11.0% decrease from baseline (<5% change is not significant). Baseline: BMD 0.957 g/cm2. AP SPINE L1-L4: Current: BMD 1.168 g/cm2, Z-score 1.1, T-score -0.1, normal, 6.9% decrease from baseline (<5% change is not significant). Baseline: BMD 1.255 g/cm2. IDENTIFIED RISK FACTORS: Menopause. HISTORY OF FRACTURE: None listed. MEDICATIONS: Vitamin D. MM/XR DEXA axial skeleton IMPRESSION: 1. DIAGNOSIS: Osteopenia based on the lowest T-score value of -2.1 in the femoral neck applying World Health Organization criteria. 2. 10-YEAR FRACTURE RISK PREDICTION, FRAX: Major osteoporotic fracture (clinical spine, forearm, hip or shoulder) 6.0%. Hip fracture 0.9%. 3. Treatment Recommendations: NOF guidelines recommend consideration for treatment in postmenopausal women and men age 50 and older presenting with the following: -A hip or vertebral (clinical or morphometric) fracture. -T-score less than or equal to -2.5 at the femoral neck or spine after appropriate evaluation to exclude secondary causes. -Low bone mass at the hip or spine and a 10-year fracture probability by FRAX of greater than or equal to 3% for hip fracture or greater than or equal to 20% for major osteoporotic fracture based on the [place] adapted WHO algorithm. 4. Other Recommendations: All treatment decisions require clinical judgment and consideration of individual patient factors, including patient preferences, comorbidities, previous drug use, risk factors not captured in the FRAX model (e.g. frailty, falls, vitamin D deficiency, increased bone turnover, interval significant decline in bone density) and possible under or overestimation of fracture risk by FRAX. Additional medical evaluation for secondary cause of low bone mineral density may be appropriate. FUTURE SCAN RECOMMENDATION: People with diagnosed cases of osteoporosis or at high risk for fracture should have regular bone mineral density tests. For patients eligible for Medicare, routine testing is allowed once every 2 years. The testing frequency can be increased to one year for patients who have rapidly progressing disease, those who are receiving or discontinuing medical therapy to restore bone mass, or have additional risk factors. Electronically signed by: Bhavin Wagner MD 04/20/2024 09:29 AM EST Dictated By: Bhavin Wagner MD Signed By: <Electronically signed by Bhavin Wagner MD in OV> 04/20/24 0929 DD/ 0815 TD/TT: 04/20/24 0844 Adjunct English Instructor: TAN us Daniel Name IMG DXA PROCEDURES Final Result * (ABNORMAL) ThinPrep Imaging Pap and HPV mRNA E6/E7 (03/23/2024 10:27 AM EDT) HPV nRNA E6/E7 Detected (A) Not Detected [facility] Comment:Methodology: Transcr iption-Mediated AmplificationThis assay detects E6/E7 viral messenger RNA (mRNA) from 14high-risk HPV types (16,18,31,33,35,39,45,51,52,56,58,59,66,68).Cervical sources are required for HPV testing.If a vaginal source from a patient who has had atotal hysterectomy with removal of cervix wassubmitted, please contact the testing laboratoryfor alternative testing options.For additional information, please refer tohttp://education.embraase/faq/BFC465u4(This link if provided for information/educational purposes only.)THIS TEST WAS PERFORMED AT:[employer] [address] [id number] DIAZ MD SOURCE: SEE NOTE [facility] Comment:Cervix Report Status: [facility] Clinical Information: SEE NOTE [facility] Comment:None given LMP: SEE NOTE [facility] Comment:NONE GIVEN Prev. PAP: SEE NOTE [facility] Comment:NONE GIVEN Prev. BX: SEE NOTE [facility] Comment:NONE GIVEN Statement Of Adequacy: SEE NOTE [facility] Comment:Satisfactory for kulwinder luation.Endocervical/transformation zone componentpresent. General Categorization: [facility] Interpretation/Result: SEE NOTE [facility] Comment:Cytology Results: Ne gative for intraepitheliallesion or malignancy. Cytology Comment SEE NOTE [facility] Comment:This Pap test has be en evaluated with computerassisted technology. Parking Enforcement Technician: SEE NOTE [facility] Comment:ALS, CT(ASCP)CT scre ening location: [address] [address] Review Parking Enforcement Technician: SEE NOTE [facility] Comment:NEGRO, CT(ASCP)CT scre ening location: [place] [address] Pathologist TNP [facility] PAP Infection SEE NOTE [facility] Comment:Shift in vaginal jeff ra suggestive of bacterialvaginosis. See Note SEE NOTE [facility] Comment:EXPLANATORY NOTE:The Pap is a screening test for cervical cancer. It isnot a diagnostic test and is subject to false negativeand false positive results. It is most reliable when asatisfactory sample, regularly obtained, is submittedwith relevant clinical findings and history, and whenthe Pap result is evaluated along with historic andcurrent clinical information. 03/23/2024 10:2 7 AM EDT 03/23/2024 6:04 PM EDT Narrative [facility] - 03/29/2024 10:28 AM EDT SEE SCANNED RESULTS IN EMRCERVIX us Esther Lentz CNM LAB PATHOLOGY ORDERABLES Final Result [facility] [address] [place] [address] [phone] * Lipid Panel, Standard (09/22/2023 8:23 AM EDT) Triglycerides 92 <150 mg/dL [facility] Comment:Desirable Triglyceri de: less than 150 mg/dLBorderline High Triglyceride 150-199 mg/dLHigh Triglyceride: 200-499 mg/dLVery High Triglyceride: greater than or equal to 5OO mg/dL Cholesterol 157 <200 mg/dL [facility] Comment:Desirable Cholestero l: less than 200 mg/dLBorderline High Cholesterol: 200-239 mg/dLHigh Cholesterol: greater than 239 mg/dL LDL Cholesterol Calculated 87 <100 mg/dL [facility] Comment:Desirable LDL: less than 100 mg/dLNear Optimal/Above Optimal LDL: 110- 129 mg/dLBorderline High LDL: 130-159 mg/dLHigh LDL: 160-189 mg/dLVery High LDL: greater than or equal to 190 mg/dL HDL Cholesterol 52 >40 mg/dL [facility] Comment:Desirable HDL: great er than 40 mg/dL Note: This HDL assay may give artificially low results in patients with liver disease. Blood Venous blood specimen / Unknown 09/22/2023 8:23 AM EDT 09/22/2023 11:32 AM EDT us Daniel Name MD LAB BLOOD ORDERABLES Final Resul t [facility] [address] [place] [address] [phone] * BI Mammogram Screening Tomosynthesis Bilateral (08/30/2023 12:12 PM EDT) Anatomical Region Laterality Modality Breast Bilateral Mammography 08/30/2023 12:1 2 PM EDT Narrative 09/12/2023 3:34 PM EDT ? [facility] ? [address] ?[place] [address] ? Mammography Report ? Signed ? Patient: Broussard,Susanna ?MR#: [id number] ?? 65 ? : 1960 ?Acct:[id number] ? Age/Sex: 63 / F ?ADM Date: 04//24 ? Loc: HO.MAMMO ? Attending Dr: Daniel Name MD ? Ordering Physician: Name,Daniel MD ?Results: 1Negative ? Date of Service: //24 ?Follow Up: 1 Year From Orig ?? inal Mammogram ? Procedure(s): MM tomosynthesis screening BI ?? Accession Number(s): [id number] ? cc: Name,Daniel PINA ? EXAMINATION: ?? MM SCREENING DIGITAL BREAST TOMOSYNTHESIS, BILATERAL ? CLINICAL INFORMATION: ? Screening. Asymptomatic. ? COMPARISON: ?? Mammography: This study is compared with prior exams dating back to ?? 2020. ? TECHNIQUE: ?? Digital breast tomosynthesis is performed in both the craniocaudal and ?? mediolateral oblique views along with computer-aided detection (CAD). ?? Synthesized 2D images are generated from the tomosynthesis. ? FINDINGS: ?? There are scattered areas of fibroglandular density (ACR BI-RADS breast ?? composition Category b). ? There are no significant masses, abnormal calcifications, or other ?? abnormalities. ? MM/MM tomosynthesis screening BI ?? IMPRESSION: ?? No mammographic evidence of malignancy. ? ASSESSMENT: ? BI-RADS BI-RADS 1 - Negative ? RECOMMENDATION: ?? Routine annual mammography screening. ? 1 year F/U ? This examination should not preclude the clinical evaluation of a ?? suspicious palpable abnormality. ? This patient's information was entered into a reminder system with a ?? target due date for their next mammogram. ? Dictated By: ?Maureen Gates MD ? Signed By: ?<Electronically signed by Maureen Gates MD in OV> ? 09/12/23 1531 ? DD/ 1212 ? TD/TT: ? Adjunct English Instructor: ? Procedure Note Haley, Image - 09/12/2023 [facility] [address] [place] [address] [place] [address] Mammography Report Signed Patient: Virginie Broussard#: [id number] 65 : 9Acct:[id number] Age/Sex: 63 / FADM Date: 08/30/23 Loc: HO.MAMMO Attending Dr: Daniel Avalos MD Ordering Physician: Daniel Avalosesults: 1Negative Date of Service: 08/30/23Follow Up: 1 Year From Orig ina Mammogram Procedure(s): MM tomosynthesis screening BI Accession Number(s): [id number] cc: Daniel Avalos MD EXAMINATION: MM SCREENING DIGITAL BREAST TOMOSYNTHESIS, BILATERAL CLINICAL INFORMATION: Screening. Asymptomatic. COMPARISON: Mammography: This study is compared with prior exams dating back to 2020. TECHNIQUE: Digital breast tomosynthesis is performed in both the craniocaudal and mediolateral oblique views along with computer-aided detection (CAD). Synthesized 2D images are generated from the tomosynthesis. FINDINGS: There are scattered areas of fibroglandular density (ACR BI-RADS breast composition Category b). There are no significant masses, abnormal calcifications, or other abnormalities. MM/MM tomosynthesis screening BI IMPRESSION: No mammographic evidence of malignancy. ASSESSMENT: BI-RADS BI-RADS 1 - Negative RECOMMENDATION: Routine annual mammography screening. 1 year F/U This examination should not preclude the clinical evaluation of a suspicious palpable abnormality. This patient's information was entered into a reminder system with a target due date for their next mammogram. Dictated By: Maureen Gates MD Signed By: <Electronically signed by Maureen Gates MD in OV> 09/12/23 1531 DD/ 1212 TD/TT: Adjunct English Instructor: Daniel Avalos MD IMG BI PROCEDURES Edited Result - Final * Hm Colonoscopy (01/30/2022 12:52 PM EDT) Colonoscopy Normal Normal Narrative Chanel Karolina - 01/30/2022 12:52 PM EDT Recommended 5 year follow up (Darius) Historical Provider HEALTH MAINTENANCE Final Result * HEPATITIS C AB W/REFL TO HCV RNA, QN, PCR (06/18/2021 9:03 AM EST) HEPATITIS C ANTIBODY NON-REACT NAZANIN NON-REACT [facility] INDEX 0.01 <1.00 [facility] Comment: ?? HCV antibody was non-reactive. There is no laboratory ?? evidence of HCV infection. ?? In most cases, no further action is required. However, if recent HCV exposure is suspected, a test for HCV RNA (test code 73287) is suggested. ?? For additional information please refer to http://[employer] System.embraase/faq/DTM43z5 (This link is being provided for informational/ educational purposes only.) ?? 06/18/2021 9:03 AM EST us Crystal Atkinson NP HISTORICAL/NON ORDERABLE LABS F inal Result [facility] [address] from Last 3 Months or Most Recently Relevant to Health Maintenance Insurance [facility] SCO DENTAL - [facility] Care Teams Wind Operations Manager Relationship Specialty Start Date End Date Name, MD Daniel [address] [place] [id number] PCP - General Internal Medicine 08/18/22
--- OUTSIDE RECORDS SUMMARY | 2024-07-20 10:28 | XMS_ITS | Encounter Summary ---
Author Organization [employer] [facility] Address [address] [place] [address] 7t [place] [address] Care Team Providers Care Car Rider Name Role Phone Name, Daniel PINA Primary Care Provider [phone] Reason for Visit * Reason Comments Med Refill Encounter Details Date Type Department Care Team (Late Contact Info) Description 01/22/2023 Refill [facility] MEDICINE [address] [place], [place] [phone] Mookie Powers AGNP Gastroesophageal reflux disease without esophagitis Social History [...] Description 07/26/2024 10:00 AM EST Office Visit [facility] ADULT DENTAL [address] [place] [address] Deena Kang documented as of this encounter Visit Diagnoses Diagnosis Gastroesophageal reflux disease without esophagitis Esophageal reflux documented in this encounter Additional Health Concerns Assessment Noted Time PHQ-9 Depression Total Score: 0 11/05/19 23 8:49 AM EDT documented as of this encounter Care Teams Car Rider Relationship Specialty Start Date End Date Name, MD Daniel [address] [place] [address] PCP - General Internal Medicine 08/18/22 documented as of this encounter
--- OUTSIDE RECORDS SUMMARY | 2024-07-20 10:28 | XMS_ITS | Encounter Summary ---
Author Organization [employer] [facility] Address [address] [place] [address] 7t [place] [address] Care Team Providers Care Cutting Machine Fixer Name Role Phone Name, Daniel PINA Primary Care Provider [phone] Reason for Visit * Reason Comments Med Refill Encounter Details Date Type Department Care Team (Late st Contact Info) Description 01/22/2023 Refill [facility] MEDICINE [address] [place], [place] [phone] Name, MD Daniel [address] [place], [place] [phone] Type 2 diabetes mellitus with other specified complication, unspecified whether fdc insulin use (CMS/[facility]) Social History Tobacco Use Types Packs/Day Years [...] Description 07/26/2024 10:00 AM EST Office Visit [facility] ADULT DENTAL [address] [place] [address] Deena Kang documented as of this encounter Visit Diagnoses Diagnosis Type 2 diabetes mellitus with other specified complication, unspecified whether termite treater insulin use (CMS/[facility]) documented in this encounter Additional Health Concerns Assessment Noted Time PHQ-9 Depression Total Score: 0 11/05/19 8:49 AM EDT documented as of this encounter Care Teams Cutting Machine Fixer Relationship Specialty Start Date End Date Name, MD Daniel [address] [place] [address] PCP - General Internal Medicine 08/18/22 documented as of this encounter
--- OUTSIDE RECORDS SUMMARY | 2024-07-20 10:28 | XMS_ITS | Encounter Summary ---
Author Organization [facility], Address [address] [place] [address] Phone Care Team Providers Care Plasma Specialist Name Role Phone Dena Bellamy NP Primary Care Provider [phone] Encounter Details Date Type Department Care Team (Late st Contact Info) Description 10/02/2021 Documentation Only [facility], [address] [place] [address] Crystal Atkinson [address] [place] [address] Social History Tobacco Use Types Packs/Day Years [...] on filedocumented in this encounter Care Teams Plasma Specialist Relationship Specialty Start Date End Date Dena Bellamy NP PCP - General 04/04/19 documented as of this encounter
--- OUTSIDE RECORDS SUMMARY | 2024-07-20 10:28 | XMS_ITS | Encounter Summary ---
Author Organization [employer] Address [address] [facility] 7t [place] [address] Care Team Providers Care Capacitor Repairer Name Role Phone Name, Daniel PINA Primary Care Provider [phone] Reason for Visit * Reason Onset Date Comments Med Refill 04/15/2023 Encounter Details Date Type Department Care Team (Late st Contact Info) Description 04/15/2023 Telephone [facility] MED[facility]INE [address] [place] [address] Name, MD Daniel [address] [place], [place] [phone] Med Refill Social History Tobacco Use Types Packs/Day Years [...] encounter Miscellaneous Notes * Telephone Encounter - Debra Causey LPN - 04/15/2023 4:11 PM EST Medication pended to PCP. * Telephone Encounter - Rachel Shane - 04/15/2023 4:05 PM EST Tc from Pharmacy requesting med refill on; cyclobenzaprine (Flexeril) 5 MG tablet gabapentin (Neurontin) 300 MG capsule Diclofenac Sodium 1 % gel [id number] - [place], [place] - [address] [place] [address] documented in this encounter Plan of Treatment Upcoming Encounters Date Type Department Care Team (Late st Contact Info) Description 07/26/2024 10:00 AM EST Office Visit [facility] ADULT DENTAL [address] [place] [address] Deena Kang documented as of this encounter Visit Diagnoses Not on filedocumented in this encounter Additional Health Concerns Assessment Noted Time PHQ-9 Depression Total Score: 0 11/05/19 23 8:49 AM EDT documented as of this encounter Care Teams Capacitor Repairer Relationship Specialty Start Date End Date Name, MD Daniel [address] [place] [address] PCP - General Internal Medicine 08/18/22 documented as of this encounter
[2024-07-20 12:07] LABS: Alanine Aminotransferase 25 U/L (0-31); Albumin Level 4.4 g/dL (3.5-5.0); Alkaline Phosphatase 109 U/L (39-117); Anion Gap 14 (12-20); Aspartate Amino Transferase 27 U/L (5-31); Bilirubin Total 0.5 mg/dL (0.0-1.0); Blood Urea Nitrogen 17 mg/dL (9-16); Calcium 9.4 mg/dL (8.4-10.2); Carbon Dioxide 25 mmol/L (22-29); Chloride 106 mmol/L (96-108); Cholesterol 196 mg/dL (<200); Estimated Glomerular Filt Rate > 60; Glucose Random 152 mg/dL (60-115); HDL Cholesterol 58 mg/dL (>40); LDL Cholesterol Calculated 114 mg/dL (<100); Potassium 3.5 mmol/L (3.3-5.1); Sodium 141 mmol/L (135-145); Total Protein 7.9 g/dL (6.5-8.0); Triglycerides 123 mg/dL (<150)
[2024-07-20 12:16] LABS: Creatinine Urine 85.84 mg/dL; Microalbum/Creatinine Ratio Ur 45.4 ug/mg cr (<30)
== END 2024-07-20 09:39 | disposition home or self-care (01) ==
LOC: HO.HHCL 09:38
PROVIDERS: Visit Provider Internal Medicine Geriatric Medicine
DX: E11.69 Type 2 diabetes mellitus with other specified complication (principal)
CPT/HCPCS: 36415; 80053; 80061; 82043; 82570

== ENCOUNTER 2024-08-31 13:31 | Outpatient (AMB) | payer OTHER, SELFPAY ==
--- NOTE | 2024-08-31 13:35 | MHC.OFFVIS ---
Vital Signs 08/31/24 13:39 Height 5 ft 3 in Weight 163 lb BMI 28.9 Intake Visit Reasons: OV- Left knee pain, last inj 05/09/24 Intake Note: Susanna is a 64 year old female who presents today for a follow up of her left knee OA, last injection 05/09/24. Patient reports her last injection gave her relief and would like to repeat. Allergies No Known Allergies Allergy (Mild, Verified 08/31/24 13:38) N/A HPI HPI OV- Left knee pain, last inj 05/09/24: Details: Patient 64-year-old female who presents the office today for repeat cortisone injection left knee. Last cortisone injection was 05/09/2024. She had good relief with this and would like to repeat injection today. PFSH Medical History Hypercholesterolemia GERD (gastroesophageal reflux disease) Arthritis Diabetes 1.5, managed as type 2 HTN (hypertension) Surgical History History of esophagogastroduodenoscopy (EGD) Hx of tubal ligation Hx of colonoscopy Social History Patient Tobacco Use Status: Never used Tobacco Current occupational status: disabled Current occupation: rt handed Review of Systems Const All systems reviewed & are unremarkable except as noted in HPI and below Physical Exam Vital Signs: BMI result Body Mass Index 28.9 Const General: cooperative, healthy appearing and no acute distress Resp Effort & Inspection: normal respiratory effort and able to speak in complete sentences Cardio Rate: regular rate Peripheral pulses: Peripheral pulses 2+ throughout GI Palpation (GI): Soft to palpation Skin Lesions: no lesions Rashes: no rashes Extrem Other: left knee normal to inspection no ecchymosis, erythema, or joint effusion. Full ROM with crepitus. NVI. Office Procedures AMB Joint Injection/Aspiration Joint Injection/Aspiration Primary Site: left knee Injected: 80 mg of, DepoMedrol and with 8 mL of (2% plain lidocaine) Approach Used: anterolateral Procedure: The patient tolerated the procedure well, but had some pain with the injection and there was some relief with the local anesthesia Coding Procedure code (CPT) selection complete Assessment & Plan Assessment & Plan (1) Osteoarthritis of left knee: Code(s): M17.12 - Unilateral primary osteoarthritis, left knee Category: Medical Plan The patient was offered a cortisone injection in the left knee with 80 mg of DepoMedrol. The patient was explained the risks, benefits, and alternatives to receiving this injection. After receiving consent for the injection, the patient had the procedure done while in the office today. The patient tolerated the procedure well with no complications. Follow-up will be p.r.n., or sooner if needed Coding Level of Care Code Est Pt Level 3 (09311) Diagnoses Osteoarthritis of left knee M17.12
[2024-08-31 13:39] VITALS: BMI 28.9
--- OUTSIDE RECORDS SUMMARY | 2024-08-31 14:49 | XMS_ITS | Encounter Summary ---
Author Organization [facility] Address [address] [place] [address] Care Team Providers Care Players Club Representative Name Role Phone Community, Pcp Primary Care Provider Dena Vinson NP Primary Care Provider [place] Hernandez, Pcp Primary Care Provider Luis polo Encounter Details Date Type Department Care Team Description 09/22/2017 Hospital Medical Records [address] [place] [address] [place] [address] Da Robles DO Social History Tobacco Use Types Packs/Day Years Used Date Smoking Tobacco: Never Smokeless Tobacco: Never Alcohol Use Standard Drinks/Week Comments No 0 (1 standard drink = 0.6 oz pur e alcohol) Sex Assigned at Date Recorded Not on file documented as of this encounter Plan of Treatment Not on file documented as of this encounter Visit Diagnoses Not on filedocumented in this encounter Care Teams Players Club Representative Relationship Specialty Start Date End Date Community, Pcp PCP - General Internal Medicine 04/14/17 04/28/18 Dena Bellamy NP PCP - General Family Practice 04/29/18 10/02/21 Community, Pcp PCP - General Internal Medicine 10/03/21 documented as of this encounter
--- OUTSIDE RECORDS SUMMARY | 2024-08-31 14:49 | XMS_ITS | Clinical Summary ---
Author Organization [facility], Address [address] [place] [address] [place] [address] Phone Care Team Providers Care Senior Laboratory Technician Name Role Phone Dena Bellamy NP Primary Care Provider [phone] Allergies No known active allergies Medications acetaminophen (PHARBETOL) 325 MG tablet Comments: Filled Date: Mar 15 2017 12:00AM Duration: 15 7 Active amLODIPine (NORVASC) 10 MG tablet 0 Active ergocalciferol (VITAMIN D2) 1.25 MG (74370 UT) capsule 9 Active isosorbide mononitrate (IMDUR) [...] Duration: 90 8 07/12/19 Discontinu ed(Med List [facility] e) Active Problems Problem Noted Date Diagnosed [...] PM EST) Hemoglobin A1C 7.3(H) (4-6) % [place] [address] Comment: HEMOGLOBIN A1C(%) ?? GLUCOSE CONTROL INDEX ?<6% ? EXCELLENT ?6-7% ?VERY GOOD ?7-8% ?GOOD ?8-10% ? FAIR ?>10% ?POOR Hemoglobin (Hb) A1c testing is performed by [place] Massiel-quant immunoassay. Any cause of shortened erythrocyte survival will reduce exposure of erythrocytes to glucose with a consequent decrease in Hb A1c (%). Testing performed or reported by ~[facility], ~a Service of [facility], ~[address] [facility], [place] [address]~ Jerzy Julien MD, [place]front Director 06/03/2018 2:30 PM EST us Maximiliano Christopher MD LAB BLOOD ORDERABLES Final Resul t [facility] from Last 3 Months or Most Recently Relevant to Health Maintenance Insurance [facility] Care Teams Senior Laboratory Technician Relationship Specialty Start Date End Date Dena Bellamy NP PCP - General 04/04/19
--- OUTSIDE RECORDS SUMMARY | 2024-08-31 14:49 | XMS_ITS | Clinical Summary ---
Author Organization [facility] Address [address] [place] [address] Phone Care Team Providers Care Keg Filler Name Role Phone Name, Daniel PINA Primary Care Provider [phone] Allergies No known active allergies Medications isosorbide mononitrate (IMDUR) 30 mg 24 hr tablet Take 30 mg by mouth daily. Active rosuvastatin (CRESTOR) 40 mg tablet Take 40 mg by mouth daily. Active traMADoL (ULTRAM) 50 mg tablet Take 50 mg by mouth every 6 hours as needed. Active metoprolol tartrate (LOPRESSOR) 50 mg tablet Take 50 mg by mouth 2 times daily. Active calcium carbonate/vitami n D3 (CALCIUM 600 + D,3, ORAL) Take by mouth. Active ERGOCALCIFEROL, VITAMIN D2, ORAL Take by mouth. Active lisinopril (PRINIVIL,ZESTRI L) 40 mg tablet Take 40 mg by mouth daily. Active pantoprazole (PROTONIX) 40 mg packet Take by mouth. Active amLODIPine (NORVASC) 10 mg tablet Take 10 mg by mouth daily. Active benazepril-hydro chlorthiazide (LOTENSIN HCT) 10-12.5 mg per tablet Take 1 tablet by mouth 1 (one) time each day. Active metFORMIN (GLUMETZA) 500 mg 24 hr tablet Take 500 mg by mouth. Active ferrous sulfate 325 mg (65 mg elemental iron) tablet Take 325 mg by mouth daily. 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 Squamous cell carcinoma of skin of upper lip Changing skin lesion 05/09/2018 Basal cell carcinoma of skin of nose 06/09/2017 Medical History Medical History Date Comments High [...] Upcoming Encounters Date Type Department Care Team ([facility] st Contact Info) Description 09/06/2024 3:15 PM EDT Consult Orthopedic Surgery - [place] [address] [address] Dylan Woo, DPM [address] [address] Health Maintenance Due Date Last Done Comments [...] Contro l Test (HGBA1C) 07/19/2024 RSV Immunization Adult Patie nts (1 - 1-dose 75+ series) 2034 HIB [...] patient's age to complete this topic Insurance [facility] MEDICARE Member Subscriber Plan / Payer (Ef fective 2024-Present) Name:Susanna Broussard Relation to Subscriber:Self Name:Susanna Broussard Payer ID:[id number] Group ID:[id number] Type:Not on file Address: [address] [place] [address] MEDICAID - [place] Care Teams Keg Filler Relationship Specialty Start Date End Date Name, MD Daniel [address] [place], [place] [phone] PCP - General Internal Medicine 07/19/24
--- OUTSIDE RECORDS SUMMARY | 2024-08-31 14:49 | XMS_ITS | Encounter Summary ---
Author Organization [facility] Address [address] [facility] [place] [address] Care Team Providers Care Puppy Walker Name Role Phone Community, Pcp Primary Care Provider Dena Vinson NP Primary Care Provider [place] Hernandez, Pcp Primary Care Provider Luis polo Encounter Details Date Type Department Care Team Description 06/16/2017 Release of Information Medical Records [address] [place] [address] [place] [address] Abstract, Provider Social History Tobacco Use Types Packs/Day Years [...] on filedocumented in this encounter Care Teams Puppy Walker Relationship Specialty Start Date End Date Community, Pcp PCP - General Internal Medicine 04/14/17 04/28/18 Dena Bellamy NP PCP - General Family Practice 04/29/18 10/02/21 Community, Pcp PCP - General Internal Medicine 10/03/21 documented as of this encounter
--- OUTSIDE RECORDS SUMMARY | 2024-08-31 14:49 | XMS_ITS | Encounter Summary ---
Author Organization [facility], Address [address] [place] [address] Phone Care Team Providers Care Patient Access Registrar Name Role Phone Dena Bellamy NP Primary Care Provider [phone] Encounter Details Date Type Department Care Team (Late st Contact Info) Description 12/09/2021 Documentation Only [facility], [address] [place] [address] Maximiliano Christopher MD [address] [facility] [place] [id number] Social History Tobacco Use Types Packs/Day Years [...] on filedocumented in this encounter Care Teams Patient Access Registrar Relationship Specialty Start Date End Date Dena Bellamy NP PCP - General 04/04/19 documented as of this encounter
--- OUTSIDE RECORDS SUMMARY | 2024-08-31 14:49 | XMS_ITS | Encounter Summary ---
Author Organization [facility], Address [address] [place] [address] Phone Care Team Providers Care Movers Name Role Phone Dena Bellamy NP Primary Care Provider [phone] Encounter Details Date Type Department Care Team (Late st Contact Info) Description 10/02/2021 Documentation Only [facility], [address] [place] [address] Crystal Atkinson [address] [place] [address] Social History Tobacco Use Types Packs/Day Years [...] on filedocumented in this encounter Care Teams Movers Relationship Specialty Start Date End Date Dena Bellamy NP PCP - General 04/04/19 documented as of this encounter
--- OUTSIDE RECORDS SUMMARY | 2024-08-31 14:49 | XMS_ITS | Patient Health Record ---
Author Organization [facility] Address [address] [place] [address] Care Team Providers Care Recreational Therapy Technician Name Role Phone Carmelita Merlos Jessica Primary Care Provider Richardson Franz Unavailable [phone] Allergies No Known Allergies Reason For Referral No Information Medications Medication SIG (Take, Route, Frequency, Duration) Notes [...] Twice a day Active Vitamin D (Ergocalciferol) 12900 UNIT 1 capsule Orally Once a week Active Lidocaine 5 % 1 application to affected area as needed Externally Three times a day Active Tylenol 325 MG 2 tablets as needed Orally every 6 hrs Active Pantoprazole Sodium 40 MG 1 tablet Orall y Once a day Active Immunizations Vaccine Route Administration Date Status Comme nts Influenza Unknown 04/15/2021 Administered Problems Problem Type SNOMED Code ICD Code Onset Dates Problem Status W/U Status Risk Notes Problem 644120665 Gastro-esophagea l reflux disease without esophagitis (K21.9) Active confirmed Problem 013879898 Encounter for screening for malignant neoplasm of colon (Z12.11) Active confirmed Problem 729371224 History of adenomatous polyp of colon (Z86.010) Active confirmed Problem Screening for malignant neoplasm of rectum (921547384) Encounter for screening for malignant neoplasm of rectum (Z12.12) Active confirmed Problem 99075764 Preprocedural examination (Z01.818) Active confirmed Problem 716152289 Long-term use of aspirin therapy (Z79.82) Active confirmed Problem Diverticular disease of colon (210140459) Colon, diverticulosis (K57.30) Active confirmed Plan Of Treatment Pending Test Test Name Order Date Pathology 01/30/2022 Future Test Test Name Order Date COLONOSCOPY 03/04/2016 COLONOSCOPY 12/17/2021 Insurance Providers Payer Name Payer Address Payer Phone Subscriber Number Group Number Insured Name Patient Relationship to Insured Coverage Start Date Coverage End Date [facility] [address] [place] [address] [id number] LINDA ALBARADO Self - patient is the insured Medical (General) History Medical History History ICD Code Tubular adenomas removed in 1996 and 2005; she had a negative colonoscopy on 11-24-2010 Denies [place],CVA,DM,Lung disease,renal dise ase GERD--EGD in 2000 was negati ve for any significant esophagitis and Meraz's esophagus Hypertension Hypercholesterolemia Negative colonoscopy in 07/2016 Surgical History Surgery Date(Month/Year) BTL
== END 2024-08-31 13:51 | disposition home or self-care (01) ==
LOC: HO.HOS 13:31
PROVIDERS: PCP Internal Medicine Geriatric Medicine; Visit Provider Physician Assistant
DX: M17.12 Unilateral primary osteoarthritis, left knee (principal)
CPT/HCPCS: 20610; 99213

== ENCOUNTER → 2024-08-31 13:31 | Outpatient (BNVA) | payer OTHER, SELFPAY | PROVIDERS: PCP Internal Medicine Geriatric Medicine; Visit Provider Physician Assistant | DX: M17.12 Unilateral primary osteoarthritis, left knee (principal) | CPT/HCPCS: 20610; 99212; J1010; J2003 ==

== ENCOUNTER 2024-10-03 10:39 | Outpatient (REF) | payer OTHER, SELFPAY ==
--- OUTSIDE RECORDS SUMMARY | 2024-10-03 12:15 | XMS_ITS | Encounter Summary ---
Author Organization [employer] Address [address] [facility] 7[address] [place] [address] Care Team Providers Care Nurses' Association Counselor Name Role Phone Name, Daniel PINA Primary Care Provider [phone] Reason for Visit * Reason Comments Med Refill Encounter Details Date Type Department Care Team ([facility] st Contact Info) Description 05/11/2024 Refill [facility] MEDICINE [address] [place], [place] [phone] Name, MD Daniel [address] [place], [place] [phone] Social History Tobacco Use Types Packs/Day Years [...] Care Team (Late st Contact Info) Description 03/26/2025 3:00 PM EDT Office Visit [facility] ADULT D[facility] [address] [place] [address] Deena Kang documented as of this encounter Visit Diagnoses Not on filedocumented in this encounter Additional Health Concerns Assessment Noted Time PHQ-9 Depression Total Score: 0 11/05/19 23 8:49 AM EDT documented as of this encounter Care Teams Nurses' Association Counselor Relationship Specialty Start Date End Date Name, MD Daniel [address] [place] [address] PCP - General Internal Medicine 08/18/22 documented as of this encounter
--- OUTSIDE RECORDS SUMMARY | 2024-10-03 12:15 | XMS_ITS | Encounter Summary ---
Author Organization [employer] Address [address] [place] [address] 7[address] [place] [address] Care Team Providers Care Medical Staffing Coordinator Name Role Phone Name, Daniel PINA Primary Care Provider [phone] Reason for Visit * Reason Onset Date Comments Pre-op Exam 10/14/2022 Encounter Details Date Type Department Care Team (Late st Contact Info) Description 10/14/2022 Telephone [facility] MEDICINE [address] [place] [phone] Name, MD Daniel [address] [place], [place] [phone] Pre-op Exam Social History Tobacco Use Types [...] PM EDT Returned call to Trina at [facility] Ortho. Pt is getting a R knee arthroscopy date tbd with Dr Gusman. Pt will needs labs and EKG and will be under general anesthesia. Notes determining what is needed prior to surgery will be faxed to [facility]. Pt scheduled with PCP on 11/04/22. Ortho will notify pt. * Telephone Encounter - Zehra Be - 10/14/2022 9:38 AM EDT Jonathan Mena at [facility] Orthopedics Pre Op Location: [address] [address] Procedure: right knee arthroscopy Date of Procedure: not yet but usually in a month after they get the pre-op date Lab: required yes (faxing them over) EKG: required yes (faxing it over) Type of Anesthesia : General documented in this encounter Plan of Treatment Upcoming Encounters Date Type Department Care Team (Late st Contact Info) Description 03/26/2025 3:00 PM EDT Office Visit [facility] ADULT DENTAL [address] [place] [address] Deena Kang documented as of this encounter Visit Diagnoses Not on filedocumented in this encounter Care Teams Medical Staffing Coordinator Relationship Specialty Start Date End Date Name, MD Daniel [address] [place] [id number] PCP - General Internal Medicine 08/18/22 documented as of this encounter
--- OUTSIDE RECORDS SUMMARY | 2024-10-03 12:15 | XMS_ITS | Encounter Summary ---
Author Organization [employer] Address [address] [place] [address] [address] [address] Care Team Providers Care Wire Insulator Name Role Phone Samaria Butler Primary Care Provider [phone] Mookie Powers Primary Care Provider Unavail able NameDaniel MD Primary Care Provider [phone] Encounter Details Date Type Department Care Team (Late st Contact Info) Description 05/04/2022 Abstract [facility] MEDICINE [address] [place], [place] [phone] Provider, MD Parth Social History Tobacco Use [...] Description 03/26/2025 3:00 PM EDT Office Visit [facility] CHC ADULT DENTAL [address] [place], [place] [phone] Deena Kang documented as of this encounter Visit Diagnoses Not on filedocumented in this encounter Care Teams Wire Insulator Relationship Specialty Start Date End Date Samaria Butler FNP [address] [place] [address] PCP - General Family Medicine 01/22/22 08/05/22 Mookie Powers AGNP [address] [place] [address] PCP - General Family Medicine 08/06/22 08/17/22 Name, MD Daniel [address] [place] [address] PCP - General Internal Medicine 08/18/22 documented as of this encounter
--- OUTSIDE RECORDS SUMMARY | 2024-10-03 12:15 | XMS_ITS | Encounter Summary ---
Author Organization [employer] Address [address] [place] [address] 7t [place] [address] Care Team Providers Care Needlemaker Name Role Phone Name, Daniel PINA Primary Care Provider [phone] Encounter Details Date Type Department Care Team ([facility] Contact Info) Description 11/11/2022 Abstract [facility] MEDICINE [address] [place], [place] [phone] Name, MD Daniel [address] [place] [address] Social History Tobacco Use Types Packs/Day Years [...] Department Care Team (Late Contact Info) Description 03/26/2025 3:00 PM EDT Office Visit [facility] CHC ADULT DENTAL [address] [place] [address] Jorge Luis, Deena documented as of this [...] documented as of this encounter Care Teams Needlemaker Relationship Specialty Start Date End Date Name, MD Daniel [address] [place] [address] PCP - General Internal Medicine 08/18/22 documented as of this encounter
--- OUTSIDE RECORDS SUMMARY | 2024-10-03 12:15 | XMS_ITS | Encounter Summary ---
Author Organization [employer] Address [address] [place] [address] [address] [address] Care Team Providers Care Service Advisor Name Role Phone Samaria Butler Primary Care Provider [phone] Mookie Powers Primary Care Provider Unavail able Daniel Avalos MD Primary Care Provider [phone] Reason for Visit * Reason Comments Med Refill Encounter Details Date Type Department Care Team (Late st Contact Info) Description 05/22/2022 Refill [facility] MEDICINE [address] [place], [place] [phone] Daniel Avalos MD [address] [place] [address] Social History Tobacco Use Types Packs/Day Years [...] Description 03/26/2025 3:00 PM EDT Office Visit [facility]C ADULT DENTAL [address] [place], [place] [phone] Deena Kang documented as of this encounter Visit Diagnoses Not on filedocumented in this encounter Care Teams Service Advisor Relationship Specialty Start Date End Date Samaria Butler FNP [address] [place] [phone] PCP - General Family Medicine 01/22/22 08/05/22 Mookie Powers AGNP [address] [place] [address] PCP - General Family Medicine 08/06/22 08/17/22 Name, MD Daniel [address] [place] [address] PCP - General Internal Medicine 08/18/22 documented as of this encounter
--- OUTSIDE RECORDS SUMMARY | 2024-10-03 12:15 | XMS_ITS | Encounter Summary ---
Author Organization [employer] Address [address] [facility] 7t [place] [address] Care Team Providers Care String Laster Name Role Phone Name, Daniel PINA Primary Care Provider [phone] Reason for Visit * Reason Comments Med Refill Encounter Details Date Type Department Care Team ([facility] st Contact Info) Description 05/22/2024 Refill [facility] MEDICINE [address] [place], [place] [phone] Name, MD Daniel [address] [place], [place] [phone] Gastroesophageal reflux disease without esophagitis Social History Tobacco Use Types Packs/Day Years Used Date Smoking Tobacco: Never Smokeless Tobacco: Never Alcohol Use Standard Drinks/Week Comments Never 0 (1 standard drink = 0.6 oz pur e alcohol) Depression Answer Date Recorded Patient Health Questionnaire-9 Score 0 11/04/2022 Housing Stability Answer Date Recorded What is your housing situation today? I have joyjustin landaverde 03/18/[address] you [...] the past 12 months, has t he [employer], gas, oil or water [employer] threatened to shut off services in your [...] Description 03/26/2025 3:00 PM EDT Office Visit [facility] ADULT DENTAL [address] [place] [address] Deena Kang documented as of this encounter Visit Diagnoses Diagnosis Gastroesophageal reflux disease without esophagitis Esophageal reflux documented in this encounter Additional Health Concerns Assessment Noted Time PHQ-9 Depression Total Score: 0 11/05/19 8:49 AM EDT documented as of this encounter Care Teams String Laster Relationship Specialty Start Date End Date Name, MD Daniel [address] [place] [id number] PCP - General Internal Medicine 08/18/22 documented as of this encounter
--- OUTSIDE RECORDS SUMMARY | 2024-10-03 12:16 | XMS_ITS | Encounter Summary ---
Author Organization [employer] Address [address] [facility] [address]t [place] [address] Care Team Providers Care High Wire Artist Name Role Phone Name, Daniel PINA Primary Care Provider [phone] Reason for Visit * Reason Onset Date Comments triage 08/18/2022 Encounter Details Date Type Department Care Team (Late st Contact Info) Description 08/18/2022 Telephone [facility] MEDICINE [address] [place], [place] [phone] Mookie Powers AGNP triage Social History Tobacco Use [...] 08/18/2022 1:29 PM EDT Triage call with P[employer] Operator ID [id number] Pt reports at 1030pm was laying down [...] pain. Advised Pt to come to the [facility] today and Ptagreed with disposition and home [...] Description 03/26/2025 3:00 PM EDT Office Visit [facility] ADULT DENTAL [address] [place] [address] Deena Kang documented as of this encounter Visit Diagnoses Not on filedocumented in this encounter Care Teams High Wire Artist Relationship Specialty Start Date End Date Name, MD Daniel [address] [place] [address] PCP - General Internal Medicine 08/18/22 documented as of this encounter
--- OUTSIDE RECORDS SUMMARY | 2024-10-03 12:16 | XMS_ITS | Clinical Summary ---
Author Organization [employer] Address [address] [place] [address] 7t [place] [address] Care Team Providers Care Fuels Engineer Name Role Phone Name, Daniel PINA Primary Care Provider Allergies No known active allergies Medications nitroglycerin (Nitrostat) 0.4 MG SL tablet under the tongue 03/16/20 17 Active betamethasone valerate (Valisone) 0.1 % ointment Use twice a week as needed 45 g 2 03/11/20 23 Active Diclofenac Sodium 1 % gel APPLY TOPICALLY DAILY TO AFFECTED JOINT 100 g 3 04/16/20 23 Active Blood Glucose Monitoring Suppl (FreeStyle Lite) w/Device kitIndications:Typ e 2 diabetes mellitus with other specified complication, without long-term current use of insulin ([facility]) 1 each See administration instructions. Use once a day 1 kit 04/28/20 23 Active Lancets (OneTouch Delica Plus [id number]) [facility] [place]LOOD SUGAR ONCE A DAY 100 each 11 04/30/20 23 Active Blood Glucose Monitoring Suppl (ONE TOUCH ULTRA 2) w/Device kit TEST BLOOD SUGAR ONCE A DAY 1 kit 04/30/20 23 Active cyclobenzaprine (Flexeril) 5 MG tabletIndications: Left knee pain, unspecified chronicity TAKE 1 TABLET BY MOUTH EVERY NIGHT AT BEDTIME 30 tablet 08/05/19 24 Active gabapentin (Neurontin) 300 MG capsuleIndications :Type 2 diabetes mellitus with other specified complication, unspecified whether siding installer insulin use ([facility]) TAKE 1 TO 2 CAPSULES BY MOUTH THREE TIMES DAILY 180 capsule 2 10/04/19 24 Active metFORMIN XR (Glucophage-XR) 500 MG 24 hr tablet TAKE 2 TABLETS BY MOUTH TWICE DAILY WITH BREAKFAST AND EVENING MEAL 360 tablet 1 01/12/20 24 Active metoprolol tartrate (Lopressor) 50 MG tablet TAKE 1 AND 1/2 TABLETS BY MOUTH TWICE DAILY 270 tablet 3 02/14/20 24 Active acetaminophen (Tylenol Extra Strength) 500 MG tabletIndications: Primary osteoarthritis of both knees Take 1 tablet (500 mg) by mouth every 8 (eight) hours if needed for moderate pain or mild pain. 100 tablet 1 02/14/20 24 025 Active ergocalciferol (Vitamin D2) 1.25 MG (47768 UT) capsule TAKE 1 CAPSULE BY MOUTH 1 TIME A WEEK DIRECTED 4 capsule 02/18/20 24 Active rosuvastatin (Crestor) 20 MG tablet TAKE 1 TABLET(20 MG) BY MOUTH IN THE MORNING 30 tablet 11 04/07/20 24 Active isosorbide mononitrate ER (Imdur) 30 MG 24 hr tablet TAKE 1 TABLET BY MOUTH EVERY MORNING 90 tablet 2 05/11/20 24 Active lisinopril 40 MG tablet TAKE 1 TABLET BY MOUTH EVERY DAY 90 tablet 1 06/22/19 25 Active amLODIPine (Norvasc) 10 MG tablet TAKE 1 TABLET BY MOUTH EVERY DAY 90 tablet 1 07/13/19 25 Active pantoprazole (ProtoNix) 40 MG EC tabletIndications: Gastroesophageal reflux disease without esophagitis TAKE 1 TABLET BY MOUTH EVERY MORNING 1 HOUR BEFORE MEALS 90 tablet 3 08/01/19 25 Active Active Problems Problem Noted Date Diagnosed [...] Gastro-esophageal reflux disease without esophag itis 04/11/2015 Obesity 04/11/2015 Resolved Problems Problem Noted Date Diagnosed Date Resolved Date Stage 3a chronic kidney disease 06/20/2019 01/08/2023 Hypercholesterolemia 04/11/2015 025 Vitamin D deficiency 04/11/2015 025 Encounters Date Type Department Care Team Description 10/02/2024 11:00 AM EDT Office Visit [facility] [address] [place] [address] Deena Kang 09/07/2024 11:00 AM EDT Office Visit [facility] [address] [place] [address] GiovanyLuz montanoricio 08/25/2024 2:00 PM EDT Office Visit [facility] [address] [place] [address] Deena Kang 07/30/2024 Refill [facility] [address] [place], [place] [phone] NameDaniel MD Gastroesophageal reflux disease without esophagitis 07/26/2024 10:00 AM EST Office Visit [facility] [address] [place] [address] Amando Adair Dental calculus (Primary Dx) 07/12/2024 Refill [facility] [address] [place], [place] [phone] NameDaniel MD 07/06/2024 Telephone [facility] [address] [place], [place] [phone] NameDaniel MD Durable Medical Equipment from Last 3 Months Immunizations Name Administration [...] Sign Reading Time Taken Comments Blood Pressure 124/82 10/02/2024 10:38 AM EDT Pulse 72 07/04/2024 1:48 PM EST Temperature [...] Description 03/26/2025 3:00 PM EDT Office Visit [facility] [address] [place] [address] Deena Kang Health Maintenance Due Date Last Done Comments CT Colonography 1959 FIT DNA/Cologuard 1960 FIT 1960 FOBT 1960 Sigmoidoscopy 1960 Derm Melanoma Skin Check 1959 RSV Patients and Patients Aged 60 years or older (1 - Risk 60-74 years 1-dose series) 2019 COVID-19 Vaccine ( season) 2024 05/07/2021, 10/17/2020, 09/19/2020 Mammogram 08/29/2024 08/30/2023, 07/30, 08/26/2022, Additional history exists Diabetes: Hemoglobin A1C 01/01/2025 025, 02/14/2024, 09/22/2023, Additional history exists Dental Oral Exam 01/24/2025 07/26/2024 Dental Prophylaxis 01/24/2025 07/26/2024 Cervical Cancer Screening 03/23/2025 HPV/Cotest 03/23/2025 03/23/2024, 07/03/2020 Pap Smear 03/23/2025 03/23/2024, 07/03/2020 Alcohol/Substance Use Screening 07/04/2025 07/04/2024 Depression Screening 07/04/2025 07/04/2024, 07/04/19 Diabetes: Foot Exam 07/04/2025 07/04/2024, 07/04/2024, 07/04/2024, Additional history exists SDOH Screening 07/04/2025 07/04/2024 Lipid Panel 07/20/2025 07/20/2024, 08/30, 01/20/2023, Additional history exists Dental X-Ray: Bitewings 07/27/2025 07/26/2024 Tobacco Screening 10/02/2025 10/02/2024 Eye Exam 05/11/2026 05/11/2024, 04/30, 05/11/2024, Additional history exists Colonoscopy 01/30/2027 01/30/2022, 01/30/2022 Colorectal Cancer Screening 01/30/2027 Dental X-Ray: Full Mouth 07/27/2027 07/26/2024 DTaP/Tdap/Td Vaccines (3 - Td or Tdap) 06/25/2030 06/25/2020, 10/30/2009 Hepatitis B Vaccines Completed 11/02/2017, 06/18/2017, 05/07/2017 Zoster Vaccines Completed 12/05/2018, 07/0 12/2018, 08/22/2018, Additional history exists Hepatitis C [...] Procedure Name Priority Date/Time Associated Diagnosis Comments ORAL HYGIENE INSTRUCTIONS Routine 10/02/2024 11:00 AM EDT CASE PRESENTATION, DETAILED AND EXTENSIVE TREATMENT PLANNING Routine 10/02/2024 11:00 AM EDT LR PERIODONTAL SCALING AND ROOT PLANING - 4 OR MORE TEETH PER QUADRANT Routine 10/02/2024 11:00 AM EDT UR PERIODONTAL SCALING AND ROOT PLANING - 4 OR MORE TEETH PER QUADRANT Routine 10/02/2024 11:00 AM EDT CASE PRESENTATION, DETAILED AND EXTENSIVE TREATMENT PLANNING Routine 09/07/2024 11:00 AM EDT H F(V) RESIN-BASED COMPOSITE - 1 SURF, ANTERIOR Routine 09/07/2024 11:00 AM EDT ORAL HYGIENE INSTRUCTIONS Routine 08/25/2024 2:00 PM EDT CASE PRESENTATION, DETAILED AND EXTENSIVE TREATMENT PLANNING Routine 08/25/2024 2:00 PM EDT LL PERIODONTAL SCALING AND ROOT PLANING - 4 OR MORE TEETH PER QUADRANT Routine 08/25/2024 2:00 PM EDT UL PERIODONTAL SCALING AND ROOT PLANING - 4 OR MORE TEETH PER QUADRANT Routine 08/25/2024 2:00 PM EDT COMPREHENSIVE ORAL EVALUATION - NEW OR ESTABLISHED PATIENT Routine 07/26/2024 10:00 AM EST INTRAORAL - COMPLETE SERIES OF RADIOGRAPHIC IMAGES Routine 07/26/2024 10:00 AM EST ORAL HYGIENE INSTRUCTIONS Routine 07/26/2024 10:00 AM EST CASE PRESENTATION, DETAILED AND EXTENSIVE TREATMENT PLANNING Routine 07/26/2024 10:00 AM EST PROPHYLAXIS - ADULT Routine 07/26/2024 1 0:00 AM EST 15 MO COMPOSITE FILLING Routine 07/26/2024 12:00 AM EST 18 O AMALGAM FILLING Routine 07/26/2024 12:00 AM EST 30 O AMALGAM FILLING Routine 07/26/2024 12:00 AM EST 31 O AMALGAM FILLING Routine 07/26/2024 12:00 AM EST ALBUMIN, RANDOM URINE W/CREATININE Routine 07/20/2024 9:40 AM EST Type 2 diabetes mellitus with other specified complication, without long-term current use of insulin ([facility]/HCC) LIPID PANEL, STANDARD Routine 07/20/2024 9:40 AM EST Type 2 diabetes mellitus with other specified complication, without long-term current use of insulin (CMS/HCC) COMPREHENSIVE METABOLIC PANEL Routine 07/20/2024 9:40 AM EST Type 2 diabetes mellitus with other specified complication, without long-term current use of insulin (CMS/HCC) POCT GLYCATED HEMOGLOBIN, TOTAL Routine 07/04/2024 1:54 PM EST Type 2 diabetes mellitus with other specified complication, without long-term current use of insulin (CMS/HCC) THINPREP IMAGING PAP AND HPV MRNA E6/E7 Routine 03/23/2024 10:27 AM EDT BI MAMMOGRAM SCREENING TOMOSYNTHESIS BILATERAL Routine 08/30/2023 12:12 PM EDT HM COLONOSCOPY Routine 01/30/2022 12:52 PM EDT ZZZ HISTORICAL HEPATITIS C AB W/REFL TO HCV RNA, QN, PCR Routine 06/18/2021 9:03 AM EST from Last 3 Months or Most Recently Relevant to Health Maintenance Results * (ABNORMAL) Albumin, Random Urine W/Creatinine (07/20/2024 9:40 AM EST) Creatinine, Urine 85.84 mg/dL [facility] Microalbumin Urine 39.0 mg/L [facility] Microalbum Creatinine Ratio Ur 45.4(H) <30 ug/mg cr LABS Comment:Albumin/Creatinine R atio Reference Ranges: Normal: < 30 ug/mg creatinine Microalbuminuria: 30 - 300 ug/mg creatinineClinical Albuminuria: > 300 ug/mg creatinine Urine (Urine, Random) 07/20/2024 9:40 AM EST 07/20/2024 11:32 AM EST us Daniel Avalos MD LAB URINE ORDERABLES Final Resul t Performing Organization Address [facility] de Phone Number LABS [address] [place] [address] [phone] * (ABNORMAL) Lipid Panel, Standard (07/20/2024 9:40 AM EST) Triglycerides 123 <150 mg/dL [facility] Comment:Desirable Triglyceri de: less than 150 mg/dLBorderline High Triglyceride 150-199 mg/dLHigh Triglyceride: 200-499 mg/dLVery High Triglyceride: greater than or equal to 5OO mg/dL Cholesterol 196 <200 mg/dL LABS Comment:Desirable Cholestero l: less than 200 mg/dLBorderline High Cholesterol: 200-239 mg/dLHigh Cholesterol: greater than 239 mg/dL LDL Cholesterol Calculated 114(H) <100 mg/dL LABS Comment:Desirable LDL: less than 100 mg/dLNear Optimal/Above Optimal LDL: 110- 129 mg/dLBorderline High LDL: 130-159 mg/dLHigh LDL: 160-189 mg/dLVery High LDL: greater than or equal to 190 mg/dL HDL Cholesterol 58 >40 mg/dL [facility] Comment:Desirable HDL: great er than 40 mg/dL Note: This HDL assay may give artificially low results in patients with liver disease. Blood Venous blood specimen / Unknown 07/20/2024 9:40 AM EST 07/20/2024 11:43 AM EST Daniel Avalos MD LAB BLOOD ORDERABLES Final Resul t Performing Organization Address [facility] Co de Phone Number LABS [address] [place] [address] [phone] * (ABNORMAL) Comprehensive Metabolic Panel (07/20/2024 9:40 AM EST) Sodium 141 135 - 145 mmol/L LABS Potassium 3.5 3.3 - 5.1 mmol/L LABS Chloride 106 96 - 108 mmol/L LABS Carbon Dioxide 25 22 - 29 mmol/L LABS Anion Gap 14 12 - 20 LABS Urea Nitrogen (BUN) 17(H) 9 - 16 mg/dL LABS Creatinine, Serum 0.61 0.5 - 1.4 mg/dL LABS Estimated Glomerular Filt Rate >60 LABS Comment:Chronic Kidney Disea se: Estimated GFR < 60 mL/min/1.41u6Eahlgh Kidney Disease: Estimated GFR < 15 mL/min/1.73m2 Glucose 152(H) 60 - 115 mg/dL LABS Calcium 9.4 8.4 - 10.2 mg/dL LABS Bilirubin, Total 0.5 0.0 - 1.0 mg/dL LABS Aspartate Amino Transferase 27 5 - 31 U/L LABS Alanine Aminotransferase 25 0 - 31 U/L LABS Total Protein 7.9 6.5 - 8.0 g/dL LABS Albumin Level 4.4 3.5 - 5.0 g/dL LABS Alkaline Phosphatase 109 39 - 117 U/L LABS Blood Venous blood specimen / Unknown 07/20/2024 9:40 AM EST 07/20/2024 11:43 AM EST us Daniel Avalos MD LAB BLOOD ORDERABLES Final Resul t LABS [address] [place] [phone] * (ABNORMAL) POCT HGB A1C (07/04/2024 1:54 PM EST) Hemoglobin A1C 6.8(A) 4.0 - 6.0 % QC Media Lot # [id number] Lot# Expiration Date Blood 07/04/2024 1:54 PM EST us Daniel Avalos MD POINT OF CARE TEST ENTER/EDIT OR DERABLES Final Result * (ABNORMAL) ThinPrep Imaging Pap and HPV mRNA E6/E7 (03/23/2024 10:27 AM EDT) HPV nRNA E6/E7 Detected (A) Not Detected LABS Comment:Methodology: Transcr iption-Mediated AmplificationThis assay detects E6/E7 viral messenger RNA (mRNA) from 14high-risk HPV types (16,18,31,33,35,39,45,51,52,56,58,59,66,68).Cervical sources are required for HPV testing.If a vaginal source from a patient who has had atotal hysterectomy with removal of cervix wassubmitted, please contact the testing laboratoryfor alternative testing options.For additional information, please refer tohttp://education.TrustYou/faq/UKZ838p4(This link if provided for information/educational purposes only.)THIS TEST WAS PERFORMED AT:[facility] [address] [phone] DIAZ MD SOURCE: SEE NOTE LABS Comment:Cervix Report Status: [facility] Clinical Information: SEE NOTE LABS Comment:None given LMP: SEE NOTE LABS Comment:NONE GIVEN Prev. PAP: SEE NOTE LABS Comment:NONE GIVEN Prev. BX: SEE NOTE LABS Comment:NONE GIVEN Statement Of Adequacy: SEE [facility] Comment:Satisfactory for kulwinder luation.Endocervical/transformation zone componentpresent. General Categorization: [facility] Interpretation/Result: SEE NOTE LABS Comment:Cytology Results: Ne gative for intraepitheliallesion or malignancy. Cytology Comment SEE NOTE [facility] Comment:This Pap test has be en evaluated with computerassisted technology. Ham Rolling Machine Operator: SEE NOTE [facility] Comment:ALS, CT(ASCP)CT scre ening location: [place] [address] Review Ham Rolling Machine Operator: SEE NOTE LABS Comment:NEGRO, CT(ASCP)CT scre ening location: [place] [address] Pathologist [facility] PAP Infection SEE NOTE [facility] Comment:Shift in vaginal jeff ra suggestive of bacterialvaginosis. See Note SEE NOTE LABS Comment:EXPLANATORY NOTE:The Pap is a screening test for cervical cancer. It isnot a diagnostic test and is subject to false negativeand false positive results. It is most reliable when asatisfactory sample, regularly obtained, is submittedwith relevant clinical findings and history, and whenthe Pap result is evaluated along with historic andcurrent clinical information. 03/23/2024 10:2 7 AM EDT 03/23/2024 6:04 PM EDT Narrative LABS - 03/29/2024 10:28 AM EDT SEE SCANNED RESULTS IN EMRCERVIX us Esther Lentz CNM LAB PATHOLOGY ORDERABLES Final Result LABS [address] [place] [phone] * BI Mammogram Screening Tomosynthesis Bilateral (08/30/2023 12:12 PM EDT) Anatomical Region Laterality Modality Breast Bilateral Mammography 08/30/2023 12:1 2 PM EDT Narrative 09/12/2023 3:34 PM EDT ? [facility] [place] ? [address] ?[place] [address] ? Mammography Report ? Signed ? Patient: Broussard,Susanna ?MR#: [id number] ?? 65 ? : 1960 ?Acct:[id number] ? Age/Sex: 63 / F ?ADM Date: 04/01/24 ? Loc: HO.MAMMO ? Attending Dr: Daniel Name MD ? Ordering Physician: Name,Daniel MD ?Results: 1Negative ? Date of Service: 08/30/23 ?Follow Up: 1 Year From Orig ?? inal Mammogram ? Procedure(s): MM tomosynthesis screening BI ?? Accession Number(s): [id number] ? cc: Name,Daniel PINA ? EXAMINATION: ?? [...] by Maureen Gates MD in OV> ? 09/12/231530 ? DD/ ? TD/TT: ? Funeral Home Assistant: ? Procedure Note Haley, Cain - 09/12/2023 [facility] [address] [place], [place] [address] Mammography Report Signed Patient: Virginie Broussard#: [id number] 65 : 9Acct:[id number] Age/Sex: 63 / FADM Date: 08/30/23 Loc: HO.MAMMO Attending Dr: Daniel Avalos MD Ordering Physician: Daniel Avalos MDResults: 1Negative Date of Service: 08/30/23Follow Up: 1 Year From Orig inal Mammogram Procedure(s): MM tomosynthesis screening BI Accession Number(s): [id number] cc: Daniel Avalos MD EXAMINATION: MM SCREENING [...] in OV> 09/12/23 1531 DD/ 1212 TD/TT: Funeral Home Assistant: Daniel Avalos MD [facility] [place] PROCEDURES Edited Result - Final * Hm Colonoscopy (01/30/2022 12:52 PM EDT) Colonoscopy Normal Normal Narrative Karolina Buchanan - 01/30/2022 12:52 PM EDT Recommended 5 year follow up (Darius) Historical Provider HEALTH MAINTENANCE Final Result * HEPATITIS C AB W/REFL TO HCV RNA, QN, PCR (06/18/2021 9:03 AM EST) HEPATITIS C ANTIBODY NON-REACT NAZANIN NON-REACT NAZANIN [facility] INDEX 0.01 <1.00 [facility] Comment: ?? HCV antibody was non-reactive. There is no laboratory ?? evidence of HCV infection. ?? In most cases, no further action is required. However, if recent HCV exposure is suspected, a test for HCV RNA (test code 11278) is suggested. ?? For additional information please refer to http://education.TrustYou/faq/QSR30d6 (This link is being provided for informational/ educational purposes only.) ?? 06/18/2021 9:03 AM EST Crystal Atkinson NP HISTORICAL/NON ORDERABLE LABS F inal Result [facility] [address] from Last 3 Months or Most Recently Relevant to Health Maintenance Insurance [facility] [employer] (HMO D-SNP) [place] [id number] [place] [id number] DENTAL - [facility] Care Teams Fuels Engineer Relationship Specialty Start Date End Date Name, MD Daniel [address] [place] [address] PCP - General Internal Medicine 08/18/22
--- OUTSIDE RECORDS SUMMARY | 2024-10-03 12:16 | XMS_ITS | Encounter Summary ---
Author Organization [employer] Address [address] [facility] 7t [place] [address] Care Team Providers Care Form Raiser Name Role Phone Name, Daniel PINA Primary Care Provider [phone] Reason for Visit * Reason Onset Date Comments Med Refill 04/15/2023 Encounter Details Date Type Department Care Team (Late st Contact Info) Description 04/15/2023 Telephone [facility] [address] [place] [address] Name, MD Daniel [address] [place], [place] [phone] Med Refill Social History Tobacco Use Types [...] t he electric, gas, oil or water [employer] threatened to shut off services in your [...] MG capsule Diclofenac Sodium 1 % gel [facility] #[id number] - [address] documented in this encounter Plan of Treatment Upcoming Encounters Date Type Department Care Team (Late st Contact Info) Description 03/26/2025 3:00 PM EDT Office Visit [facility] [address] [place] [address] Deena Kang documented as of this encounter Visit Diagnoses Not on filedocumented in this encounter Additional Health Concerns Assessment Noted Time PHQ-9 Depression Total Score: 0 11/05/19 23 8:49 AM EDT documented as of this encounter Care Teams Form Raiser Relationship Specialty Start Date End Date Name, MD Daniel [address] [place] [address] PCP - General Internal Medicine 08/18/22 documented as of this encounter
--- OUTSIDE RECORDS SUMMARY | 2024-10-03 12:16 | XMS_ITS | Encounter Summary ---
Author Organization [facility], Address [address] [place] [address] Phone Care Team Providers Care Equipment Maintenance Supervisor Name Role Phone Dena Bellamy NP Primary Care Provider [phone] Encounter Details Date Type Department Care Team (Late st Contact Info) Description 10/02/2021 Documentation Only [facility], [address] [place] [address] Crystal Atkinson [address] [place] [address] Social History Tobacco Use Types Packs/Day Years [...] on filedocumented in this encounter Care Teams Equipment Maintenance Supervisor Relationship Specialty Start Date End Date Dena Bellamy NP PCP - General 04/04/19 documented as of this encounter
--- OUTSIDE RECORDS SUMMARY | 2024-10-03 12:16 | XMS_ITS | Encounter Summary ---
Author Organization [employer] Address [address] [place] [address] 7t [place] [address] Care Team Providers Care Outside Plant Supervisor Name Role Phone Name, Daniel PINA Primary Care Provider [phone] Reason for Visit * Reason Comments Scaling And Root Planing UR LR Encounter Details Date Type Department Care Team ([facility] st Contact Info) Description 10/02/2024 11:00 AM EDT Office Visit [facility] [address] [place] [address] Deena Kang Social History Tobacco Use Types Packs/Day Years [...] t he electric, gas, oil or water [employer] threatened to shut off services in your [...] Pressure 124/82 10/02/2024 10:38 AM EDT Pulse - - Temperature - - Respiratory Rate - - Oxygen Saturation - - Inhaled Oxygen Concentration - - Weight - - Height - - Body Mass Index - - documented in this encounter Progress Notes * Deena Kang - 10/02/2024 11:00 AM EDT Patient ID: Susanna Broussard is a 64 y.o. female. Time Out: Timeout Date: 10/02/24, Timeout Time: 1037 Location: [facility] Tooth: UR and LR Procedure: Scaling and Root Planing Verified the above with patient, faculty i on call medical assistant, and provider. Confirmed via patient's chart, intraorally and by radiographs. Communications Assistant: not applicable Medical Hx: Vitals: Blood pressure 124/82. Medications, Med Hx reviewed with patient and updated in chart. Treatment Provided Dental procedures in this visit D4341 - PERIODONTAL SCALING AND ROOT PLANING - 4 OR MORE TEETH PER QUADRANT UR (Completed) Service provider: Deena Rogel provider: Ej Escobedo DMD D4341 - PERIODONTAL SCALING AND ROOT PLANING - 4 OR MORE TEETH PER QUADRANT LR (Completed) Service provider: Deena Rogel provider: Ej Escobedo DMD D9450 - CASE PRESENTATION, DETAILED AND EXTENSIVE TREATMENT PLANNING (Completed) Service provider: Deena Rogel provider: Ej Escobedo DMD D1330 - ORAL HYGIENE INSTRUCTIONS (Completed) Service provider: Deena Rogel provider: Ej Escobedo DMD Topical: 20% Benzocaine Anesthesia: 4% Septocaine (Articaine) w/ 1:200,000 epinephrine Number of Cartridges: 2 Injection Type: Inferior alveolar nerve block, Long buccal nerve block, Middle superior alveolar nerve block, and Posterior superior alveolar nerve block Confirmed profound anesthesia. Oral Cancer Screening: No lesions Head/Neck Exam: No Lesions Instruments Used: Ultrasonic Scalers and Hand Scalers Fluoride: N/A Calculus: Moderate, Generalized, and Subgingival Plaque: Moderate and Generalized Stain: Light and Localized Bleeding: Heavy and Generalized Gingiva: Edematous and Erythematous [place]: Poor Oral hygiene instructions provided to patient including brushing technique and flossing. Recommendations: [place]ham two times daily, modified menon technique, Floss daily, Electric toothbrush, Soft bristle toothbrush, [place]ham Tongue, Anti-sensitivity toothpaste Recall Frequency: 6 mo [place]: 6 [facility] Hygienist: Deena Kang RDH documented in this encounter Plan of Treatment Upcoming Encounters Date Type Department Care Team (Late st Contact Info) Description 03/26/2025 3:00 PM EDT Office Visit [facility] [address] [place] [address] Deena Kang documented as of this encounter Procedures Procedure Name Priority Date/Time Associated Diagnosis Comments LR PERIODONTAL SCALING AND ROOT PLANING - 4 OR MORE TEETH PER QUADRANT Routine 10/02/2024 11:00 AM EDT UR PERIODONTAL SCALING AND ROOT PLANING - 4 OR MORE TEETH PER QUADRANT Routine 10/02/2024 11:00 AM EDT ORAL HYGIENE INSTRUCTIONS Routine 2024 11:00 AM EDT CASE PRESENTATION, DETAILED AND EXTENSIVE TREATMENT PLANNING Routine 10/02/2024 11:00 AM EDT documented in this encounter Visit Diagnoses Not on filedocumented in this encounter Additional Health Concerns Assessment Noted Time PHQ-9 Depression Total Score: 0 07/04/19 25 1:51 PM EST documented as of this encounter Care Teams Outside Plant Supervisor Relationship Specialty Start Date End Date Name, MD Daniel [address] [place] [phone] PCP - General Internal Medicine 08/18/22 documented as of this encounter
--- OUTSIDE RECORDS SUMMARY | 2024-10-03 12:16 | XMS_ITS | Clinical Summary ---
Author Organization [facility], Address [address] [place] [address] [place] [address] Phone Care Team Providers Care Fleet Operations Manager Name Role Phone Dena Bellamy NP Primary Care Provider [phone] Allergies No known active allergies Medications acetaminophen (PHARBETOL) 325 MG tablet Comments: Filled Date: Mar 15 2017 12:00AM Duration: 15 7 Active amLODIPine (NORVASC) 10 MG tablet 0 Active ergocalciferol (VITAMIN D2) 1.25 MG (25970 UT) capsule 9 Active isosorbide mononitrate (IMDUR) [...] Duration: 90 8 07/12/19 Discontinu ed(Med List [facility] e) Active Problems Problem Noted Date Diagnosed [...] of skin of nose 06/09/2017 01/08/2021 Immunizations Immunization Administration Dates Next Due Zoster 12/05/2018,08/22/2018 Family [...] Comments Breast Cancer Screening 1960 Pneumococcal Vaccine: 50+ Years (1 of 2 - PCV) 1978 Colorectal Cancer Screening: Annual FOBT 01/22/2008 Colorectal Cancer Screening: Colonoscopy 01/22/2008 Colorectal Cancer Screening: Sigmoidoscopy 01/22/2008 Diabetes: Hemoglobin A1C 06/20/2019 019, 06/12/2017 Diabetes: Ophthalmology Exam 06/20/2019 Diabetes: Pedal Pulse Checked 06/20/2019 Diabetes: Sensory Foot Exam 06/20/2019 Diabetes: Visual Foot Exam 06/20/2019 Influenza Vaccine (Season Ended) 2025 01/29/2015 Hepatitis B Vaccine Aged Out No longe r eligible based on patient's age to complete this topic Procedures Procedure Name Priority Date/Time Associated Diagnosis Comments HEMOGLOBIN A1C Routine 06/03/2018 2:30 PM EST from Last 3 Months or Most Recently Relevant to Health Maintenance Results * (ABNORMAL) Hemoglobin A1c (06/03/2018 2:30 PM EST) Hemoglobin A1C 7.3(H) (4-6) % [place] [address] Comment: HEMOGLOBIN A1C(%) ?? GLUCOSE CONTROL INDEX ?<6% ? EXCELLENT ?6-7% ?VERY GOOD ?7-8% ?GOOD ?8-10% ? FAIR ?>10% ?POOR Hemoglobin (Hb) A1c testing is performed by [place] Massiel-quant immunoassay. Any cause of shortened erythrocyte survival will reduce exposure of erythrocytes to glucose with a consequent decrease in Hb A1c (%). Testing performed or reported by ~[facility], ~a Service of [facility], ~[address] [place] [address]~ Jerzy Julien MD, Doggy Daycare Activities Director 06/03/2018 2:30 PM EST us Maximiliano Christopher MD LAB BLOOD ORDERABLES Final Resul t [facility] from Last 3 Months or Most Recently Relevant to Health Maintenance Insurance [facility] Care Teams Fleet Operations Manager Relationship Specialty Start Date End Date Dena Bellamy NP PCP - General 04/04/19
--- OUTSIDE RECORDS SUMMARY | 2024-10-03 12:16 | XMS_ITS | Encounter Summary ---
Author Organization [employer] [facility] Address [address] [place] [address] [address] [place] [address] Care Team Providers Care Power Line Lineman Name Role Phone Name, Daniel PINA Primary Care Provider [phone] Reason for Visit * Reason Comments Med Refill Encounter Details Date Type Department Care Team ([facility] Contact Info) Description 01/22/2023 Refill [facility] MEDICINE [address] [place], [place] [phone] Mookie Powers AGNP Gastroesophageal reflux disease without [...] 3:00 PM EDT Office Visit [facility]ULT DENTAL [address] [place] [address] Deena Kang documented as of this encounter Visit Diagnoses Diagnosis Gastroesophageal reflux disease without esophagitis Esophageal reflux documented in this encounter Additional Health Concerns Assessment Noted Time PHQ-9 Depression Total Score: 0 11/05/19 23 8:49 AM EDT documented as of this encounter Care Teams Power Line Lineman Relationship Specialty Start Date End Date Name, MD Daniel [address] [place] [address] PCP - General Internal Medicine 08/18/22 documented as of this encounter
--- OUTSIDE RECORDS SUMMARY | 2024-10-03 12:16 | XMS_ITS | Patient Health Record ---
Author Organization [facility] Address [address] [place] [address] Care Team Providers Care Pump Machine Operator Name Role Phone Carmelita Merlos Jessica Primary Care Provider Richardson Franz Unavailable [phone] Allergies No Known Allergies Reason For Referral [...] Twice a day Active Vitamin D (Ergocalciferol) 62283 UNIT 1 capsule Orally Once a week [...] Problem Status W/U Status Risk Notes Problem 852550760 Gastro-esophagea l reflux disease without esophagitis (K21.9) Active confirmed Problem 828072504 Encounter for screening for malignant neoplasm of colon (Z12.11) Active confirmed Problem 892433222 History of adenomatous polyp of colon (Z86.010) Active confirmed Problem Screening for malignant neoplasm of rectum (690428929) Encounter for screening for malignant neoplasm of rectum (Z12.12) Active confirmed Problem 64349720 Preprocedural examination (Z01.818) Active confirmed Problem 027378970 Long-term use of aspirin therapy (Z79.82) Active confirmed Problem Colon, diverticulosis (K57.30) Active confirmed Plan Of Treatment Pending Test Test Name Order Date Pathology 01/30/2022 Future Test Test Name Order Date COLONOSCOPY 03/04/2016 COLONOSCOPY 12/17/2021 Insurance Providers Payer Name Payer Address Payer Phone Subscriber Number Group Number Insured Name Patient Relationship to Insured Coverage Start Date Coverage End Date [facility] [address] [facility] [place] [place] [address] [id number] LINDA ALBARADO Self - patient is the insured Medical (General) History Medical History History ICD Code Tubular adenomas removed in 1996 and 2005; she had a negative colonoscopy on 11-24-2010 Denies [place],CVA,DM,Lung disease,renal dise ase GERD--EGD in 2000 was negati ve for any significant esophagitis and Meraz's esophagus Hypertension Hypercholesterolemia Negative colonoscopy in 07/2016 Surgical History Surgery Date(Month/Year) BTL
--- OUTSIDE RECORDS SUMMARY | 2024-10-03 12:16 | XMS_ITS | Encounter Summary ---
Author Organization [facility], Address [address] [place] [address] Phone Care Team Providers Care Regulation Supervisor Name Role Phone Dena Bellamy NP Primary Care Provider [phone] Encounter Details Date Type Department Care Team (Late st Contact Info) Description 12/09/2021 Documentation Only [facility], [address] [place] [address] Maximiliano Christopher MD [address] [place] [place] [phone] Social History Tobacco Use Types Packs/Day Years [...] on filedocumented in this encounter Care Teams Regulation Supervisor Relationship Specialty Start Date End Date Dena Bellamy NP PCP - General 04/04/19 documented as of this encounter
--- OUTSIDE RECORDS SUMMARY | 2024-10-03 12:16 | XMS_ITS | Encounter Summary ---
Author Organization [facility] Address [address] [place] [address] 7t [place] [address] Care Team Providers Care Quiller Runner Name Role Phone Name, Daniel PINA Primary Care Provider [phone] Reason for Visit * Reason Comments Med Refill Encounter Details Date Type Department Care Team (Late st Contact Info) Description 01/22/2023 Refill [facility] MEDICINE [address] [place], [place] [phone] Name, MD Daniel [address] [place], [place] [phone] Type 2 diabetes mellitus with other specified complication, unspecified whether shelter insulin use (CMS/[facility]) Social History Tobacco Use Types Packs/Day Years [...] Description 03/26/2025 3:00 PM EDT Office Visit [facility] ADULT DENTAL [address] [place] [address] Deena Kang documented as of this encounter Visit Diagnoses Diagnosis Type 2 diabetes mellitus with other specified complication, unspecified whether fruit harvester machine operator insulin use (CMS/HCC) documented in this encounter Additional Health Concerns Assessment Noted Time PHQ-9 Depression Total Score: 0 11/05/19 8:49 AM EDT documented as of this encounter Care Teams Quiller Runner Relationship Specialty Start Date End Date Name, MD Daniel [address] [place] [address] PCP - General Internal Medicine 08/18/22 documented as of this encounter
--- OUTSIDE RECORDS SUMMARY | 2024-10-03 12:16 | XMS_ITS | Encounter Summary ---
Author Organization [employer] Address [address] [facility] 7t [place] [address] Care Team Providers Care Clinical Support Manager Name Role Phone Name, Daniel PINA Primary Care Provider [phone] Reason for Visit * Reason Comments Med Refill Encounter Details Date Type Department Care Team ([facility] st Contact Info) Description 03/18/2023 Refill [facility] MEDICINE [address] [place] [address] Samaria Butler FNP [address] [place], [place] [phone] Social History Tobacco Use Types Packs/Day Years [...] 03/26/2025 3:00 PM EDT Office Visit [facility] [address] [place] [address] Deena Kang documented as of this encounter Visit Diagnoses Not on filedocumented in this encounter Additional Health Concerns Assessment Noted Time PHQ-9 Depression Total Score: 0 11/05/19 23 8:49 AM EDT documented as of this encounter Care Teams Clinical Support Manager Relationship Specialty Start Date End Date Name, MD Daniel [address] [place] [address] PCP - General Internal Medicine 08/18/22 documented as of this encounter
--- OUTSIDE RECORDS SUMMARY | 2024-10-03 12:16 | XMS_ITS | Encounter Summary ---
Author Organization [employer] Address [address] [place] [address] 7t [place] [address] Care Team Providers Care Ceramic Engineer Name Role Phone Name, Daniel PINA Primary Care Provider [phone] Reason for Visit * Reason Comments Med Refill Encounter Details Date Type Department Care Team (Late Contact Info) Description 11/27/2022 Refill [facility] [address] [place], [place] [phone] Name, MD Daniel [address] [place] [address] Social History Tobacco Use Types Packs/Day Years [...] Description 03/26/2025 3:00 PM EDT Office Visit [facility] ADULT DENTAL [address] [place], [place] [phone] Deena Kang documented as of this encounter Visit Diagnoses Not on filedocumented in this encounter Additional Health Concerns Assessment Noted Time PHQ-9 Depression Total Score: 0 11/05/19 8:49 AM EDT documented as of this encounter Care Teams Ceramic Engineer Relationship Specialty Start Date End Date Name, MD Daniel [address] [place] [address] PCP - General Internal Medicine 08/18/22 documented as of this encounter
== END 2024-10-03 10:40 | disposition home or self-care (01) ==
LOC: HO.MAMMO 10:39
PROVIDERS: PCP Internal Medicine Geriatric Medicine; Visit Provider Internal Medicine Geriatric Medicine
DX: Z12.31 Encounter for screening mammogram for malignant neoplasm of breast (principal)
CPT/HCPCS: 77063; 77067

== ENCOUNTER → 2024-10-03 11:15 | Outpatient (BNV) | payer OTHER, SELFPAY | PROVIDERS: PCP Internal Medicine Geriatric Medicine; Visit Provider Internal Medicine | DX: Z12.31 Encounter for screening mammogram for malignant neoplasm of breast (principal) | CPT/HCPCS: 77063; 77067 ==

== ENCOUNTER 2024-12-06 13:50 | Outpatient (AMB) | payer OTHER, SELFPAY ==
--- NOTE | 2024-12-06 13:57 | MHC.OFFVIS ---
Intake Visit Reasons: left knee injection (80) , last inj 08/31/24 Intake Note: Susanna is a 64 year old female who presents today for a follow up of her left knee OA, last injection 08/31/24. Patient reports her last injection gave her mild relief and would like to repeat. She is thinking of discussing surgery with for a replacement. Allergies No Known Allergies Allergy (Mild, Verified 12/06/24 13:58) N/A HPI HPI left knee injection (80) , last inj 08/31/24: Details: Ms. Broussard is a 64-year-old female who presents to the office today for chronic left knee pain due to osteoarthritis. She received her last cortisone injection on 08/31/2024 and is looking to repeat injections today. She states the last injection did not give her much relief. Additionally, she is looking to discuss surgical intervention. [facility] Medical History (Updated 12/06/24 @ 14:32 by Radha Taveras PA-C) Hypercholesterolemia GERD (gastroesophageal reflux disease) Arthritis Diabetes 1.5, managed as type 2 HTN (hypertension) Surgical History History of esophagogastroduodenoscopy (EGD) Hx of tubal ligation Hx of colonoscopy Social History Patient Tobacco Use Status: Never used Tobacco Current occupational status: disabled Current occupation: rt handed Review of Systems Const All systems reviewed & are unremarkable except as noted in HPI and below Physical Exam Const General: cooperative, healthy appearing and no acute distress Resp Effort & Inspection: normal respiratory effort and able to speak in complete sentences Extrem Other: left knee normal to inspection no ecchymosis, erythema, or joint effusion. Full ROM with crepitus. NVI. Office Procedures AMB Joint Injection/Aspiration Joint Injection/Aspiration Primary Site: left knee Prep: site was prepped using aseptic technique, ethochloride spray was applied and injection warnings given Injected: 40 mg of, DepoMedrol, with 8 mL of (2% plain lidocaine) and in the joint Approach Used: anterolateral Procedure: The patient tolerated the procedure well, but had some pain with the injection and there was some relief with the local anesthesia Coding 32885 - Large joint Procedure code (CPT) selection complete Assessment & Plan Assessment & Plan (1) Osteoarthritis of left knee: Code(s): M17.12 - Unilateral primary osteoarthritis, left knee Category: Medical (2) Diabetes 1.5, managed as type 2: Code(s): E13.9 - Other specified diabetes mellitus without complications Category: Medical Plan Mr. Martinez is a 69-year-old right-hand dominant male who presents to the office today for routine follow-up status post comminuted proximal humerus fracture and dislocation of the humeral head. He underwent open reduction of proximal humerus performed on 11/22/[address] Gusman. Patient reports that he is continue pain. He had 1 prescription of oxycodone which did help to give him some relief. He has been using Tylenol but this does not help with his pain. The patient was offered a cortisone injection in the left knee with 40 mg of DepoMedrol. The patient was explained the risks, benefits, and alternatives to receiving this injection. After receiving consent for the injection, the patient had the procedure done while in the office today. The patient tolerated the procedure well with no complications. Due to the patient?s history of diabetes, they were instructed to monitor their blood glucose level. The patient was informed that they could see a rise in their numbers and if the numbers became too high, they were instructed to call their PCP. The patient was also informed that they could have facial flushing as a side effect of the injection, but this will pass. Additionally, while the patient was in the office today we did discuss the role of surgical intervention. That being left total knee arthroplasty. The patient has seen Dr. Gusman in the past to discuss this however she was too young at that time. She would like to move forward with further discussions in regards to this. Patient does have a past medical history significant for vitamin-D deficiency, hypertension, diabetes type 1 managed as type 2, and GERD. Patient says that her diabetes is well controlled however I do not see a recent A1c. Follow-up will be with Dr. Gusman to discuss total knee arthroplasty, or sooner if needed X-Rays of the Left knee obtained on 02/14/2024: Mild medial tibiofemoral cartilage space loss. Mild patellofemoral cartilage space loss. Tricompartmental osteophytes. There is soft tissue prominence within the posterior joint space with possible intra-articular loose bodies. Small suprapatellar joint effusion. Quadriceps tendon and patellar tendon enthesophyt Coding Level of Care Code Est Pt Level 4 (24061) Diagnoses Osteoarthritis of left knee M17.12 Diabetes 1.5, managed as type 2 E13.9 CPT Codes Coding - 60149 Large joint: 92936 - Large joint ([id number])
--- OUTSIDE RECORDS SUMMARY | 2024-12-06 14:38 | XMS_ITS | Clinical Summary ---
Author Organization [facility] Address [address] [facility] [place] [address] Care Team Providers Care Oil Painter Name Role Phone Community, Pcp Primary Care Provider Unavailabl e Allergies No known active allergies Medications Medication Sig Dispensed Refills Start Date End Date Status isosorbide mononitrate (IMDUR) 30 MG 24 hr tablet Take 30 mg by mouth daily. 0 Active rosuvastatin (CRESTOR) 40 MG tablet Take 40 mg by mouth daily. 0 Active tramadol (ULTRAM) 50 MG tablet Take 50 mg by mouth every 6 hours as needed. 0 Active metoprolol (LOPRESSOR) 50 MG tablet Take 50 mg by mouth 2 times daily. 0 Active Calcium Carb-Cholecalciferol (CALCIUM 600 + D OR) Take by mouth. 0 Active Ergocalciferol (VITAMIN D2 OR) Take by mouth. 0 Active lisinopril (PRINIVIL,ZESTRIL) 40 MG tablet Take 40 mg by mouth daily. 0 Active Pantoprazole Sodium 40 MG Powd Pack Take by mouth. 0 Active amlodipine (NORVASC) 10 MG tablet Take 10 mg by mouth daily. 0 Active benazepril-hydrochlorth iazide (LOTENSIN HCT) 10-12.5 MG per tablet Take 1 tablet by mouth daily. 0 Active MetFORMIN HCl 500 MG TABLET SR 24 HR Take 500 mg by mouth. 0 Active ferrous sulfate 325 (65 FE) MG tablet Take 325 mg by mouth daily. 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 Squamous cell carcinoma of skin of upper lip 05/27/2018 Changing skin lesion 05/09/2018 Basal cell carcinoma of skin of nose 02/2018 Social History Tobacco Use Types Packs/Day Years Used Date Smoking Tobacco: Never Smokeless Tobacco: Never Alcohol Use Standard Drinks/Week Comments No 0 (1 standard drink = 0.6 oz pur e alcohol) Sex Assigned at Date Recorded Not on file Last Filed Vital Signs Vital Sign Reading Time Taken Comments Blood Pressure 110/64 07/05/2018 9:03 AM EST Pulse 72 07/05/2018 9:03 AM EST Temperature 36.5 C (97.7 F) 07/05/2018 9:03 AM EST Respiratory Rate 16 07/05/2018 9:03 AM EST Oxygen Saturation - - Inhaled Oxygen Concentration - - Weight 73.8 kg (162 lb 9.6 oz) 07/05/2018 9:03 A M EST Height 154.9 cm (5' 1 ) 07/05/2018 9:03 AM EST Body Mass Index 30.72 07/05/2018 9:03 AM EST Plan of Treatment Health Maintenance Due Date Last Done Comments Covid-19 Vaccine (#1) 1960 HEPATITIS C SCREENING 1977 CHOLESTEROL SCREENING 1979 CERVICAL CANCER SCREENING 01/22/1980 MAMMOGRAM 1999 COLON CANCER SCREENING 2009 SHINGLES VACCINE (1 of 2) 2009 DTAP/TDAP/TD (2 - Td or Tdap) 10/31/2019 10/30/2009 BONE DENSITY SCREENING 01/22/2024 PNEUMOCOCCAL VACCINE (2 - PCV) 01/22/2024 05/11/2008 BMI CHECK/ADVISE 05/31/2024 INFLUENZA (#1) 2025 Care Teams Oil Painter Relationship Specialty Start Date End Date Community, Pcp PCP - General Internal Medicine 10/03/21
--- OUTSIDE RECORDS SUMMARY | 2024-12-06 14:38 | XMS_ITS | Clinical Summary ---
Author Organization [facility], Address [address] [place] [address] [place] [address] Phone Care Team Providers Care Capacity Planning Analyst Name Role Phone Dena Bellamy NP Primary Care Provider [phone] Allergies No known active allergies Medications acetaminophen (PHARBETOL) 325 MG tablet Comments: Filled Date: Mar 15 2017 12:00AM Duration: 15 7 Active amLODIPine (NORVASC) 10 MG tablet 0 Active ergocalciferol (VITAMIN D2) 1.25 MG (61949 UT) capsule 9 Active isosorbide mononitrate (IMDUR) [...] Duration: 90 8 07/12/19 Discontinu ed(Med List [facility] e) Active Problems Problem Noted Date [...] Visual Foot Exam 06/20/2019 Influenza Vaccine (#1) 2025 01/29/2015 Hepatitis B Vaccine Aged Out No longe r eligible based on patient's age to complete this topic Procedures Procedure Name Priority Date/Time Associated Diagnosis Comments HEMOGLOBIN A1C Routine 06/03/2018 2:30 PM EST from Last 3 Months or Most Recently Relevant to Health Maintenance Results * (ABNORMAL) Hemoglobin A1c (06/03/2018 2:30 PM EST) Hemoglobin A1C 7.3(H) (4-6) % [facility] Comment: HEMOGLOBIN A1C(%) GLUCOSE CONTROL INDEX <6% EXCELLENT 6-7% VERY GOOD 7-8% GOOD 8-10% FAIR >10% POOR Hemoglobin (Hb) A1c testing is performed by [place] Massiel-quant immunoassay. Any cause of shortened erythrocyte survival will reduce exposure of erythrocytes to glucose with a consequent decrease in Hb A1c (%). Testing performed or reported by ~[facility], ~a Service of [facility], ~[address] [place] [id number]~ Jerzy Julien MD, Carton Forming Machine Helper 06/03/2018 2:30 PM EST us Maximiliano Christopher MD LAB BLOOD ORDERABLES Final Resul t [facility] from Last 3 Months or Most Recently Relevant to Health Maintenance Insurance [facility] [place] [id number] Care Teams Capacity Planning Analyst Relationship Specialty Start Date End Date Dena Bellamy NP PCP - General 04/04/19
--- OUTSIDE RECORDS SUMMARY | 2024-12-06 14:38 | XMS_ITS | Patient Health Record ---
Author Organization [facility] Address [address] [place] [address] Care Team Providers Care Insurance Healthcare Consultant Name Role Phone Carmelita Merlos Jessica Primary Care Provider Richardson Franz Unavailable [phone] Allergies No Known Allergies Reason For Referral [...] Twice a day Active Vitamin D (Ergocalciferol) 79895 UNIT 1 capsule Orally Once a week [...] Problem Status W/U Status Risk Notes Problem 847726555 Gastro-esophagea l reflux disease without esophagitis (K21.9) Active confirmed Problem 631990295 Encounter for screening for malignant neoplasm of colon (Z12.11) Active confirmed Problem 593593878 History of adenomatous polyp of colon (Z86.010) Active confirmed Problem Screening for malignant neoplasm of rectum (375851340) Encounter for screening for malignant neoplasm of rectum (Z12.12) Active confirmed Problem 65922570 Preprocedural examination (Z01.818) Active confirmed Problem 946409131 Long-term use of aspirin therapy (Z79.82) Active confirmed Problem Colon, diverticulosis (K57.30) Active confirmed Plan Of Treatment Pending Test Test Name Order Date Pathology 01/30/2022 Future Test Test Name Order Date COLONOSCOPY 03/04/2016 COLONOSCOPY 12/17/2021 Insurance Providers Payer Name Payer Address Payer Phone Subscriber Number Group Number Insured Name Patient Relationship to Insured Coverage Start Date Coverage End Date [facility] [address] [facility] [address] [id number] LINDA ALBARADO Self - patient is the insured Medical (General) History Medical History History ICD Code Tubular adenomas removed in 1996 and 2005; she had a negative colonoscopy on 11-24-2010 Denies [place],CVA,DM,Lung disease,renal dise ase GERD--EGD in 2000 was negati ve for any significant esophagitis and Meraz's esophagus Hypertension Hypercholesterolemia Negative colonoscopy in 07/2016 Surgical History Surgery Date(Month/Year) BTL
--- OUTSIDE RECORDS SUMMARY | 2024-12-06 14:38 | XMS_ITS | Clinical Summary ---
Author Organization 175 [facility] Address 175 [place] [address] Phone Care Team Providers Care Financial Services Internship Name Role Phone Name, Daniel PINA Primary Care Provider [phone] Allergies No known active allergies Medications isosorbide [...] cell carcinoma of skin of nose 06/09/2017 Encounters Date Type Department Care Team Description 09/06/2024 3:15 PM EDT Consult Orthopedic Surgery [place] [id number] [phone] Dylan Woo DPM Dermatophytosis of nail (Primary Dx); Pain in toe of right foot; Pain in toe of left foot; Diabetic mononeuropathy simplex ([facility] V24, [facility] V28); Tinea pedis of both feet from Last 3 Months Medical History Medical History Date Comments High blood pressure DX:High bloo d pressure Diabetes mellitus type 2, no ninsulin dependent ([facility] V24, [facility] V28) DX:Diabetes melli tus type 2, noninsulin dependent ([facility]) High cholesterol DX:High cholest astrid Social History [...] Sexual Orientation Not on file Obstetrics History Last Filed Vital Signs Vital Sign Reading Time Taken Comments Blood Pressure - - Pulse - - Temperature - - Respiratory Rate - - Oxygen Saturation - - Inhaled Oxygen Concentration - - Weight 73 kg (161 lb) 09/06/2024 3:47 PM EDT Height 160 cm (5' 3 ) 09/06/2024 3:47 PM EDT Body Mass Index 28.52 09/06/2024 3:47 PM EDT Plan of Treatment Upcoming Encounters Date Type Department Care Team (Late st Contact Info) Description 12/13/2024 10:15 AM EDT Office Visit Orthopedic Surgery [place] [id number] [phone] Dylan Woo DPM [address] [address] Health Maintenance Due Date Last Done Comments Breast Cancer Screening 1959 Diabetes: Annual Foot Exam 1969 Diabetes: Annual Retina Eye Exam 1969 Cervical Cancer Screening: Pap Smear 01/22/1980 RSV Immunization Adult Patients (1 - Risk 60-74 years 1-dose series) 2019 Colorectal Cancer Screening: Colonoscopy 04/28/2022 Hepatitis C Screening 04/28/2022 Medicare Annual Wellness Visit 04/28/2022 Osteoporosis Screening (Bone Density Screening) 04/28/2022 Social Influencers of Health Screening 04/28/2022 Falls Risk Assessment 01/22/2024 COVID-19 Vaccine ( season) 2024 05/07/2021, 10/17/2020, 09/19/2020 Diabetes: Annual Urine Albumin-Creatinine Ratio (uACR) 07/19/2024 Diabetes: Blood Sugar Control Test (HGBA1C) 01/01/2025 07/04/2024, 06/03/2018 Influenza Vaccine (#1) 2025 , 04/17/2022, 04/15/2021, Additional history exists Depression Screening 07/04/2025 07/04/2024 Diabetes: Annual GFR (Glomerular Filtration Rate) 07/20/2025 07/20/2024 Hypertension/CHF/CAD Annual BMP Blood Test 07/20/2025 07/20/2024 Cholesterol Screening (Lipid Panel) 07/20/2029 07/20/2024 DTaP,Tdap,and Td Vaccines (3 - Td or Tdap) 06/25/2030 06/25/2020, 10/30/2009 Hepatitis B Vaccines Completed 11/02/2017, 06/18/2017, 05/07/2017 Zoster Vaccines Completed 12/05/2018, 08/22/2018 Pneumococcal Vaccine: 50+ Years Completed 08/25/2023, 05/11/2008 Pneumococcal Vaccine: Pediatrics (0 to 5 Years) and At-Risk Patients (6 to 49 Years) Completed 08/25/2023, 05/11/2008 HIB Vaccines Aged Out No longer eligi [...] age to complete this topic Meningococcal B Vaccine Aged Out No l onger eligible based on patient's age to complete this topic RSV Immunization Patients Under 20 months Aged Out No longer eligible based on patient's age to complete this topic Varicella Vaccines Aged Out No longer eligible based on patient's age to complete this topic Insurance [employer] MEDICARE Member Subscriber Plan / Payer (Ef fective 2024-Present) Name:Susanna Broussard Relation to Subscriber:Self Name:Susanna Broussard Payer ID:[id number] Group ID:[id number] Type:Not on file Address: [place] [address] [address] Care Teams Financial Services Internship Relationship Specialty Start Date End Date Name, MD Daniel [address] [place] [phone] PCP - General Internal Medicine 07/19/24
--- OUTSIDE RECORDS SUMMARY | 2024-12-06 14:38 | XMS_ITS | Encounter Summary ---
Author Organization [employer] Address [address] [place] [address] 7t [place] [address] Care Team Providers Care Manager Functional Name Role Phone Name, Daniel PINA Primary Care Provider [phone] Reason for Visit * Reason Onset Date Comments Pre-op Exam 10/14/2022 Encounter Details Date Type Department Care Team (Late st Contact Info) Description 10/14/2022 Telephone [facility] [address] [place] [address] Name, MD Daniel [address] [place], [place] [phone] Pre-op Exam Social History Tobacco Use Types [...] PM EDT Returned call to Trina at [facility]. Pt is getting a R knee arthroscopy date tbd with Dr Gusman. Pt will needs labs and EKG and will be under general anesthesia. Notes determining what is needed prior to surgery will be faxed to [facility]. Pt scheduled with PCP on 11/04/22. Ortho will notify pt. * Telephone Encounter - Zehra Be - 10/14/2022 9:38 AM EDT Jonathan Mena at [facility] Pre Op Location: [address] [address] Procedure: right knee arthroscopy Date of Procedure: not yet but usually in a month after they get the pre-op date Lab: required yes (faxing them over) EKG: required yes (faxing it over) Type of Anesthesia : General documented in this encounter Plan of Treatment Upcoming Encounters Date Type Department Care Team (Late st Contact Info) Description 03/26/2025 3:00 PM EDT Office Visit [facility] [address] [place] [address] Deena Kang documented as of this encounter Visit Diagnoses Not on filedocumented in this encounter Care Teams Manager Functional Relationship Specialty Start Date End Date Name, MD Daniel [address] [place] [address] PCP - General Internal Medicine 08/18/22 documented as of this encounter
== END 2024-12-06 14:16 | disposition home or self-care (01) ==
LOC: HO.HOS 13:50
PROVIDERS: PCP Internal Medicine Geriatric Medicine; Visit Provider Physician Assistant
DX: M17.12 Unilateral primary osteoarthritis, left knee (principal); E13.9 Other specified diabetes mellitus without complications
CPT/HCPCS: 20610; 99214

== ENCOUNTER → 2024-12-06 13:50 | Outpatient (BNVA) | payer OTHER, SELFPAY | PROVIDERS: PCP Internal Medicine Geriatric Medicine; Visit Provider Physician Assistant | DX: M17.12 Unilateral primary osteoarthritis, left knee (principal); M25.562 Pain in left knee; E13.9 Other specified diabetes mellitus without complications | CPT/HCPCS: 20610; 99212; J1010; J2003 ==

== ENCOUNTER 2025-02-05 13:55 | Outpatient (AMB) | payer OTHER, SELFPAY ==
--- NOTE | 2025-02-05 13:57 | A.OFFVIS_ITS ---
Intake Visit Reasons: OV- Discuss Lt knee replacement Intake Note: Susanna is a 65 year old female who presents today for a follow up of her Left Knee OA. This patient was last treated with Radha Taveras who referred her to further discuss a Left Total Knee Arthroplasty. History of Diabetes - Last A1C 02/14/2024 6.8 - on Metformin Has tried and failed cortisone injections: 12/06/24, 08/31/2024, 05/09/2024, 07/22/2022, 02/28/2021 History of Right Knee Arthroscopy - Partial medial menisectomy & chondroplaty - 11/26/22 @ [facility] with [place]. Gusman. Allergies No Known Allergies Allergy (Mild, Verified 12/06/24 13:58) N/A HPI HPI OV- Discuss Lt knee replacement: Details: Susanna is a 65 year old female who presents today for a follow up of her Left Knee OA. This patient was last treated with Radha Taveras who referred her to further discuss a Left Total Knee Arthroplasty. She describes difficulty getting through her day without pain. She can walk for about 5 minutes without difficulty. She feels the quality of her life is compromised. She has tried injections which benefit her but only briefly. History of Diabetes - Last A1C 02/14/2024 6.8 - on Metformin Has tried and failed cortisone injections: 12/06/24, 08/31/2024, 05/09/2024, 07/22/2022, 02/28/2021 History of Right Knee Arthroscopy - Partial medial menisectomy & chondroplaty - 11/26/22 @ [facility] with Dr. Gusman. Intra-operative findings : G3/4 [facility] Medical History (Updated 12/06/24 @ 14:32 by Radha Taveras PA-C) Hypercholesterolemia GERD (gastroesophageal reflux disease) Arthritis Diabetes 1.5, managed as type 2 HTN (hypertension) Surgical History History of esophagogastroduodenoscopy (EGD) Hx of tubal ligation Hx of colonoscopy Social History Patient Tobacco Use Status: Never used Tobacco Current occupational status: disabled Current occupation: rt handed Physical Exam Const General: cooperative, healthy appearing, no acute distress, well developed and alert HEENT Head: Yes normal to inspection, Yes normocephalic and Yes atraumatic Mouth: moist mucous membranes Eyes General: appearance normal, both eyes and all related structures EOM: EOMs intact bilaterally Chest Other: no audible wheezing. Resp Other: No audible wheezing Effort & Inspection: normal respiratory effort Cardio Other: Radial pulse palpable with no rythmic abnormalities Back/Spine/Pelvis Cervical Spine: normal cervical lordosis Skin General skin exam: no rashes or lesions noted Neuro General: no focal motor deficits Extrem Other: Left knee with a 0-120 degrees of motion. Retropatellar tenderness to palpation and painful crepitus with patellar grind. Medial and lateral joint line tenderness. Mild gait antalgia. Psych Appearance: grossly normal and well kempt Mental Status: mental status grossly normal Speech and movement: Normal speech and movement present Affect: normal affect Attitude: cooperative Results Reviewed Results Reviewed: I personally reviewed relevant radiographs. Left knee with moderate tricompartmental osteoarthritis of the tibiofemoral space and severe osteoarthritis of the patellofemoral Assessment & Plan Assessment & Plan (1) Osteoarthritis of left knee: Code(s): M17.12 - Unilateral primary osteoarthritis, left knee Category: Medical Plan: This is a 65-year-old woman with longstanding pain secondary to left knee osteoarthritis. He has had multiple injections even though she is diabetic but she feels she is unable to ambulate comfortably or engage in meaningful daily activities. She is certainly unable to exercise. She can only walk for short distance without having to stop because of pain. Most of her pain seems from the patellofemoral joint but she also has medial and lateral joint line tenderness. I discussed treatment options with her. She had a arthroscopy on the contralateral knee proximally 2 years ago which was mildly helpful. With respect to her left knee I recommend knee arthroplasty. She is unable to engage in meaningful daily activities without pain. She has tried physical therapy and injections multiple times in still describes discomfort difficulty with ADLs. I discussed the risks, benefits and alternatives with her including to, but not limited to, the risk of infection, stiffness, need for additional surgery, damage to nerves and blood vessels resulting in loss of limb or even loss of li fe. I explained the medical complications that can be associated with arthroplasty such as blood clots and organ dysfunction. She expressed understanding. All her questions were answered. We will proceed forward accordingly. She will need medical clearance. We will begin the preoperative clearance process. Coding Level of Care Code Est Pt Level 4 (04234) Diagnoses Osteoarthritis of left knee M17.12
--- OUTSIDE RECORDS SUMMARY | 2025-02-05 16:17 | XMS_ITS | Encounter Summary ---
Author Organization [employer] Address [address] [place] [address] 7t [place] [address] Care Team Providers Care Mold Runner Name Role Phone Name, Daniel PINA Primary Care Provider [phone] Reason for Visit * Reason Onset Date Comments Pre-op Exam 10/14/2022 Encounter Details Date Type Department Care Team (Late st Contact Info) Description 10/14/2022 Telephone [facility] [address] [place] [address] Name, MD Daniel [address] [place], [place] [phone] Pre-op Exam Social History Tobacco Use Types [...] call to Trina at [facility] Orth[facility]. Pt is getting a R knee arthroscopy date tbd with Dr Gusman. Pt will needs labs and EKG and will be under general anesthesia. Notes determining what is needed prior to surgery will be faxed to [facility]. Pt scheduled with PCP on 11/04/22. Ortho will notify pt. * Telephone Encounter - Zehra Be - 10/14/2022 9:38 AM EDT Jonathan Mena at [facility] Pre Op Location: [address] [address] Procedure: right knee arthroscopy Date of Procedure: not yet but usually in a month after they get the pre-op date Lab: required yes (faxing them over) EKG: required yes (faxing it over) Type of Anesthesia : General documented in this encounter Plan of Treatment Upcoming Encounters Date Type Department Care Team (Late st Contact Info) Description 03/19/2025 2:45 PM EDT Office Visit [facility] [address] [place] [phone] Name, MD Daniel [address] [place] [phone] 03/27/2025 2:15 PM EDT Procedure Visit [facility] [address] [place] [address] Esther Lentz CNM [address] [place] [address] documented as of this encounter Visit Diagnoses Not on filedocumented in this encounter Care Teams Mold Runner Relationship Specialty Start Date End Date Name, MD Daniel [address] [place] [address] PCP - General Internal Medicine 08/18/22 documented as of this encounter
--- OUTSIDE RECORDS SUMMARY | 2025-02-05 16:17 | XMS_ITS | Encounter Summary ---
Author Organization [facility] Address [address] [place] [address] 7 [place] [address] Care Team Providers Care Application Systems Administrator Name Role Phone SuSamaria guy TERRELL Primary Care Provider [phone] Mookie Powers Primary Care Provider Unavail able Daniel Avalos MD Primary Care Provider [phone] Encounter Details Date Type Department Care Team (Late st Contact Info) Description 05/04/2022 Abstract [facility] [address] [place] [address] [phone] Provider, MD Parth Social History Tobacco Use [...] Description 03/19/2025 2:45 PM EDT Office Visit [facility] [address] [place] [address] [phone] Daniel Avalos MD [address] [place] [address] [phone] 03/27/2025 2:15 PM EDT Procedure Visit [facility] [address] [place] [address] [phone] Esther Lentz CNM [address] [place], [place] [phone] documented as of this encounter Visit Diagnoses Not on filedocumented in this encounter Care Teams Application Systems Administrator Relationship Specialty Start Date End Date Samaria Butler FNP [address] [place] [address] PCP - General Family Medicine 01/22/22 08/05/22 Mookie Powers AGNP [address] [place] [address] PCP - General Family Medicine 08/06/22 08/17/22 Robbie, MD Daniel [address] [place] [address] PCP - General Internal Medicine 08/18/22 documented as of this encounter
--- OUTSIDE RECORDS SUMMARY | 2025-02-05 16:17 | XMS_ITS | Encounter Summary ---
Author Organization [facility] Address [address] [place] [address] 7t [place] [address] Care Team Providers Care Sight Mounter Name Role Phone Name, Daniel PINA Primary Care Provider [phone] Encounter Details Date Type Department Care Team (Late Contact Info) Description 11/11/2022 Abstract [facility] [address] [place] [address] [phone] Daniel Avalos MD [address] [place] [address] [phone] Social History Tobacco Use Types Packs/Day Years [...] Department Care Team (Late Contact Info) Description 03/19/2025 2:45 PM EDT Office Visit [facility] [address] [place] [address] [phone] NameDaniel MD [address] [place], [place] [phone] 03/27/2025 2:15 PM EDT Procedure Visit [facility] [address] [facility] [place] [place] [phone] Esther Lentz, YOU [address] [place], [place] [phone] documented as of this encounter Procedures Procedure Name Priority Date/Time Associated Diagnosis Comments COLONOSCOPY Routine 01/30/2022 12:52 PM EDT documented in this encounter Results * Hm Colonoscopy (01/30/2022 12:52 PM EDT) Colonoscopy Normal Normal Narrative Karolina Buchanan - 01/30/2022 12:52 PM EDT Recommended 5 year follow up (Darius) Historical Provider HEALTH MAINTENANCE Final Result documented in this encounter Visit Diagnoses Not on filedocumented in this encounter Additional Health Concerns Assessment Noted Time PHQ-9 Depression Total Score: 0 11/05/19 8:49 AM EDT documented as of this encounter Care Teams Sight Mounter Relationship Specialty Start Date End Date Name, MD Daniel [address] [facility] [place], [place] [phone] PCP - General Internal Medicine 08/18/22 documented as of this encounter
--- OUTSIDE RECORDS SUMMARY | 2025-02-05 16:17 | XMS_ITS | Encounter Summary ---
Author Organization [employer] Address [address] [place] [address] [address] [place] [address] Care Team Providers Care Physician Ophthalmologist Name Role Phone Samaria Butler TERRELL Primary Care Provider Mookie Powers Primary Care Provider Unavail able Daniel Avalos MD Primary Care Provider [phone] Reason for Visit * Reason Comments Med Refill Encounter Details Date Type Department Care Team (Late st Contact Info) Description 05/22/2022 Refill [facility] [address] [place] [address] [phone] Daniel Avalos MD [address] [place] [address] [phone] Social History Tobacco Use Types Packs/Day Years [...] 03/19/2025 2:45 PM EDT Office Visit [facility] [address] [place] [address] [phone] Daniel Avalos MD [address] [place] [address] [phone] 03/27/2025 2:15 PM EDT Procedure Visit [facility] [address] [place] [address] [phone] Esther Lentz CNM 230 [place] [address] documented as of this encounter Visit Diagnoses Not on filedocumented in this encounter Care Teams Physician Ophthalmologist Relationship Specialty Start Date End Date Samaria Butler FNP [address] [place] [phone] PCP - General Family Medicine 01/22/22 08/05/22 Mookie Powers AGNP [address] [place] [address] PCP - General Family Medicine 08/06/22 08/17/22 Name, MD Daniel [address] [place] [address] PCP - General Internal Medicine 08/18/22 documented as of this encounter
--- OUTSIDE RECORDS SUMMARY | 2025-02-05 16:17 | XMS_ITS | Encounter Summary ---
Author Organization [employer] Address [address] [facility] 7t [place] [address] Care Team Providers Care Gis Professor Name Role Phone Name, Daniel PINA Primary Care Provider [phone] Reason for Visit * Reason Comments Med Refill Encounter Details Date Type Department Care Team ([facility] st Contact Info) Description 05/11/2024 Refill [facility] [address] [place] [address] Name, MD Daniel 230 [place], [place] [phone] Social History Tobacco Use Types Packs/Day Years [...] Description 03/19/2025 2:45 PM EDT Office Visit [facility] [address] [place] [phone] Name, MD Daniel [address] [place] [address] 03/27/2025 2:15 PM EDT Procedure Visit [facility] [address] [place] [phone] Esther Lentz CNM [address] [place] [address] documented as of this encounter Visit Diagnoses Not on filedocumented in this encounter Additional Health Concerns Assessment Noted Time PHQ-9 Depression Total Score: 0 11/05/19 8:49 AM EDT documented as of this encounter Care Teams Gis Professor Relationship Specialty Start Date End Date NameDaniel MD [address] [place] [address] PCP - General Internal Medicine 08/18/22 documented as of this encounter
--- OUTSIDE RECORDS SUMMARY | 2025-02-05 16:17 | XMS_ITS | Encounter Summary ---
Author Organization [employer] Address [address] [facility] 7t [place] [address] Care Team Providers Care Hotel Valet Attendant Name Role Phone Name, Daniel PINA Primary Care Provider [phone] Reason for Visit * Reason Comments Med Refill Encounter Details Date Type Department Care Team ([facility] st Contact Info) Description 05/22/2024 Refill [facility] [address] [place], [place] [phone] Name, MD Daniel 230 [place], [place] [phone] Gastroesophageal reflux disease without esophagitis Social History [...] the past 12 months, has t he [employer], 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 or 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 company threatened to shut [...] Description 03/19/2025 2:45 PM EDT Office Visit [facility] [address] [place] [phone] NameDaniel MD [address] [place] [address] 03/27/2025 2:15 PM EDT Procedure Visit [facility] [address] [place] [phone] Esther Lentz CNM [address] [place] [address] documented as of this encounter Visit Diagnoses Diagnosis Gastroesophageal reflux disease without esophagitis Esophageal reflux documented in this encounter Additional Health Concerns Assessment Noted Time PHQ-9 Depression Total Score: 0 11/05/19 8:49 AM EDT documented as of this encounter Care Teams Hotel Valet Attendant Relationship Specialty Start Date End Date NameDaniel MD [address] [place] [address] PCP - General Internal Medicine 08/18/22 documented as of this encounter
--- OUTSIDE RECORDS SUMMARY | 2025-02-05 16:18 | XMS_ITS | Encounter Summary ---
Author Organization [employer] Address [address] [facility] 7t [place] [address] Care Team Providers Care Brilliandeer Looper Name Role Phone Name, Daniel PINA Primary Care Provider [phone] Reason for Visit * Reason Onset Date Comments Med Refill 04/15/2023 Encounter Details Date Type Department Care Team (Late st Contact Info) Description 04/15/2023 Telephone [facility] [address] [place] [address] Name, MD Daniel [address] [place], [place] [phone] Med Refill Social History Tobacco Use Types [...] MG capsule Diclofenac Sodium 1 % gel [facility] Rx #[id number] documented in this encounter Plan of Treatment Upcoming Encounters Date Type Department Care Team (Late st Contact Info) Description 03/19/2025 2:45 PM EDT Office Visit [facility] [address] [place] [phone] Name, MD Daniel [address] [place] [phone] 03/27/2025 2:15 PM EDT Procedure Visit [facility] [address] [place] [address] [phone] Esther Lentz CNM [address] [place] [address] documented as of this encounter Visit Diagnoses Not on filedocumented in this encounter Additional Health Concerns Assessment Noted Time PHQ-9 Depression Total Score: 0 11/05/19 23 8:49 AM EDT documented as of this encounter Care Teams Brilliandeer Looper Relationship Specialty Start Date End Date Name, MD Daniel [address] [place] [address] PCP - General Internal Medicine 08/18/22 documented as of this encounter
--- OUTSIDE RECORDS SUMMARY | 2025-02-05 16:18 | XMS_ITS | Clinical Summary ---
Author Organization [address] [facility] Address [address] [place] [address] Phone Care Team Providers Care Manager Mechanical Name Role Phone Name, Daniel PINA Primary Care Provider [phone] Allergies No known active allergies Medications isosorbide [...] Diabetes mellitus type 2, no ninsulin dependent ([facility] V24, CMS/[facility] V28) DX:Diabetes anjelica montano type 2, noninsulin dependent ([facility]) High cholesterol DX:High cholest astrid Social History [...] 09/06/2024 3:47 PM EDT Plan of Treatment Health Maintenance Due Date Last Done Comments Breast Cancer Screening 1959 Diabetes: Annual Foot Exam 1969 Diabetes: Annual Retina Eye Exam 1969 RSV Immunization Adult Patients (1 - Risk 60-74 years 1-dose series) 2019 Colorectal Cancer Screening: Colonoscopy 04/28/2022 Hepatitis C Screening 04/28/2022 Medicare Annual Wellness Visit 04/28/2022 Osteoporosis Screening (Bone Density Screening) 04/28/2022 Social Influencers of Health Screening 04/28/2022 Falls Risk Assessment 01/22/2024 Depression Screening 05/31/2024 Diabetes: Annual Urine Albumin-Creatinine Ratio (uACR) 07/19/2024 Diabetes: Blood Sugar Control Test (HGBA1C) 01/01/2025 07/04/2024, 06/03/2018 COVID-19 Vaccine ( season) 2025 05/07/2021, 10/17/2020, 09/19/2020 Influenza Vaccine (#1) 2025 , 04/17/2022, 04/15/2021, Additional history exists Diabetes: Annual GFR (Glomerular Filtration Rate) 07/20/2025 07/20/2024 Hypertension/CHF/CAD Annual BMP Blood Test 07/20/2025 07/20/2024 Cholesterol Screening (Lipid Panel) 07/20/2029 07/20/2024 DTaP,Tdap,and Td Vaccines (3 - Td or Tdap) 06/25/2030 06/25/2020, 10/30/2009 Hepatitis B Vaccines Completed 11/02/2017, 06/18/2017, 05/07/2017 Zoster Vaccines Completed 12/05/2018, 08/22/2018 Pneumococcal Vaccine: 50+ Years Completed 08/25/2023, 05/11/2008 HIB Vaccines Aged Out [...] patient's age to complete this topic Insurance [facility] MEDICARE Member Subscriber Plan / Payer (Ef fective 2024-Present) Name:LINDA ALBARADO Relation to Subscriber:Self Name:Linda Albarado Payer ID:[id number] Group ID:[id number] Type:Not on file Address: [place] [address] [address] [address] Care Teams Manager Mechanical Relationship Specialty Start Date End Date Name, MD Daniel [address] [place] [address] [phone] PCP - General Internal Medicine 07/19/24
--- OUTSIDE RECORDS SUMMARY | 2025-02-05 16:18 | XMS_ITS | Encounter Summary ---
Author Organization [employer] Address [address] [place] [address] 7t [place] [address] Care Team Providers Care Sales And Leasing Agent Name Role Phone Name, Daniel PINA Primary Care Provider [phone] Reason for Visit * Reason Onset Date Comments triage 08/18/2022 Encounter Details Date Type Department Care Team (Late st Contact Info) Description 08/18/2022 Telephone [facility] [address] [place], [place] [phone] Mookie Powers AGNP triage Social History Tobacco [...] 08/18/2022 1:29 PM EDT Triage call with [employer] Negative [place] [id number] Pt reports at 1030pm was laying down [...] Advised Pt to come to the [facility] today and Ptagreed with disposition and home [...] Description 03/19/2025 2:45 PM EDT Office Visit [address] [address] Name, MD Daniel [address] [place] [address] 03/27/2025 2:15 PM EDT Procedure Visit [facility] [address] [place] [address] Esther Lentz CNM [address] [place] [address] documented as of this encounter Visit Diagnoses Not on filedocumented in this encounter Care Teams Sales And Leasing Agent Relationship Specialty Start Date End Date Name, MD Daniel [address] [place] [address] PCP - General Internal Medicine 08/18/22 documented as of this encounter
--- OUTSIDE RECORDS SUMMARY | 2025-02-05 16:18 | XMS_ITS | Clinical Summary ---
Author Organization [employer] Address [address] [place] [address] 7t [place] [address] Care Team Providers Care Mine Patrol Name Role Phone Name, Daniel PINA Primary Care Provider [phone] Allergies No known active allergies Medications nitroglycerin [...] complication, without long-term current use of insulin ([facility]) 1 each See administration instructions. Use once a day 1 kit 023 Active Lancets (OneTouch Delica Plus [id number]) [facility] TEST BLOOD SUGAR ONCE A DAY 100 [...] mellitus with other specified complication, unspecified whether intermediate manager insulin use (CMS/HCC) TAKE 1 TO 2 CAPSULES BY MOUTH THREE TIMES DAILY 180 capsule 2 024 Active metoprolol tartrate (Lopressor) 50 MG [...] 2024 Active ergocalciferol (Vitamin D2) 1.25 MG (13543 UT) capsule TAKE 1 CAPSULE BY MOUTH 1 TIME A WEEK DIRECTED 4 capsule 024 Active rosuvastatin (Crestor) 20 MG tablet TAKE 1 TABLET(20 MG) BY MOUTH IN THE MORNING 30 tablet 11 024 Active isosorbide mononitrate ER (Imdur) 30 MG 24 hr tablet TAKE 1 TABLET BY MOUTH EVERY MORNING 90 tablet 2 024 Active pantoprazole (ProtoNix) 40 MG EC tabletIndications :Gastroesophageal reflux disease without esophagitis TAKE 1 TABLET BY MOUTH EVERY MORNING 1 HOUR BEFORE MEALS 90 tablet 3 025 Active metFORMIN XR (Glucophage-XR) 500 MG 24 hr tablet TAKE 2 TABLETS BY MOUTH TWICE DAILY WITH BREAKFAST AND EVENING MEAL 360 tablet 025 Active lisinopril 40 MG tablet TAKE 1 TABLET BY MOUTH EVERY DAY 90 tablet 1 025 Active amLODIPine (Norvasc) 10 MG tablet TAKE 1 TABLET BY MOUTH EVERY DAY 90 tablet 1 025 Active amLODIPine (Norvasc) 10 MG tablet TAKE 1 TABLET BY MOUTH EVERY DAY 90 tablet 1 025 2024 Discontinued Active Problems Problem Noted Date [...] Encounters Date Type Department Care Team Description 02/05/2025 Refill [facility] [address] [place] [address] Daniel Avalos MD 01/26/2025 Refill [facility] [address] [place] [address] Daniel Avalos MD 01/10/2025 Telephone [facility] [address] [place] [address] Kati Brewer [place] Appointment Request; february01/10/2025 Telephone [facility] [address] [place] [address] Marva Flores MA 12/21/2024 Refill [facility] [address] [place] [address] Daniel Avalos MD 12/14/2024 Telephone [facility] [address] [place] [address] Daniel Avalos MD Appointment Request 11/30/2024 Telephone [facility] [address] [place] [address] Daniel Avalos MD Durable Medical Equipment 11/10/2024 Refill [facility] [address] [place] [address] Daniel Avlaos MD from Last 3 Months Immunizations Immunization Administration Dates Next Due Hep B, adult [...] 72 07/04/2024 1:48 PM EST Temperature 36.9 C (98.5 F) 07/04/2024 1:48 PM EST Respiratory Rate 16 07/04/2024 1:48 PM EST [...] Description 03/19/2025 2:45 PM EDT Office Visit [address] [address] Name, MD Daniel [address] [place] [address] 03/27/2025 2:15 PM EDT Procedure Visit [address] [address] Esther Lentz CNM [address] [place] [address] Health Maintenance Due Date Last Done Comments CT Colonography 1959 FIT DNA/Cologuard 1959 FIT 1959 FOBT 1959 Sigmoidoscopy 1959 Derm Melanoma Skin Check 1959 RSV Patients and Patients Aged 60 years or older (1 - Risk 60-74 years 1-dose series) 2019 Diabetes: Hemoglobin A1C 01/01/2025 025, 02/14/2024, 09/22/2023, Additional history exists Dental Oral Exam 01/24/2025 07/26/2024 Dental Prophylaxis 01/24/2025 07/26/2024 COVID-19 Vaccine ( season) 2025 05/07/2021, 10/17/2020, 09/19/2020 Influenza Vaccine (#1) 2025 , 04/17/2022, 04/15/2021, Additional history exists HPV/Cotest 03/23/2025 03/23/2024, 07/03/2020 Pap Smear 03/23/2025 03/23/2024, 07/03/2020 Alcohol/Substance Use Screening 07/04/2025 07/04/2024 Depression Screening 07/04/2025 07/04/2024, 07/04/19 25 Diabetes: Foot Exam 07/04/2025 07/04/2024, 07/04/2024, 07/04/2024, Additional history exists SDOH Screening 07/04/2025 07/04/2024 Lipid Panel 07/20/2025 07/20/2024, 08/30, 01/20/2023, Additional history exists Dental X-Ray: Bitewings 07/27/2025 07/26/2024 Tobacco Screening 10/02/2025 10/02/2024 Mammogram 10/03/2025 10/03/2024, 04/0 05/2023, 08/26/2022, Additional history exists Eye Exam 05/11/2026 05/11/2024, 04/30, 05/11/2024, Additional [...] Procedure Name Priority Date/Time Associated Diagnosis Comments BI MAMMOGRAM SCREENING TOMOSYNTHESIS BILATERAL Routine 10/03/2024 10:45 AM EDT PROPHYLAXIS - ADULT Routine 07/26/2024 1 0:00 AM EST INTRAORAL - COMPLETE SERIES OF RADIOGRAPHIC IMAGES Routine 07/26/2024 10:00 AM EST COMPREHENSIVE ORAL EVALUATION - NEW OR ESTABLISHED PATIENT Routine 07/26/2024 10:00 AM EST LIPID PANEL, STANDARD Routine 07/20/2024 9:40 AM EST Type 2 diabetes mellitus with other specified complication, without long-term current use of insulin (CMS/HCC) POCT GLYCATED HEMOGLOBIN, TOTAL Routine 07/04/2024 1:54 PM EST Type 2 diabetes mellitus with other specified complication, without long-term current use of insulin (CMS/HCC) THINPREP IMAGING PAP AND HPV MRNA E6/E7 Routine 03/23/2024 10:27 AM EDT HM COLONOSCOPY Routine 01/30/2022 12:52 PM EDT ZZZ HISTORICAL HEPATITIS C AB W/REFL TO HCV RNA, QN, PCR Routine 06/18/2021 9:03 AM EST from Last 3 Months or Most Recently Relevant to Health Maintenance Results * BI Mammogram Screening Tomosynthesis Bilateral (10/03/2024 10:45 AM EDT) Anatomical Region Laterality Modality Breast Bilateral Mammography 10/03/2024 10:4 5 AM EDT Narrative 10/08/2024 9:49 PM EDT [facility] [address] [place] [address] Mammography Report Signed Patient: Susanna Broussard MR#: [id number] 65 : 1960 Acct:[id number] Age/Sex: 64 / F ADM Date: 10/03/24 Loc: HO.MAMMO Attending Dr: Daniel Avalos MD Ordering Physician: Daniel Avalos MD Results: 1Negative Date of Service: 10/03/24 Follow Up: 1 Year From Orig ina Mammogram Procedure(s): MM tomosynthesis screening BI Accession Number(s): [id number] cc: Daniel Avalos MD EXAMINATION: MM SCREENING DIGITAL BREAST TOMOSYNTHESIS, BILATERAL CLINICAL INFORMATION: Screening. Asymptomatic. COMPARISON: Mammography: Comparison is made with available priors TECHNIQUE: Digital breast mammography with tomosynthesis is performed in both the craniocaudal and mediolateral oblique views along with computer-aided detection (CAD). FINDINGS: There are scattered areas of fibroglandular [...] target due date for their next mammogram. Electronically signed by: Nelly Mejia DO 10/08/2024 09:46 PM EDT Dictated By: Tyminski,Nelly DO Signed By: <Electronically signed by Nelly Mejia DO in OV> 10/08/242145 DD/ 44 TD/TT: 10/03/24 110 Head Of Conservation: Procedure Note Donotgreggter, Image - 10/08/2024 [facility] [address] [place] [address] Mammography Report Signed Patient: Virginie Broussard#: [id number] 65 : 9Acct:[id number] Age/Sex: 64 / FADM Date: 10/03/24 Loc: HO.MAMMO Attending Dr: Daniel Avalos MD Ordering Physician: Daniel Avalosesults: 1Negative Date of Service: 10/03/24Follow Up: 1 Year From Orig inal Mammogram Procedure(s): MM tomosynthesis screening BI Accession Number(s): [id number] cc: Daniel Avalos MD EXAMINATION: MM SCREENING DIGITAL BREAST TOMOSYNTHESIS, BILATERAL CLINICAL INFORMATION: Screening. Asymptomatic. COMPARISON: Mammography: Comparison is made with available priors TECHNIQUE: Digital breast mammography with tomosynthesis is performed in both the craniocaudal and mediolateral oblique views along with computer-aided detection (CAD). FINDINGS: There are scattered areas of fibroglandular [...] target due date for their next mammogram. Electronically signed by: Nelly Mejia DO 10/08/2024 09:46 PM EDT Dictated By: Nelly Mejia DO Signed By: <Electronically signed by Nelly Mejia DO in OV> 10/08/242145 DD/ 44 TD/TT: 10/03/24 1105 Head Of Conservation: us Daniel Avalos MD IMG BI PROCEDURES Final Result * (ABNORMAL) Lipid Panel, Standard (07/20/2024 9:40 AM EST) Triglycerides 123 <150 mg/dL [facility] Comment:Desirable Triglyceri de: less than 150 mg/dLBorderline High Triglyceride 150-199 mg/dLHigh Triglyceride: 200-499 mg/dLVery High Triglyceride: greater than or equal to 5OO mg/dL Cholesterol 196 <200 mg/dL [facility] Comment:Desirable Cholestero l: less than 200 mg/dLBorderline High Cholesterol: 200-239 mg/dLHigh Cholesterol: greater than 239 mg/dL LDL Cholesterol Calculated 114(H) <100 mg/dL [facility] Comment:Desirable LDL: less than 100 mg/dLNear Optimal/Above Optimal LDL: 110- 129 mg/dLBorderline High LDL: 130-159 mg/dLHigh LDL: 160-189 mg/dLVery High LDL: greater than or equal to 190 mg/dL HDL Cholesterol 58 >40 mg/dL [facility] Comment:Desirable HDL: great er than 40 mg/dL Note: This HDL assay may give artificially low results in patients with liver disease. Blood Venous blood specimen / Unknown 07/20/2024 9:40 AM EST 07/20/2024 11:43 AM EST us Daniel Avalos MD LAB BLOOD ORDERABLES Final Resul t [facility] [address], [place] [phone] * (ABNORMAL) POCT HGB A1C (07/04/2024 1:54 PM EST) Hemoglobin A1C 6.8(A) 4.0 - 6.0 % QC Media Lot # [id number] Lot# Expiration Date Blood 07/04/2024 1:54 PM EST us Daniel Avalos MD POINT OF CARE TEST ENTER/EDIT OR DERABLES Final Result * (ABNORMAL) ThinPrep Imaging Pap and HPV mRNA E6/E7 (03/23/2024 10:27 AM EDT) HPV nRNA E6/E7 Detected (A) Not Detected [facility] Comment:Methodology: Transcr iption-Mediated AmplificationThis assay detects E6/E7 viral messenger RNA (mRNA) from 14high-risk HPV types (16,18,31,33,35,39,45,51,52,56,58,59,66,68).Cervical sources are required for HPV testing.If a vaginal source from a patient who has had atotal hysterectomy with removal of cervix wassubmitted, please contact the testing laboratoryfor alternative testing options.For additional information, please refer tohttp://education.OpenBuildings/faq/DVU225n9(This link if provided for information/educational purposes only.)THIS TEST WAS PERFORMED AT:[employer] [address] [address]QZIOSSATHYA DIAZ MD SOURCE: SEE NOTE [facility] Comment:Cervix Report Status: [facility] Clinical Information: SEE NOTE [facility] Comment:None given LMP: SEE NOTE [facility] Comment:NONE GIVEN Prev. PAP: SEE NOTE [facility] Comment:NONE GIVEN Prev. BX: SEE NOTE [facility] Comment:NONE GIVEN Statement Of Adequacy: SEE NOTE [facility] Comment:Satisfactory for kulwinder luation.Endocervical/transformation zone componentpresent. General Categorization: [facility] Interpretation/Result: SEE NOTE [facility] Comment:Cytology Results: Ne gative for intraepitheliallesion or malignancy. Cytology Comment SEE NOTE [facility] Comment:This Pap test has be en evaluated with computerassisted technology. Bank Reconciliator: SEE NOTE [facility] Comment:ALS, CT(ASCP)CT scre ening location: [address] [address] Review Bank Reconciliator: SEE NOTE [facility] Comment:NEGRO, CT(ASCP)CT scre ening location: [address] [address] Pathologist TNP [facility] PAP Infection SEE NOTE [facility] Comment:Shift in vaginal jeff ra suggestive of bacterialvaginosis. See Note SEE NOTE [facility] Comment:EXPLANATORY NOTE:The Pap is a [...] AM EDT 03/23/2024 6:04 PM EDT Narrative [facility] - 03/29/2024 10:28 AM EDT SEE SCANNED RESULTS IN EMRCERVIX Esther Lentz CNM LAB PATHOLOGY ORDERABLES Final Result [facility] [address] [place] [address] [phone] * Hm Colonoscopy (01/30/2022 12:52 PM EDT) Colonoscopy Normal Normal Narrative Karolina Buchanan - 01/30/2022 12:52 PM EDT Recommended 5 year follow up ([place]) Historical Provider HEALTH MAINTENANCE Final Result * HEPATITIS C AB W/REFL TO HCV RNA, QN, PCR (06/18/2021 9:03 AM EST) HEPATITIS C ANTIBODY NON-REACT NAZANIN NON-REACT NAZANIN [facility] INDEX 0.01 <1.00 [facility] Comment: HCV antibody was non-reactive. There is no laboratory evidence of HCV infection. In most cases, no further action is required. However, if recent HCV exposure is suspected, a test for HCV RNA (test code 13866) is suggested. For additional information please refer to http://education.OpenBuildings/faq/BFF06h9 (This link is being provided for informational/ educational purposes only.) 06/18/2021 9:03 AM EST us Crystal Atkinson NP HISTORICAL/NON ORDERABLE LABS F inal Result [facility] [address] [place] [id number] from Last 3 Months or Most Recently Relevant [place] [id number] [facility] LONG TERM OPTIONS (O D-SNP) [place] [id number] [facility] [place] [id number] [place] [id number] Care Teams Mine Patrol Relationship Specialty Start Date End Date Name, MD Daniel [address] [place] [address] PCP - General Internal Medicine 08/18/22
--- OUTSIDE RECORDS SUMMARY | 2025-02-05 16:18 | XMS_ITS | Encounter Summary ---
Author Organization [facility], Address [address] [place] [address] Phone Care Team Providers Care Debone Processing Supervisor Name Role Phone Dena Bellamy NP Primary Care Provider [phone] Encounter Details Date Type Department Care Team (Late st Contact Info) Description 12/09/2021 Documentation Only [facility], [address] [place] [address] Maximiliano Christopher MD [address] [place] [phone] Social History Tobacco Use Types Packs/Day Years [...] on filedocumented in this encounter Care Teams Debone Processing Supervisor Relationship Specialty Start Date End Date Dena Bellamy NP PCP - General 04/04/19 documented as of this encounter
--- OUTSIDE RECORDS SUMMARY | 2025-02-05 16:18 | XMS_ITS | Clinical Summary ---
Author Organization [facility], Address [address] [place] [address] [place] [address] Phone Care Team Providers Care Certified Wellness Program Manager Name Role Phone Dena Bellamy NP Primary Care Provider [phone] Allergies No known active allergies Medications acetaminophen (PHARBETOL) 325 MG tablet Comments: Filled Date: Mar 15 2017 12:00AM Duration: 15 7 Active amLODIPine (NORVASC) 10 MG tablet 0 Active ergocalciferol (VITAMIN D2) 1.25 MG (13709 UT) capsule 9 Active isosorbide mononitrate (IMDUR) [...] Duration: 90 8 07/12/19 Discontinu ed(Med List [facility] e) Active Problems Problem Noted Date [...] PM EST) Hemoglobin A1C 7.3(H) (4-6) % [facility] Comment: HEMOGLOBIN A1C(%) GLUCOSE CONTROL INDEX <6% EXCELLENT 6-7% VERY GOOD 7-8% GOOD 8-10% FAIR >10% POOR Hemoglobin (Hb) A1c testing is performed by Virginia Massiel-quant immunoassay. Any cause of shortened erythrocyte survival will reduce exposure of erythrocytes to glucose with a consequent decrease in Hb A1c (%). Testing performed or reported by ~[facility], ~a Service of [facility], ~[address] [place] [id number]~ Jerzy Julien MD, Title Abstractor 06/03/2018 2:30 PM EST us Maximiliano Christopher MD LAB BLOOD ORDERABLES Final Resul t [id number] from Last 3 Months or Most Recently Relevant to Health Maintenance Insurance [facility] [place] [id number] Care Teams Certified Wellness Program Manager Relationship Specialty Start Date End Date Dena Bellamy NP PCP - General 04/04/19
--- OUTSIDE RECORDS SUMMARY | 2025-02-05 16:18 | XMS_ITS | Encounter Summary ---
Author Organization [employer] [facility] Address [address] [place] [address] [address] [place] [address] Care Team Providers Care Sequins Stringer Name Role Phone Name, Daniel PINA Primary Care Provider [phone] Reason for Visit * Reason Comments Med Refill Encounter Details Date Type Department Care Team (Late st Contact Info) Description 01/22/2023 Refill [facility] [address] [place] [address] [phone] Name, MD Daniel [address] [place] [address] [phone] Type 2 diabetes mellitus with other specified complication, unspecified whether shelter insulin use ([facility]) Social History Tobacco Use Types Packs/Day Years [...] Office Visit [facility] [address] [place] [address] Name, MD Daniel [address] [place] [address] [phone] 03/27/2025 2:15 PM EDT Procedure Visit [facility] [address] [place], [place] [phone] Esther Lentz CNM [address] [place] [address] documented as of this encounter Visit Diagnoses Diagnosis Type 2 diabetes mellitus with other specified complication, unspecified whether shelter insulin use ([facility]) documented in this encounter Additional Health Concerns Assessment Noted Time PHQ-9 Depression Total Score: 0 11/05/19 8:49 AM EDT documented as of this encounter Care Teams Sequins Stringer Relationship Specialty Start Date End Date Name, MD Daniel [address] [place] [address] PCP - General Internal Medicine 08/18/22 documented as of this encounter
--- OUTSIDE RECORDS SUMMARY | 2025-02-05 16:18 | XMS_ITS | Encounter Summary ---
Author Organization [employer] [facility] Address [address] [place] [address] [address] [place] [address] Care Team Providers Care Tile Designer Name Role Phone Name, Daniel PINA Primary Care Provider [phone] Reason for Visit * Reason Comments Med Refill Encounter Details Date Type Department Care Team (Late Contact Info) Description 11/27/2022 Refill [facility] [address] [place] [address] [phone] Name, MD Daniel [address] [place] [address] [phone] Social History Tobacco Use Types Packs/Day Years [...] Description 03/19/2025 2:45 PM EDT Office Visit [facility] [address] [place] [address] [phone] Name, MD Daniel [address] [facility] [address] 03/27/2025 2:15 PM EDT Procedure Visit [facility] [address] [facility] [address] Esther Lentz, YOU [address] [place] [address] documented as of this encounter Visit Diagnoses Not on filedocumented in this encounter Additional Health Concerns Assessment Noted Time PHQ-9 Depression Total Score: 0 11/05/19 8:49 AM EDT documented as of this encounter Care Teams Tile Designer Relationship Specialty Start Date End Date Name, MD Daniel [facility] [address] PCP - General Internal Medicine 08/18/22 documented as of this encounter
--- OUTSIDE RECORDS SUMMARY | 2025-02-05 16:18 | XMS_ITS | Encounter Summary ---
Author Organization [employer] Address [address] [facility] 7t [place] [address] Care Team Providers Care Booster Assembler Name Role Phone Name, Daniel PINA Primary Care Provider [phone] Reason for Visit * Reason Comments Med Refill Encounter Details Date Type Department Care Team ([facility] st Contact Info) Description 03/18/2023 Refill [facility] [address] [place] [address] Samaria Butler FNP [address] [place], [place] [phone] Social History Tobacco Use Types Packs/Day Years [...] Description 03/19/2025 2:45 PM EDT Office Visit [facility] [address] [place] [address] Name, MD Daniel [address] [place] [address] 03/27/2025 2:15 PM EDT Procedure Visit [facility] [address] [place] [address] Esther Lentz CNM [address] [place] [address] documented as of this encounter Visit Diagnoses Not on filedocumented in this encounter Additional Health Concerns Assessment Noted Time PHQ-9 Depression Total Score: 0 11/05/19 8:49 AM EDT documented as of this encounter Care Teams Booster Assembler Relationship Specialty Start Date End Date NameDaniel MD [address] [place] [address] PCP - General Internal Medicine 08/18/22 documented as of this encounter
--- OUTSIDE RECORDS SUMMARY | 2025-02-05 16:18 | XMS_ITS | Encounter Summary ---
Author Organization [employer] [facility] Address [address] [place] [address] 7[address] [place] [address] Care Team Providers Care Granulator Operator Name Role Phone Name, Daniel PINA Primary Care Provider [phone] Reason for Visit * Reason Comments Med Refill Encounter Details Date Type Department Care Team (Late Contact Info) Description 01/22/2023 Refill [facility] [address] [place] [address] [phone] Mookie Powers AGNP Gastroesophageal reflux disease without [...] Description 03/19/2025 2:45 PM EDT Office Visit [facility] [address] [place] [address] [phone] Name, MD Daniel [address] [place] [address] 03/27/2025 2:15 PM EDT Procedure Visit [facility] [address] [place] [address] [phone] Esther Lentz CNM [address] [place] [address] documented as of this encounter Visit Diagnoses Diagnosis Gastroesophageal reflux disease without esophagitis Esophageal reflux documented in this encounter Additional Health Concerns Assessment Noted Time PHQ-9 Depression Total Score: 0 11/05/19 8:49 AM EDT documented as of this encounter Care Teams Granulator Operator Relationship Specialty Start Date End Date Name, MD Daniel [address] [place] [address] PCP - General Internal Medicine 08/18/22 documented as of this encounter
--- OUTSIDE RECORDS SUMMARY | 2025-02-05 16:18 | XMS_ITS | Patient Health Record ---
Author Organization [facility] Address [address] [place] [phone] Care Team Providers Care Treatment Manager Name Role Phone Carmelita Merlos Jessica Primary Care Provider Richardson Franz Unavailable [phone] Allergies No Known Allergies Reason For Referral [...] Twice a day Active Vitamin D (Ergocalciferol) 23944 UNIT 1 capsule Orally Once a week [...] Problem Status W/U Status Risk Notes Problem 210521273 Gastro-esophagea l reflux disease without esophagitis (K21.9) Active confirmed Problem 719315390 Encounter for screening for malignant neoplasm of colon (Z12.11) Active confirmed Problem 794371280 History of adenomatous polyp of colon (Z86.010) Active confirmed Problem Screening for malignant neoplasm of rectum (793552089) Encounter for screening for malignant neoplasm of rectum (Z12.12) Active confirmed Problem 57902346 Preprocedural examination (Z01.818) Active confirmed Problem 179732782 Long-term use of aspirin therapy (Z79.82) Active confirmed Problem Diverticular disease of colon (708484808) Colon, diverticulosis (K57.30) Active confirmed Plan Of Treatment Pending Test Test Name Order Date Pathology 01/30/2022 Future Test Test Name Order Date COLONOSCOPY 03/04/2016 COLONOSCOPY 12/17/2021 Insurance Providers Payer Name Payer Address Payer Phone Subscriber Number Group Number Insured Name Patient Relationship to Insured Coverage Start Date Coverage End Date [facility] [address] [place] [address] [id number] LINDA ALBARADO Self - patient is the insured Medical (General) History Medical History History ICD Code Tubular adenomas removed in 1996 and 2005; she had a negative colonoscopy on 11-24-2010 Denies AR,CVA,DM,Lung disease,renal dise ase GERD--EGD in 2000 was negati ve for any significant esophagitis and Meraz's esophagus Hypertension Hypercholesterolemia Negative colonoscopy in 07/2016 Surgical History Surgery Date(Month/Year) BTL
--- OUTSIDE RECORDS SUMMARY | 2025-02-05 16:18 | XMS_ITS | Encounter Summary ---
Author Organization [facility], Address [address] [place] [address] Phone Care Team Providers Care Lighting Adviser Name Role Phone Dena Bellamy NP Primary Care Provider [phone] Encounter Details Date Type Department Care Team (Late st Contact Info) Description 10/02/2021 Documentation Only [facility], [address] [place] [address] Crystal Atkinson [address] [place] [address] Social History Tobacco Use Types Packs/Day Years [...] on filedocumented in this encounter Care Teams Lighting Adviser Relationship Specialty Start Date End Date Dena Bellamy NP PCP - General 04/04/19 documented as of this encounter
== END 2025-02-05 15:03 | disposition home or self-care (01) ==
LOC: HO.HOS 13:56
PROVIDERS: PCP Internal Medicine Geriatric Medicine; Visit Provider Orthopaedic Surgery
DX: M17.12 Unilateral primary osteoarthritis, left knee (principal)
CPT/HCPCS: 99214

== ENCOUNTER → 2025-02-05 13:55 | Outpatient (BNVA) | payer OTHER, SELFPAY | PROVIDERS: PCP Internal Medicine Geriatric Medicine; Visit Provider Orthopaedic Surgery | DX: M17.12 Unilateral primary osteoarthritis, left knee (principal) | CPT/HCPCS: 99212 ==

== ENCOUNTER 2025-03-23 09:28 | Outpatient (REF) | payer OTHER, SELFPAY ==
--- OUTSIDE RECORDS SUMMARY | 2025-03-19 14:45 | XMS_ITS | Encounter Summary ---
Author Organization [employer] Address 75 [facility] 7t [place] [address] Care Team Providers Care Manager Linux Name Role Phone Name, Daniel PINA Primary Care Provider [phone] Reason for Visit * Reason Comments Annual Exam Encounter Details Date Type Department Care Team (Latest Contact Info) Description 03/19/2025 2:45 PM EDT Office Visit [facility] MEDICINE [address] [place], [place] [phone] Name, MD Daniel [address] [place] [address] Type 2 diabetes mellitus with other specified complication, without long-term current use of insulin (HCC) (Primary Dx); Primary osteoarthritis of both knees; History of basal cell carcinoma excision; Encounter for immunization Social History Tobacco Use Types Packs/Day Years [...] Sign Reading Time Taken Comments Blood Pressure 122/84 03/19/2025 2:43 PM EDT Pulse 64 03/19/2025 2:43 PM EDT Temperature 36.9 C (98.5 F) 03/19/2025 2:43 PM EDT Respiratory Rate 16 03/19/2025 2:43 PM EDT Oxygen Saturation 95% 03/19/2025 2:43 PM EDT Inhaled Oxygen Concentration - - Weight 73.1 kg (161 lb 3.2 oz) 03/19/2025 2:43 P M EDT Height 160 cm (5' 3 ) 03/19/2025 2:43 PM EDT Body Mass Index 28.56 03/19/2025 2:43 PM EDT documented in this encounter Functional Status * Over the last 2 weeks, how often have you been bothered by any of the following problems? Question Answer Date of Assessment Author Feeling nervous, anxious, or on edge 0 03/19/2025 2:44 PM EDT Sina Price MA Not being able to stop or co ntrol worrying 0 03/19/2025 2:44 PM EDT Sina Price MA Worrying too much about diff erent things 0 03/19/2025 2:44 PM EDT Sina Price MA Trouble relaxing 1 03/19/2025 2:44 PM EDT Sina Infante MA Being so restless that it is hard to sit still 1 03/19/2025 2:44 PM EDT Sina Price MA Becoming easily annoyed or irritable 0 03/19/2025 2:44 PM EDT Sina Price MA Feeling afraid as if somethi ng awful might happen 0 03/19/2025 2:44 PM EDT Sina Price MA ANTONIA-7 Total Score 2 03/19/2025 2:44 PM EDT Sina Price MA documented as of this encounter Progress Notes * Daniel Avalos MD - 03/19/2025 2:45 PM EDT Subjective Patient ID: Susanna Broussard is a 65 y.o. female who presents for Annual Exam. Patient comes for a follow up visit She feels well today No chest pain and no SOB Blood sugar control is good based on her HbA1c She continues to have knee pain due to DJD, L knee hurts much more. She is planning to do TKR next year She agreed with the flu vaccine today only Review of Systems Constitutional: Negative for chills and fever. HENT: Negative for sore throat. Respiratory: Negative for cough, shortness of breath and wheezing. Cardiovascular: Negative for chest pain, palpitations and leg swelling. Gastrointestinal: Negative for abdominal pain. Musculoskeletal: See HPI Objective Vitals: 03/19/25 1443 BP: 122/84 BP Location: Left arm Patient Position: Sitting BP Cuff Size: Adult Pulse: 64 Resp: 16 Temp: 98.5 ??F (36.9 ??C) TempSrc: Oral SpO2: 95% Weight: 161 lb 3.2 oz (73.1 kg) Height: 5' 3 (1.6 m) Physical Exam Constitutional: Appearance: Normal appearance. Cardiovascular: Rate and Rhythm: Normal rate and regular rhythm. Heart sounds: No murmur heard. No gallop. Pulmonary: Effort: Pulmonary effort is normal. No respiratory distress. Breath sounds: Normal breath sounds. No wheezing. Musculoskeletal: Right lower leg: No edema. Left lower leg: No edema. Neurological: Mental Status: She is alert. Latest Reference Range & Units 03/19/25 14:49 Glucose Blood, POC 60 - 200 mg/dL 229 ! Hemoglobin A1c 4.0 - 5.7 % 7.2 ! !: Data is abnormal Assessment/Plan Diagnoses and all orders for this visit: Type 2 diabetes mellitus with other specified complication, without long-term current use of insulin (HCC) Comments: Continue current medications Recommended to try to walk after meals Avoid sweets and soda Check fasting blood work listed below Orders: - POCT Glucose - POCT Hgb A1c - Comprehensive Metabolic Panel; Future - Lipid Panel, Standard; Future - Albumin, Random Urine W/Creatinine; Future Primary osteoarthritis of both knees Comments: Continue Tylenol as needed, keep walking. She is planning on doing left knee replacement next year. History of basal cell carcinoma excision Comments: She has upcoming appoint with dermatology for skin exam. She is encouraged to use sunblock at leastSPF 30 Encounter for immunization Comments: Flu vaccine today. She refused COVID vaccination. Orders: - FLU VACCINE TRIVALENT HIGH DOSE [id number] (Fluzone) 65 yrs + Other orders - metoprolol tartrate (Lopressor) 50 MG tablet; TAKE 1 AND 1/2 TABLETS BY MOUTH TWICE DAILY - rosuvastatin (Crestor) 20 MG tablet; TAKE 1 TABLET(20 MG) BY MOUTH IN THE MORNING - lisinopril 40 MG tablet; Take 1 tablet (40 mg) by mouth Once per day. Future Appointments Date Time Provider Department Center 03/27/2025 2:15 PM Esther Lentz CNM MEDICINE [facility] 05/09/2025 2:45 PM Daniel Avalos MD MEDICINE [facility] 07/05/2025 2:00 PM Jannet Hernandez OD VISION [facility] documented in this encounter Plan of Treatment Upcoming Encounters Date Type Department Care Team (Late st Contact Info) Description 03/27/2025 2:15 PM EDT Procedure Visit [facility] MEDICINE [address] [place], [place] [phone] Esther Lentz CNM [address] [place], [place] [phone] 05/09/2025 2:45 PM EST Office Visit [facility] MEDICINE [address] [place] [address] Name, MD Daniel [address] [place] [address] 07/05/2025 2:00 PM EST Office Visit [facility] OPTOMETRY [address] [place], [place] [phone] David, Jannet, OD [address] [place], [place] [phone] Scheduled Orders Name Type Priority Associated Diagnoses Orde r Schedule Comprehensive Metabolic Panel Lab Routine Type 2 diabetes mellitus with other specified complication, without long-term current use of insulin (HCC) Expected: 03/19/2025 (Approximate), Expires: 03/19/2026 Lipid Panel, Standard Lab Routine Type 2 diabetes mellitus with other specified complication, without long-term current use of insulin (HCC) Expected: 03/19/2025 (Approximate), Expires: 03/19/2026 Albumin, Random Urine W/Creatinine Lab Routine Type 2 diabetes mellitus with other specified complication, without long-term current use of insulin (HCC) Expected: 03/19/2025 (Approximate), Expires: 03/19/2026 documented as of this encounter Procedures Procedure Name Priority Date/Time Associated Diagnosis Comments POCT GLYCATED HEMOGLOBIN, TOTAL Routine 03/19/2025 2:49 PM EDT Type 2 diabetes mellitus with other specified complication, without long-term current use of insulin (HCC) POCT GLUCOSE Routine 03/19/2025 2:49 PM EDT Type 2 diabetes mellitus with other specified complication, without long-term current use of insulin (HCC) documented in this encounter Results * (ABNORMAL) POCT Hgb A1c (03/19/2025 2:49 PM EDT) [facility] Hemoglobin A1C 7.2(A) 4.0 - 5.7 % QC Media Lot # [id number] Lot# Expiration Date Blood 03/19/2025 2:49 PM EDT us Daniel Avalos MD POINT OF CARE TEST ENTER/EDIT OR DERABLES Final Result * (ABNORMAL) POCT Glucose (03/19/2025 2:49 PM EDT) Glucose Blood, POC 229(A) 60 - 200 mg/dL QC Media Lot # [id number] Lot# Expiration Date Blood Capillary blood specimen / Unknown 03/19/2025 2:49 PM EDT Daniel Avalos MD POINT OF CARE TEST ENTER/EDIT OR DERABLES Final Result documented in this encounter Visit Diagnoses Diagnosis Type 2 diabetes mellitus with other specified complication, without long-term current use of insulin (HCC)- Primary Primary osteoarthritis of both knees History of basal cell carcinoma excision Encounter for immunization documented in this encounter Additional Health Concerns Assessment Noted Time PHQ-9 Depression Total Score: 0 07/04/19 25 1:51 PM EST documented as of this encounter Care Teams Manager Linux Relationship Specialty Start Date End Date Name, MD Daniel [address] [place] [address] PCP - General Internal Medicine 08/18/22 documented as of this encounter
--- OUTSIDE RECORDS SUMMARY | 2025-03-23 10:34 | XMS_ITS | Encounter Summary ---
Author Organization [employer] Address [address] [facility] 7t [place] [address] Care Team Providers Care Hand Spring Repairer Name Role Phone Name, Daniel PINA Primary Care Provider [phone] Encounter Details Date Type Department Care Team ([facility] Contact Info) Description 11/11/2022 Abstract [facility] MEDICINE [address] [place] [address] [phone] Name, MD Daniel [address] [place] [address] [phone] Social History Tobacco Use Types Packs/Day Years [...] Department Care Team (Late Contact Info) Description 03/27/2025 2:15 PM EDT Procedure Visit [facility] [address] [place] [address] [phone] Esther Lentz CNM [address] [place], [place] [phone] 05/09/2025 2:45 PM EST Office Visit [facility] MEDICINE [address] [place] [address] Name, MD Daniel [address] [place] [address] 07/05/2025 2:00 PM EST Office Visit [facility] OPTOMETRY [address] [place] [address] David, Jannet, OD 230 [place] [address] documented as of this encounter Procedures Procedure [...] documented as of this encounter Care Teams Hand Spring Repairer Relationship Specialty Start Date End Date Name, MD Daniel [address] [place], [place] [phone] PCP - General Internal Medicine 08/18/22 documented as of this encounter
--- OUTSIDE RECORDS SUMMARY | 2025-03-23 10:34 | XMS_ITS | Encounter Summary ---
Author Organization [employer] Address [address] [facility] 7t [place] [address] Care Team Providers Care Electrode Cleaning Machine Operator Name Role Phone Name, Daniel PINA Primary Care Provider [phone] Reason for Visit * Reason Comments Med Refill Encounter Details Date Type Department Care Team ([facility] st Contact Info) Description 05/11/2024 Refill [facility] MED[facility]INE [address] [place], [place] [phone] Name, MD Daniel [address] [place] [address] Social History Tobacco Use Types Packs/Day Years [...] Description 03/27/2025 2:15 PM EDT Procedure Visit [facility] MEDICINE [address] [place] [address] Esther Lentz CNM [address] [place] [address] 05/09/2025 2:45 PM EST Office Visit [facility] MEDICINE [address] [place] [address] Name, MD Daniel [address] [place] [address] 07/05/2025 2:00 PM EST Office Visit [facility] OPTOMETRY [address] [place] [address] Jannet Hernandez, OD [address] [place] [address] documented as of this encounter Visit Diagnoses Not on filedocumented in this encounter Additional Health Concerns Assessment Noted Time PHQ-9 Depression Total Score: 0 11/05/19 8:49 AM EDT documented as of this encounter Care Teams Electrode Cleaning Machine Operator Relationship Specialty Start Date End Date NameDaniel MD [address] [place] [address] PCP - General Internal Medicine 08/18/22 documented as of this encounter
--- OUTSIDE RECORDS SUMMARY | 2025-03-23 10:34 | XMS_ITS | Encounter Summary ---
Author Organization [employer] Address [address] [facility] 7t [place] [address] Care Team Providers Care Shotgun Shell Assembly Machine Operator Name Role Phone Name, Daniel PINA Primary Care Provider [phone] Reason for Visit * Reason Comments Med Refill Encounter Details Date Type Department Care Team ([facility] st Contact Info) Description 05/22/2024 Refill [facility] MEDICINE [address] [place], [place] [phone] Name, MD Daniel [address] [place] [address] Gastroesophageal reflux disease without esophagitis Social History [...] t he electric, gas, oil or water [employer] threatened to shut off services in your [...] Description 03/27/2025 2:15 PM EDT Procedure Visit [facility] MEDICINE [address] [place] [address] Esther Lentz CNM [address] [place] [address] 05/09/2025 2:45 PM EST Office Visit [facility] MEDICINE [address] [place] [address] NameDaniel MD [address] [place] [address] 07/05/2025 2:00 PM EST Office Visit [facility] OPTOMETRY [address] [place] [address] David, Jannet, OD [address] [place] [address] documented as of this encounter Visit Diagnoses Diagnosis Gastroesophageal reflux disease without esophagitis Esophageal reflux documented in this encounter Additional Health Concerns Assessment Noted Time PHQ-9 Depression Total Score: 0 11/05/19 8:49 AM EDT documented as of this encounter Care Teams Shotgun Shell Assembly Machine Operator Relationship Specialty Start Date End Date Daniel Avalos MD [address] [place] [address] PCP - General Internal Medicine 08/18/22 documented as of this encounter
--- OUTSIDE RECORDS SUMMARY | 2025-03-23 10:34 | XMS_ITS | Encounter Summary ---
Author Organization [employer] Address [address] [facility] [address] 7t [place] [address] Care Team Providers Care Executive Business Coach Name Role Phone Name, Daniel PINA Primary Care Provider [phone] Encounter Details Date Type Department Care Team (Latest Contact Info) Description 03/19/2025 Travel Social History Tobacco Use Types Packs/Day [...] AM EDT documented as of this encounter Functional Status * Over the [...] or irritable 0 03/19/2025 2:44 PM EDT Snia Price MA Feeling afraid as if somethi ng awful might happen 0 03/19/2025 2:44 PM EDT Sina Price [place] ANTONIA-7 Total Score 2 03/19/2025 2:44 PM EDT Sina Price [place] documented as of this encounter Plan of Treatment Upcoming Encounters Date Type Department Care Team (Late st Contact Info) Description 03/27/2025 2:15 PM EDT Procedure Visit [facility] MEDICINE [address] [place] [phone] Esther Lentz CNM 230 [place] [address] 05/09/2025 2:45 PM EST Office Visit [facility] MEDICINE [address] [place] [phone] Name, MD Daniel [address] [place] [address] 07/05/2025 2:00 PM EST Office Visit [facility] OPTOMETRY [address] [place], [place] [phone] David, Jannet, OD [address] [place], [place] [phone] documented as of this encounter Visit Diagnoses Not on filedocumented in this encounter Additional Health Concerns Assessment Noted Time PHQ-9 Depression Total Score: 0 07/04/19 25 1:51 PM EST documented as of this encounter Care Teams Executive Business Coach Relationship Specialty Start Date End Date Name, MD Daniel [address] [place] [address] PCP - General Internal Medicine 08/18/22 documented as of this encounter
--- OUTSIDE RECORDS SUMMARY | 2025-03-23 10:34 | XMS_ITS | Encounter Summary ---
Author Organization [employer] Address 75 [facility] 7t [place] [address] Care Team Providers Care Purchasing Administrator Name Role Phone Samaria Butler TERRELL Primary Care Provider [phone] Mookie Powers Primary Care Provider Unavail able Daniel Avalos MD Primary Care Provider [phone] Reason for Visit * Reason Comments Med Refill Encounter Details Date Type Department Care Team (Late st Contact Info) Description 05/22/2022 Refill [facility] MEDICINE [address] [place] [address] [phone] Daniel Avalos MD [address] [place] [address] [phone] Social History Tobacco Use Types Packs/Day Years [...] Description 03/27/2025 2:15 PM EDT Procedure Visit [facility] MEDICINE [address] [place] [address] [phone] Esther Lentz CNM [address] [place] [address] [phone] 05/09/2025 2:45 PM EST Office Visit [facility] MEDICINE [address] [place] [address] [phone] Daniel Avalos MD [address] [place] [address], [place] [address] 07/05/2025 2:00 PM EST Office Visit [facility] OPTOMETRY [address] [place], [place] [phone] Jannet Hernandez, OD 230 [place] [address] documented as of this encounter Visit Diagnoses Not on filedocumented in this encounter Care Teams Purchasing Administrator Relationship Specialty Start Date End Date Samaria Butler FNP [address] [place] [phone] PCP - General Family Medicine 01/22/22 08/05/22 Mookie Powers AGNP [address] [place] [address] PCP - General Family Medicine 08/06/22 08/17/22 Daniel Avalos MD [address] [place] [address] [phone] PCP - General Internal Medicine 08/18/22 documented as of this encounter
--- OUTSIDE RECORDS SUMMARY | 2025-03-23 10:34 | XMS_ITS | Patient Health Record ---
Author Organization [facility] Address [address] [place] [address] Care Team Providers Care Pie Baker Name Role Phone Carmelita Merlos Jessica Primary Care Provider Richardson Franz Unavailable [phone] Allergies No Known Allergies Reason For Referral [...] two tablets twice a day for one day; Duration: 1 day 12/17/2021 Active Crestor 20 MG 1 tablet Orally Once a day Active MiraLax (colon prep) 17 GM/SCOOP 1 238Gm bottle mixed with Gatorade or Crystal Light Orally begin at 5:00 p.m. the day before the procedure; Duration: 1 day 12/17/2021 Active Metoprolol Tartrate 50 MG 1 tablet with food Orally Twice a day Active Vitamin D (Ergocalciferol) 51616 UNIT 1 capsule Orally Once a week [...] Problem Status W/U Status Risk Notes Problem Information temporarily unavailable Gastro-esophageal reflux disease without esophagitis (K21.9) Active confirmed Problem Information temporarily unavailable Encounter for screening for malignant neoplasm of colon (Z12.11) Active confirmed Problem Information temporarily unavailable History of adenomatous polyp of colon (Z86.010) Active confirmed Problem Information temporarily unavailable Encounter for screening for malignant neoplasm of rectum (Z12.12) Active confirmed Problem Information temporarily unavailable Preprocedural examination (Z01.818) Active confirmed Problem Information temporarily unavailable Long-term use of aspirin therapy (Z79.82) Active confirmed Problem Information temporarily unavailable Colon, diverticulosis (K57.30) Active confirmed Plan Of Treatment Pending Test Test Name Order Date Pathology 01/30/2022 Future Test Test Name Order Date COLONOSCOPY 03/04/2016 COLONOSCOPY 12/17/2021 Insurance Providers Payer Name Payer Address Payer Phone Subscriber Number Group Number Insured Name Patient Relationship to Insured Coverage Start Date Coverage End Date [facility] [address] [facility] [place] [place] [address] [id number] LINDA ALBARADO Self - patient is the insured Medical (General) History Medical History History ICD Code Tubular adenomas removed in 1996 and 2005; she had a negative colonoscopy on 11-24-2010 Denies GA,CVA,DM,Lung disease,renal dise ase GERD--EGD in 2000 was negati ve for any significant esophagitis and Meraz's esophagus Hypertension Hypercholesterolemia Negative colonoscopy in 07/2016 Surgical History Surgery Date(Month/Year) BTL
--- OUTSIDE RECORDS SUMMARY | 2025-03-23 10:34 | XMS_ITS | Encounter Summary ---
Author Organization [employer] Address [address] [facility] 7t [place] [address] Care Team Providers Care Refinery Operator Polymerization Plant Name Role Phone Name, Daniel PINA Primary Care Provider [phone] Reason for Visit * Reason Onset Date Comments triage 08/18/2022 Encounter Details Date Type Department Care Team ([facility] st Contact Info) Description 08/18/2022 Telephone [facility] MEDICINE [address] [place], [place] [phone] Mookie Powers AGNP triage Social History Tobacco [...] 08/18/2022 1:29 PM EDT Triage call with [employer] [place] [id number] Pt reports at 1030pm was laying down [...] pain. Advised Pt to come to the [facility] today and Ptagreed with disposition [...] Description 03/27/2025 2:15 PM EDT Procedure Visit [facility] MEDICINE [address] [place] [address] Esther Lentz CNM [address] [place] [address] 05/09/2025 2:45 PM EST Office Visit [facility] MEDICINE [address] [place] [address] Name, MD Daniel [address] [place] [address] 07/05/2025 2:00 PM EST Office Visit [facility] OPTOMETRY [address] [place] [address] Jannet Hernandez, OD 230 [place] [address] documented as of this encounter Visit Diagnoses Not on filedocumented in this encounter Care Teams Refinery Operator Polymerization Plant Relationship Specialty Start Date End Date Name, MD Daniel [address] [place] [address] PCP - General Internal Medicine 08/18/22 documented as of this encounter
--- OUTSIDE RECORDS SUMMARY | 2025-03-23 10:34 | XMS_ITS | Encounter Summary ---
Author Organization [employer] Address [address] [facility] 7t [place] [address] Care Team Providers Care Disaster Recovery Consultant Name Role Phone Name, Daniel PINA Primary Care Provider [phone] Reason for Visit * Reason Onset Date Comments Pre-op Exam 10/14/2022 Encounter Details Date Type Department Care Team (Late st Contact Info) Description 10/14/2022 Telephone [facility] MEDICINE [address] [place], [place] [phone] Name, MD Daniel 230 [place] [address] Pre-op Exam Social History Tobacco Use Types [...] PM EDT Returned call to Trina at [facility]. Pt is getting a R knee arthroscopy date tbd with Dr Gusman. Pt will needs labs and EKG and will be under general anesthesia. Notes determining what is needed prior to surgery will be faxed to [facility]. Pt scheduled with PCP on 11/04/22. Ortho will notify pt. * Telephone Encounter - Zehra Be - 10/14/2022 9:38 AM EDT Jonathan Mena at [facility] Pre Op Location: [address] [address] Procedure: right knee arthroscopy Date of Procedure: not yet but usually in a month after they get the pre-op date Lab: required yes (faxing them over) EKG: required yes (faxing it over) Type of Anesthesia : General documented in this encounter Plan of Treatment Upcoming Encounters Date Type Department Care Team (Late st Contact Info) Description 03/27/2025 2:15 PM EDT Procedure Visit [facility] MEDICINE [address] [place] [address] Esther Lentz CNM [address] [place] [address] 05/09/2025 2:45 PM EST Office Visit [facility] MEDICINE [address] [place] [address] Name, MD Daniel [address] [place] [address] 07/05/2025 2:00 PM EST Office Visit [facility] OPTOMETRY [address] [place] [address] David, Jannet, OD 230 [place] [address] documented as of this encounter Visit Diagnoses Not on filedocumented in this encounter Care Teams Disaster Recovery Consultant Relationship Specialty Start Date End Date Name, MD Daniel [address] [place] [address] PCP - General Internal Medicine 08/18/22 documented as of this encounter
--- OUTSIDE RECORDS SUMMARY | 2025-03-23 10:34 | XMS_ITS | Clinical Summary ---
Author Organization [facility] Address [address] [place] [address] Phone Care Team Providers Care Shoe Turner Name Role Phone Name, Daniel PINA Primary Care Provider [phone] Allergies No known active allergies Medications isosorbide [...] Diabetes mellitus type 2, no ninsulin dependent ([facility] V24, [facility] V28) DX:Diabetes anjelica montano type 2, noninsulin dependent ([facility]) High cholesterol DX:High cholest astrid Social History [...] Last Done Comments Breast Cancer Screening 1959 Colorectal Cancer Screening: Colonoscopy 1959 Diabetes: Annual Foot Exam 1969 Diabetes: Annual Retina Eye Exam 1969 RSV Immunization Adult Patients (1 - Risk 50-74 years 1-dose series) 2009 Hepatitis C Screening 04/28/2022 Medicare Annual Wellness [...] patient's age to complete this topic Insurance [facility] MEDICARE Member Subscriber Plan / Payer (Ef fective 2024-Present) Name:LINDA ALBARADO Relation to Subscriber:Self Name:Linda Albarado Payer ID:[id number] Group ID:[id number] Type:Not on file Address: [place] [address] [address] [address] Care Teams Shoe Turner Relationship Specialty Start Date End Date Name, MD Daniel [address] [place] [address] [phone] PCP - General Internal Medicine 07/19/24
--- OUTSIDE RECORDS SUMMARY | 2025-03-23 10:34 | XMS_ITS | Encounter Summary ---
Author Organization [employer] Address 75 [facility] 7t [place] [address] Care Team Providers Care Zigzag Topstitcher Name Role Phone SuSamaria guy TERRELL Primary Care Provider [phone] Mookie Powers Primary Care Provider Unavail able Daniel Avalos MD Primary Care Provider [phone] Encounter Details Date Type Department Care Team (Late st Contact Info) Description 05/04/2022 Abstract [facility] MEDICINE [address] [place] [phone] ProviderParth MD Social History Tobacco Use Types Packs/Day Years [...] Description 03/27/2025 2:15 PM EDT Procedure Visit [facility] MEDICINE [address] [place] [address] Esther Lentz CNM [address] [place] [address] 05/09/2025 2:45 PM EST Office Visit [facility] MEDICINE [address] [place] [address] [phone] Daniel Avalos MD [address] [place] [address] 07/05/2025 2:00 PM EST Office Visit [facility] OPTOMETRY [address] [place] [address] Jannet Hernandez, OD [address] [place] [address] documented as of this encounter Visit Diagnoses Not on filedocumented in this encounter Care Teams Zigzag Topstitcher Relationship Specialty Start Date End Date Samaria Butler FNP [address] [place], [place] PCP - General Family Medicine 01/22/22 08/05/22 Mookie Powers AGNP [address] [place], [place] PCP - General Family Medicine 08/06/22 08/17/22 Robbie, MD Daniel [address] [place], [place] PCP - General Internal Medicine 08/18/22 documented as of this encounter
--- OUTSIDE RECORDS SUMMARY | 2025-03-23 10:35 | XMS_ITS | Encounter Summary ---
Author Organization [employer] Address [address] [place] [address] 7t [place] [address] Care Team Providers Care Vp Client Services Name Role Phone Name, Daniel PINA Primary Care Provider [phone] Reason for Visit * Reason Comments Med Refill Encounter Details Date Type Department Care Team ([facility] Contact Info) Description 01/22/2023 Refill [facility] MEDICINE [address] [place] [address] Mookie Powers AGNP Gastroesophageal reflux disease without [...] 03/27/2025 2:15 PM EDT Procedure Visit [facility] MEDICINE [address] [place] [address] [phone] Esther Lentz CNM 230 [place] [address] 05/09/2025 2:45 PM EST Office Visit [facility] MEDICINE [address] [place] [address] [phone] Name, MD Daniel 230 [place] [address] 07/05/2025 2:00 PM EST Office Visit [facility] OPTOMETRY [address] [place] [address] David Jannet, OD 230 [place], [place] [phone] documented as of this encounter Visit Diagnoses Diagnosis Gastroesophageal reflux disease without esophagitis Esophageal reflux documented in this encounter Additional Health Concerns Assessment Noted Time PHQ-9 Depression Total Score: 0 11/05/19 8:49 AM EDT documented as of this encounter Care Teams Vp Client Services Relationship Specialty Start Date End Date Name, MD Daniel [address] [place] [address] PCP - General Internal Medicine 08/18/22 documented as of this encounter
--- OUTSIDE RECORDS SUMMARY | 2025-03-23 10:35 | XMS_ITS | Encounter Summary ---
Author Organization [facility], Address [address] [place] [address] Phone Care Team Providers Care Personal Care Assistant Name Role Phone Dena Bellamy NP Primary Care Provider [phone] Encounter Details Date Type Department Care Team (Late st Contact Info) Description 10/02/2021 Documentation Only [facility], [address] [place] [address] Crystal Atkinson [address] [place] [address] Social History Tobacco Use Types Packs/Day Years [...] on filedocumented in this encounter Care Teams Personal Care Assistant Relationship Specialty Start Date End Date Dena Bellamy NP PCP - General 04/04/19 documented as of this encounter
--- OUTSIDE RECORDS SUMMARY | 2025-03-23 10:35 | XMS_ITS | Clinical Summary ---
Author Organization [facility], Address [address] [place] [address] [place] [address] Phone Care Team Providers Care Manager Public Name Role Phone Dena Bellamy NP Primary Care Provider [phone] Allergies No known active allergies Medications acetaminophen (PHARBETOL) 325 MG tablet Comments: Filled Date: Mar 15 2017 12:00AM Duration: 15 7 Active amLODIPine (NORVASC) 10 MG tablet 0 Active ergocalciferol (VITAMIN D2) 1.25 MG (35336 UT) capsule 9 Active isosorbide mononitrate (IMDUR) [...] Duration: 90 8 07/12/19 Discontinu ed(Med List [facility]) Active Problems Problem Noted Date Diagnosed [...] A1c (%). Testing performed or reported by ~[facility], ~a Service of [facility], ~[address] [place] [address]~ Jerzy Julien MD, Senior Design Engineer 06/03/2018 2:30 PM EST us Maximiliano Christopher MD LAB BLOOD ORDERABLES Final Resul t [facility] from Last 3 Months or Most Recently Relevant to Health Maintenance Insurance [facility] [place] [phone] Care Teams Manager Public Relationship Specialty Start Date End Date Dena Bellamy NP PCP - General 04/04/19
--- OUTSIDE RECORDS SUMMARY | 2025-03-23 10:35 | XMS_ITS | Encounter Summary ---
Author Organization [employer] Address [address] [facility] [address] 7t [place] [address] Care Team Providers Care Salt Grinder Name Role Phone Name, Daniel PINA Primary Care Provider [phone] Reason for Visit * Reason Comments Med Refill Encounter Details Date Type Department Care Team ([facility] st Contact Info) Description 03/18/2023 Refill [facility] MEDICINE [address] [place] [address] Samaria Butler FNP [address] [place] [address] Social History Tobacco Use Types Packs/Day Years [...] Description 03/27/2025 2:15 PM EDT Procedure Visit [facility] MEDICINE [address] [place] [address] Esther Lentz CNM [address] [place] [address] 05/09/2025 2:45 PM EST Office Visit [facility] MEDICINE [address] [place] [address] Name, MD Daniel [address] [place] [address] 07/05/2025 2:00 PM EST Office Visit [facility] OPTOMETRY [address] [place] [address] Jannet Hernandez, OD 230 [place] [address] documented as of this encounter Visit Diagnoses Not on filedocumented in this encounter Additional Health Concerns Assessment Noted Time PHQ-9 Depression Total Score: 0 11/05/19 23 8:49 AM EDT documented as of this encounter Care Teams Salt Grinder Relationship Specialty Start Date End Date Daniel Avalos MD [address] [place] [address] PCP - General Internal Medicine 08/18/22 documented as of this encounter
--- OUTSIDE RECORDS SUMMARY | 2025-03-23 10:35 | XMS_ITS | Encounter Summary ---
Author Organization [employer] Address [address] [facility] 7t [place] [address] Care Team Providers Care Change Room Attendant Name Role Phone Name, Daniel PINA Primary Care Provider [phone] Reason for Visit * Reason Onset Date Comments Med Refill 04/15/2023 Encounter Details Date Type Department Care Team (Late st Contact Info) Description 04/15/2023 Telephone [facility] MEDICINE [address] [place], [place] [phone] Name, MD Daniel [address] [place] [address] Med Refill Social History Tobacco Use Types [...] MG capsule Diclofenac Sodium 1 % gel [facility] Rx #[id number] documented in this encounter Plan of Treatment Upcoming Encounters Date Type Department Care Team (Late st Contact Info) Description 03/27/2025 2:15 PM EDT Procedure Visit [facility] MEDICINE [address] [place] [address] Esther Lentz CNM [address] [place] [address] 05/09/2025 2:45 PM EST Office Visit [facility] MEDICINE [address] [place] [address] Name, MD Daniel [address] [place] [address] 07/05/2025 2:00 PM EST Office Visit [facility] OPTOMETRY [address] [place] [address] Jannet Hernandez, OD [address] [place] [address] documented as of this encounter Visit Diagnoses Not on filedocumented in this encounter Additional Health Concerns Assessment Noted Time PHQ-9 Depression Total Score: 0 11/05/19 8:49 AM EDT documented as of this encounter Care Teams Change Room Attendant Relationship Specialty Start Date End Date Name, MD Daniel [address] [place] [address] PCP - General Internal Medicine 08/18/22 documented as of this encounter
--- OUTSIDE RECORDS SUMMARY | 2025-03-23 10:35 | XMS_ITS | Encounter Summary ---
Author Organization [facility], Address [address] [place] [address] Phone Care Team Providers Care Accounts Administrator Name Role Phone Dena Bellamy NP Primary Care Provider Encounter Details Date Type Department Care Team (Late st Contact Info) Description 12/09/2021 Documentation Only [facility], [address] [facility] [place] [address] Maximiliano Christopher MD [address] [facility] [place] [phone] Social History Tobacco Use Types Packs/Day Years [...] on filedocumented in this encounter Care Teams Accounts Administrator Relationship Specialty Start Date End Date Dena Bellamy NP PCP - General 04/04/19 documented as of this encounter
--- OUTSIDE RECORDS SUMMARY | 2025-03-23 10:35 | XMS_ITS | Encounter Summary ---
Author Organization [employer] Address [address] [place] [address] 7t [place] [address] Care Team Providers Care Air Marshal Name Role Phone Name, Daniel PINA Primary Care Provider [phone] Reason for Visit * Reason Comments Med Refill Encounter Details Date Type Department Care Team (Late st Contact Info) Description 01/22/2023 Refill [facility] MEDICINE [address] [place] [address] [phone] Name, MD Daniel [address] [place] [address] [phone] Type 2 diabetes mellitus with other specified complication, unspecified whether half-way insulin use ([facility]) Social History Tobacco Use Types [...] Description 03/27/2025 2:15 PM EDT Procedure Visit [facility] MEDICINE [address] [place] [address] [phone] Esther Lentz CNM 230 [place], [place] [phone] 05/09/2025 2:45 PM EST Office Visit [facility] MEDICINE [address] [place] [address] NameDaniel MD 230 [place] [address] 07/05/2025 2:00 PM EST Office Visit [facility] OPTOMETRY [address] [place], [place] [phone] Jannet Hernandez, OD 230 [place] [address] documented as of this encounter Visit Diagnoses Diagnosis Type 2 diabetes mellitus with other specified complication, unspecified whether termite helper insulin use (HCC) documented in this encounter Additional Health Concerns Assessment Noted Time PHQ-9 Depression Total Score: 0 11/05/19 23 8:49 AM EDT documented as of this encounter Care Teams Air Marshal Relationship Specialty Start Date End Date NameDaniel MD [address] [place] [address] PCP - General Internal Medicine 08/18/22 documented as of this encounter
--- OUTSIDE RECORDS SUMMARY | 2025-03-23 10:35 | XMS_ITS | Encounter Summary ---
Author Organization [employer] Address [address] [facility] 7t [place] [address] Care Team Providers Care Completions Manager Name Role Phone Name, Daniel PINA Primary Care Provider [phone] Reason for Visit * Reason Comments Med Refill Encounter Details Date Type Department Care Team (Late Contact Info) Description 11/27/2022 Refill [facility] MEDICINE [address] [place] [address] [phone] Name, MD Daniel [address] [place] [address] [phone] Social History Tobacco Use Types Packs/Day Years [...] Description 03/27/2025 2:15 PM EDT Procedure Visit [facility] MEDICINE [address] [place] [address] [phone] Esther Lentz, CNM 230 [place], [place] [phone] 05/09/2025 2:45 PM EST Office Visit [facility] MEDICINE 230 [place] [address] Name, MD Daniel 230 [place], [place] [phone] 07/05/2025 2:00 PM EST Office Visit [facility] OPTOMETRY [address] [place], [place] [phone] Jannet Hernandez, OD 230 [place], [place] [phone] documented as of this encounter Visit Diagnoses Not on filedocumented in this encounter Additional Health Concerns Assessment Noted Time PHQ-9 Depression Total Score: 0 11/05/19 8:49 AM EDT documented as of this encounter Care Teams Completions Manager Relationship Specialty Start Date End Date NameDaniel MD 230 [place], [place] [phone] PCP - General Internal Medicine 08/18/22 documented as of this encounter
--- OUTSIDE RECORDS SUMMARY | 2025-03-23 10:35 | XMS_ITS | Clinical Summary ---
Author Organization [employer] Address [address] [facility] 7t [place] [address] Care Team Providers Care Bottoming Room Inspector Name Role Phone Name, Daniel PINA Primary Care Provider [phone] Allergies No known active allergies Medications nitroglycerin (Nitrostat) 0.4 MG SL tablet under the tongue 017 Active betamethasone valerate (Valisone) 0.1 % ointment Use twice a week as needed 45 g 2 023 Active Diclofenac Sodium 1 % gel APPLY TOPICALLY DAILY TO AFFECTED JOINT 100 g 3 023 Active Blood Glucose Monitoring Suppl (FreeStyle Lite) w/Device kitIndications :Type 2 diabetes mellitus with other specified complication, without long-term current use of insulin (HCC) 1 each See administration instructions. Use once a day 1 kit 023 Active Lancets (OneTouch Delica Plus [id number]) misc TEST BLOOD SUGAR ONCE A DAY 100 each 11 023 Active Blood Glucose Monitoring Suppl (ONE TOUCH ULTRA 2) w/Device kit TEST BLOOD SUGAR ONCE A DAY 1 kit 023 Active cyclobenzaprin e (Flexeril) 5 MG tabletIndicati ons:Left knee pain, unspecified chronicity TAKE 1 TABLET BY MOUTH EVERY NIGHT AT BEDTIME 30 tablet 024 Active gabapentin (Neurontin) 300 MG capsuleIndicat ions:Type 2 diabetes mellitus with other specified complication, unspecified whether rat exterminator insulin use (HCC) TAKE 1 TO 2 CAPSULES BY MOUTH THREE TIMES DAILY 180 capsule 2 024 Active ergocalciferol (Vitamin D2) 1.25 MG (21797 UT) capsule TAKE 1 CAPSULE BY MOUTH 1 TIME A WEEK DIRECTED 4 capsule 024 Active pantoprazole (ProtoNix) 40 MG EC tabletIndicati ons:Gastroesop hageal reflux disease without esophagitis TAKE 1 TABLET BY MOUTH EVERY MORNING 1 HOUR BEFORE MEALS 90 tablet 3 025 Active amLODIPine (Norvasc) 10 MG tablet TAKE 1 TABLET BY MOUTH EVERY DAY 90 tablet 1 025 Active isosorbide mononitrate ER (Imdur) 30 MG 24 hr tablet TAKE 1 TABLET BY MOUTH EVERY MORNING 90 tablet 2 025 Active metFORMIN XR (Glucophage-XR ) 500 MG 24 hr tablet TAKE 2 TABLETS BY MOUTH TWICE DAILY WITH BREAKFAST AND EVENING MEAL 360 tablet 025 Active metoprolol tartrate (Lopressor) 50 MG tablet TAKE 1 AND 1/2 TABLETS BY MOUTH TWICE DAILY 270 tablet 2 025 Active rosuvastatin (Crestor) 20 MG tablet TAKE 1 TABLET(20 MG) BY MOUTH IN THE MORNING 90 tablet 2 025 Active lisinopril 40 MG tablet Take 1 tablet (40 mg) by mouth Once per day. 90 tablet 2 025 Active metoprolol tartrate (Lopressor) 50 MG tablet TAKE 1 AND 1/2 TABLETS BY MOUTH TWICE DAILY 270 tablet 3 024 2024 Discontinued(R eorder (will not trigger notification to Pharmacy)) rosuvastatin (Crestor) 20 MG tablet TAKE 1 TABLET(20 MG) BY MOUTH IN THE MORNING 30 tablet 11 024 2024 Discontinued(R eorder (will not trigger notification to Pharmacy)) lisinopril 40 MG tablet TAKE 1 TABLET BY MOUTH EVERY DAY 90 tablet 1 025 2024 Discontinued(R eorder (will not trigger notification to Pharmacy)) Active Problems Problem Noted Date Diagnosed Date Primary osteoarthritis of both knees 03/19/2025 Encounter for screening for malignant neoplasm o f colon 08/25/2023 Encounter for screening for malignant neoplasm o f rectum 08/25/2023 History of adenomatous polyp of colon 08/25/2023 Preprocedural examination 08/25/2023 Diverticular disease of colon 01/07/2023 History of neoplasm of uncertain behavior 2021 Lichen sclerosus et atrophicus of the vulva 01/31 Type 2 diabetes mellitus 01/26/2021 Diabetic nephropathy associa daron with type 2 diabetes mellitus 06/20/2019 Squamous cell carcinoma of skin of upper lip Basal cell carcinoma of skin of nose 06/09/2017 Essential hypertension 04/11/2015 Gastro-esophageal reflux disease without esophag itis 04/11/2015 Obesity 04/11/2015 Resolved Problems Problem Noted Date Diagnosed Date Resolved Date Long-term use of aspirin therapy 08/25/2023 03/19/2025 Pain in left knee 09/18/2021 03/19/2025 Stage 3a chronic kidney disease (CMS/HCC) 06/20/2019 01/08/2023 Changing skin lesion 05/09/2018 025 Hypercholesterolemia 04/11/2015 025 Vitamin D deficiency 04/11/2015 025 Encounters Date Type Department Care Team Description 03/19/2025 2:45 PM EDT Office Visit [facility] [address] [place] [address] Daniel Avalos MD Type 2 diabetes mellitus with other specified complication, without long-term current use of insulin (HCC) (Primary Dx); Primary osteoarthritis of both knees; History of basal cell carcinoma excision; Encounter for immunization 03/19/2025 Travel 03/16/2025 Telephone [facility] [address] [place] [phone] Daniel Avalos MD CHART PREP 03/12/2025 Patient Outreach [facility] [address] [place] [address] Daniel Avalos MD Pre-visit Planning (SDOH was already completed) 03/09/2025 Telephone [facility] [address] [place] [address] Daniel Avalos MD Preop 02/26/2025 Travel 02/14/2025 Refill [facility] [address] [place] [address] Daniel Avalos MD 02/05/2025 Refill [facility] [address] [place] [address] Daniel Avalos MD 01/26/2025 Refill [facility] [address] [place] [address] Daniel Avalos MD 01/10/2025 Telephone [facility] [address] [place] [address] Kati Brewer [place] Appointment Request; february recalls 01/10/2025 Telephone [facility] [address] [place] [address] Marva Flores MA 12/21/2024 Refill [facility] [address] [place] [address] NameDaniel MD from Last 3 Months Immunizations Immunization Administration Dates Next Due Hep B, adult 11/02/2017,06/18/2017,05/07/2017 Influenza injectable quadriv alent IIV4 with preservative 03/21/2018,04/11/2015 Influenza injectable quadriv alent preservative free 04/17/2022,02/27/2021,03/02/2019,03/17,03/19/2016 Influenza, High Dose Seasona l, Preservative Free 03/19/2025,02/14/2024 Influenza, IIV3, injectable 04/15/2021,1 ,04/30/2008,05/11,05/11/2003,03/08/2002 Influenza, Split [...] Mass Index 28.56 03/19/2025 2:43 PM EDT Plan of Treatment Upcoming Encounters Date Type Department Care Team (Late st Contact Info) Description 03/27/2025 2:15 PM EDT Procedure Visit [facility] [address] [place] [address] Esther Lentz, CNM [address] [place] [address] 05/09/2025 2:45 PM EST Office Visit [facility] [address] [place] [address] Name, MD Daniel [address] [place] [address] 07/05/2025 2:00 PM EST Office Visit [facility] [address] [place], [place] [phone] David, Jannet, OD [address] [place] [address] Health Maintenance Due Date Last Done Comments CT Colonography 1959 FIT DNA/Cologuard 1959 FIT 1959 FOBT 1959 Sigmoidoscopy 1959 Derm Melanoma Skin Check 1959 RSV Patients and Patients Aged 60 years or older (1 - Risk 60-74 years 1-dose series) 2019 Dental Oral Exam 01/24/2025 07/26/2024 Dental Prophylaxis 01/24/2025 07/26/2024 COVID-19 Vaccine ( season) 2025 05/07/2021, 10/17/2020, 09/19/2020 HPV/Cotest 03/23/2025 03/23/2024, 07/03/2020 Pap Smear 03/23/2025 03/23/2024, 07/03/2020 Diabetes: Hemoglobin A1C 06/19/2025 025, 07/04/2024, 02/14/2024, Additional history exists Alcohol/Substance Use Screening 07/04/2025 07/04/2024 Depression Screening 07/04/2025 07/04/2024, 07/04/19 Diabetes: Foot Exam 07/04/2025 07/04/2024, 07/04/2024, 07/04/2024, Additional history exists SDOH Screening 07/04/2025 07/04/2024 Lipid Panel 07/20/2025 07/20/2024, 2 08/2023, 01/20/2023, Additional history exists Dental X-Ray: Bitewings 07/27/2025 07/26/2024 Mammogram 10/03/2025 10/03/2024, 04/0 05/2023, 08/26/2022, Additional history exists Tobacco Screening 03/19/2026 03/19/2025 Eye Exam 05/11/2026 05/11/2024, 04/30, 05/11/2024, Additional history exists Colonoscopy 01/30/2027 01/30/2022, 01/30/2022 Colorectal Cancer Screening 01/30/2027 Dental X-Ray: Full Mouth 07/27/2027 07/26/2024 DTaP/Tdap/Td Vaccines (3 - Td or Tdap) 06/25/2030 06/25/2020, 10/30/2009 Hepatitis B Vaccines Completed 11/02/2017, 06/18/2017, 05/07/2017 Zoster Vaccines Completed 12/05/2018, 0712/2018, 08/22/2018, Additional history exists Hepatitis C Screening Completed 06/18/2021 Pneumococcal Vaccine: 50+ Years Completed 08/25/2023, 05/11/2008 Influenza Vaccine Completed 03/19/2025, , 04/17/2022, Additional history exists HIB Vaccines Aged Out [...] without long-term current use of insulin (HCC) BI MAMMOGRAM SCREENING TOMOSYNTHESIS BILATERAL Routine 10/03/2024 [...] to Health Maintenance Results * (ABNORMAL) POCT Hgb A1c (03/19/2025 2:49 PM EDT) Hemoglobin A1C 7.2(A) 4.0 - 5.7 % QC Media Lot # [id number] Lot# Expiration Date Blood 03/19/2025 2:49 PM EDT Daniel Avalos MD POINT OF CARE TEST ENTER/EDIT OR DERABLES Final Result * (ABNORMAL) POCT Glucose (03/19/2025 2:49 PM EDT) Glucose Blood, POC 229(A) 60 - 200 mg/dL QC Media Lot # [id number] Lot# Expiration Date Blood Capillary blood specimen / Unknown 03/19/2025 2:49 PM EDT Daniel Avalos MD POINT OF CARE TEST ENTER/EDIT OR DERABLES Final Result * BI Mammogram Screening Tomosynthesis Bilateral (10/03/2024 10:45 AM EDT) Anatomical Region Laterality Modality Breast Bilateral Mammography 10/03/2024 10:4 5 AM EDT Narrative 10/08/2024 9:49 PM EDT [facility] [address] [place] [address] Mammography Report Signed Patient: Susanna Broussard MR#: [id number] 65 : 1960 Acct:[id number] Age/Sex: 64 / F ADM Date: 10/03/24 Loc: HO.MAMMO Attending Dr: Daniel Avalos MD Ordering Physician: Daniel Avalos MD Results: 1Negative Date of Service: 10/03/24 Follow Up: 1 Year From Orig ina Mammogram Procedure(s): MM tomosynthesis screening BI Accession Number(s): [id number] cc: Daniel Avalos MD EXAMINATION: MM SCREENING [...] signed by Nelly Mejia DO in OV> 10/08/24 2146 DD/ 1045 TD/TT: 10/03/24 1105 Coremaker Bench: Procedure Note Donotuseinterpreter, Image - 10/08/2024 [facility] [address] [place] [address] Mammography Report Signed Patient: Virginie Broussard#: [id number] 65 : 9Acct:[id number] Age/Sex: 64 / FADM Date: 10/03/24 Loc: HO.MAMMO Attending Dr: Daniel Avalos MD Ordering Physician: Daniel Avalos MDResults: 1Negative Date of Service: 10/03/24Follow Up: 1 Year From Orig ina Mammogram Procedure(s): MM tomosynthesis screening BI Accession Number(s): [id number] cc: Daniel Avalos MD EXAMINATION: MM SCREENING [...] signed by Nelly Mejia DO in OV> 10/08/24 2146 DD/ 1045 TD/TT: 10/03/24 1105 Coremaker Bench: us Daniel Name IMG BI PROCEDURES Final Result * (ABNORMAL) Lipid Panel, Standard (07/20/2024 9:40 AM EST) Triglycerides 123 <150 mg/dL [facility] Comment:Desirable Triglyceri de: less than 150 mg/dLBorderline High Triglyceride 150-199 mg/dLHigh Triglyceride: 200-499 mg/dLVery High Triglyceride: greater than or equal to 5OO mg/dL Cholesterol 196 <200 mg/dL [facility] Comment:Desirable Cholestero l: less than 200 mg/dLBorderline High Cholesterol: 200-239 mg/dLHigh Cholesterol: greater than 239 mg/dL LDL Cholesterol Calculated 114(H) <100 mg/dL [facility] Comment:Desirable LDL: less than 100 mg/dLNear Optimal/Above Optimal LDL: 110- 129 mg/dLBorderline High LDL: 130-159 mg/dLHigh LDL: 160-189 mg/dLVery High LDL: greater than or equal to 190 mg/dL HDL Cholesterol 58 >40 mg/dL [facility] Comment:Desirable HDL: great er than 40 mg/dL Note: This HDL assay may give artificially low results in patients with liver disease. Blood Venous blood specimen / Unknown 07/20/2024 9:40 AM EST 07/20/2024 11:43 AM EST us Daniel Avalos MD LAB BLOOD ORDERABLES Final Resul t [facility] [address] [place] [phone] * (ABNORMAL) ThinPrep Imaging Pap and HPV mRNA E6/E7 (03/23/2024 10:27 AM EDT) HPV nRNA E6/E7 Detected (A) Not Detected [facility] Comment:Methodology: Transcr iption-Mediated AmplificationThis assay detects E6/E7 viral messenger RNA (mRNA) from 14high-risk HPV types (16,18,31,33,35,39,45,51,52,56,58,59,66,68).Cervical sources are required for HPV testing.If a vaginal source from a patient who has had atotal hysterectomy with removal of cervix wassubmitted, please contact the testing laboratoryfor alternative testing options.For additional information, please refer tohttp://education.[employer]/faq/LRE945l6(This link if provided for information/educational purposes only.)THIS TEST WAS PERFORMED AT:[facility] [address] [id number] DIAZ MD SOURCE: SEE NOTE [facility] Comment:Cervix Report Status: [facility] Clinical Information: SEE NOTE [facility] Comment:None given LMP: SEE NOTE [facility] Comment:NONE GIVEN Prev. PAP: SEE NOTE [facility] Comment:NONE GIVEN Prev. BX: SEE NOTE [facility] Comment:NONE GIVEN Statement Of Adequacy: SEE NOTE [facility] Comment:Satisfactory for kulwinder luation.Endocervical/transformation zone componentpresent. General Categorization: [facility] Interpretation/Result: SEE NOTE [facility] Comment:Cytology Results: Ne gative for intraepitheliallesion or malignancy. Cytology Comment SEE NOTE [facility] Comment:This Pap test has be en evaluated with computerassisted technology. Independent Living Specialist: SEE NOTE [facility] Comment:ALS, CT(ASCP)CT scre ening location: [address] [address] Review Independent Living Specialist: SEE NOTE [facility] Comment:NEGRO, CT(ASCP)CT scre ening location: [address] [address] Pathologist TNP [facility] PAP Infection SEE NOTE [facility] Comment:Shift in vaginal jeff ra suggestive of bacterialvaginosis. See Note SEE NOTE [facility] Comment:EXPLANATORY NOTE:The Pap is a [...] AM EDT 03/23/2024 6:04 PM EDT Narrative [facility] - 03/29/2024 10:28 AM EDT SEE SCANNED RESULTS IN EMRCERVIX Esther SANTORO LAB PATHOLOGY ORDERABLES Final Result [facility] [address] [place] [phone] * Hm Colonoscopy (01/30/2022 12:52 PM EDT) Colonoscopy Normal Normal Narrative Karolina Buchanan - 01/30/2022 12:52 PM EDT Recommended 5 year follow up ([place]) Historical Provider MD HEALTH MAINTENANCE Final Result * HEPATITIS C [...] a test for HCV RNA (test code 50661) is suggested. For additional information please refer to http://education.[employer]/faq/PCE69l3 (This link is being provided for informational/ educational purposes only.) 06/18/2021 9:03 AM EST us Crystal Atkinson NP HISTORICAL/NON ORDERABLE LABS F inal Result [facility] [address] from Last 3 Months or Most Recently Relevant to Health Maintenance Insurance [facility] (O D-SNP) DENTAL [facility] [place] [address] [place] [address] Care Teams Bottoming Room Inspector Relationship Specialty Start Date End Date Name, MD Daniel [address] [place] [address] PCP - General Internal Medicine 08/18/22
[2025-03-23 15:10] LABS: Alanine Aminotransferase 19 U/L (0-31); Albumin Level 4.9 g/dL (3.5-5.0); Alkaline Phosphatase 115 U/L (39-117); Anion Gap 13 (12-20); Aspartate Amino Transferase 31 U/L (5-31); Blood Urea Nitrogen 13 mg/dL (9-16); Calcium 9.3 mg/dL (8.4-10.2); Carbon Dioxide 25 mmol/L (22-29); Chloride 106 mmol/L (96-108); Cholesterol 159 mg/dL (<200); Estimated Glomerular Filt Rate > 60; HDL Cholesterol 57 mg/dL (>40); Potassium 3.4 mmol/L (3.3-5.1); Sodium 141 mmol/L (135-145); Total Protein 7.8 g/dL (6.5-8.0); Triglycerides 81 mg/dL (<150)
[2025-03-23 15:44] LABS: Microalbum/Creatinine Ratio Ur 60.9 ug/mg cr (<30)
== END 2025-03-23 09:29 | disposition home or self-care (01) ==
LOC: HO.CHCLDS 09:28
PROVIDERS: PCP Internal Medicine Geriatric Medicine; Visit Provider Internal Medicine Geriatric Medicine
DX: E11.69 Type 2 diabetes mellitus with other specified complication (principal)
CPT/HCPCS: 36415; 80053; 80061; 82043; 82570

== ENCOUNTER 2025-03-28 07:45 | Outpatient (REF) | payer OTHER, SELFPAY ==
--- OUTSIDE RECORDS SUMMARY | 2025-04-02 15:14 | XMS_ITS | Encounter Summary ---
Author Organization [employer] Address [address] [facility] 7t [place] [address] Care Team Providers Care Lead Assembler Name Role Phone Name, Daniel PINA Primary Care Provider [phone] Reason for Visit * Reason Onset Date Comments Pre-op Exam 10/14/2022 Encounter Details Date Type Department Care Team (Late st Contact Info) Description 10/14/2022 Telephone [facility] [address] [place] [address] [phone] Name, MD Daniel [address] [place] [address] Pre-op Exam Social History Tobacco Use Types [...] PM EDT Returned call to Trina at [facility] Ortho. Pt is getting a R knee arthroscopy date tbd with Dr Gusman. Pt will needs labs and EKG and will be under general anesthesia. Notes determining what is needed prior to surgery will be faxed to [facility]. Pt scheduled with PCP on 11/04/22. Ortho will notify pt. * Telephone Encounter - Zehra Be - 10/14/2022 9:38 AM EDT Jonathan Mena at [facility] Orthopedics Pre Op Location: [facility] [address] [place] [address] Procedure: right knee arthroscopy Date of Procedure: not yet but usually in a month after they get the pre-op date Lab: required yes (faxing them over) EKG: required yes (faxing it over) Type of Anesthesia : General documented in this encounter Plan of Treatment Upcoming Encounters Date Type Department Care Team (Late st Contact Info) Description 05/09/2025 2:45 PM EST Office Visit [facility] [address] [place] [address] Name, MD Daniel [address] [place] [address] 07/05/2025 2:00 PM EST Office Visit [facility] [address] [place] [address] David, Jannet, OD [address] [place] [address] documented as of this encounter Visit Diagnoses Not on filedocumented in this encounter Care Teams Lead Assembler Relationship Specialty Start Date End Date Name, MD Daniel [address] [place] [phone] PCP - General Internal Medicine 08/18/22 documented as of this encounter
--- OUTSIDE RECORDS SUMMARY | 2025-04-02 15:14 | XMS_ITS | Encounter Summary ---
Author Organization [employer] Address [address] [facility] 7t [place] [address] Care Team Providers Care Relations Specialist Name Role Phone Name, Daniel PINA Primary Care Provider [phone] Encounter Details Date Type Department Care Team ([facility] Contact Info) Description 11/11/2022 Abstract [facility] [address] [place] [address] [phone] NameDaniel MD [address] [place] [address] [phone] Social History Tobacco Use Types Packs/Day Years [...] Upcoming Encounters Date Type Department Care Team ([facility] Contact Info) Description 05/09/2025 2:45 PM EST Office Visit [facility] [address] [place] [address] [phone] NameDaniel MD [address] [place] [address], [place] [address] 07/05/2025 2:00 PM EST Office Visit [facility] [address] [place], [place] [phone] Jannet Hernandez, OD [address] [place], [place] [phone] documented as of this encounter Procedures Procedure [...] documented as of this encounter Care Teams Relations Specialist Relationship Specialty Start Date End Date Name, MD Daniel [address] [place], [place] [phone] PCP - General Internal Medicine 08/18/22 documented as of this encounter
--- OUTSIDE RECORDS SUMMARY | 2025-04-02 15:15 | XMS_ITS | Encounter Summary ---
Author Organization [employer] Address [address] [facility] 7t [place] [address] Care Team Providers Care Parent Aide Name Role Phone Name, Daniel PINA Primary Care Provider [phone] Reason for Visit * Reason Comments Med Refill Encounter Details Date Type Department Care Team ([facility] Contact Info) Description 11/27/2022 Refill [facility] [address] [place] [address] [phone] NameDaniel MD [address] [place] [address] [phone] Social History Tobacco Use Types Packs/Day Years [...] Department Care Team (Late Contact Info) Description 05/09/2025 2:45 PM EST Office Visit [facility] [address] [place] [address] [phone] Daniel Avalos, MD [address] [place] [address] 07/05/2025 2:00 PM EST Office Visit [facility] OPT[facility] [address] [place], [place] [phone] DavidJuan Miguel kamaran, OD [address] [place], [place] [phone] documented as of this encounter Visit Diagnoses Not on filedocumented in this encounter Additional Health Concerns Assessment Noted Time PHQ-9 Depression Total Score: 0 11/05/19 8:49 AM EDT documented as of this encounter Care Teams Parent Aide Relationship Specialty Start Date End Date Name, MD Daniel [address] [place] [address] PCP - General Internal Medicine 08/18/22 documented as of this encounter
--- OUTSIDE RECORDS SUMMARY | 2025-04-02 15:15 | XMS_ITS | Encounter Summary ---
Author Organization [employer] Address [address] [facility] 7t [place] [address] Care Team Providers Care Butcher Fish Name Role Phone Name, Daniel PINA Primary Care Provider [phone] Reason for Visit * Reason Onset Date Comments Med Refill 04/15/2023 Encounter Details Date Type Department Care Team (Late st Contact Info) Description 04/15/2023 Telephone [facility] [address] [place], [place] [phone] Name, MD Daniel [address] [place] [address] Med Refill Social History Tobacco Use Types [...] MG capsule Diclofenac Sodium 1 % gel [facility] Rx #[id number] documented in this encounter Plan of Treatment Upcoming Encounters Date Type Department Care Team (Late st Contact Info) Description 05/09/2025 2:45 PM EST Office Visit [facility] [address] [place] [address] Name, MD Danile [address] [place] [address] 07/05/2025 2:00 PM EST Office Visit [facility] [address] [place] [place], [place] [address] Jannet Hernandez OD [address] [place] [address] documented as of this encounter Visit Diagnoses Not on filedocumented in this encounter Additional Health Concerns Assessment Noted Time PHQ-9 Depression Total Score: 0 11/05/19 23 8:49 AM EDT documented as of this encounter Care Teams Butcher Fish Relationship Specialty Start Date End Date Name, MD Daniel [address] [place] [address] PCP - General Internal Medicine 08/18/22 documented as of this encounter
--- OUTSIDE RECORDS SUMMARY | 2025-04-02 15:15 | XMS_ITS | Encounter Summary ---
Author Organization [employer] Address [address] [facility] 7t [place] [address] Care Team Providers Care Guzzler Builder Name Role Phone Name, Daniel PINA Primary Care Provider [phone] Reason for Visit * Reason Comments Med Refill Encounter Details Date Type Department Care Team ([facility] st Contact Info) Description 05/22/2024 Refill [facility] [address] [place], [place] [phone] Name, MD Daniel [address] [place] [address] Gastroesophageal reflux disease without esophagitis Social History [...] t he electric, gas, oil or water [employer] threatened to shut off services in your [...] Description 05/09/2025 2:45 PM EST Office Visit [facility] [address] [place] [address] Name, MD Daniel [address] [place] [address] 07/05/2025 2:00 PM EST Office Visit [facility] [address] [place] [address] David, Jannet, OD [address] [place] [address] documented as of this encounter Visit Diagnoses Diagnosis Gastroesophageal reflux disease without esophagitis Esophageal reflux documented in this encounter Additional Health Concerns Assessment Noted Time PHQ-9 Depression Total Score: 0 11/05/19 23 8:49 AM EDT documented as of this encounter Care Teams Guzzler Builder Relationship Specialty Start Date End Date Name, MD Daniel [address] [place] [address] PCP - General Internal Medicine 08/18/22 documented as of this encounter
--- OUTSIDE RECORDS SUMMARY | 2025-04-02 15:15 | XMS_ITS | Encounter Summary ---
Author Organization [employer] Address [address] [facility] 7t [place] [address] Care Team Providers Care Compressor Stations Superintendent Name Role Phone Name, Daniel PINA Primary Care Provider [phone] Reason for Visit * Reason Comments Med Refill Encounter Details Date Type Department Care Team ([facility] st Contact Info) Description 03/27/2025 Refill [facility] MEDICINE [address] [place], [place] [phone] Name, MD Daniel [address] [place] [address] Social History Tobacco Use Types Packs/Day Years [...] Description 05/09/2025 2:45 PM EST Office Visit [facility] MEDICINE [address] [place] [address] Name, MD Daniel [address] [place] [address] 07/05/2025 2:00 PM EST Office Visit [facility] OPTOMETRY [address] [place] [address] David, Jannet, OD [address] [place] [address] documented as of this encounter Visit Diagnoses Not on filedocumented in this encounter Additional Health Concerns Assessment Noted Time PHQ-9 Depression Total Score: 0 07/04/19 25 1:51 PM EST documented as of this encounter Care Teams Compressor Stations Superintendent Relationship Specialty Start Date End Date Name, MD Daniel [address] [place] [address] PCP - General Internal Medicine 08/18/22 documented as of this encounter
--- OUTSIDE RECORDS SUMMARY | 2025-04-02 15:15 | XMS_ITS | Encounter Summary ---
Author Organization [employer] Address [address] [place] [address] 7t [place] [address] Care Team Providers Care Flight Operations Manager Name Role Phone Name, Daniel PINA Primary Care Provider [phone] Reason for Visit * Reason Comments Med Refill Encounter Details Date Type Department Care Team ([facility] Contact Info) Description 01/22/[address] [facility] MEDICINE [address] [place], [place] [phone] Mookie Powers AGNP Gastroesophageal reflux disease without [...] [facility] [address] [place], [place] [phone] Name, MD Daniel [address] [place] [address] 07/05/2025 2:00 PM EST Office Visit [facility] OPTOMETRY [address] [place] [address] [phone] Jannet Hernandez, OD [address] [place] [address] documented as of this encounter Visit Diagnoses Diagnosis Gastroesophageal reflux disease without esophagitis Esophageal reflux documented in this encounter Additional Health Concerns Assessment Noted Time PHQ-9 Depression Total Score: 0 11/05/19 8:49 AM EDT documented as of this encounter Care Teams Flight Operations Manager Relationship Specialty Start Date End Date Name, MD Daniel [address] [place] [address] PCP - General Internal Medicine 08/18/22 documented as of this encounter
--- OUTSIDE RECORDS SUMMARY | 2025-04-02 15:15 | XMS_ITS | Encounter Summary ---
Author Organization [employer] Address [address] [place] [address] 7t [place] [address] Care Team Providers Care Stone Hand Name Role Phone Name, Daniel PINA Primary Care Provider [phone] Reason for Visit * Reason Comments Med Refill Encounter Details Date Type Department Care Team (Late st Contact Info) Description 01/22/2023 Refill [facility] MEDICINE [address] [place] [address] [phone] Name, MD Daniel [address] [place] [address] [phone] Type 2 diabetes mellitus with other specified complication, unspecified whether usp insulin use ([facility]) Social History Tobacco Use Types [...] Description 05/09/2025 2:45 PM EST Office Visit [facility] MEDICINE [address] [place] [address] Name, MD Daniel [address] [place] [address] [phone] 07/05/2025 2:00 PM EST Office Visit [facility] OPTOMETRY [address] [place], [place] [phone] Jannet Hernandez OD [address] [place] [address] documented as of this encounter Visit Diagnoses Diagnosis Type 2 diabetes mellitus with other specified complication, unspecified whether usp insulin use (HCC) documented in this encounter Additional Health Concerns Assessment Noted Time PHQ-9 Depression Total Score: 0 11/05/19 8:49 AM EDT documented as of this encounter Care Teams Stone Hand Relationship Specialty Start Date End Date Name, MD Daniel [address] [place] [address] PCP - General Internal Medicine 08/18/22 documented as of this encounter
--- OUTSIDE RECORDS SUMMARY | 2025-04-02 15:15 | XMS_ITS | Encounter Summary ---
Author Organization [employer] Address [address] [place] [address] 7t [place] [address] Care Team Providers Care Duplicate Maker Name Role Phone SuSamaria guy TERRELL Primary Care Provider [phone] Mookie Powers Primary Care Provider Unavail able Daniel Avalos MD Primary Care Provider [phone] Encounter Details Date Type Department Care Team (Late st Contact Info) Description 05/04/2022 Abstract [facility] MEDICINE [address] [place], [place] [phone] Provider, MD Parth Social History Tobacco Use [...] Description 05/09/2025 2:45 PM EST Office Visit [facility] MEDICINE [address] [place] [address] Daniel Avalos MD [address] [place], [place] [phone] 07/05/2025 2:00 PM EST Office Visit [facility] OPTOMETRY [address] [place], [place] [phone] Jannet Hernandez, OD [address] [place] [address] documented as of this encounter Visit Diagnoses Not on filedocumented in this encounter Care Teams Duplicate Maker Relationship Specialty Start Date End Date Samaria Butler FNP [address] [place] [address] PCP - General Family Medicine 01/22/22 08/05/22 Mookie Powers AGNP [address] [place] [address] PCP - General Family Medicine 08/06/22 08/17/22 Name, MD Daniel [address] [place] [address] PCP - General Internal Medicine 08/18/22 documented as of this encounter
--- OUTSIDE RECORDS SUMMARY | 2025-04-02 15:15 | XMS_ITS | Encounter Summary ---
Author Organization [employer] Address [address] 7[address] [place] [address] Care Team Providers Care Shot Core Drill Operator Name Role Phone Name, Daniel PINA Primary Care Provider [phone] Reason for Visit * Reason Comments Med Refill Encounter Details Date Type Department Care Team ([facility] st Contact Info) Description 03/18/2023 Refill [facility] MEDICINE [address] [place] [address] Samaria Butler FNP [address] [place] [address] Social History Tobacco Use Types Packs/Day Years [...] Description 05/09/2025 2:45 PM EST Office Visit [facility] MEDICINE [address] [place] [address] Name, MD Daniel [address] [place] [address] 07/05/2025 2:00 PM EST Office Visit [facility] OPTOMETRY [address] [place], [place] [phone] David, Jannet, OD [address] [place] [address] documented as of this encounter Visit Diagnoses Not on filedocumented in this encounter Additional Health Concerns Assessment Noted Time PHQ-9 Depression Total Score: 0 11/05/19 23 8:49 AM EDT documented as of this encounter Care Teams Shot Core Drill Operator Relationship Specialty Start Date End Date Name, MD Daniel [address] [place] [address] PCP - General Internal Medicine 08/18/22 documented as of this encounter
--- OUTSIDE RECORDS SUMMARY | 2025-04-02 15:15 | XMS_ITS | Patient Health Record ---
Author Organization [facility] Address [address] [place] [phone] Care Team Providers Care Chemistry Manager Name Role Phone Carmelita Merlos Jessica Primary Care Provider Richardson Franz Unavailable [phone] Allergies No Known Allergies Reason For Referral [...] Twice a day Active Vitamin D (Ergocalciferol) 60574 UNIT 1 capsule Orally Once a week [...] Problem Status W/U Status Risk Notes Problem Gastro-esophageal reflux disease without esophagitis (766086720) Gastro-esophageal reflux disease without esophagitis (K21.9) Active confirmed Problem Screening for malignant neoplasm of colon (864186063) Encounter for screening for malignant neoplasm of colon (Z12.11) Active confirmed Problem History of adenomatous polyp of colon (248880327) History of adenomatous polyp of colon (Z86.010) Active confirmed Problem Screening for malignant neoplasm of rectum (736389612) Encounter for screening for malignant neoplasm of rectum (Z12.12) Active confirmed Problem Preprocedural examination (840671107895967) Preprocedural examination (Z01.818) Active confirmed Problem Long-term current use of antiplatelet drug (098828739756929) Long-term use of aspirin therapy (Z79.82) Active confirmed Problem Diverticular disease of colon (204146324) Colon, diverticulosis (K57.30) Active confirmed Plan Of Treatment Pending Test Test Name Order Date Pathology 01/30/2022 Future Test Test Name Order Date COLONOSCOPY 03/04/2016 COLONOSCOPY 12/17/2021 Insurance Providers Payer Name Payer Address Payer Phone Subscriber Number Group Number Insured Name Patient Relationship to Insured Coverage Start Date Coverage End Date [facility] [address] [place] [phone] [id number] LINDA ALBARADO Self - patient is the [...]
--- OUTSIDE RECORDS SUMMARY | 2025-04-02 15:15 | XMS_ITS | Encounter Summary ---
Author Organization [employer] Address [address] [facility] [address]t [place] [address] Care Team Providers Care Stripper Shovel Operator Name Role Phone Name, Daniel PINA Primary Care Provider [phone] Reason for Visit * Reason Onset Date Comments triage 08/18/2022 Encounter Details Date Type Department Care Team ([facility] st Contact Info) Description 08/18/2022 Telephone [facility] MEDICINE [address] [place], [place] [phone] Mookie Powers AGNP triage Social History Tobacco [...] 08/18/2022 1:29 PM EDT Triage call with [employer] Paper Machine Tender ID [id number] Pt reports at 1030pm was laying down [...] pain. Advised Pt to come to the [facility] today and Ptagreed with disposition and [...] Description 05/09/2025 2:45 PM EST Office Visit [facility] MEDICINE [address] [place] [address] Name, MD Daniel [address] [place] [address] 07/05/2025 2:00 PM EST Office Visit [facility] OPTOMETRY [address] [place] [address] Jannet Hernandez OD [address] [place] [address] documented as of this encounter Visit Diagnoses Not on filedocumented in this encounter Care Teams Stripper Shovel Operator Relationship Specialty Start Date End Date Name, MD Daniel [address] [place] [address] PCP - General Internal Medicine 08/18/22 documented as of this encounter
--- OUTSIDE RECORDS SUMMARY | 2025-04-02 15:15 | XMS_ITS | Clinical Summary ---
Author Organization [employer] Address [address] [facility] 7t [place] [address] Care Team Providers Care Folding Machine Operator Name Role Phone Name, Daniel PINA Primary Care Provider [phone] Allergies No known active allergies Medications nitroglycerin [...] kit 023 Active Lancets (OneTouch Delica Plus [id number]) mis TEST BLOOD SUGAR ONCE A DAY 100 [...] complication, unspecified whether watermelon inspector insulin use (HCC) TAKE 1 TO 2 CAPSULES BY MOUTH THREE TIMES DAILY 180 capsule 2 024 Active ergocalciferol (Vitamin D2) 1.25 MG (89400 UT) capsule TAKE 1 CAPSULE BY MOUTH 1 TIME A WEEK DIRECTED 4 capsule Active pantoprazole (ProtoNix) 40 MG EC tabletIndicati ons:Gastroesop hageal reflux disease without esophagitis TAKE 1 TABLET BY MOUTH EVERY MORNING 1 HOUR BEFORE MEALS 90 tablet 3 Active amLODIPine (Norvasc) 10 MG tablet TAKE 1 TABLET BY MOUTH EVERY DAY 90 tablet 1 025 Active isosorbide mononitrate ER (Imdur) 30 MG 24 hr tablet TAKE 1 TABLET BY MOUTH EVERY MORNING 90 tablet 2 025 Active metFORMIN XR (Glucophage-XR ) 500 MG 24 hr tablet TAKE 2 TABLETS BY MOUTH TWICE DAILY WITH BREAKFAST AND EVENING MEAL 360 tablet Active metoprolol tartrate (Lopressor) 50 MG tablet TAKE 1 AND 1/2 TABLETS BY MOUTH TWICE DAILY 270 tablet 2 Active rosuvastatin (Crestor) 20 MG tablet TAKE 1 TABLET(20 MG) BY MOUTH IN THE MORNING 90 tablet 2 Active lisinopril 40 MG tablet Take 1 tablet (40 mg) by mouth Once per day. 90 tablet 2 025 Active empagliflozin (Jardiance) 10 MG Take 1 tablet (10 mg) by mouth Once per day. 30 tablet 11 025 2025 Active metoprolol tartrate (Lopressor) 50 MG tablet [...] Encounters Date Type Department Care Team Description 03/27/2025 2:15 PM EDT Procedure Visit [address] [address] Esther Lentz CNM Cervical cancer screening (Primary Dx) 03/27/2025 Travel 03/27/[address] [address] Daniel Avalos MD 03/26/2025 Results Follow-Up [address] [address] Daniel Avalos MD POCT Glucose, POCT Hgb A1c, Comprehensive Metabolic Panel, Additional followed-up results: 2 03/19/2025 2:45 PM EDT Office Visit [address] [address] Daniel Avalos MD Type 2 diabetes mellitus with other specified complication, without long-term current use of insulin (HCC) (Primary Dx); Primary osteoarthritis of both knees; History of basal cell carcinoma excision; Encounter for immunization 03/19/2025 Travel 03/16/[address] [address] Daniel Avalos MD CHART PREP 03/12/2025 Patient Outreach [facility] [address] [place] [address] Daniel Avalos MD Pre-visit Planning (SDOH was already completed) 03/09/2025 Telephone [facility] [address] [place] [phone] Daniel Avalos MD Preop 02/26/2025 Travel 02/14/2025 Refill [facility] [address] [place] [address] Daniel Avalos MD 02/05/2025 Refill [facility] [address] [place] [phone] Daniel Avalos MD 01/26/2025 Refill [facility] [address] [place] [phone] Daniel Avalos MD 01/10/2025 Telephone [facility] [address] [place] [phone] Kati Brewer [place] Appointment Request; february01/10/2025 Telephone [facility] [address] [place] [address] Marva Flores MA from Last 3 Months Immunizations Immunization Administration [...] Sign Reading Time Taken Comments Blood Pressure 140/78 03/27/2025 2:30 PM EDT Pulse 60 03/27/2025 2:30 PM EDT Temperature 36.9 C (98.4 F) 03/27/2025 2:30 PM EDT Respiratory Rate 14 03/27/2025 2:30 PM EDT Oxygen Saturation 95% 03/27/2025 2:30 PM EDT Inhaled Oxygen Concentration - - Weight 72.9 kg (160 lb 12.8 oz) 03/27/2025 2:30 PM EDT Height 160 cm (5' 3 ) 03/19/2025 2:43 PM EDT Body Mass Index 28.48 03/19/2025 2:43 PM EDT Plan of Treatment Upcoming Encounters Date Type Department Care Team (Late st Contact Info) Description 05/09/2025 2:45 PM EST Office Visit [facility] [address] [place] [address] Name, MD Daniel [address] [place] [address] 07/05/2025 2:00 PM EST Office Visit [facility] [address] [place] [address] David, Jannet, OD [address] [place] [address] Health Maintenance Due Date Last Done Comments CT Colonography 1959 FIT DNA/Cologuard 1959 FIT 1959 FOBT 1960 Sigmoidoscopy 1960 Derm Melanoma Skin Check 1959 RSV Patients and Patients Aged 60 years or older (1 - Risk 60-74 years 1-dose series) 2019 Dental Oral Exam 01/24/2025 07/26/2024 Dental Prophylaxis 01/24/2025 07/26/2024 COVID-19 Vaccine ( season) 2025 05/07/2021, 10/17/2020, 09/19/2020 Pap Smear 03/23/2025 03/23/2024, 07/03/2020 Diabetes: Hemoglobin A1C 06/19/2025 025, 07/04/2024, 02/14/2024, Additional history exists Alcohol/Substance Use Screening 07/04/2025 07/04/2024 Depression Screening 07/04/2025 07/04/2024, 07/04/19 Diabetes: Foot Exam 07/04/2025 07/04/2024, 07/04/2024, 07/04/2024, Additional history exists SDOH Screening 07/04/2025 07/04/2024 Dental X-Ray: Bitewings 07/27/2025 07/26/2024 Mammogram 10/03/2025 10/03/2024, 04/0 05/2023, 08/26/2022, Additional history exists Lipid Panel 03/23/2026 03/23/2025, 07/02, 09/22/2023, Additional history exists HPV/Cotest 03/27/2026 03/27/2025, 03/01, 07/03/2020 Tobacco Screening 03/27/2026 03/27/2025 Eye Exam 05/11/2026 05/11/2024, 04/30, 05/11/2024, Additional [...] Procedure Name Priority Date/Time Associated Diagnosis Comments HPV DNA, LOW/HIGH RISK Routine 4:00 PM EDT ALBUMIN, RANDOM URINE W/CREATININE Routine 03/23/2025 9:40 AM EDT Type 2 diabetes mellitus with other specified complication, without long-term current use of insulin (HCC) LIPID PANEL, STANDARD Routine 03/23/2025 9:36 AM EDT Type 2 diabetes mellitus with other specified complication, without long-term current use of insulin (HCC) COMPREHENSIVE METABOLIC PANEL Routine 03/23/2025 9:36 AM EDT Type 2 diabetes mellitus with other specified complication, without long-term current use of insulin (HCC) POCT GLYCATED HEMOGLOBIN, TOTAL Routine 03/19/2025 2:49 [...] ESTABLISHED PATIENT Routine 07/26/2024 10:00 AM EST THINPREP IMAGING PAP AND HPV MRNA E6/E7 Routine 03/23/2024 10:27 AM EDT HM COLONOSCOPY Routine 01/30/2022 12:52 PM EDT ZZZ HISTORICAL HEPATITIS C AB W/REFL TO HCV RNA, QN, PCR Routine 06/18/2021 9:03 AM EST from Last 3 Months or Most Recently Relevant to Health Maintenance Results * HPV DNA, Low/High Risk (03/27/2025 4:00 PM EDT) HPV High Risk Negative Negative [facility] HPV Genotype 16 Negative Negative [facility] HPV Genotype 18 Negative Negative [facility] Comment:HPV testing performe d at [facility] (CLIA#[id number]), [address] [place] [address].Testing for HPV was performed using the [place] ASHA 6800system. The presence of HPV in the female genital tract isassociated with a number of diseases, including cervicalcarcinoma. The HPV DNA high risk pool tests for HPV 31, 33,35, 39, 45, 51, 52, 56, 58, 59, 66 and 68. The testing forHPV 16 and 18 genotypes has also been performed. A positiveresult indicates detection of nucleic acid sequences fromone or more subtypes, whereas a negative result indicatessuch sequences were not detected. 03/27/2025 4:00 PM EDT 03/28/2025 8:26 AM EDT us Esther Lentz CNM LAB BLOOD ORDERABLES Oly crandall Result [facility] [address] [place] [phone] * (ABNORMAL) Albumin, Random Urine W/Creatinine (03/23/2025 9:40 AM EDT) Creatinine, Urine 78.73 mg/dL [facility] Microalbumin Urine 48.0 mg/L H [facility] Microalbum Creatinine Ratio Ur 60.9(H) <30 ug/mg cr [facility] Comment:Albumin/Creatinine R at Reference Ranges: Normal: < 30 ug/mg creatinine Microalbuminuria: 30 - 300 ug/mg creatinineClinical Albuminuria: > 300 ug/mg creatinine Urine (Urine, Random) 03/23/2025 9:40 AM EDT 03/23/2025 2:20 PM EDT us Daniel Name MD LAB URINE ORDERABLES Final Resul t [facility] [address] [place] [phone] * Lipid Panel, Standard (03/23/2025 9:36 AM EDT) Triglycerides 81 <150 mg/dL [facility] Comment:Desirable Triglyceri de: less than 150 mg/dLBorderline High Triglyceride 150-199 mg/dLHigh Triglyceride: 200-499 mg/dLVery High Triglyceride: greater than or equal to 5OO mg/dL Cholesterol 159 <200 mg/dL [facility] Comment:Desirable Cholestero l: less than 200 mg/dLBorderline High Cholesterol: 200-239 mg/dLHigh Cholesterol: greater than 239 mg/dL LDL Cholesterol Calculated 86 <100 mg/dL [facility] Comment:Desirable LDL: less than 100 mg/dLNear Optimal/Above Optimal LDL: 110- 129 mg/dLBorderline High LDL: 130-159 mg/dLHigh LDL: 160-189 mg/dLVery High LDL: greater than or equal to 190 mg/dL HDL Cholesterol 57 >40 mg/dL [facility] Comment:Desirable HDL: great er than 40 mg/dL Note: This HDL assay may give artificially low results in patients with liver disease. Blood Venous blood specimen / Unknown 03/23/2025 9:36 AM EDT 03/23/2025 2:31 PM EDT us Daniel Avalos MD LAB BLOOD ORDERABLES Final Resul t Performing Organization Address City/[facility]/ZIP Co de Phone Number [facility] [address] [place] [address] [phone] * (ABNORMAL) Comprehensive Metabolic Panel (03/23/2025 9:36 AM EDT) Sodium 141 135 - 145 mmol/L [facility] Potassium 3.4 3.3 - 5.1 mmol/L [facility] Chloride 106 96 - 108 mmol/L [facility] Carbon Dioxide 25 22 - 29 mmol/L [facility] Anion Gap 13 12 - 20 [facility] Urea Nitrogen (BUN) 13 9 - 16 mg/dL [facility] Creatinine, Serum 0.58 0.5 - 1.4 mg/dL [facility] Estimated Glomerular Filt Rate >60 [facility] Comment:Chronic Kidney Disea se: Estimated GFR < 60 mL/min/1.73v9Adwqfd Kidney Disease: Estimated GFR < 15 mL/min/1.73m2 Glucose 174(H) 60 - 115 mg/dL [facility] Calcium 9.3 8.4 - 10.2 mg/dL [facility] Bilirubin, Total 0.7 0.0 - 1.0 mg/dL [facility] Aspartate Amino Transferase 31 5 - 31 U/L [facility] Alanine Aminotransferase 19 0 - 31 U/L [facility] Total Protein 7.8 6.5 - 8.0 g/dL [facility] Albumin Level 4.9 3.5 - 5.0 g/dL [facility] Alkaline Phosphatase 115 39 - 117 U/L [facility] Blood Venous blood specimen / Unknown 03/23/2025 9:36 AM EDT 03/23/2025 2:31 PM EDT us Daniel Avalos MD LAB BLOOD ORDERABLES Final Resul t Performing Organization Address City/[facility]/ZIP Co de Phone Number [facility] [address] [place] [address] [phone] * (ABNORMAL) POCT Hgb A1c (03/19/2025 2:49 PM EDT) Hemoglobin A1C 7.2(A) 4.0 - 5.7 % QC Media Lot # [id number] Lot# Expiration Date 51,227 Blood 03/19/2025 2:49 PM EDT us Daniel Avalos MD POINT OF CARE TEST ENTER/EDIT OR DERABLES Final Result * (ABNORMAL) POCT Glucose (03/19/2025 2:49 PM EDT) Glucose Blood, POC 229(A) 60 - 200 mg/dL QC Media Lot # [id number] Lot# Expiration Date 31,126 Blood Capillary blood specimen / Unknown 03/19/2025 2:49 PM EDT us Daniel Avalos MD POINT OF CARE TEST ENTER/EDIT OR DERABLES Final Result * BI Mammogram Screening Tomosynthesis Bilateral (10/03/2024 10:45 AM EDT) Anatomical Region Laterality Modality Breast Bilateral Mammography 10/03/2024 10:4 5 AM EDT Narrative 10/08/2024 9:49 PM EDT [facility] [address] [place] [address] Mammography Report Signed Patient: Susanna Broussard MR#: [id number] 65 : 1960 Acct:[id number] Age/Sex: 64 / F ADM Date: 10/03/24 Loc: HO.MAMMO Attending : Daniel Avaols MD Ordering Physician: Daniel Avalos MD Results: 1Negative Date of Service: 10/03/24 Follow Up: 1 Year From Orig inal Mammogram Procedure(s): MM tomosynthesis screening BI Accession Number(s): [id number] cc: Daniel Avalos MD EXAMINATION: MM SCREENING [...] Nelly Mejia DO 10/08/2024 09:46 PM EDT RP Dictated By: Nelly Mejia DO Signed By: <Electronically signed by Nelly Mejia DO in OV> 10/08/24 2146 DD/ 1045 TD/TT: 10/03/24 1105 Breeding Technician: Procedure Note Donotuseinterpreter, Image - 10/08/2024 [facility] [address] [place] [address] Mammography Report Signed Patient: Virginie Broussard#: [id number] 65 : 9Acct:[id number] Age/Sex: 64 / FADM Date: 10/03/24 Loc: [facility] Attending Dr: Daniel Avalos MD Ordering Physician: Daniel Avalos MDResults: 1Negative Date of Service: 10/03/24Follow Up: 1 Year From Orig inal Mammogram Procedure(s): MM tomosynthesis screening BI Accession Number(s): [id number] cc: Daniel Avalos MD EXAMINATION: MM SCREENING [...] Nelly Mejia DO 10/08/2024 09:46 PM EDT RP Dictated By: Nelly Mejia DO Signed By: <Electronically signed by Nelly Mejia DO in OV> 10/08/24 2146 DD/ 1045 TD/TT: 10/03/24 1105 Breeding Technician: Daniel Avalos MD IMG BI PROCEDURES Final Result * (ABNORMAL) ThinPrep Imaging Pap and HPV mRNA E6/E7 (03/23/2024 10:27 AM EDT) HPV nRNA E6/E7 Detected (A) Not Detected [facility] Comment:Methodology: Transcr iption-Mediated AmplificationThis assay detects E6/E7 viral messenger RNA (mRNA) from 14high-risk HPV types (16,18,31,33,35,39,45,51,52,56,58,59,66,68).Cervical sources are required for HPV testing.If a vaginal source from a patient who has had atotal hysterectomy with removal of cervix wassubmitted, please contact the testing laboratoryfor alternative testing options.For additional information, please refer tohttp://education.[employer]/faq/AXP030v4(This link if provided for information/educational purposes only.)THIS TEST WAS PERFORMED AT:[employer] [place] [phone] DIAZ MD SOURCE: SEE NOTE [facility] Comment:Cervix Report Status: TNP [facility] Clinical Information: SEE NOTE [facility] Comment:None given LMP: SEE NOTE [facility] Comment:NONE GIVEN Prev. PAP: SEE NOTE [facility] Comment:NONE GIVEN Prev. BX: SEE NOTE [facility] Comment:NONE GIVEN Statement Of Adequacy: SEE NOTE [facility] Comment:Satisfactory for kulwinder luation.Endocervical/transformation zone componentpresent. General Categorization: TNP [facility] Interpretation/Result: SEE NOTE [facility] Comment:Cytology Results: Ne gative for intraepitheliallesion or malignancy. Cytology Comment SEE NOTE [facility] Comment:This Pap test has be en evaluated with computerassisted technology. Quill Machine Operator: SEE NOTE [facility] Comment:ALS, CT(ASCP)CT scre ening location: [place] [address] Review Quill Machine Operator: SEE NOTE [facility] Comment:NEGRO, CT(ASCP)CT scre ening location: [place] [address] Pathologist TNP [facility] PAP Infection SEE NOTE [facility] Comment:Shift in vaginal jeff ra suggestive of bacterialvaginosis. See Note SEE NOTE [facility] Comment:EXPLANATORY NOTE:The Pap is a [...] AM EDT 03/23/2024 6:04 PM EDT Narrative [facility] - 03/29/2024 10:28 AM EDT SEE SCANNED RESULTS IN EMRCERVIX us Esther SANTORO LAB PATHOLOGY ORDERABLES Final Result [facility] [address] [place] [address] [phone] * Hm Colonoscopy (01/30/2022 12:52 PM EDT) Colonoscopy Normal Normal Narrative Karolina Buchanan - 01/30/2022 12:52 PM EDT Recommended 5 year follow up (Darius) Historical Provider MD HEALTH MAINTENANCE Final Result * HEPATITIS C AB W/REFL TO HCV RNA, QN, PCR (06/18/2021 9:03 AM EST) HEPATITIS C ANTIBODY NON-REACT [facility] NON-REACT [facility] INDEX 0.01 <1.00 [facility] Comment: HCV antibody was non-reactive. There is no laboratory evidence of HCV infection. In most cases, no further action is required. However, if recent HCV exposure is suspected, a test for HCV RNA (test code 59367) is suggested. For additional information please refer to http://education.Endeca/faq/ARG14e8 (This link is being provided for informational/ educational purposes only.) 06/18/2021 9:03 AM EST Crystal Atkinson NP HISTORICAL/NON ORDERABLE LABS F inal Result [facility] [address] from Last 3 Months or Most Recently Relevant to Health Maintenance Insurance [facility] OPTIONS (HMO D-SNP) D[facility]AL - [facility] Care Teams Folding Machine Operator Relationship Specialty Start Date End Date Name, MD Daniel [address] [place] [phone] PCP - General Internal Medicine 08/18/22
--- OUTSIDE RECORDS SUMMARY | 2025-04-02 15:15 | XMS_ITS | Encounter Summary ---
Author Organization [employer] Address [address] [facility] 7t [place] [address] Care Team Providers Care Repeater Operator Name Role Phone Name, Daniel PINA Primary Care Provider Reason for Visit * Reason Comments Med Refill Encounter Details Date Type Department Care Team ([facility] st Contact Info) Description 05/11/2024 Refill [facility] [address], [place] [phone] Name, MD Daniel [address] [place] [address] Social History Tobacco Use Types Packs/Day Years [...] Description 05/09/2025 2:45 PM EST Office Visit [facility] [address] [place] [address] Name, MD Daniel [address] [place] [address] 07/05/2025 2:00 PM EST Office Visit [facility] [address] [place], [place] [phone] David, Jannet, OD [address] [place] [address] documented as of this encounter Visit Diagnoses Not on filedocumented in this encounter Additional Health Concerns Assessment Noted Time PHQ-9 Depression Total Score: 0 11/05/19 23 8:49 AM EDT documented as of this encounter Care Teams Repeater Operator Relationship Specialty Start Date End Date Name, MD Daniel [address] [place], [place] [phone] PCP - General Internal Medicine 08/18/22 documented as of this encounter
--- OUTSIDE RECORDS SUMMARY | 2025-04-02 15:15 | XMS_ITS | Encounter Summary ---
Author Organization [employer] Address 75 [facility] 7t [place] [address] Care Team Providers Care Route Driver Coin Machines Name Role Phone Samaria Butler TERRELL Primary Care Provider [phone] Mookie Powers Primary Care Provider Unavail able Daniel Avalos MD Primary Care Provider [phone] Reason for Visit * Reason Comments Med Refill Encounter Details Date Type Department Care Team (Late st Contact Info) Description 05/22/2022 Refill [facility] [address] [place] [phone] Daniel Avalos MD [address] [place] [phone] Social History Tobacco Use Types Packs/Day Years [...] Description 05/09/2025 2:45 PM EST Office Visit [facility] [address] [place] [address] Daniel Avalos MD [address] [place] [phone] 07/05/2025 2:00 PM EST Office Visit [facility] [address] [place] [address] Jannet Hernandez, OD [address] [place] [address] documented as of this encounter Visit Diagnoses Not on filedocumented in this encounter Care Teams Route Driver Coin Machines Relationship Specialty Start Date End Date Samaria Butler FNP [address] [place] [phone] PCP - General Family Medicine 01/22/22 08/05/22 Mookie Powers AGNP [address] [place] [phone] PCP - General Family Medicine 08/06/22 08/17/22 Name, MD Daniel [address] [place] [phone] PCP - General Internal Medicine 08/18/22 documented as of this encounter
== END 2025-03-28 07:46 | disposition home or self-care (01) ==
LOC: HO.LNP 07:45
PROVIDERS: Visit Provider Advanced Practice Midwife
DX: Z12.4 Encounter for screening for malignant neoplasm of cervix (principal); Z11.51 Encounter for screening for human papillomavirus (HPV)
CPT/HCPCS: 87626; 88175

== ENCOUNTER → 2025-05-03 12:49 | Outpatient (BNVA) | payer OTHER, SELFPAY | PROVIDERS: PCP Internal Medicine Geriatric Medicine | DX: Z01.818 Encounter for other preprocedural examination (principal) ==

== ENCOUNTER → 2025-05-07 12:46 | Outpatient (BNV) | payer OTHER, SELFPAY | PROVIDERS: PCP Internal Medicine Geriatric Medicine; Visit Provider Internal Medicine Cardiovascular Disease | DX: R00.1 Bradycardia, unspecified (principal) | CPT/HCPCS: 93010 ==

== ENCOUNTER 2025-05-28 08:45 | Outpatient (REF) | payer OTHER, SELFPAY ==
--- NOTE | ~2025-05-28 | XR_ITS ---
EXAMINATION: XR KNEE 3 VIEWS LEFT HISTORY: M25.562 - Pain in left knee COMPARISON: Comparison is made with the prior examination dated 02/14/2024. FINDINGS: Standing AP views of both knees and additional lateral and sunrise patellar views of the left knee are submitted. Osseous mineralization is normal. There is no fracture or dislocation. There is moderate osteoarthritis of the medial and patellofemoral compartments, with joint space narrowing and osteophyte formation. The soft tissues are unremarkable. There is no joint effusion. XR/XR knee LT 3V IMPRESSION: Moderate osteoarthritis of the medial and patellofemoral compartments. Electronically signed by: Richardson Ferrell MD 05/28/2025 12:02 PM [facility]
--- OUTSIDE RECORDS SUMMARY | 2025-05-29 10:35 | XMS_ITS | Encounter Summary ---
Author Organization [employer] Address [address] [facility] [address] [place] [address] Care Team Providers Care Food Service Team Member Name Role Phone Name, Daniel PINA Primary Care Provider [phone] Reason for Visit * Reason Comments Med Refill Encounter Details Date Type Department Care Team ([facility] st Contact Info) Description 03/18/2023 Refill [facility] MEDICINE [address] [place] [address] Samaria Butler FNP [address] [place] [address] Social History Tobacco Use Types Packs/Day Years [...] Description 07/05/2025 2:00 PM EST Office Visit [facility] OPTOMETRY [address] [place] [address] David, Jannet, OD [address] [place] [address] 08/13/2025 1:30 PM EDT Office Visit [facility] MEDICINE [address] [place] [address] Name, MD Daniel [address] [place] [address] documented as of this encounter Visit Diagnoses Not on filedocumented in this encounter Additional Health Concerns Assessment Noted Time PHQ-9 Depression Total Score: 0 11/05/19 23 8:49 AM EDT documented as of this encounter Care Teams Food Service Team Member Relationship Specialty Start Date End Date NameDaniel MD [address] [place] [address] PCP - General Internal Medicine 08/18/22 documented as of this encounter
--- OUTSIDE RECORDS SUMMARY | 2025-05-29 10:35 | XMS_ITS | Encounter Summary ---
Author Organization [employer] Address [address] [facility] 7t [place] [address] Care Team Providers Care Cnc Mill Programmer Name Role Phone Name, Daniel PINA Primary Care Provider [phone] Encounter Details Date Type Department Care Team ([facility] Contact Info) Description 11/11/2022 Abstract [facility] MEDICINE [address] [place], [place] [phone] Name, MD Daniel [address] [place] [address] Social History Tobacco Use Types Packs/Day Years [...] Description 07/05/2025 2:00 PM EST Office Visit [facility] OPTOMETRY [address] [place], [place] [phone] Jannet Hernandez, OD [address] [place] [address] 08/13/2025 1:30 PM EDT Office Visit [facility] [address] [facility] [place] [phone] Name, MD Daniel [address] [facility] [place] [place] [address] documented as of this encounter Procedures Procedure [...] documented as of this encounter Care Teams Cnc Mill Programmer Relationship Specialty Start Date End Date Name, MD Daniel [facility] [place] [phone] PCP - General Internal Medicine 08/18/22 documented as of this encounter
--- OUTSIDE RECORDS SUMMARY | 2025-05-29 10:35 | XMS_ITS | Clinical Summary ---
Author Organization [employer] Address [address] [facility] [address] [place] [address] Care Team Providers Care Gang Sawyer Name Role Phone Name, Daniel PINA Primary Care Provider [phone] Allergies No known active allergies Medications nitroglycerin [...] 04/28/20 23 Active Lancets (OneTouch Delica Plus [id number]) misc TEST BLOOD SUGAR ONCE A DAY [...] mellitus with other specified complication, unspecified whether pricing clerk insulin use (HCC) TAKE 1 TO 2 CAPSULES BY MOUTH THREE TIMES DAILY 180 capsule 2 10/04/19 24 Active ergocalciferol (Vitamin D2) 1.25 MG (22681 UT) capsule TAKE 1 CAPSULE BY MOUTH [...] Description 05/09/2025 2:45 PM EST Office Visit [facility] [place] [address] Daniel Avalos MD Pre-op evaluation (Primary Dx); Type 2 diabetes mellitus with other specified complication, without long-term current use of insulin ([facility]) 05/09/2025 Travel 05/08/2025 Telephone [facility] [place] [place] [address] Daniel Avalos MD Chart Prep 04/20/2025 Telephone [facility] [place] [address] Daniel Avalos MD FYI 04/15/2025 Refill [facility] [place] [address] Daniel Avalos MD 04/04/2025 Results Follow-Up [facility] [place] [address] Patricio Robledo CNM Pap Smear 03/27/2025 2:15 PM EDT Procedure Visit [facility] [place] [address] Patricio Robledo CNM Cervical cancer screening (Primary Dx) 03/27/2025 Travel 03/27/2025 Refill [facility] [place] [address] Daniel Avalos MD 03/26/2025 Results Follow-Up [facility] [place] [address] Daniel Avalos MD POCT Glucose, POCT Hgb A1c, Comprehensive Metabolic Panel, Additional followed-up results: 2 03/19/2025 2:45 PM EDT Office Visit [facility] [place] [address] Daniel Avalos MD Type 2 diabetes mellitus with other specified complication, without long-term current use of insulin (HCC) (Primary Dx); Primary osteoarthritis of both knees; History of basal cell carcinoma excision; Encounter for immunization 03/19/2025 Travel 03/16/2025 Telephone [facility] [address] [place] [address] Daniel Avalos MD CHART PREP 03/12/2025 Patient Outreach [facility] [address] [place], [place] [phone] Daniel Avalos MD Pre-visit Planning (SDOH was already completed) 03/09/2025 Telephone [facility] [address] [place] [address] Daniel Avalos MD Preop from Last 3 Months Immunizations Immunization Administration [...] Description 07/05/2025 2:00 PM EST Office Visit [facility] OPTOMETRY [address] [place] [address] David, Jannet, OD [address] [place] [address] 08/13/2025 1:30 PM EDT Office Visit [facility] [address] [place] [address] Name, MD Daniel [address] [place], [place] [phone] Health Maintenance Due Date Last Done Comments [...] 07/04/2025 07/04/2024 Dental X-Ray: Bitewings 07/27/2025 07/26/2024 Diabetes: Hemoglobin A1C 08/26/202505/28/ 025, 05/09/2025, 03/19/2025, Additional history exists Mammogram 10/03/2025 10/03/2024, 04/0 05/2023, 08/26/2022, Additional [...] Date/Time Associated Diagnosis Comments HEMOGLOBIN A1C Routine 05/28/2025 12:43 PM EST CBC WITH AUTO DIFFERENTIAL Routine 05/28/2025 12:43 PM EST TYPE AND SCREEN Routine 05/28/2025 12:35 PM EST ECG 12-LEAD Routine 05/09/2025 4:30 PM EST Pre-op evaluation POCT GLYCATED HEMOGLOBIN, TOTAL Routine 05/09/2025 3:02 PM EST Type 2 diabetes mellitus with other specified complication, without long-term current use of insulin (HCC) POCT GLUCOSE (CPT-37750) Routine 05/09/2025 3:00 PM EST Type 2 [...] current use of insulin (HCC) POCT GLUCOSE (CPT-63547) Routine 03/19/2025 2:49 PM EDT Type 2 [...] Blood Count 9.3 4.8 - 10.8 X10*3/uL [facility] Red Blood Count 4.84 4.20 - 5.50 X10*6/uL [facility] Hemoglobin 13.0 12.0 - 16.0 g/dl [facility] Hematocrit 40.7 37.0 - 47.0 % [facility] Mean Corpuscular Volume 84.1 80.0 - 98.0 fL [facility] Mean Corpuscular Hemoglobin 26.9(L) 27.0 - 33.0 pg [facility] Mean Corpuscular HGB Conc 31.9 31.0 - 35.0 g/dl [facility] Red Cell Distribution Width 13.9 11.0 - 16.0 % [facility] Platelet Count 189 160 - 400 X10*3/uL [facility] Mean Platelet Volume 11.3 9.4 - 12.3 fL [facility] Neutrophils Percent Auto 72.9 45 - 73 % [facility] Imm Gran Pct Auto 0.4 0.0 - 0.4 % [facility] Lymphocytes Percent Auto 20.8 20 - 40 % [facility] Monocytes Percent Auto 5.4 2 - 11 % [facility] Eosinophils Percent Auto 0.1 0 - 4 % [facility] Basophils Percent Auto 0.4 0 - 2 % [facility] NRBC Pct Auto 0.0 0.0 - 0.2 /100WBC [facility] Neutrophils Absolute Auto 6.8 2.0 - 8.3 x10*3/uL [facility] Imm Gran Abs Auto 0.04(H) 0.00 - 0.03 X10*3/uL [facility] Lymphocytes Absolute Auto 1.9 1.2 - 4.9 X10*3/uL [facility] Monocytes Absolute Auto 0.5 0.1 - 1.2 X10*3/uL [facility] Eosinophils Absolute Auto 0.0 0.0 - 0.4 X10*3/uL [facility] Basophils Absolute Auto 0.0 0.0 - 0.2 X10*3/uL [facility] NRBC Abs Auto 0.000 0.0 - 0.012 X10*3/uL [facility] 05/28/2025 12:4 3 PM EST 05/28/2025 12:43 PM EST us Generic External Data Provider LAB BLOOD ORDERAB LES Final Result Performing Organization Address [facility] de Phone Number [facility] [address] [place] [phone] * (ABNORMAL) Hemoglobin A1c (05/28/2025 12:43 PM EST) Hemoglobin A1c 7.1(H) <6.0 % [facility] Comment:Hemoglobin A1C Refer ence Range Adults: 4.8 - 6.0 % Non diabetic: < 6.0 % Goal: < 7.0 %Additional Action Suggested: > 8.0 %Note: Hemoglobin A1c results are invalid for patients with abnormal amounts of HbF. Blood transfusions may impact the HbA1c concentration in the patient sample. Estimated Average Glucose 157 mg/dL [facility] Comment:eAG = Estimated ave rage glucose which is %A1C expressed asaverage glucose, using the formula of the A5H-GramzwsRotnqqg Glucose study (ADAG), Diabetes Care, Vol.31,#8,2007 05/28/2025 12:4 3 PM EST 05/28/2025 12:43 PM EST us Generic External Data Provider LAB BLOOD ORDERAB LES Final Result Performing Organization Address City/State/[facility] de Phone Number [facility] [address] [place] [phone] * Type and screen (05/28/2025 12:35 PM EST) Blood Type OP [facility] Antibody Screen NEGATIVE [facility] 05/28/2025 12:3 5 PM EST 05/28/2025 12:49 PM EST Narrative [facility] - 05/28/2025 1:29 PM EST Spec expiration changed by JARETH on 05/28/25Reason: PATWITNESSED BY DAMIANING:Call Blood Bank (ext. [phone]) to band patient on admission.Type and Screen in effect until 2300 on 06/05/25. Generic External Data Provider LAB BLOOD BANK TE ST ORDERABLES Final Result Performing Organization Address [facility] Co de Phone Number [facility] [address] [place] [phone] * ECG 12 lead (05/09/2025 4:30 PM EST) Narrative Name, MD Daniel - 05/09/2025 4:30 PM EST Slow sinus rhythm. Heart rate of 58. No ST segment elevation or depression. No changes from baseline EKG. Daniel Avalos MD ECG ORDERABLES Final Result * (ABNORMAL) POCT Hgb A1c (05/09/2025 3:02 PM EST) Only the most recent of2 resultswithin the time period is included. Hemoglobin A1C 6.8(A) 4.0 - 5.7 % QC Media Lot # [id number] Lot# Expiration Date Blood 05/09/2025 3:02 PM EST us Daniel Avalos MD POINT OF CARE TEST ENTER/EDIT OR DERABLES Final Result * (ABNORMAL) POCT Glucose (05/09/2025 3:00 PM EST) Only the most recent of2 resultswithin the time period is included. Glucose Blood, POC 230(A) 60 - 200 mg/dL QC Media Lot # [id number] Lot# Expiration Date 70,726 Blood Capillary blood specimen / Unknown 05/09/2025 3:00 PM EST us Daniel Name MD POINT OF CARE TEST ENTER/EDIT OR DERABLES Final Result * (ABNORMAL) CBC (05/07/2025 12:55 PM EST) [facility] White Blood Count 9.2 4.8 - 10.8 X10*3/uL [facility] Red Blood Count 4.92 4.20 - 5.50 X10*6/uL [facility] Hemoglobin 13.2 12.0 - 16.0 g/dl [facility] Hematocrit 42.1 37.0 - 47.0 % [facility] Mean Corpuscular Volume 85.6 80.0 - 98.0 fL [facility] Mean Corpuscular Hemoglobin 26.8(L) 27.0 - 33.0 pg [facility] Mean Corpuscular HGB Conc 31.4 31.0 - 35.0 g/dl [facility] Red Cell Distribution Width 14.0 11.0 - 16.0 % [facility] Platelet Count 203 160 - 400 X10*3/uL [facility] Mean Platelet Volume 11.1 9.4 - 12.3 fL [facility] NRBC Pct Auto 0.0 0.0 - 0.2 /100WBC [facility] NRBC Abs Auto 0.000 0.0 - 0.012 X10*3/uL [facility] 05/07/2025 12:5 5 PM EST 05/07/2025 12:55 PM EST us Generic External Data Provider LAB BLOOD ORDERAB LES Final Result [facility] [address] [place] [phone] * (ABNORMAL) Basic Metabolic Panel (05/07/2025 12:55 PM EST) Sodium 144 135 - 145 mmol/L [facility] Potassium 3.8 3.3 - 5.1 mmol/L [facility] Chloride 108 96 - 108 mmol/L [facility] Carbon Dioxide 29 22 - 29 mmol/L [facility] Anion Gap 11(L) 12 - 20 [facility] Urea Nitrogen (BUN) 17(H) 9 - 16 mg/dL [facility] Creatinine, Serum 0.67 0.5 - 1.4 mg/dL [facility] Creatinine Clr Calc Pharmacy 72.4 [facility] Comment:Provided height and weight: 152.4 cm,70.76 kg.eGFR (calculated from the MDRD study equation) and eCrCl(calculated from the Cockcroft-Gault equation) are based ondifferent parameters and may not yield comparable results.If eCrCl result is absurd, please check patient'sheight/weight. Estimated Glomerular Filt Rate >60 [facility] Comment:Chronic Kidney Disea se: Estimated GFR < 60 mL/min/1.03s0Opeixw Kidney Disease: Estimated GFR < 15 mL/min/1.73m2 Glucose 184(H) 60 - 115 mg/dL [facility] Calcium 9.6 8.4 - 10.2 mg/dL [facility] 05/07/2025 12:5 5 PM EST 05/07/2025 12:55 PM EST us Generic External Data Provider LAB BLOOD ORDERAB LES Final Result [facility] [address] [place] [phone] * MRSA Nasal Screen (05/07/2025 11:45 AM EST) MRSA Nasal PCR NEGATIVE Negative [facility] SA Nasal PCR NEGATIVE Negative [facility] MRSA Interpretation SEE NOTE [facility] Comment:MRSA target DNA not detected; SA target DNA not detected.A MRSA NEGATIVE, SA NEGATIVE test result does not precludeMRSA or SA nasal colonization. 05/07/2025 11:4 5 AM EST 05/07/2025 12:46 PM EST us Generic External Data Provider LAB MICROBIOLOGY - GENERAL ORDERABLES Final Result Performing Organization Address [facility]/ZIP Co de Phone Number [facility] [address] [place] [phone] * HPV DNA, Low/High Risk (03/27/2025 4:00 PM EDT) HPV High Risk Negative Negative [facility] HPV Genotype 16 Negative Negative [facility] HPV Genotype 18 Negative Negative [facility] Comment:HPV testing performe d at [facility] (CLIA#[id number]), [address] [place] [address].Testing for HPV was performed using the [place] [...] ORDERABLES Oly l Result Performing Organization Address [facility]/ZIP Co de Phone Number [facility] [address] [place] [phone] * Pap Smear (03/27/2025 4:00 PM EDT) Swab Cervix uteri structure / Unknown 03/27/2025 4:00 PM EDT 03/28/2025 7:45 AM EDT [facility] - 04/04/2025 11:40 AM EST ----- ------- Name: Susanna Broussard Age/Sex: 65/F : 1960 Unit#: [id number] Attend Dr: PATRICIO ROBLEDO CNM Re03/28/25 Status: [facility] Location: [facility] Disch: ----- ------- SPEC : [id number] RECD: 03/28/25 STATUS: BELIA FRIAS NUM: [id number] LAMAR: 03/27/25-[address]: PATRICIO ROBLEDO CNM ENTERED: 03/28/25 SP TYPE: Pap Smr OT DR: ORDERED: Pap Smear Interpretation Satisfactory for evaluation. Negative for intraepithelial lesion or malignancy. Coccobacilli consistent with shift in vaginal omar. HPV High Risk: Negative HPV Genotyping 16: Negative HPV Genotyping 18: Negative Clinical Information LMP: postmenopausal Previous PAP test: NIL HPV+ 2023 Other surgery: Other history: Material Received ThinPrep-Cervical ----- ------- Signed (signature on file) Dara Lester CT ([facility]) 04/04/25 1140 ----- ------- END OF REPORT Patricio SANTORO LAB CYTOLOGY ORDERABLES F inal Result Performing Organization Address [facility] de Phone Number [facility] [address] [place] [address] [phone] * (ABNORMAL) Albumin, Random Urine W/Creatinine (03/23/2025 9:40 AM EDT) Creatinine, Urine 78.73 mg/dL [facility] Microalbumin Urine 48.0 mg/L [facility] Microalbum Creatinine Ratio Ur 60.9(H) <30 ug/mg cr [facility] Comment:Albumin/Creatinine R atio Reference Ranges: Normal: < 30 ug/mg creatinine Microalbuminuria: 30 - 300 ug/mg creatinineClinical Albuminuria: > 300 ug/mg creatinine Urine (Urine, Random) 03/23/2025 9:40 AM EDT 03/23/2025 2:20 PM EDT Daniel Avalos MD LAB URINE ORDERABLES Final Resul t Performing Organization Address [facility] Co de Phone Number [facility] [address] [place] [phone] * Lipid Panel, Standard (03/23/2025 9:36 AM EDT) Triglycerides 81 <150 mg/dL [facility] Comment:Desirable Triglyceri de: less than 150 mg/dLBorderline High Triglyceride 150-199 mg/dLHigh Triglyceride: 200-499 mg/dLVery High Triglyceride: greater than or equal to 5OO mg/dL Cholesterol 159 <200 mg/dL [facility] Comment:Desirable Cholestero l: less than 200 mg/dLBorderline High Cholesterol: 200-239 mg/dLHigh Cholesterol: greater than 239 mg/dL LDL Cholesterol Calculated 86 <100 mg/dL [facility] Comment:Desirable LDL: less than 100 mg/dLNear Optimal/Above Optimal LDL: 110- 129 mg/dLBorderline High LDL: 130-159 mg/dLHigh LDL: 160-189 mg/dLVery High LDL: greater than or equal to 190 mg/dL HDL Cholesterol 57 >40 mg/dL [facility] Comment:Desirable HDL: great er than 40 mg/dL Note: This HDL assay may give artificially low results in patients with liver disease. Blood Venous blood specimen / Unknown 03/23/2025 9:36 AM EDT 03/23/2025 2:31 PM EDT us Daniel Name LAB BLOOD ORDERABLES Final Resul t [facility] [address], [place] [phone] * (ABNORMAL) Comprehensive Metabolic Panel (03/23/2025 9:36 AM EDT) Sodium 141 135 - 145 mmol/L [facility] Potassium 3.4 3.3 - 5.1 mmol/L [facility] Chloride 106 96 - 108 mmol/L [facility] Carbon Dioxide 25 22 - 29 mmol/L [facility] Anion Gap 13 12 - 20 [facility] Urea Nitrogen (BUN) 13 9 - 16 mg/dL [facility] Creatinine, Serum 0.58 0.5 - 1.4 mg/dL [facility] Estimated Glomerular Filt Rate >60 [facility] Comment:Chronic Kidney Disea se: Estimated GFR < 60 mL/min/1.81k9Bzerqr Kidney Disease: Estimated GFR < 15 mL/min/1.73m2 Glucose 174(H) 60 - 115 mg/dL [facility] Calcium 9.3 8.4 - 10.2 mg/dL [facility] Bilirubin, Total 0.7 0.0 - 1.0 mg/dL [facility] Aspartate Amino Transferase 31 5 - 31 U/L [facility] Alanine Aminotransferase 19 0 - 31 U/L [facility] Total Protein 7.8 6.5 - 8.0 g/dL [facility] Albumin Level 4.9 3.5 - 5.0 g/dL [facility] Alkaline Phosphatase 115 39 - 117 U/L [facility] Blood Venous blood specimen / Unknown 03/23/2025 9:36 AM EDT 03/23/2025 2:31 PM EDT Daniel Avalos MD LAB BLOOD ORDERABLES Final Resul t [facility] [address] [place] [phone] * BI Mammogram Screening Tomosynthesis Bilateral (10/03/2024 10:45 AM EDT) Anatomical Region Laterality Modality Breast Bilateral Mammography 10/03/2024 10:4 5 AM EDT Narrative 10/08/2024 9:49 PM EDT [facility] [address] [place] [address] Mammography Report Signed Patient: Susanna Broussard MR#: [id number] 65 : 1960 Acct:[id number] Age/Sex: 64 / F ADM Date: 10/03/24 Loc: [facility] Attending Dr: Daniel Avalos MD Ordering Physician: Daniel Avalos MD Results: 1Negative Date of Service: 10/03/24 Follow Up: 1 Year From Orig inal Mammogram Procedure(s): MM tomosynthesis screening BI Accession Number(s): [id number] cc: Daniel Avalos MD EXAMINATION: MM SCREENING [...] 10/08/24 2146 DD/ 1045 TD/TT: 10/03/24 1105 Visual Specialist: Procedure Note Donotuseinterpreter, Image - 10/08/2024 [facility] [address] [place] [address] Mammography Report Signed Patient: Virginie Broussard#: [id number] 65 : 9Acct:[id number] Age/Sex: 64 / FADM Date: 10/03/24 Loc: [facility] Attending Dr: Daniel Avalos MD Ordering Physician: Daniel Avalos MDResults: 1Negative Date of Service: 10/03/24Follow Up: 1 Year From Orig inal Mammogram Procedure(s): MM tomosynthesis screening BI Accession Number(s): [id number] cc: Daniel Avalos MD EXAMINATION: MM SCREENING [...] 10/08/24 2146 DD/ 1045 TD/TT: 10/03/24 1105 Visual Specialist: Daniel Name IMG BI PROCEDURES Final Result [...] a test for HCV RNA (test code 38416) is suggested. For additional information please refer to http://education.Dashwire/faq/UWM50g9 (This link is being provided for informational/ educational purposes only.) 06/18/2021 9:03 AM EST us Crystal Atkinson NP HISTORICAL/NON ORDERABLE LABS F inal Result [facility] [address] from Last 3 Months or Most [...] Patient has chronic kidney disease 05/08/2025 Insurance [facility] OPTIONS (O D-SNP) [place] [id number] DENTAL - [facility] Care Teams Gang Sawyer Relationship Specialty Start Date End Date Name, MD Daniel [address] [place] [phone] PCP - General Internal Medicine 08/18/22
--- OUTSIDE RECORDS SUMMARY | 2025-05-29 10:35 | XMS_ITS | Clinical Summary ---
Author Organization [facility] Address [address] [place] [address] Phone Care Team Providers Care Director Of Sales Name Role Phone Name, Daniel PINA Primary Care Provider [phone] Allergies No known active allergies Medications isosorbide [...] DX:Diabetes anjelica montano type 2, noninsulin dependent ([facility]) High cholesterol DX:High cholest astrid Social [...] patient's age to complete this topic Insurance [facility] MEDIC[facility] Member Subscriber Plan / Payer (Ef fective 2024-Present) Name:LINDA ALBARADO Relation to Subscriber:Self Name:Linda Albarado Payer ID:[id number] Group ID:[id number] Type:Not on file Address: [place] [address] [place] [address] Care Teams Director Of Sales Relationship Specialty Start Date End Date Name, MD Daniel [address] [place] [address] [phone] PCP - General Internal Medicine 07/19/24
--- OUTSIDE RECORDS SUMMARY | 2025-05-29 10:35 | XMS_ITS | Encounter Summary ---
Author Organization [employer] Address [address] [place] [address] [address] [place] [address] Care Team Providers Care Ready Mix Truck Driver Name Role Phone SuSamaria guy TERRELL Primary Care Provider [phone] Mookie Powers Primary Care Provider Unavail able Daniel Avalos MD Primary Care Provider [phone] Encounter Details Date Type Department Care Team (Late st Contact Info) Description 05/04/2022 Abstract [facility] [address] [place] [address] [phone] ProviderParth MD Social History Tobacco Use Types [...] 07/05/2025 2:00 PM EST Office Visit [facility] OPTOMETRY [address] [place], [place] [phone] Jannet Hernandez, OD [address] [place] [address] 08/13/2025 1:30 PM EDT Office Visit [facility] [address] [place] [address] Daniel Avalos MD [address] [place] [address] documented as of this encounter Visit Diagnoses Not on filedocumented in this encounter Care Teams Ready Mix Truck Driver Relationship Specialty Start Date End Date Samaria Butler FNP [address] [place] [address] PCP - General Family Medicine 01/22/22 08/05/22 Mookie Powers AGNP [address] [place] [address] PCP - General Family Medicine 08/06/22 08/17/22 Robbie, MD Daniel [address] [place] [phone] PCP - General Internal Medicine 08/18/22 documented as of this encounter
--- OUTSIDE RECORDS SUMMARY | 2025-05-29 10:35 | XMS_ITS | Encounter Summary ---
Author Organization [employer] Address [address] [facility] [address] [place] [address] Care Team Providers Care Teacher Learning Disabled Name Role Phone Name, Daniel PINA Primary Care Provider [phone] Reason for Visit * Reason Comments Med Refill Encounter Details Date Type Department Care Team ([facility] st Contact Info) Description 03/27/2025 Refill [facility] [address] [place], [place] [phone] Name, MD Daniel [address] [place] [address] Social History Tobacco Use Types Packs/Day Years [...] Description 07/05/2025 2:00 PM EST Office Visit [facility] OPTOMETRY [address] [place] [address] David, Jannet, OD [address] [place] [address] 08/13/2025 1:30 PM EDT Office Visit [facility] [address] [place] [address] Name, MD Daniel [address] [place] [address] documented as of this encounter Visit Diagnoses Not on filedocumented in this encounter Additional Health Concerns Assessment Noted Time PHQ-9 Depression Total Score: 0 07/04/19 25 1:51 PM EST documented as of this encounter Care Teams Teacher Learning Disabled Relationship Specialty Start Date End Date Name, MD Daniel [address] [place] [address] PCP - General Internal Medicine 08/18/22 documented as of this encounter
--- OUTSIDE RECORDS SUMMARY | 2025-05-29 10:35 | XMS_ITS | Encounter Summary ---
Author Organization [employer] Address 75 [facility] 7t [place] [address] Care Team Providers Care Boat Diesel Motor Mechanic Name Role Phone Name, Daniel PINA Primary Care Provider [phone] Reason for Visit * Reason Comments Med Refill Encounter Details Date Type Department Care Team ([facility] st Contact Info) Description 05/22/2024 Refill [facility] MEDICINE 230 [place], [place] [phone] Name, MD Daniel 230 [place] [address] Gastroesophageal reflux disease without esophagitis Social History [...] t he electric, gas, oil or water [employer] threatened to shut off services in your [...] Description 07/05/2025 2:00 PM EST Office Visit [facility] OPTOMETRY [address] [place] [address] David, Jannet, OD 230 [place] [address] 08/13/2025 1:30 PM EDT Office Visit [facility] MEDICINE [address] [place] [address] Name, MD Daniel 230 [place] [address] documented as of this encounter Visit Diagnoses Diagnosis Gastroesophageal reflux disease without esophagitis Esophageal reflux documented in this encounter Additional Health Concerns Assessment Noted Time PHQ-9 Depression Total Score: 0 11/05/19 23 8:49 AM EDT documented as of this encounter Care Teams Boat Diesel Motor Mechanic Relationship Specialty Start Date End Date NameDaniel MD 230 [place] [address] PCP - General Internal Medicine 08/18/22 documented as of this encounter
--- OUTSIDE RECORDS SUMMARY | 2025-05-29 10:35 | XMS_ITS | Encounter Summary ---
Author Organization [employer] Address 75 [facility] 7t [place] [address] Care Team Providers Care Supervisor Net Making Name Role Phone Name, Daniel PINA Primary Care Provider [phone] Reason for Visit * Reason Onset Date Comments triage 08/18/2022 Encounter Details Date Type Department Care Team ([facility] st Contact Info) Description 08/18/2022 Telephone [facility] MEDICINE 230 [place], [place] [phone] Mookie Powers AGNP triage Social History Tobacco [...] 08/18/2022 1:29 PM EDT Triage call with [employer] [facility] Care Administrator ID [id number] Pt reports at 1030pm was laying down [...] pain. Advised Pt to come to the [facility] today and Ptagreed with disposition and [...] Description 07/05/2025 2:00 PM EST Office Visit [facility] OPTOMETRY [address] [place] [address] Jannet Hernandez, OD 230 [place] [address] 08/13/2025 1:30 PM EDT Office Visit [facility] MEDICINE [address] [place] [address] NameDaniel MD 230 [place] [address] documented as of this encounter Visit Diagnoses Not on filedocumented in this encounter Care Teams Supervisor Net Making Relationship Specialty Start Date End Date NameDaniel MD 230 [place] [address] PCP - General Internal Medicine 08/18/22 documented as of this encounter
--- OUTSIDE RECORDS SUMMARY | 2025-05-29 10:35 | XMS_ITS | Clinical Summary ---
Author Organization [facility], Address [address] [place] [address] [place] [address] Phone Care Team Providers Care Senior Production Supervisor Name Role Phone Dena Bellamy NP Primary Care Provider [phone] Allergies No known active allergies Medications acetaminophen (PHARBETOL) 325 MG tablet Comments: Filled Date: Mar 15 2017 12:00AM Duration: 15 7 Active amLODIPine (NORVASC) 10 MG tablet 0 Active ergocalciferol (VITAMIN D2) 1.25 MG (55072 UT) capsule 9 Active isosorbide mononitrate (IMDUR) [...] Duration: 90 8 07/12/19 Discontinu ed(Med List [facility] e) Active Problems Problem Noted [...] PM EST) Hemoglobin A1C 7.3(H) (4-6) % [facility] Comment: HEMOGLOBIN A1C(%) GLUCOSE CONTROL INDEX <6% EXCELLENT 6-7% VERY GOOD 7-8% GOOD 8-10% FAIR >10% POOR Hemoglobin (Hb) A1c testing is performed by [place] Massiel-quant immunoassay. Any cause of shortened erythrocyte survival will reduce exposure of erythrocytes to glucose with a consequent decrease in Hb A1c (%). Testing performed or reported by ~[facility], ~a Service of [facility], ~[address] [place] [id number]~ Jerzy Julien MD, Grout Machine Operator 06/03/2018 2:30 PM EST us Maximiliano Christopher MD LAB BLOOD ORDERABLES Final Resul t [facility] from Last 3 Months or Most Recently Relevant to Health Maintenance Insurance [facility] [place] [phone] Care Teams Senior Production Supervisor Relationship Specialty Start Date End Date Dena Bellamy NP PCP - General 04/04/19
--- OUTSIDE RECORDS SUMMARY | 2025-05-29 10:35 | XMS_ITS | Encounter Summary ---
Author Organization [email or web address] Address 75 [facility] 7t [place] [address] Care Team Providers Care Lab Tester Name Role Phone Name, Daniel PINA Primary Care Provider [phone] Reason for Visit * Reason Onset Date Comments Med Refill 04/15/2023 Encounter Details Date Type Department Care Team (Late st Contact Info) Description 04/15/2023 Telephone [facility] MEDICINE 230 [place], [place] [phone] Name, MD Daniel 230 [place] [address] Med Refill Social History Tobacco Use Types [...] MG capsule Diclofenac Sodium 1 % gel [facility] Rx #[id number] documented in this encounter Plan of Treatment Upcoming Encounters Date Type Department Care Team (Late st Contact Info) Description 07/05/2025 2:00 PM EST Office Visit [facility] OPTOMETRY [address] [place] [address] Jannet Hernandez, OD 230 [place] [address] 08/13/2025 1:30 PM EDT Office Visit [facility] MEDICINE [address] [place], [place] [phone] Name, MD Daniel 230 [place] [address] documented as of this encounter Visit Diagnoses Not on filedocumented in this encounter Additional Health Concerns Assessment Noted Time PHQ-9 Depression Total Score: 0 11/05/19 23 8:49 AM EDT documented as of this encounter Care Teams Lab Tester Relationship Specialty Start Date End Date Name, MD Daniel 230 [place] [address] PCP - General Internal Medicine 08/18/22 documented as of this encounter
--- OUTSIDE RECORDS SUMMARY | 2025-05-29 10:35 | XMS_ITS | Patient Health Record ---
Author Organization [facility] Address [address] [place] [address] Care Team Providers Care Pressfitter Name Role Phone Carmelita Merlos Jessica Primary Care Provider Richardson Franz Unavailable [phone] Allergies No Known Allergies Reason For Referral [...] Twice a day Active Vitamin D (Ergocalciferol) 82658 UNIT Capsule 1 capsule Orally Once a [...] Notes Problem Gastro-esophageal reflux disease without esophagitis (721917390) Gastro-esophageal reflux disease without esophagitis (K21.9) Active confirmed Problem Screening for malignant neoplasm of colon (762737930) Encounter for screening for malignant neoplasm of colon (Z12.11) Active confirmed Problem History of adenomatous polyp of colon (124691484) History of adenomatous polyp of colon (Z86.010) Active confirmed Problem Screening for malignant neoplasm of rectum (883623394) Encounter for screening for malignant neoplasm of rectum (Z12.12) Active confirmed Problem Preprocedural examination (414036929060059) Preprocedural examination (Z01.818) Active confirmed Problem Long-term current use of antiplatelet drug (227390722347814) Long-term use of aspirin therapy (Z79.82) Active confirmed Problem Diverticular disease of colon (123077313) Colon, diverticulosis (K57.30) Active confirmed Plan Of Treatment Pending Test Test Name Order Date Pathology 01/30/2022 Future Test Test Name Order Date COLONOSCOPY 03/04/2016 COLONOSCOPY 12/17/2021 Insurance Providers Payer Name Payer Address Payer Phone Subscriber Number Group Number Insured Name Patient Relationship to Insured Coverage Start Date Coverage End Date [facility] [address] [place] [address] [id number] LINDA ALBARADO Self - patient is the insured Medical (General) History Medical History History ICD Code Tubular adenomas removed in 1996 and 2005; she had a negative colonoscopy on 11-24-2010 Denies VA,CVA,DM,Lung disease,renal dise ase GERD--EGD in 2000 was negati ve for any significant esophagitis and Meraz's esophagus Hypertension Hypercholesterolemia Negative colonoscopy in 07/2016 Surgical History Surgery Date(Month/Year) BTL
--- OUTSIDE RECORDS SUMMARY | 2025-05-29 10:35 | XMS_ITS | Encounter Summary ---
Author Organization [facility], Address [address] [place] [address] Phone Care Team Providers Care Crude Oil Treater Name Role Phone Dena Bellamy NP Primary Care Provider [phone] Encounter Details Date Type Department Care Team (Late st Contact Info) Description 10/02/2021 Documentation Only [facility], [address] [place] [address] Crystal Atkinson [address] [place] [address] Social History Tobacco Use Types Packs/Day Years [...] on filedocumented in this encounter Care Teams Crude Oil Treater Relationship Specialty Start Date End Date Dena Bellamy NP PCP - General 04/04/19 documented as of this encounter
--- OUTSIDE RECORDS SUMMARY | 2025-05-29 10:35 | XMS_ITS | Encounter Summary ---
Author Organization [employer] Address 75 [facility] 7t [place] [address] Care Team Providers Care Needlemaker Name Role Phone Name, Daniel PINA Primary Care Provider [phone] Reason for Visit * Reason Onset Date Comments Pre-op Exam 10/14/2022 Encounter Details Date Type Department Care Team (Late st Contact Info) Description 10/14/2022 Telephone [facility] MEDICINE [address] [place] [phone] Name, MD Daniel 230 [place] [address] Pre-op Exam Social History Tobacco Use Types [...] PM EDT Returned call to Trina at [facility] Ortho. Pt is getting a R knee arthroscopy date tbd with Dr Gusman. Pt will needs labs and EKG and will be under general anesthesia. Notes determining what is needed prior to surgery will be faxed to [facility]. Pt scheduled with PCP on 11/04/22. Ortho will notify pt. * Telephone Encounter - Zehra Be - 10/14/2022 9:38 AM EDT Jonathan Mena at [facility] Orthopedics Pre Op Location: [address] [address] Procedure: right knee arthroscopy Date of Procedure: [...] Office Visit [facility] OPTOMETRY [address] [place] [address] David, Jannet, OD 230 [place] [address] 08/13/2025 1:30 PM EDT Office Visit [facility] MEDICINE 230 [place] [address] Name, MD Daniel [address] [place] [address] documented as of this encounter Visit Diagnoses Not on filedocumented in this encounter Care Teams Needlemaker Relationship Specialty Start Date End Date Name, MD Daniel [address] [place] [address] PCP - General Internal Medicine 08/18/22 documented as of this encounter
--- OUTSIDE RECORDS SUMMARY | 2025-05-29 10:35 | XMS_ITS | Encounter Summary ---
Author Organization [employer] Address 75 [facility] 7t [place] [address] Care Team Providers Care Low Heel Builder Name Role Phone Name, Daniel PINA Primary Care Provider [phone] Reason for Visit * Reason Onset Date Comments FYI 04/20/2025 Encounter Details Date Type Department Care Team ([facility] st Contact Info) Description 04/20/[address] [facility] MEDICINE 230 [place], [place] [phone] Name, MD Daniel 230 [place] [address] FYI Social History Tobacco Use Types Packs/Day [...] Office Visit [facility] OPTOMETRY [address] [place] [address] David, Jannet, OD 230 [place] [address] 08/13/2025 1:30 PM EDT Office Visit [facility] MEDICINE 230 [place] [address] Name, MD Daniel 230 [place], [place] [phone] documented as of this encounter Goals Goal Patient Goal Type Associated Problems Recent Progress Patient-Stated? Author Help patients manage their type 2 diabetes Care Plan Help patients manage their type 2 diabetes Nabila Crump Weekly blood pressure task Care Plan [...] documented as of this encounter Care Teams Low Heel Builder Relationship Specialty Start Date End Date Name, MD Daniel 230 [place] [address] PCP - General Internal Medicine 08/18/22 documented as of this encounter
--- OUTSIDE RECORDS SUMMARY | 2025-05-29 10:35 | XMS_ITS | Encounter Summary ---
Author Organization [facility], Address [address] [place] [address] Phone Care Team Providers Care Corporate Development Intern Name Role Phone Dena Bellamy NP Primary Care Provider [phone] Encounter Details Date Type Department Care Team (Late st Contact Info) Description 12/09/2021 Documentation Only [facility], [address] [facility] [address] Maximiliano Christopher MD [address] [facility] [place] [phone] Social History Tobacco Use Types Packs/Day Years [...] on filedocumented in this encounter Care Teams Corporate Development Intern Relationship Specialty Start Date End Date Dena Bellamy NP PCP - General 04/04/19 documented as of this encounter
--- OUTSIDE RECORDS SUMMARY | 2025-05-29 10:35 | XMS_ITS | Encounter Summary ---
Author Organization [employer] Address [address] [facility] [address] 7t [place] [address] Care Team Providers Care Mechanical Technologist Name Role Phone Name, Daniel PINA Primary Care Provider [phone] Encounter Details Date Type Department Care Team ([facility] st Contact Info) Description 04/04/2025 Results Follow-Up [facility]INE 230 [place], [place] [phone] Esther Lentz CNM 230 [place] [address] Pap Smear Social History Tobacco Use Types [...] 07/05/2025 2:00 PM EST Office Visit [facility] OPTOMETRY [address] [place] [address] David, Jannet, OD 230 [place] [address] 08/13/2025 1:30 PM EDT Office Visit [facility] MED[facility]INE 230 [place] [address] Name, MD Daniel 230 [place] [address] documented as of this encounter Visit Diagnoses Not on filedocumented in this encounter Additional Health Concerns Assessment Noted Time PHQ-9 Depression Total Score: 0 07/04/19 25 1:51 PM EST documented as of this encounter Care Teams Mechanical Technologist Relationship Specialty Start Date End Date NameDaniel MD [address] [place] [address] PCP - General Internal Medicine 08/18/22 documented as of this encounter
--- OUTSIDE RECORDS SUMMARY | 2025-05-29 10:35 | XMS_ITS | Encounter Summary ---
Author Organization [employer] Address 75 [facility] 7t [place] [address] Care Team Providers Care Trackman Name Role Phone Name, Daniel PINA Primary Care Provider [phone] Reason for Visit * Reason Comments Med Refill Encounter Details Date Type Department Care Team ([facility] st Contact Info) Description 05/11/2024 Refill [facility] MEDICINE 230 [place], [place] [phone] Name, MD Daniel [address] [place] [address] Social History Tobacco Use Types Packs/Day Years [...] Description 07/05/2025 2:00 PM EST Office Visit [facility] OPTOMETRY [address] [place] [address] David, Jannet, OD 230 [place] [address] 08/13/2025 1:30 PM EDT Office Visit [facility] MEDICINE [address] [place] [address] Name, MD Daniel [address] [place] [address] documented as of this encounter Visit Diagnoses Not on filedocumented in this encounter Additional Health Concerns Assessment Noted Time PHQ-9 Depression Total Score: 0 11/05/19 23 8:49 AM EDT documented as of this encounter Care Teams Trackman Relationship Specialty Start Date End Date NameDaniel MD 230 [place] [address] PCP - General Internal Medicine 08/18/22 documented as of this encounter
--- OUTSIDE RECORDS SUMMARY | 2025-05-29 10:35 | XMS_ITS | Encounter Summary ---
Author Organization [employer] Address 75 [facility] 7t [place] [address] Care Team Providers Care Finish Painter Name Role Phone Samaria Butler TERRELL Primary Care Provider [phone] Mookie Powers Primary Care Provider Unavail able Daniel Avalos MD Primary Care Provider [phone] Reason for Visit * Reason Comments Med Refill Encounter Details Date Type Department Care Team (Late st Contact Info) Description 05/22/2022 Refill [facility] MEDICINE [address] [place] [address] Daniel Avalos MD 230 [place] [address] Social History Tobacco Use Types Packs/Day Years [...] Visit [facility] OPTOMETRY [address] [place], [place] [phone] Jannet Hernandez, VALERIA 230 [place] [address] 08/13/2025 1:30 PM EDT Office Visit [facility] MEDICINE 230 [place] [address] Daniel Avalos MD [address] [place] [address] documented as of this encounter Visit Diagnoses Not on filedocumented in this encounter Care Teams Finish Painter Relationship Specialty Start Date End Date Samaria Butler FNP [address] [place] [address] PCP - General Family Medicine 01/22/22 08/05/22 Mookie Powers AGNP [address] [place] [address] PCP - General Family Medicine 08/06/22 08/17/22 Name, MD Daniel [address] [place] [address] PCP - General Internal Medicine 08/18/22 documented as of this encounter
--- OUTSIDE RECORDS SUMMARY | 2025-05-29 10:36 | XMS_ITS | Encounter Summary ---
Author Organization [employer] Address 75 [facility] 7t [place] [address] Care Team Providers Care Machine Fastener Name Role Phone Name, Daniel PINA Primary Care Provider [phone] Reason for Visit * Reason Comments Med Refill Encounter Details Date Type Department Care Team (Late st Contact Info) Description 01/22/2023 Refill [facility] MEDICINE 230 [place], [place] [phone] Name, MD Daniel 230 [place] [address] Type 2 diabetes mellitus with other specified complication, unspecified whether fdc insulin use ([facility] [place]) Social History Tobacco Use Types Packs/Day Years [...] Description 07/05/2025 2:00 PM EST Office Visit [facility] OPTOMETRY [address] [place], [place] [phone] Jannet Hernandez, OD 230 [place], [place] [phone] 08/13/2025 1:30 PM EDT Office Visit [facility] MEDICINE 230 [facility] [place] [address] Name, MD Daniel [facility] [place] [address] documented as of this encounter Visit Diagnoses Diagnosis Type 2 diabetes mellitus with other specified complication, unspecified whether intermediate accountant insulin use (HCC) documented in this encounter Additional Health Concerns Assessment Noted Time PHQ-9 Depression Total Score: 0 11/05/19 8:49 AM EDT documented as of this encounter Care Teams Machine Fastener Relationship Specialty Start Date End Date Name, MD Daniel [facility] [place] [address] PCP - General Internal Medicine 08/18/22 documented as of this encounter
--- OUTSIDE RECORDS SUMMARY | 2025-05-29 10:36 | XMS_ITS | Encounter Summary ---
Author Organization [employer] Address [address] [place] [address] 7t [place] [address] Care Team Providers Care Yield Loss Inspector Name Role Phone Name, Daniel PINA Primary Care Provider [phone] Reason for Visit * Reason Comments Med Refill Encounter Details Date Type Department Care Team ([facility] Contact Info) Description 01/22/2023 Refill [facility] MEDICINE [address] [place] [phone] Mookie Powers AGNP Gastroesophageal reflux disease without [...] 07/05/2025 2:00 PM EST Office Visit [facility] OPTOMETRY [address] [place], [place] [phone] Jannet Hernandez, OD 230 [place], [place] [phone] 08/13/2025 1:30 PM EDT Office Visit [facility] MEDICINE 230 [place], [place] [phone] Name, MD Daniel 230 [place] [address] documented as of this encounter Visit Diagnoses Diagnosis Gastroesophageal reflux disease without esophagitis Esophageal reflux documented in this encounter Additional Health Concerns Assessment Noted Time PHQ-9 Depression Total Score: 0 11/05/19 8:49 AM EDT documented as of this encounter Care Teams Yield Loss Inspector Relationship Specialty Start Date End Date Name, MD Daniel 230 [place] [address] PCP - General Internal Medicine 08/18/22 documented as of this encounter
--- OUTSIDE RECORDS SUMMARY | 2025-05-29 10:36 | XMS_ITS | Encounter Summary ---
Author Organization [employer] Address 75 [facility] 7t [place] [address] Care Team Providers Care Edge Bonder Name Role Phone Name, Daniel PINA Primary Care Provider [phone] Reason for Visit * Reason Comments Med Refill Encounter Details Date Type Department Care Team ([facility] st Contact Info) Description 04/15/2025 Refill [facility] MEDICINE 230 [place], [place] [phone] Name, MD Daniel [address] [place] [address] Social History Tobacco Use Types Packs/Day Years [...] 2:00 PM EST Office Visit [facility] OPTOMETRY [address] [place] [address] David, Jannet, OD 230 [place] [address] 08/13/2025 1:30 PM EDT Office Visit [facility] MEDICINE [address] [place] [address] Name, MD Daniel [address] [place] [address] documented as of this encounter Visit Diagnoses Not on filedocumented in this encounter Additional Health Concerns Assessment Noted Time PHQ-9 Depression Total Score: 0 07/04/19 25 1:51 PM EST documented as of this encounter Care Teams Edge Bonder Relationship Specialty Start Date End Date Name, MD Daniel [address] [place] [address] PCP - General Internal Medicine 08/18/22 documented as of this encounter
--- OUTSIDE RECORDS SUMMARY | 2025-05-29 10:36 | XMS_ITS | Encounter Summary ---
Author Organization [employer] Address 75 [facility] 7t [place] [address] Care Team Providers Care Grinder Gear Name Role Phone Name, Daniel PINA Primary Care Provider [phone] Reason for Visit * Reason Comments Med Refill Encounter Details Date Type Department Care Team (Late Contact Info) Description 11/27/2022 Refill [facility] MEDICINE 230 [place], [place] [phone] Name, MD Daniel 230 [place] [address] Social History Tobacco Use Types Packs/Day Years [...] Description 07/05/2025 2:00 PM EST Office Visit [facility] OPTOMETRY [address] [place], [place] [phone] David Jannet, OD 230 [place] [address] 08/13/2025 1:30 PM EDT Office Visit [facility] MEDICINE 230 [place] [address] Name, MD Daniel [address] [place] [address] documented as of this encounter Visit Diagnoses Not on filedocumented in this encounter Additional Health Concerns Assessment Noted Time PHQ-9 Depression Total Score: 0 11/05/19 8:49 AM EDT documented as of this encounter Care Teams Grinder Gear Relationship Specialty Start Date End Date Name, MD Daniel [address] [place] [address] PCP - General Internal Medicine 08/18/22 documented as of this encounter
== END 2025-05-28 08:46 ==
LOC: HO.HOSX 08:45
PROVIDERS: Visit Provider Physician Assistant
DX: M17.12 Unilateral primary osteoarthritis, left knee (principal); E11.9 Type 2 diabetes mellitus without complications; Z01.818 Encounter for other preprocedural examination; Z79.84 Long term (current) use of oral hypoglycemic drugs
CPT/HCPCS: 73562

== ENCOUNTER → 2025-05-28 11:23 | Outpatient (BNV) | payer OTHER, SELFPAY | PROVIDERS: Visit Provider Radiology Diagnostic Radiology | DX: M17.12 Unilateral primary osteoarthritis, left knee (principal) | CPT/HCPCS: 73562 ==

== ENCOUNTER 2025-05-28 11:26 | Outpatient (AMB) | payer OTHER, SELFPAY ==
--- NOTE | 2025-05-28 08:51 | MHC.OFFVIS ---
Vital Signs 05/28/25 11:51 Height 5 ft 3 in Weight 163 lb BMI 28.9 Intake Visit Reasons: Pre-Op: L TKA w/NE 06/05/25 Intake Note: Susanna is a 65 year old female who presents today for a preoperative visit to discuss upcoming left TKA, scheduled with Dr. Gusman on 06/05/25. Pain management agreement reviewed and signed. Fraternity Adviser Name: Andreina ID#[id number] Allergies No Known Allergies Allergy (Mild, Verified 05/28/25 11:54) N/A Medication List - Last Reconciled 05/28/25 by Salinas Roberts PA-C amlodipine 10 mg PO DAILY empagliflozin (Jardiance) 10 mg PO DAILY ergocalciferol (vitamin D2) 1 cap PO QWEEK [Folding Front Wheeled walker Duration: 99 days] isosorbide mononitrate ER 30 mg PO DAILY 90 days lisinopril 40 mg PO DAILY metformin ER 1,000 mg PO BID metoprolol tartrate 75 tabs PO BID pantoprazole 1 tab PO DAILY rosuvastatin 20 mg PO BEDTIME HPI HPI Pre-Op: L TKA w/NE 06/05/25: Details: 65-year-old female into the office today for an orthopedic preop clearance. She is scheduled for a left total knee arthroplasty on 06/05/[address] Gusman. Patient has been experiencing left knee pain for approximately 2 years. She was seen in April of 2024 and had a left knee steroid injection. Initially she had good relief with the injection and had a repeat injection on 08/31/2024 however that injection was not as helpful as the 1st but did elect to have a repeat injection on 12/06/2024.. She continued to develop discomfort with daily activities which included walking long distances. 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 Most recent hemoglobin A1c performed on 05/09/2025 is 6.8. Patient lives at home with her grandson in a 2 lievel home with 2 steps to enter. PCP clearance obtained on 05/09/[address] Sanchez: Patient comes for a preoperative evaluation. The patient is scheduled to have left total knee replacement on June 05. Patient feels well. She has previous surgeries including tubal ligation and right knee arthroscopic surgery and she did not have any problems with bleeding or anesthesia. She denies any recent fevers, no chills, no chest pains or shortness of breath. She can walk for several blocks without difficulties. Exercise tolerance is limited by her left knee pain. Her diabetes is well controlled on oral medications. She does not have any history of OR, no CVA, no Congestive heart failure, no CKD. Her EKG today is unremarkable and unchanged from her baseline. She does not have any pulmonary problems. She does not have any history of DVT. Hemoglobin A1c 6.8 on 05/09/2025. Patient can proceed with her planned knee replacement surgery with low risk of cardiovascular complications. [facility] Medical History (Updated 05/07/25 @ 11:57 by Steffany Simmons RN) Back pain Hypercholesterolemia GERD (gastroesophageal reflux disease) Arthritis Diabetes 1.5, managed as type 2 HTN (hypertension) Surgical History Hx of local excision of skin lesion Hx of arthroscopy of knee History of esophagogastroduodenoscopy (EGD) Hx of tubal ligation Hx of colonoscopy Social History Are you a primary memory care program resident to a significant other at home: No Do you presently have visiting nurse or other home services: No Patient Tobacco Use Status: Never used Tobacco Current occupational status: disabled Current occupation: rt handed Review of Systems Const All systems reviewed & are unremarkable except as noted in HPI and below Physical Exam Vital Signs: BMI result Body Mass Index 28.9 Const General: cooperative, healthy appearing, comfortable, no acute distress, well developed and alert Orientation/consciousness: patient oriented x3 HEENT Head: Yes normal to inspection, Yes normocephalic and Yes atraumatic Mouth: moist mucous membranes Eyes General: appearance normal, both eyes and all related structures EOM: EOMs intact bilaterally Neck Neck: Yes normal visual inspection and Yes no lymphadenopathy Chest Other: no audible wheezing. Resp Other: No audible wheezing Effort & Inspection: normal respiratory effort and able to speak in complete sentences Cardio Other: Radial pulse palpable with no rythmic abnormalities Rate: regular rate Peripheral pulses: Peripheral pulses 2+ throughout GI Inspection: Yes normal to inspection Palpation (GI): Soft to palpation Back/Spine/Pelvis Cervical Spine: normal cervical lordosis Skin General skin exam: no rashes or lesions noted Neuro General: patient oriented x3 Extrem Other: Left knee with a 0-120 degrees of motion. Retropatellar tenderness to palpation and painful crepitus with patellar grind. Medial and lateral joint line tenderness. Mild gait antalgia. Psych Appearance: grossly normal Mental Status: mental status grossly normal Speech and movement: Normal speech and movement present Affect: normal affect Attitude: cooperative Results Reviewed Results Reviewed: Xrays were obtained in the office today and personally reviewed by me of the left knee for surgical planning. Assessment & Plan Assessment & Plan (1) Osteoarthritis of left knee: Code(s): M17.12 - Unilateral primary osteoarthritis, left knee Category: Medical Plan: Ms Broussard has exhausted all conservative measures consisting of lifestyle modifications, physical therapy, analgesics, corticosteroid injections and use of assisted devices and continues to have significant limitations in daily activities along with decreased quality of life. Given the patient's desire to improve their quality of life, surgical intervention consisting of joint replacement surgery is recommended at this time.? We discussed the procedure in detail today; which includes pre op preparation with labs and reviewing patients medication regimen prior to surgery. Patient was sent to the lab for CBC, hemoglobin A1c and a type and screen. I discussed at length the post op course which includes physical therapy services in the hospital along with the discharge routine and the patients plan upon discharge. Plan is to be discharged home with VNA services. I explained to the patient, once they are DC home, they will receive VNA services which will include PT 2-3x per week. We also discussed their choice for outpatient PT once they are discharged from home PT. Patient would like to attend [facility] physical therapy. Post op DVT ppx was also discussed and the considering the patient does not smoke and does not have a history of DVT or PE she will begin aspirin 325 mg p.o. b.i.d. for DVT prophylaxis. I reviewed with the patient their post op pain medication regimen along with the detailed wean program. The patient did express understanding of this and agreed to the narcotic policy. Lastly, I discussed with the patient the risks to the procedure. Risks including but not limited to infection, injury to surrounding nerves, tissue , bone, small and large vessels, stiffness, aseptic loosening, fracture, dislocation, amputation, DVT/PE along with intraoperative complications including but not limited to . The patient does express understanding, all questions were answered and the patient would like to proceed? with left total knee arthroplasty with Dr. Gusman. Consents were signed and dated while in the office today.? Post-Operative Recovery Notes: DVT ppx : [facility] DC plan: Home Physical Therapy: [facility] core Walker obtained Orders: Orders XR knee LT 3V Today M25.562 - Pain in left knee Hemoglobin A1c Today E11.9 - Type 2 diabetes mellitus without complications Complete Blood Count Auto Diff Today Z01.818 - Encounter for other preprocedural examination Type and Screen Today Z01.818 - Encounter for other preprocedural examination Coding Level of Care Code Est Pt Level 3 (50742) Add On Problem Visit Only Diagnoses Osteoarthritis of left knee M17.12
[2025-05-28 11:51] VITALS: BMI 28.9
--- OUTSIDE RECORDS SUMMARY | 2025-05-28 13:23 | XMS_ITS | Encounter Summary ---
Author Organization [employer] Address [address] [place] [address] Care Team Providers Care Commercial Review Appraiser Name Role Phone Name, Daniel PINA Primary Care Provider [phone] Reason for Visit * Reason Comments Med Refill Encounter Details Date Type Department Care Team ([facility] st Contact Info) Description 03/27/2025 Refill [facility] MEDICINE [address] [place], [place] [phone] Name, MD Daniel [address] [place] [address] Social History Tobacco Use Types Packs/Day Years [...] Care Team (Late st Contact Info) Description 07/05/2025 2:00 PM EST Office Visit [facility] OPTOMETRY [address] [place] [address] David, Jannet, OD [address] [place] [address] 08/13/2025 1:30 PM EDT Office Visit [facility] MEDICINE [address] [place] [address] Name, MD Daniel [address] [place] [address] documented as of this encounter Visit Diagnoses Not on filedocumented in this encounter Additional Health Concerns Assessment Noted Time PHQ-9 Depression Total Score: 0 07/04/19 25 1:51 PM EST documented as of this encounter Care Teams Commercial Review Appraiser Relationship Specialty Start Date End Date Name, MD Daniel [address] [place] [address] PCP - General Internal Medicine 08/18/22 documented as of this encounter
--- OUTSIDE RECORDS SUMMARY | 2025-05-28 13:23 | XMS_ITS | Clinical Summary ---
Author Organization [address] [facility] Address [address] [place] [address] Phone Care Team Providers Care Sander Wooden Pencils Name Role Phone Name, Daniel PINA Primary Care Provider [phone] Allergies No known active allergies Medications isosorbide [...] Diabetes mellitus type 2, no ninsulin dependent (CMS/HCC V24, CMS/HCC V28) DX:Diabetes anjelica montano type 2, noninsulin dependent ([facility]) High cholesterol DX:High cholest astrid Social History [...] patient's age to complete this topic Insurance [facility] [employer] Member Subscriber Plan / Payer (Ef fective 2024-Present) Name:LINDA ALBARADO Relation to Subscriber:Self Name:Linda Albarado Payer ID:[id number] Group ID:[id number] Type:Not on file Address: [place] [address] [address] [address] Care Teams Sander Wooden Pencils Relationship Specialty Start Date End Date Name, MD Daniel [address] [place] [id number] PCP - General Internal Medicine 07/19/24
--- OUTSIDE RECORDS SUMMARY | 2025-05-28 13:23 | XMS_ITS | Patient Health Record ---
Author Organization [facility] Address [address] [place] [id number] Care Team Providers Care Textile Stylist Name Role Phone Carmelita Merlos Jessica Primary Care Provider Richardson Franz Unavailable [phone] Allergies No Known Allergies Reason For Referral No Information Medications Medication SIG (Take, Route, Frequency, Duration) Notes Start Date End Date Status Isosorbide Mononitrate ER 30 MG Tablet Extended Release 24 Hour 1 tablet Orally Once a day Active Nitroglycerin 0.4 MG Tablet Sublingual under the tongue Sublingual prn Active Lisinopril 40 MG Tablet 1 tablet Orally Once a day Active Calcium 600 + D 600-200 MG-UNIT Tablet 1 Orally bid Active Aspir-81 81 MG Tablet Delayed Release 1 tablet Orally Once a day Not-Taking/PRN Dulcolax (colon prep) 5 MG Tablet Delayed Release take at 3:00 p.m and 7:00p.m. Orally two tablets twice a day for one day; Duration: 1 day 12/17/2021 Active Crestor 20 MG Tablet 1 tablet Orally Onc e a day Active MiraLax (colon prep) 17 GM/SCOOP Powder 1 238Gm bottle mixed with Gatorade or Crystal Light Orally begin at 5:00 p.m. the day before the procedure; Duration: 1 day 12/17/2021 Active Metoprolol Tartrate 50 MG Tablet 1 tablet with food Orally Twice a day Active Vitamin D (Ergocalciferol) 56557 UNIT Capsule 1 capsule Orally Once a week Active Lidocaine 5 % Ointment 1 application to affected area as needed Externally Three times a day Active Tylenol 325 MG Tablet 2 tablets as neede d Orally every 6 hrs Active Pantoprazole Sodium 40 MG Tablet Delayed Release 1 tablet Orally Once a day Active Immunizations Vaccine Route Administration Date Status Comme nts Influenza Unknown 04/15/2021 Administered Social History Social History Additional Details Category Social Info Options Details Miscellaneous: Marital status: Occupation: unemployed Section Notes: Nonsmoker; no sig alcohol Nonsmoker; no sig alcohol Problems Problem Type SNOMED Code ICD Code Onset Dates Problem Status W/U Status Risk Notes Problem Gastro-esophageal reflux disease without esophagitis (298036886) Gastro-esophageal reflux disease without esophagitis (K21.9) Active confirmed Problem Screening for malignant neoplasm of colon (780053435) Encounter for screening for malignant neoplasm of colon (Z12.11) Active confirmed Problem History of adenomatous polyp of colon (449988940) History of adenomatous polyp of colon (Z86.010) Active confirmed Problem Screening for malignant neoplasm of rectum (056069401) Encounter for screening for malignant neoplasm of rectum (Z12.12) Active confirmed Problem Preprocedural examination (576869935415605) Preprocedural examination (Z01.818) Active confirmed Problem Long-term current use of antiplatelet drug (371702853276947) Long-term use of aspirin therapy (Z79.82) Active confirmed Problem Diverticular disease of colon (369198376) Colon, diverticulosis (K57.30) Active confirmed Plan Of Treatment Pending Test Test Name Order Date Pathology 01/30/2022 Future Test Test Name Order Date COLONOSCOPY 03/04/2016 COLONOSCOPY 12/17/2021 Insurance Providers Payer Name Payer Address Payer Phone Subscriber Number Group Number Insured Name Patient Relationship to Insured Coverage Start Date Coverage End Date [facility] [address] [place] [address] [id number] LINDA ALBARADO Self - patient is the insured Medical (General) History Medical History History ICD Code Tubular adenomas removed in 1996 and 2005; she had a negative colonoscopy on 11-24-2010 Denies [place],CVA,DM,Lung disease,renal dise ase GERD--EGD in 2000 was negati ve for any significant esophagitis and Meraz's esophagus Hypertension Hypercholesterolemia Negative colonoscopy in 07/2016 Surgical History Surgery Date(Month/Year) BTL
--- OUTSIDE RECORDS SUMMARY | 2025-05-28 13:23 | XMS_ITS | Clinical Summary ---
Author Organization [employer] Address [address] [facility] [address] [place] [address] Care Team Providers Care Vp Ad Products And Planning Name Role Phone Name, Daniel PINA Primary Care Provider [phone] Allergies No known active allergies Medications nitroglycerin (Nitrostat) 0.4 MG SL tablet under the tongue 03/16/20 17 Active betamethasone valerate (Valisone) 0.1 % ointment Use twice a week as needed 45 g 2 03/11/20 23 Active Diclofenac Sodium 1 % gel APPLY TOPICALLY DAILY TO AFFECTED JOINT 100 g 3 04/16/20 23 Active Blood Glucose Monitoring Suppl (FreeStyle Lite) w/Device kitIndications: Type 2 diabetes mellitus with other specified complication, without long-term current use of insulin (HCC) 1 each See administration instructions. Use once a day 1 kit 04/28/20 23 Active Lancets (OneTouch Delica Plus [id number]) misc TEST BLOOD SUGAR ONCE A DAY 100 each 11 04/30/20 23 Active Blood Glucose Monitoring Suppl (ONE TOUCH ULTRA 2) w/Device kit TEST BLOOD SUGAR ONCE A DAY 1 kit 04/30/20 23 Active cyclobenzaprine (Flexeril) 5 MG tabletIndicatio ns:Left knee pain, unspecified chronicity TAKE 1 TABLET BY MOUTH EVERY NIGHT AT BEDTIME 30 tablet 08/05/19 24 Active gabapentin (Neurontin) 300 MG capsuleIndicati ons:Type 2 diabetes mellitus with other specified complication, unspecified whether assistant terminal manager insulin use (HCC) TAKE 1 TO 2 CAPSULES BY MOUTH THREE TIMES DAILY 180 capsule 2 10/04/19 24 Active ergocalciferol (Vitamin D2) 1.25 MG (10782 UT) capsule TAKE 1 CAPSULE BY MOUTH 1 TIME A WEEK DIRECTED 4 capsule 02/18/20 24 Active pantoprazole (ProtoNix) 40 MG EC tabletIndicatio ns:Gastroesopha geal reflux disease without esophagitis TAKE 1 TABLET BY MOUTH EVERY MORNING 1 HOUR BEFORE MEALS 90 tablet 3 08/01/19 25 Active amLODIPine (Norvasc) 10 MG tablet TAKE 1 TABLET BY MOUTH EVERY DAY 90 tablet 1 01/27/20 25 Active isosorbide mononitrate ER (Imdur) 30 MG 24 hr tablet TAKE 1 TABLET BY MOUTH EVERY MORNING 90 tablet 2 02/07/20 25 Active metFORMIN XR (Glucophage-XR) 500 MG 24 hr tablet TAKE 2 TABLETS BY MOUTH TWICE DAILY WITH BREAKFAST AND EVENING MEAL 360 tablet 02/15/20 25 Active metoprolol tartrate (Lopressor) 50 MG tablet TAKE 1 AND 1/2 TABLETS BY MOUTH TWICE DAILY 270 tablet 2 03/19/20 25 Active rosuvastatin (Crestor) 20 MG tablet TAKE 1 TABLET(20 MG) BY MOUTH IN THE MORNING 90 tablet 2 03/19/20 25 Active lisinopril 40 MG tablet Take 1 tablet (40 mg) by mouth Once per day. 90 tablet 2 03/19/20 25 Active empagliflozin (Jardiance) 10 MG Take 1 tablet (10 mg) by mouth Once per day. 30 tablet 11 03/26/20 25 026 Active Active Problems Problem Noted Date Diagnosed [...] Encounters Date Type Department Care Team Description 05/09/2025 2:45 PM EST Office Visit [facility] [place] [address] Daniel Avalos MD Pre-op evaluation (Primary Dx); Type 2 diabetes mellitus with other specified complication, without long-term current use of insulin ([facility]) 05/09/2025 Travel 05/08/2025 Telephone [facility] [place] [address] Daniel Avalos MD Chart Prep 04/20/2025 Telephone [facility] [place] [address] Daniel Avalos MD FYI 04/15/2025 Refill [facility] [place] [address] Daniel Avalos MD 04/04/2025 Results Follow-Up [facility] [place] [address] Patricio Robledo CNM Pap Smear 03/27/2025 2:15 PM EDT Procedure Visit [facility] [place] [address] Patricio Robledo CNM Cervical cancer screening (Primary Dx) 03/27/2025 Travel 03/27/2025 Refill [facility] [place] [address] Daniel Avalos MD 03/26/2025 Results Follow-Up [facility] [place] [address] Daniel Avalos MD POCT Glucose, POCT Hgb A1c, Comprehensive Metabolic Panel, Additional followed-up results: 2 03/19/2025 2:45 PM EDT Office Visit [facility] [place] [address] Daniel Avalos MD Type 2 diabetes mellitus with other specified complication, without long-term current use of insulin (HCC) (Primary Dx); Primary osteoarthritis of both knees; History of basal cell carcinoma excision; Encounter for immunization 03/19/2025 Travel 03/16/2025 Telephone [facility] [address] [place] [address] Daniel Avalos MD CHART PREP 03/12/2025 Patient Outreach [facility] [address] [place], [place] [phone] Daniel Avalos MD Pre-visit Planning (SDOH was already completed) 03/09/2025 Telephone [facility] [address], [place] [phone] Daniel Avalos MD Preop 02/26/2025 Travel from Last 3 Months Immunizations Immunization Administration [...] Sign Reading Time Taken Comments Blood Pressure 116/68 05/09/2025 2:59 PM EST Pulse 68 05/09/2025 2:59 PM EST Temperature 36.3 C (97.4 F) 05/09/2025 2:59 PM EST Respiratory Rate 14 05/09/2025 2:59 PM EST Oxygen Saturation 96% 05/09/2025 2:59 PM EST Inhaled Oxygen Concentration - - Weight 71.2 kg (157 lb) 05/09/2025 2:59 PM EST Height 160 cm (5' 3 ) 05/09/2025 2:59 PM EST Body Mass Index 27.81 05/09/2025 2:59 PM EST Plan of Treatment Upcoming Encounters Date Type Department Care Team (Late st Contact Info) Description 07/05/2025 2:00 PM EST Office Visit [facility] [address] [place], [place] [phone] David, Jannet, OD [address] [place] [address] 08/13/2025 1:30 PM EDT Office Visit [facility] [address] [place] [address] Name, MD Daniel [address] [place], [place] [phone] Health Maintenance Due Date Last Done Comments CT Colonography 1960 FIT DNA/Cologuard 1960 FIT 1960 FOBT 1960 Sigmoidoscopy 1960 Derm Melanoma Skin Check 1960 RSV Patients and Patients Aged 60 years or older (1 - Risk 50-74 years 1-dose series) 2009 Dental Oral Exam 01/24/2025 07/26/2024 Dental Prophylaxis 01/24/2025 07/26/2024 COVID-19 Vaccine ( season) 2025 05/07/2021, 10/17/2020, 09/19/2020 Alcohol/Substance Use Screening 07/04/2025 07/04/2024 Depression Screening 07/04/2025 07/04/2024, 07/04/19 25 Diabetes: Foot Exam 07/04/2025 07/04/2024, 07/04/2024, 07/04/2024, Additional history exists SDOH Screening 07/04/2025 07/04/2024 Dental X-Ray: Bitewings 07/27/2025 07/26/2024 Mammogram 10/03/2025 10/03/2024, 04/0 05/2023, 08/26/2022, Additional history exists Diabetes: Hemoglobin A1C 11/07/2025 025, 03/19/2025, 07/04/2024, Additional history exists Lipid Panel 03/23/2026 03/23/2025, 07/02, 09/22/2023, Additional history exists HPV/Cotest 03/27/2026 03/27/2025, 03/01, 07/03/2020 Pap Smear 03/27/2026 03/27/2025, 03/01, 07/03/2020 Tobacco Screening 05/09/2026 05/09/2025 Eye Exam 05/11/2026 05/11/2024, 04/30, 05/11/2024, Additional [...] on patient's age to complete this topic Goals Goal Patient Goal Type Associated Problems Recent Progress Patient-Stated? Author Help patients manage their type 2 diabetes Care Plan Help patients manage their type 2 diabetes No Nabila Horner Weekly blood pressure task Care Plan Weekly blood pressure task No Nabila Horner Help patients manage their type 2 diabetes Care Plan Help patients manage their type 2 diabetes No Nabila Horner Patient has chronic kidney disease Care Plan Patient has chronic kidney disease No Nabila Horner Weekly blood pressure task Care Plan Weekly blood pressure task No Nabila Horner Patient has chronic kidney disease Care Plan Patient has chronic kidney disease No Nabila Horner Weekly blood pressure task Care Plan Weekly blood pressure task No Kathryn Arredondo MA Weekly blood pressure task Care Plan Weekly blood pressure task No Kathryn Arredondo [place] Patient has chronic kidney disease Care Plan Patient has chronic kidney disease No Kathryn Arredondo [place] Patient has chronic kidney disease Care Plan Patient has chronic kidney disease No Kathryn Arredondo MA Weekly blood pressure task Care Plan Weekly blood pressure task No Kathryn Arredondo MA Weekly blood pressure task Care Plan Weekly blood pressure task No Kathryn Arredondo MA Patient has chronic kidney disease Care Plan Patient has chronic kidney disease No Kathryn Arredondo MA Patient has chronic kidney disease Care Plan Patient has chronic kidney disease No Kathryn Arredondo MA Procedures Procedure Name Priority Date/Time Associated Diagnosis Comments CBC WITH AUTO DIFFERENTIAL Routine 05/28/2025 12:43 PM EST TYPE AND SCREEN Routine 05/28/2025 12:35 PM EST ECG 12-LEAD Routine 05/09/2025 4:30 PM EST Pre-op evaluation POCT GLYCATED HEMOGLOBIN, TOTAL Routine 05/09/2025 3:02 PM EST Type 2 diabetes mellitus with other specified complication, without long-term current use of insulin (HCC) POCT GLUCOSE (CPT-55390) Routine 05/09/2025 3:00 PM EST Type 2 diabetes mellitus with other specified complication, without long-term current use of insulin (HCC) BASIC METABOLIC PANEL Routine 05/07/2025 12:55 PM EST CBC Routine 05/07/2025 12:55 PM EST MRSA NASAL SCREEN Routine 05/07/2025 11: 45 AM EST PAP SMEAR Routine 03/27/2025 4:00 PM EDT Cervical cancer screening HPV DNA, LOW/HIGH RISK Routine 4:00 PM [...] current use of insulin (HCC) POCT GLUCOSE (CPT-69115) Routine 03/19/2025 2:49 PM EDT Type 2 [...] ESTABLISHED PATIENT Routine 07/26/2024 10:00 AM EST HM COLONOSCOPY Routine 01/30/2022 12:52 PM EDT NIKKI HISTORICAL HEPATITIS C AB W/REFL TO HCV RNA, QN, PCR Routine 06/18/2021 9:03 AM EST from Last 3 Months or Most Recently Relevant to Health Maintenance Results * (ABNORMAL) CBC auto differential (05/28/2025 12:43 PM EST) White Blood Count 9.3 4.8 - 10.8 X10*3/uL [facility] Red Blood Count 4.84 4.20 - 5.50 X10*6/uL [facility] Hemoglobin 13.0 12.0 - 16.0 g/dl [facility] Hematocrit 40.7 37.0 - 47.0 % [facility] Mean Corpuscular Volume 84.1 80.0 - 98.0 fL [facility] Mean Corpuscular Hemoglobin 26.9(L) 27.0 - 33.0 pg [facility] Mean Corpuscular HGB Conc 31.9 31.0 - 35.0 g/dl [facility] Red Cell Distribution Width 13.9 11.0 - 16.0 % [facility] Platelet Count 189 160 - 400 X10*3/uL [facility] Mean Platelet Volume 11.3 9.4 - 12.3 fL [facility] Neutrophils Percent Auto 72.9 45 - 73 % [facility] Imm Gran Pct Auto 0.4 0.0 - 0.4 % [facility] Lymphocytes Percent Auto 20.8 20 - 40 % [facility] Monocytes Percent Auto 5.4 2 - 11 % [facility] Eosinophils Percent Auto 0.1 0 - 4 % [facility] Basophils Percent Auto 0.4 0 - 2 % [facility] NRBC Pct Auto 0.0 0.0 - 0.2 /100WBC [facility] Neutrophils Absolute Auto 6.8 2.0 - 8.3 x10*3/uL [facility] Imm Gran Abs Auto 0.04(H) 0.00 - 0.03 X10*3/uL [facility] Lymphocytes Absolute Auto 1.9 1.2 - 4.9 X10*3/uL [facility] Monocytes Absolute Auto 0.5 0.1 - 1.2 X10*3/uL [facility] Eosinophils Absolute Auto 0.0 0.0 - 0.4 X10*3/uL [facility] Basophils Absolute Auto 0.0 0.0 - 0.2 X10*3/uL [facility] NRBC Abs Auto 0.000 0.0 - 0.012 X10*3/uL [facility] 05/28/2025 12:4 3 PM EST 05/28/2025 12:43 PM EST Generic External Data Provider LAB BLOOD ORDERAB LES Final Result [facility] [address] [place] [address] [phone] * ECG 12 lead (05/09/2025 4:30 PM EST) Narrative Name, MD Daniel - 05/09/2025 4:30 PM EST Slow sinus rhythm. Heart rate of 58. No ST segment elevation or depression. No changes from baseline EKG. Daniel Avalos MD ECG ORDERABLES Final Result * (ABNORMAL) POCT Hgb A1c (05/09/2025 3:02 PM EST) Only the most recent of2 resultswithin the time period is included. [facility] Hemoglobin A1C 6.8(A) 4.0 - 5.7 % QC Media Lot # [id number] Lot# Expiration Date Blood 05/09/2025 3:02 PM EST Daniel Avalos MD POINT OF CARE TEST ENTER/EDIT OR DERABLES Final Result * (ABNORMAL) POCT Glucose (05/09/2025 3:00 PM EST) Only the most recent of2 resultswithin the time period is included. Glucose Blood, POC 230(A) 60 - 200 mg/dL [employer] Media Lot # [id number] Lot# Expiration Date [id number] Blood Capillary blood specimen / Unknown 05/09/2025 3:00 PM EST us Adniel Name MD POINT OF CARE TEST ENTER/EDIT OR DERABLES Final Result * (ABNORMAL) CBC (05/07/2025 12:55 PM EST) White Blood Count 9.2 4.8 - 10.8 X10*3/uL [facility] Red Blood Count 4.92 4.20 - 5.50 X10*6/uL [facility] Hemoglobin 13.2 12.0 - 16.0 g/dl [facility] Hematocrit 42.1 37.0 - 47.0 % [facility] Mean Corpuscular Volume 85.6 80.0 - 98.0 fL [facility] Mean Corpuscular Hemoglobin 26.8(L) 27.0 - 33.0 pg [facility] Mean Corpuscular HGB Conc 31.4 31.0 - 35.0 g/dl [facility] Red Cell Distribution Width 14.0 11.0 - 16.0 % [facility] Platelet Count 203 160 - 400 X10*3/uL [facility] Mean Platelet Volume 11.1 9.4 - 12.3 fL [facility] NRBC Pct Auto 0.0 0.0 - 0.2 /100WBC [facility] NRBC Abs Auto 0.000 0.0 - 0.012 X10*3/uL [facility] 05/07/2025 12:5 5 PM EST 05/07/2025 12:55 PM EST us Generic External Data Provider LAB BLOOD ORDERAB LES Final Result [facility] [address] [place] [phone] [phone] * (ABNORMAL) Basic Metabolic Panel (05/07/2025 12:55 PM EST) Sodium 144 135 - 145 mmol/L [facility] Potassium 3.8 3.3 - 5.1 mmol/L [facility] Chloride 108 96 - 108 mmol/L [facility] Carbon Dioxide 29 22 - 29 mmol/L [facility] Anion Gap 11(L) 12 - 20 [facility] Urea Nitrogen (BUN) 17(H) 9 - 16 mg/dL [facility] Creatinine, Serum 0.67 0.5 - 1.4 mg/dL [facility] Creatinine Clr Calc Pharmacy 72.4 [facility] Comment:Provided height and weight: 152.4 cm,70.76 kg.eGFR (calculated from the MDRD study equation) and eCrCl(calculated from the Cockcroft-Gault equation) are based ondifferent parameters and may not yield comparable results.If eCrCl result is absurd, please check patient'sheight/weight. Estimated Glomerular Filt Rate >60 [facility] Comment:Chronic Kidney Disea se: Estimated GFR < 60 mL/min/1.40x0Itxphj Kidney Disease: Estimated GFR < 15 mL/min/1.73m2 Glucose 184(H) 60 - 115 mg/dL [facility] Calcium 9.6 8.4 - 10.2 mg/dL [facility] 05/07/2025 12:5 5 PM EST 05/07/2025 12:55 PM EST us Generic External Data Provider LAB BLOOD ORDERAB LES Final Result [facility] [address] [place] [address] [phone] * MRSA Nasal Screen (05/07/2025 11:45 AM EST) MRSA Nasal PCR NEGATIVE Negative [facility] SA Nasal PCR NEGATIVE Negative [facility] MRSA Interpretation SEE NOTE [facility] Comment:MRSA target DNA not detected; SA target DNA not detected.A MRSA NEGATIVE, SA NEGATIVE test result does not precludeMRSA or SA nasal colonization. 05/07/2025 11:4 5 AM EST 05/07/2025 12:46 PM EST Generic External Data Provider LAB MICROBIOLOGY - GENERAL ORDERABLES Final Result Performing Organization Address City/[facility]/ZIP Co de Phone Number [facility] [address] [place] [phone] * HPV DNA, Low/High Risk (03/27/2025 4:00 PM EDT) HPV High Risk Negative Negative [facility] HPV Genotype 16 Negative Negative [facility] HPV Genotype 18 Negative Negative [facility] Comment:HPV testing performe d at [facility] (CLIA#[id number]), [address] [place] [address].Testing for HPV was performed using the [place] [...] PM EDT 03/28/2025 8:26 AM EDT us Patricio SANTORO LAB BLOOD ORDERABLES Oly l Result Performing Organization Address City/[facility]/ZIP Co de Phone Number [facility] [address] [place] [phone] * Pap Smear (03/27/2025 4:00 PM EDT) Swab Cervix uteri structure / Unknown 03/27/2025 4:00 PM EDT 03/28/2025 7:45 AM EDT Wesley [facility] - 04/04/2025 11:40 AM EST ----- ------- Name: Susanna Broussard Age/Sex: 65/F : 1960 Unit#: [id number] Attend Dr: PATRICIO ROBLEDO CNM Re03/28/25 Status: DEP REF Location: [facility] Disch: ----- ------- SPEC : [id number] RECD: 03/28/25 STATUS: BELIA ALTAGRACIA NUM: [id number] LAMAR: 03/27/25-[address]: PATRICIO ROBLEDO ENTERED: 03/28/25 SP TYPE: Pap Smr OTHR : ORDERED: Pap Smear Interpretation Satisfactory for evaluation. Negative for intraepithelial lesion or malignancy. Coccobacilli consistent with shift in vaginal omar. HPV High Risk: Negative HPV Genotyping 16: Negative HPV Genotyping 18: Negative Clinical Information LMP: postmenopausal Previous PAP test: NIL HPV+ 2023 Other surgery: Other history: Material Received ThinPrep-Cervical ----- ------- Signed (signature on file) SHARON Sol[employer]ario ([facility]) 04/04/25 1140 ----- ------- END OF REPORT Patricio SANTORO LAB CYTOLOGY ORDERABLES F inal Result Performing Organization Address [facility] Co de Phone Number [facility] [address] [place] [phone] * (ABNORMAL) Albumin, Random Urine W/Creatinine (03/23/2025 9:40 AM EDT) Creatinine, Urine 78.73 mg/dL [facility] Microalbumin Urine 48.0 mg/L H [facility] Microalbum Creatinine Ratio Ur 60.9(H) <30 ug/mg cr [facility] Comment:Albumin/Creatinine R atio Reference Ranges: Normal: < 30 ug/mg creatinine Microalbuminuria: 30 - 300 ug/mg creatinineClinical Albuminuria: > 300 ug/mg creatinine Urine (Urine, Random) 03/23/2025 9:40 AM EDT 03/23/2025 2:20 PM EDT Daniel Avalos MD LAB URINE ORDERABLES Final Resul t Performing Organization Address [facility] Co de Phone Number [facility] [address] [place] [address] [phone] * Lipid Panel, Standard (03/23/2025 9:36 AM EDT) Triglycerides 81 <150 mg/dL [facility] Comment:Desirable Triglyceri de: less than 150 mg/dLBorderline High Triglyceride 150-199 mg/dLHigh Triglyceride: 200-499 mg/dLVery High Triglyceride: greater than or equal to 5OO mg/dL Cholesterol 159 <200 mg/dL [facility] Comment:Desirable Cholestero l: less than 200 mg/dLBorderline High Cholesterol: 200-239 mg/dLHigh Cholesterol: greater than 239 mg/dL LDL Cholesterol Calculated 86 <100 mg/dL [facility] Comment:Desirable LDL: less than 100 mg/dLNear Optimal/Above Optimal LDL: 110- 129 mg/dLBorderline High LDL: 130-159 mg/dLHigh LDL: 160-189 mg/dLVery High LDL: greater than or equal to 190 mg/dL HDL Cholesterol 57 >40 mg/dL [facility] Comment:Desirable HDL: great er than 40 mg/dL Note: This HDL assay may give artificially low results in patients with liver disease. Blood Venous blood specimen / Unknown 03/23/2025 9:36 AM EDT 03/23/2025 2:31 PM EDT us Daniel Name MD LAB BLOOD ORDERABLES Final Resul t [facility] [address] [place] [address] [phone] * (ABNORMAL) Comprehensive Metabolic Panel (03/23/2025 9:36 AM EDT) Sodium 141 135 - 145 mmol/L [facility] Potassium 3.4 3.3 - 5.1 mmol/L [facility] Chloride 106 96 - 108 mmol/L [facility] Carbon Dioxide 25 22 - 29 mmol/L [facility] Anion Gap 13 12 - 20 [facility] Urea Nitrogen (BUN) 13 9 - 16 mg/dL [facility] Creatinine, Serum 0.58 0.5 - 1.4 mg/dL [facility] Estimated Glomerular Filt Rate >60 [facility] Comment:Chronic Kidney Disea se: Estimated GFR < 60 mL/min/1.90i6Vpdekm Kidney Disease: Estimated GFR < 15 mL/min/1.73m2 Glucose 174(H) 60 - 115 mg/dL [facility] Calcium 9.3 8.4 - 10.2 mg/dL [facility] Bilirubin, Total 0.7 0.0 - 1.0 mg/dL [facility] Aspartate Amino Transferase 31 5 - 31 U/L [facility] Alanine Aminotransferase 19 0 - 31 U/L [facility] Total Protein 7.8 6.5 - 8.0 g/dL [facility] Albumin Level 4.9 3.5 - 5.0 g/dL [facility] Alkaline Phosphatase 115 39 - 117 U/L [facility] Blood Venous blood specimen / Unknown 03/23/2025 9:36 AM EDT 03/23/2025 2:31 PM EDT Daniel Avalos MD LAB BLOOD ORDERABLES Final Resul t Performing Organization Address City/State/[facility] Co de Phone Number [facility] [address] [place] [phone] * BI Mammogram Screening Tomosynthesis Bilateral (10/03/2024 10:45 AM EDT) Anatomical Region Laterality Modality Breast Bilateral Mammography 10/03/2024 10:4 5 AM EDT Narrative 10/08/2024 9:49 PM EDT [facility] [address] [place] [address] Mammography Report Signed Patient: Susanna Broussard MR#: [id number] 65 : 1960 Acct:[id number] Age/Sex: 64 / F ADM Date: 10/03/24 Loc: [facility] Attending Dr: Daniel Avalos MD Ordering Physician: Daniel Avalos MD Results: 1Negative Date of Service: 10/03/24 Follow Up: 1 Year From Orig inal Mammogram Procedure(s): MM tomosynthesis screening BI Accession Number(s): [id number] cc: Daniel Avalos MD EXAMINATION: MM SCREENING [...] 10/08/24 2146 DD/ 1045 TD/TT: 10/03/24 1105 Utility Clerk: Procedure Note Donotuseinterpreter, Image - 10/08/2024 [facility] [address] [place] [address] Mammography Report Signed Patient: Virginie Broussard#: [id number] 65 : 9Acct:[id number] Age/Sex: 64 / FADM Date: 10/03/24 Loc: HO.MAMMO Attending Dr: Daniel Avalos MD Ordering Physician: Daniel Avalos MDResults: 1Negative Date of Service: 10/03/24Follow Up: 1 Year From Orig inal Mammogram Procedure(s): MM tomosynthesis screening BI Accession Number(s): [id number] cc: Daniel Avalos MD EXAMINATION: MM SCREENING [...] 10/08/24 2146 DD/ 1045 TD/TT: 10/03/24 1105 Utility Clerk: Daniel Name IMG BI PROCEDURES Final Result * Hm Colonoscopy (01/30/2022 12:52 PM EDT) [...] a test for HCV RNA (test code 47693) is suggested. For additional information please refer to http://education.[employer]/faq/XJX35t8 (This link is being provided for informational/ educational purposes only.) 06/18/2021 9:03 AM EST us Crystal Atkinson NP HISTORICAL/NON ORDERABLE LABS F inal Result [facility] [address] from Last 3 Months or Most Recently Relevant to Health Maintenance Additional Health Concerns Active Problems Noted Date Diagnosed Date Help patients manage their type 2 diabetes 04/20 Weekly blood pressure task 04/20/2025 Help patients manage their type 2 diabetes 04/20 Patient has chronic kidney disease 04/20/2025 Weekly blood pressure task 04/20/2025 Patient has chronic kidney disease 04/20/2025 Weekly blood pressure task 05/08/2025 Weekly blood pressure task 05/08/2025 Patient has chronic kidney disease 05/08/2025 Patient has chronic kidney disease 05/08/2025 Weekly blood pressure task 05/08/2025 Weekly blood pressure task 05/08/2025 Patient has chronic kidney disease 05/08/2025 Patient has chronic kidney disease 05/08/2025 Insurance [facility] (O D-SNP) STEVEN TAYLOR [phone] D[facility]AL - [facility] Care Teams Vp Ad Products And Planning Relationship Specialty Start Date End Date Name, MD Daniel [address] [place] [phone] PCP - General Internal Medicine 08/18/22
--- OUTSIDE RECORDS SUMMARY | 2025-05-28 13:24 | XMS_ITS | Encounter Summary ---
Author Organization [facility] Prior to 03/31/2024 Address [address] [facility] [place] [address] Care Team Providers Care Carousel Operator Name Role Phone Community, Pcp Primary Care Provider Dena Vinson NP Primary Care Provider Diaz Hernandez, Pcp Primary Care Provider Luis polo Encounter Details Date Type Department Care Team Description 06/16/2017 Release of Information Medical Records [address] [place] [address] [place] [address] Abstract, Provider Social History Tobacco Use Types [...] on filedocumented in this encounter Care Teams Carousel Operator Relationship Specialty Start Date End Date Community, Pcp PCP - General Internal Medicine 04/14/17 04/28/18 Dena Bellamy NP PCP - General Family Practice 04/29/18 10/02/21 Community, Pcp PCP - General Internal Medicine 10/03/21 documented as of this encounter
--- OUTSIDE RECORDS SUMMARY | 2025-05-28 13:24 | XMS_ITS | Encounter Summary ---
Author Organization [employer] Address [address] [facility] 7t [place] [address] Care Team Providers Care Grain I Farmworker Name Role Phone Samaria Butler TERRELL Primary Care Provider [phone] Mookie Powers Primary Care Provider Unavail able Daniel Avalos MD Primary Care Provider [phone] Reason for Visit * Reason Comments Med Refill Encounter Details Date Type Department Care Team (Late st Contact Info) Description 05/22/2022 Refill [facility] MEDICINE [address] [place] [address] Daniel Avalos MD 230 [place] [address] Social History Tobacco Use Types Packs/Day Years [...] Department Care Team (Late Contact Info) Description 07/05/2025 2:00 PM EST Office Visit [facility] OPTOMETRY 267 [place], [place] [phone] Jannet Hernandez, VALERIA 230 [place] [address] 08/13/2025 1:30 PM EDT Office Visit [facility] MEDICINE 230 [place] [address] Daniel vAalos MD [address] [place] [address] documented as of this encounter Visit Diagnoses Not on filedocumented in this encounter Care Teams Grain I Farmworker Relationship Specialty Start Date End Date Samaria Butler FNP [address] [place] [address] PCP - General Family Medicine 01/22/22 08/05/22 Mookie Powers AGNP [address] [place] [address] PCP - General Family Medicine 08/06/22 08/17/22 Name, MD Daniel [address] [place] [address] PCP - General Internal Medicine 08/18/22 documented as of this encounter
--- OUTSIDE RECORDS SUMMARY | 2025-05-28 13:24 | XMS_ITS | Encounter Summary ---
Author Organization [employer] Address [address] [facility] 7t [place] [address] Care Team Providers Care Aircraft Engine Installer Name Role Phone Name, Daniel PINA Primary Care Provider [phone] Reason for Visit * Reason Onset Date Comments Med Refill 04/15/2023 Encounter Details Date Type Department Care Team (Late st Contact Info) Description 04/15/2023 Telephone [facility] MED[facility]INE 230 [place], [place] [phone] Name, MD Daniel 230 [place] [address] Med Refill Social History Tobacco Use Types [...] Sodium 1 % gel [facility] #[id number] documented in this encounter Plan of Treatment Upcoming Encounters Date Type Department Care Team (Late st Contact Info) Description 07/05/2025 2:00 PM EST Office Visit [facility] OPTOMETRY [address] [place] [address] Jannet Hernandez, OD 230 [place] [address] 08/13/2025 1:30 PM EDT Office Visit [facility] 230 [place], [place] [phone] Name, MD Daniel 230 [place] [address] documented as of this encounter Visit Diagnoses Not on filedocumented in this encounter Additional Health Concerns Assessment Noted Time PHQ-9 Depression Total Score: 0 11/05/19 23 8:49 AM EDT documented as of this encounter Care Teams Aircraft Engine Installer Relationship Specialty Start Date End Date Name, MD Daniel 230 [place] [address] PCP - General Internal Medicine 08/18/22 documented as of this encounter
--- OUTSIDE RECORDS SUMMARY | 2025-05-28 13:24 | XMS_ITS | Encounter Summary ---
Author Organization [employer] Address 75 [facility] 7t [place] [address] Care Team Providers Care Auditor Supervisor Name Role Phone Name, Daniel PINA Primary Care Provider [phone] Reason for Visit * Reason Comments Med Refill Encounter Details Date Type Department Care Team (Late Contact Info) Description 11/27/2022 Refill [facility] MEDICINE 230 [place], [place] [phone] Name, MD Daniel 230 [place] [address] Social History Tobacco Use Types Packs/Day Years [...] Description 07/05/2025 2:00 PM EST Office Visit [facility] OPTOMETRY 267 [place], [place] [phone] David Jannet, OD 230 [place] [address] 08/13/2025 1:30 PM EDT Office Visit [facility] MEDICINE 230 [place] [address] Name, MD Daniel 230 [place] [address] documented as of this encounter Visit Diagnoses Not on filedocumented in this encounter Additional Health Concerns Assessment Noted Time PHQ-9 Depression Total Score: 0 11/05/19 8:49 AM EDT documented as of this encounter Care Teams Auditor Supervisor Relationship Specialty Start Date End Date Name, MD Daniel [address] [place] [address] PCP - General Internal Medicine 08/18/22 documented as of this encounter
--- OUTSIDE RECORDS SUMMARY | 2025-05-28 13:24 | XMS_ITS | Encounter Summary ---
Author Organization [employer] Address 75 [facility] 7t [place] [address] Care Team Providers Care Certified Coder Name Role Phone Name, Daniel PINA Primary Care Provider [phone] Reason for Visit * Reason Onset Date Comments Pre-op Exam 10/14/2022 Encounter Details Date Type Department Care Team (Late st Contact Info) Description 10/14/[address] [facility] MEDICINE [address] [place] [address] [phone] Name, MD Daniel 230 [place] [address] Pre-op Exam Social History Tobacco Use Types [...] PM EDT Returned [place] Tr[place] [facility] Pt is getting a R knee arthroscopy date tbd with Dr Gusman. Pt will needs labs and EKG and will be under general anesthesia. Notes determining what is needed prior to surgery will be faxed to [facility]. Pt scheduled with PCP on 11/04/22. Ortho will notify pt. * Telephone Encounter - Zehra Be - 10/14/2022 9:38 AM EDT Jonathan Mena at [facility] Pre Op Location: [address] [address] Procedure: right knee arthroscopy Date of Procedure: not yet but usually in a month after they get the pre-op date Lab: required yes (faxing them over) EKG: required yes (faxing it over) Type of Anesthesia : General documented in this encounter Plan of Treatment Upcoming Encounters Date Type Department Care Team (Late st Contact Info) Description 07/05/2025 2:00 PM EST Office Visit [facility] OPTOMETRY 267 [place] [address] David, Jannet, OD 230 [place] [address] 08/13/2025 1:30 PM EDT Office Visit [facility] MEDICINE 230 [place] [address] Name, MD Daniel [address] [place] [address] documented as of this encounter Visit Diagnoses Not on filedocumented in this encounter Care Teams Certified Coder Relationship Specialty Start Date End Date Name, MD Daniel [address] [place] [address] PCP - General Internal Medicine 08/18/22 documented as of this encounter
--- OUTSIDE RECORDS SUMMARY | 2025-05-28 13:24 | XMS_ITS | Encounter Summary ---
Author Organization [employer] Address [address] [facility] [address] 7t [place] [address] Care Team Providers Care Can Dryer Name Role Phone Name, Daniel PINA Primary Care Provider [phone] Reason for Visit * Reason Comments Med Refill Encounter Details Date Type Department Care Team ([facility] st Contact Info) Description 03/18/2023 Refill [facility] 230 [place] [address] Samaria Butler FNP [address] [place] [address] Social History Tobacco Use Types Packs/Day Years [...] Office Visit [facility] OPTOMETRY [address] [place] [address] David, Jannet, OD 230 [place] [address] 08/13/2025 1:30 PM EDT Office Visit [facility] 230 [place] [address] Name, MD Daniel 230 [place] [address] documented as of this encounter Visit Diagnoses Not on filedocumented in this encounter Additional Health Concerns Assessment Noted Time PHQ-9 Depression Total Score: 0 11/05/19 23 8:49 AM EDT documented as of this encounter Care Teams Can Dryer Relationship Specialty Start Date End Date NameDaniel MD 230 [place] [address] PCP - General Internal Medicine 08/18/22 documented as of this encounter
--- OUTSIDE RECORDS SUMMARY | 2025-05-28 13:24 | XMS_ITS | Encounter Summary ---
Author Organization [facility], Address [address] [place] [address] Phone Care Team Providers Care Scallop Shucker Name Role Phone Dena Bellamy NP Primary Care Provider [phone] Encounter Details Date Type Department Care Team (Late st Contact Info) Description 12/09/2021 Documentation Only [facility], [address] [place] [address] Maximiliano Christopher MD [address] [facility] [place] [phone] Social History Tobacco Use Types Packs/Day Years [...] on filedocumented in this encounter Care Teams Scallop Shucker Relationship Specialty Start Date End Date Dena Bellamy NP PCP - General 04/04/19 documented as of this encounter
--- OUTSIDE RECORDS SUMMARY | 2025-05-28 13:24 | XMS_ITS | Encounter Summary ---
Author Organization [employer] Address [address] [facility] 7t [place] [address] Care Team Providers Care Landscape Painter Name Role Phone Name, Daniel PINA Primary Care Provider [phone] Reason for Visit * Reason Comments Med Refill Encounter Details Date Type Department Care Team ([facility] st Contact Info) Description 05/22/2024 Refill [facility] MEDICINE 230 [place], [place] [phone] Name, MD Daniel 230 [place] [address] Gastroesophageal reflux disease without esophagitis Social History [...] t he electric, gas, oil or water [employer] threatened to shut off services in your [...] Description 07/05/2025 2:00 PM EST Office Visit [facility] OPTOMETRY [address] [place] [address] David, Jannet, OD 230 [place] [address] 08/13/2025 1:30 PM EDT Office Visit [facility] MEDICINE 230 [place] [address] Name, MD Daniel [address] [place] [address] documented as of this encounter Visit Diagnoses Diagnosis Gastroesophageal reflux disease without esophagitis Esophageal reflux documented in this encounter Additional Health Concerns Assessment Noted Time PHQ-9 Depression Total Score: 0 11/05/19 23 8:49 AM EDT documented as of this encounter Care Teams Landscape Painter Relationship Specialty Start Date End Date NameDaniel MD 230 [place] [address] PCP - General Internal Medicine 08/18/22 documented as of this encounter
--- OUTSIDE RECORDS SUMMARY | 2025-05-28 13:24 | XMS_ITS | Encounter Summary ---
Author Organization [employer] Address [address] [facility] 7t [place] [address] Care Team Providers Care Cytotechnologist Name Role Phone Name, Daniel PINA Primary Care Provider [phone] Encounter Details Date Type Department Care Team ([facility] Contact Info) Description 11/11/2022 Abstract [facility] MEDICINE 230 [place], [place] [phone] Name, MD Daniel 230 [place] [address] Social History Tobacco Use Types Packs/Day Years [...] Upcoming Encounters Date Type Department Care Team ([facility] Contact Info) Description 07/05/2025 2:00 PM EST Office Visit [facility] OPTOMETRY [address] [place], [place] [phone] Jannet Hernandez, OD 230 [place] [address] 08/13/2025 1:30 PM EDT Office Visit [facility] [place] [phone] Name, MD Daniel [address] [facility] [place] [address] documented as of this encounter Procedures Procedure [...] documented as of this encounter Care Teams Cytotechnologist Relationship Specialty Start Date End Date Name, MD Daniel [facility] [place] [phone] PCP - General Internal Medicine 08/18/22 documented as of this encounter
--- OUTSIDE RECORDS SUMMARY | 2025-05-28 13:24 | XMS_ITS | Encounter Summary ---
Author Organization [employer] Address [address] [facility] [address] 7t [place] [address] Care Team Providers Care Surveillance System Monitor Name Role Phone Name, Daniel PINA Primary Care Provider [phone] Encounter Details Date Type Department Care Team ([facility] st Contact Info) Description 04/04/2025 Results Follow-Up [facility] MEDICINE 230 [place], [place] [phone] Esther Lentz CNM 230 [place] [address] Pap Smear Social History Tobacco Use Types Packs/Day Years [...] as of this encounter Miscellaneous Notes * Result Encounter Note - Esther Lentz CNM - 04/04/2025 11:43 AM EST Please let Susanna know her pap was normal/HPV negative. This is great - we can repeat both in 1 year. Thanks! documented in this encounter Plan of Treatment Upcoming Encounters Date Type Department Care Team (Late st Contact Info) Description 07/05/2025 2:00 PM EST Office Visit [facility] OPTOMETRY [address] [place] [address] David, Jannet, OD 230 [place] [address] 08/13/2025 1:30 PM EDT Office Visit [facility] MEDICINE 230 [place] [address] Name, MD Daniel 230 [place] [address] documented as of this encounter Visit Diagnoses Not on filedocumented in this encounter Additional Health Concerns Assessment Noted Time PHQ-9 Depression Total Score: 0 07/04/19 25 1:51 PM EST documented as of this encounter Care Teams Surveillance System Monitor Relationship Specialty Start Date End Date NameDaniel MD [address] [place] [address] PCP - General Internal Medicine 08/18/22 documented as of this encounter
--- OUTSIDE RECORDS SUMMARY | 2025-05-28 13:24 | XMS_ITS | Encounter Summary ---
Author Organization [employer] Address [address] [place] [address] 7t [place] [address] Care Team Providers Care Author'S Agent Name Role Phone Name, Daniel PINA Primary Care Provider [phone] Reason for Visit * Reason Comments Med Refill Encounter Details Date Type Department Care Team (Late st Contact Info) Description 01/22/[address] [facility] MEDICINE 230 [place], [place] [phone] Name, MD Daniel 230 [place] [address] Type 2 diabetes mellitus with other specified complication, unspecified whether mcc insulin use ([facility]) Social History Tobacco Use Types Packs/Day Years [...] Description 07/05/2025 2:00 PM EST Office Visit [facility] OPTOMETRY 267 [place], [place] [phone] Jannet Hernandez, OD 230 [place], [place] [phone] 08/13/2025 1:30 PM EDT Office [facility] MEDIC[facility] [address] [facility] [place] [address] Name, MD Daniel G[facility] [place] [address] documented as of this encounter Visit Diagnoses Diagnosis Type 2 diabetes mellitus with other specified complication, unspecified whether long term care administrator insulin use (HCC) documented in this encounter Additional Health Concerns Assessment Noted Time PHQ-9 Depression Total Score: 0 11/05/19 8:49 AM EDT documented as of this encounter Care Teams Author'S Agent Relationship Specialty Start Date End Date Name, MD Daniel [facility] [place] [address] PCP - General Internal Medicine 08/18/22 documented as of this encounter
--- OUTSIDE RECORDS SUMMARY | 2025-05-28 13:24 | XMS_ITS | Encounter Summary ---
Author Organization [facility] Prior to 03/31/2024 Address [address] [facility] [place] [address] Care Team Providers Care Clinical Appeals Specialist Name Role Phone Dena Bellamy NP Primary Care Provider Unavailab alberts [facility], Pcp Primary Care Provider Unavailformerly [facility] e Encounter Details Date Type Department Care Team Description 04/29/2018 Stitch Bonding Machine Operator Report Medical Records [address] [place] [address] [place] [address] Valeria Fritz Social History Tobacco Use Types Packs/Day Years [...] on filedocumented in this encounter Care Teams Clinical Appeals Specialist Relationship Specialty Start Date End Date Dena Bellamy NP PCP - General Family Practice 04/29/18 10/02/21 [facility], Pcp PCP - General Internal Medicine 10/03/21 documented as of this encounter
--- OUTSIDE RECORDS SUMMARY | 2025-05-28 13:24 | XMS_ITS | Encounter Summary ---
Author Organization [facility] Prior to 03/31/2024 Address [address] [facility] [place] [address] Care Team Providers Care Horse Doctor Name Role Phone Dena Bellamy NP Primary Care Provider Unavailab aristeo [facility], Pcp Primary Care Provider Unavailtheresa e Encounter Details Date Type Department Care Team Description 06/28/2018 Hospital Medical Records [address] [place] [address] [place] [address] Da Robles DO Social History Tobacco Use [...] on filedocumented in this encounter Care Teams Horse Doctor Relationship Specialty Start Date End Date Dena Bellamy NP PCP - General Family Practice 04/29/18 10/02/21 [facility], Pcp PCP - General Internal Medicine 10/03/21 documented as of this encounter
--- OUTSIDE RECORDS SUMMARY | 2025-05-28 13:24 | XMS_ITS | Clinical Summary ---
Author Organization [facility], Address [address] [place] [address] [place] [address] Phone Care Team Providers Care Vehicle Cost Engineer Name Role Phone Dena Bellamy NP Primary Care Provider [phone] Allergies No known active allergies Medications acetaminophen (PHARBETOL) 325 MG tablet Comments: Filled Date: Mar 15 2017 12:00AM Duration: 15 7 Active amLODIPine (NORVASC) 10 MG tablet 0 Active ergocalciferol (VITAMIN D2) 1.25 MG (56981 UT) capsule 9 Active isosorbide mononitrate (IMDUR) [...] Duration: 90 8 07/12/19 Discontinu ed(Med List [facility] e) Active Problems Problem Noted Date Diagnosed [...] PM EST) Hemoglobin A1C 7.3(H) (4-6) % [facility] Comment: HEMOGLOBIN A1C(%) GLUCOSE CONTROL INDEX <6% EXCELLENT 6-7% VERY GOOD 7-8% GOOD 8-10% FAIR >10% POOR Hemoglobin (Hb) A1c testing is performed by [place] [employer]iel-quant immunoassay. Any cause of shortened erythrocyte survival will reduce exposure of erythrocytes to glucose with a consequent decrease in Hb A1c (%). Testing performed or reported by ~[facility], ~a Service of [facility], ~[address] [place] [address]~ Jerzy Julien MD, Forming Machine Tender 06/03/2018 2:30 PM EST us Maximiliano Christopher MD LAB BLOOD ORDERABLES Final Resul t [facility] from Last 3 Months or Most Recently Relevant to Health Maintenance Insurance [facility] [place] [id number] Care Teams Vehicle Cost Engineer Relationship Specialty Start Date End Date Dena Bellamy NP PCP - General 04/04/19
--- OUTSIDE RECORDS SUMMARY | 2025-05-28 13:24 | XMS_ITS | Clinical Summary ---
Author Organization [facility] Prior to 03/31/2024 Address [address] [facility] [place] [address] Care Team Providers Care Telesales Manager Name Role Phone Community, Pcp Primary Care [...] HEPATITIS C SCREENING 1977 CHOLESTEROL SCREENING 1979 MAMMOGRAM 1999 COLON CANCER SCREENING 2009 SHINGLES VACCINE (1 of 2) 2009 DTAP/TDAP/TD (2 - Td or Tdap) 10/31/2019 10/30/2009 BONE DENSITY SCREENING 01/22/2024 PNEUMOCOCCAL VACCINE (2 - PCV) 01/22/2024 05/11/2008 BMI CHECK/ADVISE 05/31/2024 INFLUENZA (#1) 2025 Care Teams Telesales Manager Relationship Specialty Start Date End Date Community, Pcp PCP - General Internal Medicine 10/03/21
--- OUTSIDE RECORDS SUMMARY | 2025-05-28 13:24 | XMS_ITS | Encounter Summary ---
Author Organization [employer] Address [address] [place] [address] 7t [place] [address] Care Team Providers Care Wheat Buyer Name Role Phone Name, Daniel PINA Primary Care Provider [phone] Reason for Visit * Reason Comments Med Refill Encounter Details Date Type Department Care Team ([facility] Contact Info) Description 01/22/2023 Refill [facility] MEDICINE [address] [place] [phone] Mookie Powers AGNP Gastroesophageal reflux disease without [...] Description 07/05/2025 2:00 PM EST Office Visit [facility] OPTOMETRY [address] [place], [place] [phone] Jannet Hernandez, OD 230 [place], [place] [phone] 08/13/2025 1:30 PM EDT Office Visit [facility] MEDICINE 230 [place], [place] [phone] Name, MD Daniel 230 [place] [address] documented as of this encounter Visit Diagnoses Diagnosis Gastroesophageal reflux disease without esophagitis Esophageal reflux documented in this encounter Additional Health Concerns Assessment Noted Time PHQ-9 Depression Total Score: 0 11/05/19 8:49 AM EDT documented as of this encounter Care Teams Wheat Buyer Relationship Specialty Start Date End Date Name, MD Daniel 230 [place] [address] PCP - General Internal Medicine 08/18/22 documented as of this encounter
--- OUTSIDE RECORDS SUMMARY | 2025-05-28 13:24 | XMS_ITS | Encounter Summary ---
Author Organization [employer] Address [address] [facility] 7t [place] [address] Care Team Providers Care Trout Farmer Name Role Phone Name, Daniel PINA Primary Care Provider [phone] Reason for Visit * Reason Onset Date Comments FYI 04/20/2025 Encounter Details Date Type Department Care Team ([facility] st Contact Info) Description 04/20/2025 Telephone [facility] MEDICINE [address] [place], [place] [phone] Name, MD Daniel [address] [place] [address] FYI Social History Tobacco Use Types Packs/Day Years [...] encounter Miscellaneous Notes * Telephone Encounter - Nabila Horner - 04/20/2025 1:18 PM EST Tc from (cca) david whitehead pt it not compliant of medication metFORMIN XR (Glucophage-XR) 500 MG 24 hr tablet empagliflozin (Jardiance) 10 MG documented in this encounter Plan of Treatment Upcoming Encounters Date Type Department Care Team (Late st Contact Info) Description 07/05/2025 2:00 PM EST Office Visit [facility] OPTOMETRY [address] [place] [address] David, Jannet, OD [address] [place] [address] 08/13/2025 1:30 PM EDT Office Visit [facility] MEDICINE [address] [place] [address] Name, MD Daniel [address] [place], [place] [phone] documented as of this encounter Goals Goal Patient Goal Type Associated Problems Recent Progress Patient-Stated? Author Help patients manage their type 2 diabetes Care Plan Help patients manage their type 2 diabetes Nabial Crump Weekly blood pressure task Care Plan Weekly blood pressure task Nabila Crump Help patients manage their type 2 diabetes Care Plan Help patients manage their type 2 diabetes No Nabila Horner Patient has chronic kidney disease Care Plan Patient has chronic kidney disease No Nabila Horner Weekly blood pressure task Care Plan Weekly blood pressure task No Nabila Horner Patient has chronic kidney disease Care Plan Patient has chronic kidney disease No Nabila Horner documented as of this encounter Visit Diagnoses Not on filedocumented in this encounter Additional Health Concerns Active Problems Noted Date Diagnosed Date Help patients manage their type 2 diabetes 04/20 Weekly blood pressure task 04/20/2025 Help patients manage their type 2 diabetes 04/20 Patient has chronic kidney disease 04/20/2025 Weekly blood pressure task 04/20/2025 Patient has chronic kidney disease 04/20/2025 Assessment Noted Time PHQ-9 Depression Total Score: 0 07/04/19 25 1:51 PM EST documented as of this encounter Care Teams Trout Farmer Relationship Specialty Start Date End Date Name, MD Daniel [address] [place] [address] PCP - General Internal Medicine 08/18/22 documented as of this encounter
--- OUTSIDE RECORDS SUMMARY | 2025-05-28 13:24 | XMS_ITS | Encounter Summary ---
Author Organization [facility], Address [address] [place] [address] Phone Care Team Providers Care Health And Wellness Coordinator Name Role Phone Dena Bellamy NP Primary Care Provider [phone] Encounter Details Date Type Department Care Team (Late st Contact Info) Description 10/02/2021 Documentation Only [facility], [address] [place] [address] Crystal Atkinson [address] [place] [address] Social History Tobacco Use Types Packs/Day Years [...] on filedocumented in this encounter Care Teams Health And Wellness Coordinator Relationship Specialty Start Date End Date Dena Bellamy NP PCP - General 04/04/19 documented as of this encounter
--- OUTSIDE RECORDS SUMMARY | 2025-05-28 13:24 | XMS_ITS | Encounter Summary ---
Author Organization [employer] Address [address] [facility] 7t [place] [address] Care Team Providers Care Clinical Services Assistant Name Role Phone Name, Daniel PINA Primary Care Provider [phone] Reason for Visit * Reason Comments Med Refill Encounter Details Date Type Department Care Team ([facility] st Contact Info) Description 04/15/2025 Refill [facility] MEDICINE [address] [place], [place] [phone] Name, MD Daniel [address] [place] [address] Social History Tobacco Use Types Packs/Day Years [...] Description 07/05/2025 2:00 PM EST Office Visit [facility] OPTOMETRY [address] [place] [address] David, Jannet, OD [address] [place] [address] 08/13/2025 1:30 PM EDT Office Visit [facility] MEDICINE [address] [place] [address] Name, MD Daniel [address] [place] [address] documented as of this encounter Visit Diagnoses Not on filedocumented in this encounter Additional Health Concerns Assessment Noted Time PHQ-9 Depression Total Score: 0 07/04/19 25 1:51 PM EST documented as of this encounter Care Teams Clinical Services Assistant Relationship Specialty Start Date End Date Name, MD Daniel [address] [place] [address] PCP - General Internal Medicine 08/18/22 documented as of this encounter
--- OUTSIDE RECORDS SUMMARY | 2025-05-28 13:24 | XMS_ITS | Encounter Summary ---
Author Organization [employer] Address [address] [facility] 7t [place] [address] Care Team Providers Care Lead Pharmacy Technician Name Role Phone Name, Daniel PINA Primary Care Provider [phone] Reason for Visit * Reason Onset Date Comments triage 08/18/2022 Encounter Details Date Type Department Care Team ([facility] st Contact Info) Description 08/18/2022 Telephone [facility] MEDICINE [address] [place], [place] [phone] Mookie Powers AGNP triage Social History Tobacco [...] 08/18/2022 1:29 PM EDT Triage call with [employer] Window [place]ier Helper [place] [id number] Pt reports at 1030pm was laying down [...] pain. Advised Pt to come to the [facility] today and Ptagreed with disposition and [...] Description 07/05/2025 2:00 PM EST Office Visit [facility] OPTOMETRY [address] [place] [address] Jannet Hernandez, OD [address] [place] [address] 08/13/2025 1:30 PM EDT Office Visit [facility] MEDICINE [address] [place] [address] NameDaniel MD [address] [place] [address] documented as of this encounter Visit Diagnoses Not on filedocumented in this encounter Care Teams Lead Pharmacy Technician Relationship Specialty Start Date End Date NameDaniel MD [address] [place] [address] PCP - General Internal Medicine 08/18/22 documented as of this encounter
--- OUTSIDE RECORDS SUMMARY | 2025-05-28 13:24 | XMS_ITS | Encounter Summary ---
Author Organization [employer] Address [address] [place] [address] 7[address] [place] [address] Care Team Providers Care Ticket Printer And Tagger Name Role Phone SuBill guyaristeo TEJADA Primary Care Provider [phone] Mookie Powers Primary Care Provider Unavail able Daniel Avalos MD Primary Care Provider [phone] Encounter Details Date Type Department Care Team (Late st Contact Info) Description 05/04/2022 Abstract [facility] [address] [place] [phone] ProviderParth MD Social History Tobacco Use Types [...] Description 07/05/2025 2:00 PM EST Office Visit [facility] OPTOMETRY [address] [place], [place] [phone] Jannet Hernandez, OD [address] [place] [address] 08/13/2025 1:30 PM EDT Office Visit [facility] MEDICINE [address] [place] [address] Daniel Avalos MD [address] [place] [address] documented as of this encounter Visit Diagnoses Not on filedocumented in this encounter Care Teams Ticket Printer And Tagger Relationship Specialty Start Date End Date Samaria Butler FNP [address] [place] [address] PCP - General Family Medicine 01/22/22 08/05/22 Mookie Powers AGNP [address] [place] [address] PCP - General Family Medicine 08/06/22 08/17/22 Robbie, MD Daniel [address] [place] [address] PCP - General Internal Medicine 08/18/22 documented as of this encounter
--- OUTSIDE RECORDS SUMMARY | 2025-05-28 13:24 | XMS_ITS | Encounter Summary ---
Author Organization [employer] Address [address] [facility] 7t [place] [address] Care Team Providers Care Practice Professional Name Role Phone Name, Daniel PINA Primary Care Provider [phone] Reason for Visit * Reason Comments Med Refill Encounter Details Date Type Department Care Team ([facility] st Contact Info) Description 05/11/2024 Refill [facility] MEDICINE [address] [place], [place] [phone] Name, MD Daniel [address] [place] [address] Social History Tobacco Use Types Packs/Day Years [...] Description 07/05/2025 2:00 PM EST Office Visit [facility] OPTOMETRY [address] [place] [address] David, Jannet, OD [address] [place] [address] 08/13/2025 1:30 PM EDT Office Visit [facility] MEDICINE [address] [place] [address] Name, MD Daniel [address] [place] [address] documented as of this encounter Visit Diagnoses Not on filedocumented in this encounter Additional Health Concerns Assessment Noted Time PHQ-9 Depression Total Score: 0 11/05/19 23 8:49 AM EDT documented as of this encounter Care Teams Practice Professional Relationship Specialty Start Date End Date NameDaniel MD [address] [place] [address] PCP - General Internal Medicine 08/18/22 documented as of this encounter
== END 2025-05-28 15:58 | disposition home or self-care (01) ==
LOC: HO.HOS 11:26
PROVIDERS: PCP Internal Medicine Geriatric Medicine; Visit Provider Physician Assistant
DX: M17.12 Unilateral primary osteoarthritis, left knee (principal)
CPT/HCPCS: 99024